=== PATIENT | female | born 1950 | race Caucasian/White ===

== ENCOUNTER 2020-05-02 15:35 | Outpatient (REF) | payer MEDICARE, OTHER, SELFPAY ==
--- NOTE | 2020-05-02 | MM_ITS ---
EXAMINATION: MM SCREENING DIGITAL BREAST TOMOSYNTHESIS, BILATERAL CLINICAL INFORMATION: Screening. Asymptomatic. The lifetime risk of breast cancer based on the Tyrer-Cuzick Model is 2%. COMPARISON: Mammography: 03/15/2019, 09/14/2017, 03/12/2017, 09/03/2016, 08/13/2016 TECHNIQUE: Digital breast tomosynthesis is performed in both the craniocaudal and mediolateral oblique views along with computer-aided detection (CAD). Synthesized 2D images are generated from the tomosynthesis. FINDINGS: There are scattered areas of fibroglandular density (ACR BI-RADS breast composition Category b). There are no significant masses, abnormal calcifications, or other abnormalities. There are chronic calcifications mid and posterior outer right breast which are stable to decreased. MM/MM tomosynthesis screening BI IMPRESSION: No significant changes from prior studies. ASSESSMENT: BI-RADS 2: Benign RECOMMENDATION: Routine annual mammography screening. This patient's information was entered into a reminder system with a target due date for their next mammogram.
== END 2020-05-02 15:36 | disposition home or self-care (01) ==
LOC: HO.MAMMO 15:35
PROVIDERS: PCP Internal Medicine; Visit Provider Internal Medicine
DX: Z12.31 Encounter for screening mammogram for malignant neoplasm of breast (principal)
CPT/HCPCS: 77063; 77067

== ENCOUNTER 2020-05-23 08:16 | Day surgery (SDC) | payer MEDICARE, OTHER, SELFPAY ==
[2020-05-16 14:41] VITALS: BMI 21.7
--- NOTE | 2020-05-22 09:06 | HO.ANESPROP2 ---
Documented by User: Cee Bonilla 05/22/20 09:06 HPI - Anesthesia Eval Consult details Narrative: 70yo F for Colonoscopy [facility] Past Medical History Medical History Basal cell carcinoma Hypertriglyceridemia IFG (impaired fasting glucose) Osteopenia Surgical History Surgical History History of right oophorectomy Hx of colonoscopy Hx of wisdom tooth extraction Social History Social History Alcohol intake: current Alcohol intake frequency: a few times a month Smoking Status: Never smoker Use of substances other than those prescribed or required for medical reasons: No Advance Directives: No Advance Directives Information Provided: No Advance Directives on File: No Meds Allergies Allergy/AdvReac Type Severity Reaction Status Date / Time Penicillins [PENICILLINS] AdvReac Mild GI UPSET Unverified 03/08/20 18:39 Home Medications Medication Instructions Recorded Confirmed Type ascorbic acid (vitamin C) [Vitamin 500 mg PO DAILY 05/16/20 05/16/20 History C] aspirin [Aspir-81] 81 mg PO 3XW 05/16/20 05/16/20 History calcium carbonate-vitamin D3 1 tab PO DAILY 05/16/20 05/16/20 History [Calcium 500 + D] multivitamin 1 tab PO DAILY 05/16/20 05/16/20 History omega 9-isz-qwz-fish oil [Fish Oil] 1 cap PO BID 05/16/20 05/16/20 History Exam Exam Date and Time: May 22, 2020 0906 Height,Weight and Vital Signs: Height 5 ft 1 in Weight 52.163 kg Assessment and Plan Assessment Anesthesia Assessment: Chart Reviewed Documented by User: Shonda Carolina 05/23/20 08:32 [facility] Past Medical History Medical History Basal cell carcinoma Hypertriglyceridemia IFG (impaired fasting glucose) Osteopenia Surgical History Surgical History History of right oophorectomy Hx of colonoscopy Hx of wisdom tooth extraction Social History Social History Alcohol intake: current Alcohol intake frequency: a few times a month Smoking Status: Never smoker Use of substances other than those prescribed or required for medical reasons: No Advance Directives: No Advance Directives Information Provided: No Advance Directives on File: No Meds Allergies Allergy/AdvReac Type Severity Reaction Status Date / Time Penicillins [PENICILLINS] AdvReac Mild GI UPSET Unverified 03/08/20 18:39 Home Medications Medication Instructions Recorded Confirmed Type ascorbic acid (vitamin C) [Vitamin 500 mg PO DAILY 05/16/20 05/16/20 History C] aspirin [Aspir-81] 81 mg PO 3XW 05/16/20 05/16/20 History calcium carbonate-vitamin D3 1 tab PO DAILY 05/16/20 05/16/20 History [Calcium 500 + D] multivitamin 1 tab PO DAILY 05/16/20 05/16/20 History omega 4-idf-dzg-fish oil [Fish Oil] 1 cap PO BID 05/16/20 05/16/20 History Exam Airway Mallampati Class: II TM Dist: >3cm Neck ROM: Full Heart: RRR Lungs: CTA BL Assessment and Plan Assessment Anesthesia Assessment: Anesthesia Plan Discussed and Chart Reviewed Final Anesthetic Review NPO: Yes ASA Class: II Final Preanesthetic Review: Meds/Allgs Chart Reviewed and Consent Obtained/Reviewed Patient Risk: Intermediate Procedure Risk: Intermediate Anesthetic Plan Anesthetic Plan: MAC: Disposition: Standard PACU
[2020-05-23 08:37] VITALS: BP 115/58; PULSE 50; RESP 16; TEMP 36.5; O2SAT 98
--- NOTE | 2020-05-23 09:17 | MHC.SHP ---
Pre-Procedural Eval Section B Chief Complaint: FHX OF COLON CANCER Relevant Family History (Specify if Yes): Yes Relevant Social History: None Present Medications: see Short Stay Collaborative assessment Medical History: Significant History (Basal cell carcinoma Hypertriglyceridemia IFG (impaired fasting glucose) Osteopenia) History of Previous Operations: Relevant previous surgery/procedure and date(s) (right oophorectomy) Allergies: Allergies Allergy/AdvReac Type Severity Reaction Status Date / Time Penicillins [PENICILLINS] AdvReac Mild GI UPSET Unverified 03/08/20 18:39 Review of Systems Sugical H&P ROS: Negative: Constitution, Cardiovascular, Respiratory, Neurological, Psychiatric, Hem-Onc, Allergic/Immunologic, Gastrointestinal, Genitourinary, Musculoskeletal, Integumentary, Endocrine and Eyes/Ears/Nose/Throat Exam Surgical H&P Exam: Normal: HEENT, Normal: Heart, Normal: Lungs, Normal: Extremities, Normal: Abdomen, Normal: Skin and Normal: Neurological Plan Diagnosis/Plan: Unchanged Patient has been examined and remains a candidate for the planned procedure
--- NOTE | 2020-05-23 09:19 | PM.OP ---
Brief Operative Note Date of Service: 05/23/20 Pre-op diagnosis: colon screen, high risk due to FH Post-op diagnosis: same Procedure: see op note Surgeon: John Tran MD Anesthesia: MAC Estimated blood loss (mL): 0 Condition: stable Disposition: PACU
--- NOTE | 2020-05-23 09:19 | W.PM.OPN ---
Operative Note Operative Note Date of Service: 05/23/20 Narrative: Operative Information Procedure Description: Colonoscopy COLONOSCOPY Instrument: Olympus variable stiffness pediatric scope 190L Colonoscopy Monitoring: Vital signs and clinical assessment, continuous EKG monitoring, Pulse oximetry, Carbon Dioxide monitoring and blood pressure monitoring were done throughout the procedure. Colon withdrawal time was 15 minutes. Procedure: The patient was placed in the left lateral decubitis position and pre-procedure medications were administered. After a digital rectal examination of the ano-rectum, the video colonoscope was inserted into the rectum and advanced through the colon to the cecum/TI. The colonoscope was slowly withdrawn in a retrograde panoramic fashion and the colon mucosa was carefully examined including a retroflexed view of the rectum. Findings and interventions are described below. Procedure Difficulty: easy Findings: Terminal Ileum-normal Cecum:normal Ascending Colon: normal Transverse Colon -normal Descending Colon:normal Sigmoid Colon: normal Rectum: Retroflexion with small internal hemorrhoids, grade I Anorectum - normal Colon preparation: [place] Bowel Preparation Scale Right colon; 3 Transverse colon: 2 Left colon; 2 (0 = Unprepared colon segment with mucosa not seen due to solid stool that cannot be cleared. 1 = Portion of mucosa of the colon segment seen, but other areas of the colon segment not well seen due to staining, residual stool and/or opaque liquid. 2 = Minor amount of residual staining, small fragments of stool and/or opaque liquid, but mucosa of colon segment seen well. 3 = Entire mucosa of colon segment seen well with no residual staining, small fragments of stool or opaque liquid) Impression and Post Procedure Diagnosis: internal hemorrhoids Plan: High fiber diet leaflet Avoid straining at stool, epsom salts and sitz bath prn, anusol supps or cream as needed Repeat Colonoscopy in 5 years due to FH or earlier if clinically indicated Above findings were reviewed with the patient and relevant handouts were provided if indicated.
[2020-05-23 10:00] VITALS: BP 100/45; PULSE 69; RESP 16; TEMP 36.7; O2SAT 99
[2020-05-23 10:15] VITALS: BP 101/66; PULSE 65; RESP 16; O2SAT 98
[2020-05-23 10:28] VITALS: BP 114/69; PULSE 59; RESP 16; O2SAT 95
== END 2020-05-23 11:00 | disposition home or self-care (01) ==
PROVIDERS: Internal Medicine Gastroenterology; PCP Internal Medicine; Visit Provider Nuclear Medicine
PROC: 0DJD8ZZ Inspection of Lower Intestinal Tract, Via Natural or Artificial Opening Endoscopic (ICD-10-PCS; CPT 45378; principal; 2020-05-23 09:20)
DX: Z12.11 Encounter for screening for malignant neoplasm of colon (principal); Z80.0 Family history of malignant neoplasm of digestive organs; K64.0 First degree hemorrhoids; E78.1 Pure hyperglyceridemia; M85.80 Other specified disorders of bone density and structure, unspecified site; R73.01 Impaired fasting glucose; Z79.82 Long term (current) use of aspirin; Z85.828 Personal history of other malignant neoplasm of skin; Z88.0 Allergy status to penicillin
CPT/HCPCS: G0105

== ENCOUNTER → 2020-06-12 13:57 | Outpatient (BNVA) | payer MEDICARE, OTHER, SELFPAY | PROVIDERS: PCP Internal Medicine; Visit Provider Nurse Practitioner | DX: Z13.89 Encounter for screening for other disorder (principal) | CPT/HCPCS: Q3014 ==

== ENCOUNTER 2020-07-20 06:58 | Outpatient (REF) | payer MEDICARE, OTHER, SELFPAY ==
[2020-07-20 11:24] LABS: Hematocrit 41.7 % (37-47); Hemoglobin 13.2 g/dl (12.0-16.0); Mean Corpuscular HGB Conc 31.7 g/dl (31.0-35.0); Mean Corpuscular Hemoglobin 28.4 pg (27.0-33.0); Mean Corpuscular Volume 89.9 fL (80-98); Mean Platelet Volume 10.3 fL (9.4-12.3); Platelet Count 254 X10*3/uL (160-400); Red Blood Count 4.64 X10*6/uL (4.20-5.50); Red Cell Distribution Width 13.2 % (11.0-16.0)
[2020-07-20 11:46] LABS: Alanine Aminotransferase 21 U/L (0-31); Albumin Level 4.5 g/dL (3.5-5.0); Alkaline Phosphatase 74 U/L (39-117); Anion Gap 12 (12-20); Aspartate Amino Transferase 25 U/L (5-31); Bilirubin Total 0.8 mg/dL (0.0-1.0); Blood Urea Nitrogen 14 mg/dL (9-16); Calcium 9.1 mg/dL (8.4-10.2); Carbon Dioxide 31 mmol/L (22-29); Chloride 103 mmol/L (96-108); Cholesterol 207 mg/dL; Estimated Glomerular Filt Rate > 60; Glucose Fasting 77 mg/dL (60-99); HDL Cholesterol 62 mg/dL; LDL Cholesterol Calculated 121 mg/dl; Potassium 4.6 mmol/L (3.3-5.1); Sodium 141 mmol/L (135-145); Total Protein 6.8 g/dL (6.5-8.0); Triglycerides 123 mg/dL
[2020-07-20 12:13] LABS: Thyroid Stimulating Hormone 4.09 uIU/mL (0.32-4.0); Vitamin D 25-OH Total 44.5 ng/mL (>30)
== END 2020-07-20 06:59 | disposition home or self-care (01) ==
LOC: HO.HMGCLDS 06:58
PROVIDERS: PCP Internal Medicine; Visit Provider Internal Medicine
DX: Z00.00 Encounter for general adult medical examination without abnormal findings (principal); M85.80 Other specified disorders of bone density and structure, unspecified site
CPT/HCPCS: 36415; 80053; 80061; 82306; 84443; 85027

== ENCOUNTER 2020-07-25 | Outpatient (REF) | payer MEDICARE, OTHER, SELFPAY ==
[2020-07-29 02:08] LABS: HPV mRNA E6/E7 Not Detected (Not Detected)
== END 2020-07-25 00:01 | disposition home or self-care (01) ==
LOC: HO.LNP
PROVIDERS: Visit Provider Internal Medicine
DX: Z12.4 Encounter for screening for malignant neoplasm of cervix (principal)
CPT/HCPCS: 87624; 88142

== ENCOUNTER 2020-08-03 07:43 | Outpatient (REF) | payer MEDICARE, OTHER, SELFPAY ==
--- NOTE | ~2020-08-03 | US_ITS ---
Diagnostic right breast ultrasound is included in a single combined report along with the diagnostic right breast digital tomosynthesis under accession number [id number].
--- NOTE | ~2020-08-03 | MM_ITS ---
EXAMINATION: MM DIAGNOSTIC DIGITAL BREAST TOMOSYNTHESIS, RIGHT US DIAGNOSTIC ULTRASOUND BREAST, RIGHT CLINICAL INFORMATION: Palpable fullness at clinical exam near right axilla. Clinical exam performed closely following COVID-19 vaccine right side. No palpable concern noted by patient at time of appointment. The lifetime risk of breast cancer based on the Tyrer-Cuzick Model is 3%. COMPARISON: Mammography: 05/02/2020, 03/15/2019, 09/14/2017, 03/12/2017 TECHNIQUE: Digital breast tomosynthesis is performed in both the craniocaudal and mediolateral oblique views along with computer-aided detection (CAD). Synthesized 2D images are generated from the tomosynthesis. Ultrasound right breast is targeted to the area of clinical concern posterior upper outer quadrant and axilla. Grayscale imaging and color Doppler are performed without and with harmonics. FINDINGS: There are scattered areas of fibroglandular density (ACR BI-RADS breast composition Category b). Parenchymal pattern is similar to prior studies. There is no developing density or interval mass or architectural abnormality. Again, there are fine calcifications mid to posterior outer breast, stable from prior diagnostic mammography 2017. There is no skin thickening or coarsening of the Velasquez's ligaments. No lymphadenopathy. Ultrasound right breast and axilla demonstrates no cystic or solid mass or architectural abnormality. Incidental benign right axillary node is demonstrated measuring 0.6 x 1.4 cm with normal erin architecture. No cortical thickening. Results are discussed with the patient at time of visit. MM/MM tomosynthesis diagnostic RT IMPRESSION: 1. No mammographic evidence of malignancy. 2. Unremarkable targeted right breast and axillary ultrasound. No lymphadenopathy. ASSESSMENT: BI-RADS 2: Benign RECOMMENDATION: 1. Patient should be managed based on the clinical impression. If clinically indicated, further evaluation may be considered with surgical consult. Decision to proceed with biopsy should be based on clinical grounds and degree of clinical concern. 2. Otherwise, routine annual screening mammography. This patient's information was entered into a reminder system with a target due date for their next mammogram.
== END 2020-08-03 07:44 | disposition home or self-care (01) ==
LOC: HO.MAMMO 07:43
PROVIDERS: Visit Provider Internal Medicine
DX: N63.11 Unspecified lump in the right breast, upper outer quadrant (principal)
CPT/HCPCS: 76642; 77061; 77065

== ENCOUNTER → 2020-09-25 15:48 | Outpatient (BNVA) | payer MEDICARE, OTHER, SELFPAY | PROVIDERS: PCP Internal Medicine; Visit Provider Surgery | DX: C43.71 Malignant melanoma of right lower limb, including hip (principal) | CPT/HCPCS: 99202 ==

== ENCOUNTER 2020-09-27 10:46 | Day surgery (SDC) | payer MEDICARE, OTHER, SELFPAY ==
--- NOTE | 2020-09-26 11:47 | HO.ANESPROP2 ---
Documented by User: Cee Irene 09/26/20 11:48 HPI - Anesthesia Eval Consult details Narrative: 70yo F for Right Wide Thigh Excision of Malignant Melanoma PMFSH Active Problems Active Problems: All Active Problems (Updated 09/25/20 @ 17:05 by Bravo Molina MD) Malignant melanoma of skin of right thigh (Acute) Breast mass (Acute) Vitamin D deficiency (Acute) Annual physical exam (Acute) Normal colonoscopy (Acute) Osteopenia (Acute) Hypothyroidism (Acute) Family history of colon cancer (Acute) Past Medical History Medical History Annual physical exam Basal cell carcinoma Breast mass Hypertriglyceridemia Hypothyroidism IFG (impaired fasting glucose) Normal colonoscopy Osteopenia Vitamin D deficiency Family History Family History Father Heart problem Dementia Ruptured appendix Mother Colon cancer Dementia Sister Ruptured appendix Aneurysm Brother Kidney stones Surgical History Surgical History History of right oophorectomy Hx of colonoscopy Hx of wisdom tooth extraction Social History Social History Alcohol intake: current Alcohol intake frequency: a few times a month Smoking Status: Never smoker Use of substances other than those prescribed or required for medical reasons: No Advance Directives: No Advance Directives Information Provided: Yes Meds Allergies Allergy/AdvReac Type Severity Reaction Status Date / Time Penicillins [PENICILLINS] AdvReac Mild GI UPSET Verified 09/27/20 11:37 Home Medications Medication Instructions Recorded Confirmed Last Taken Type ascorbic acid (vitamin C) [Vitamin 500 mg PO DAILY 05/16/20 09/25/20 Unknown History C] aspirin [Aspir-81] 81 mg PO 3XW 05/16/20 09/25/20 09/26/20 History multivitamin 1 tab PO DAILY 05/16/20 09/25/20 Unknown History omega 9-wtr-ntt-fish oil [Fish Oil] 1 cap PO BID 05/16/20 09/25/20 Unknown History flu vacc 2019-(66yr ml IM 07/25/20 09/25/20 Unknown History up)-MF59C(PF) 60 mcg(15 mcgx4)/0.5 mL IM syringe fluticasone propionate 0.05 % appl TOPICAL BID 09/25/20 09/25/20 Unknown History topical cream Exam Exam Date and Time: September 26, 2020 1147 Pertinent Lab Results Pertinent Lab Results: Laboratory Tests 07/20/20 07/20/20 07:05 07:05 WBC 5.0 Hgb 13.2 Hct 41.7 Plt Count 254 Sodium 141 Potassium 4.6 Chloride 103 Carbon Dioxide 31 H BUN 14 Creatinine 0.84 Assessment and Plan Assessment Anesthesia Assessment: Chart Reviewed Documented by User: Alcira Chandra 09/27/20 13:09 [facility] Past Medical History Medical History Annual physical exam Basal cell carcinoma Breast mass Hypertriglyceridemia Hypothyroidism IFG (impaired fasting glucose) Normal colonoscopy Osteopenia Vitamin D deficiency Family History Family History Father Heart problem Dementia Ruptured appendix Mother Colon cancer Dementia Sister Ruptured appendix Aneurysm Brother Kidney stones Surgical History Surgical History History of right oophorectomy Hx of colonoscopy Hx of wisdom tooth extraction Social History Social History Alcohol intake: current Alcohol intake frequency: a few times a month Smoking Status: Never smoker Use of substances other than those prescribed or required for medical reasons: No Advance Directives: No Advance Directives Information Provided: Yes Meds Allergies Allergy/AdvReac Type Severity Reaction Status Date / Time Penicillins [PENICILLINS] AdvReac Mild GI UPSET Verified 09/27/20 11:37 Home Medications Medication Instructions Recorded Confirmed Last Taken Type ascorbic acid (vitamin C) [Vitamin 500 mg PO DAILY 05/16/20 09/25/20 Unknown History C] aspirin [Aspir-81] 81 mg PO 3XW 05/16/20 09/25/20 09/26/20 History multivitamin 1 tab PO DAILY 05/16/20 09/25/20 Unknown History omega 3-kjj-cyr-fish oil [Fish Oil] 1 cap PO BID 05/16/20 09/25/20 Unknown History flu vacc 2020-21(66yr ml IM 07/25/20 09/25/20 Unknown History up)-MF59C(PF) 60 mcg(15 mcgx4)/0.5 mL IM syringe fluticasone propionate 0.05 % appl TOPICAL BID 09/25/20 09/25/20 Unknown History topical cream Exam Airway Mallampati Class: II TM Dist: >3cm Neck ROM: Full Assessment and Plan Assessment Anesthesia Assessment: Anesthesia Plan Discussed and Chart Reviewed Final Anesthetic Review NPO: Yes ASA Class: II Final Preanesthetic Review: No Changes in Pt Med Stat, Meds/Allgs Chart Reviewed, Consent Obtained/Reviewed and Anes Risks/Benef Reviewed Patient Risk: Low Procedure Risk: Low Assessment/Block/Sedation in SS: Assess/Block/Sedation-SS Anesthetic Plan Anesthetic Plan: MAC: Disposition: Standard PACU
[2020-09-27 11:16] VITALS: BMI 21.7
[2020-09-27 11:27] VITALS: BP 124/51; PULSE 51; RESP 16; TEMP 36.4; O2SAT 100
--- NOTE | 2020-09-27 12:55 | MHC.SHP ---
Pre-Procedural Eval Section A The patient is an INPATIENT: No Changes since office visit: Yes Patient answered all questions; No Cold of Flu in the past 2 weeks, No New Medical Problems and No Changes in Medication The History & Physical has been completed within 30 days and I have reviewed it.: Yes Section B Chief Complaint: Malignant melanoma of skin of right thigh Allergies: Allergies Allergy/AdvReac Type Severity Reaction Status Date / Time Penicillins [PENICILLINS] AdvReac Mild GI UPSET Verified 09/27/20 11:37 Plan Diagnosis/Plan: Unchanged I have reviewed the history and physical and performed a pertinent physical examination on my patient. No changes have occurred unless specified.
--- NOTE | 2020-09-27 13:58 | P.OP_ITS ---
Operative Note Operative Note Date of Service: 09/27/20 Narrative: Preoperative diagnosis: Malignant melanoma right lower thigh Postoperative diagnosis: Same Procedure: Wide excision of malignant melanoma right lower thigh Surgeon: Bravo Molina MD Nutrition Program Instructor: None Anesthesia: Mac plus local Indications for procedure: 70-year-old female presenting with a an evolving nevus of the right lower thigh recently shaved and found to be a malignant melanoma, superficial spreading type, 0.3 mm depth, level II. Patient presents today for wide excision of this lesion. She denies a previous history of malignant melanoma but has had a previous basal cell of the face. Operative findings: Lesion excised off the lower right thigh with 1 cm margins, wounds closed primarily Specimen: Malignant melanoma right thigh Estimated blood loss: 20 mL Complications: None Procedure details: Patient was brought to the OR placed in a supine position. After administering light sedation the patient's right leg was prepped with Betadine and draped in a sterile fashion. A surgical time-out was called the consent confirmed. Patient received preoperative antibiotics. Excision site is located in the distal right lateral thigh. A 1 cm margin was marked in local anesthesia infiltrated consisting of 1% lidocaine plain and 0.5% Sensorcaine plain. An elliptical incision was then created oriented longitudinally and carried down through subcutaneous tissue and up the muscle fascia. The specimen was then dissected off muscle fascia in the lesions sent to pathology for further examination. Specimen was marked with a long suture on the lateral margin short suture on the superior margin and looped suture on the medial margin. Hemostasis was assured using electrocautery. Deep subcutaneous tissue and dermis were then reapproximated using interrupted 3 0 Polysorb sutures. Skin was then closed using interrupted 3-0 nylon sutures. Wounds were then dressed using Xeroform followed by fluffed gauze, 3 in Maggie and a 4 in [place] bandage. Patient tolerated the procedure well. Sponge, instrument, needle counts reported as correct. The patient was transferred to PACU in stable condition.
[2020-09-27 14:00] VITALS: BP 108/80; PULSE 47; RESP 18; TEMP 36.3; O2SAT 100
[2020-09-27 14:15] VITALS: BP 103/62; PULSE 44; RESP 16; O2SAT 100
[2020-09-27 14:30] VITALS: BP 113/57; PULSE 43; RESP 18; O2SAT 99
[2020-09-27 14:45] VITALS: BP 140/58; PULSE 46; RESP 16; TEMP 36.5; O2SAT 100
[2020-09-27] MEDS: Acetaminophen 325 MG TABLET 650 MG PO (14:56)
== END 2020-09-27 15:15 | disposition home or self-care (01) ==
PROVIDERS: PCP Internal Medicine; Visit Provider Surgery
PROC: (CPT 11603; principal; 2020-09-27 12:40)
DX: C43.71 Malignant melanoma of right lower limb, including hip (principal); Z88.0 Allergy status to penicillin
CPT/HCPCS: 11603; 88305; J0690; J1100; J2250; J2405; J3010

== ENCOUNTER → 2020-10-05 08:43 | Outpatient (BNVA) | payer MEDICARE, OTHER, SELFPAY | PROVIDERS: PCP Internal Medicine; Visit Provider Surgery | DX: Z48.3 Aftercare following surgery for neoplasm (principal); Z85.828 Personal history of other malignant neoplasm of skin | CPT/HCPCS: 99212 ==

== ENCOUNTER → 2020-10-12 08:26 | Outpatient (BNVA) | payer MEDICARE, OTHER, SELFPAY | PROVIDERS: PCP Internal Medicine; Visit Provider Surgery | DX: Z48.3 Aftercare following surgery for neoplasm (principal); Z85.820 Personal history of malignant melanoma of skin | CPT/HCPCS: 99212 ==

== ENCOUNTER 2021-05-09 15:37 | Outpatient (REF) | payer MEDICARE, OTHER, SELFPAY ==
--- NOTE | ~2021-05-09 | MM_ITS ---
EXAMINATION: MM SCREENING DIGITAL BREAST TOMOSYNTHESIS, BILATERAL CLINICAL INFORMATION: Screening. Asymptomatic. The lifetime risk of breast cancer based on the Tyrer-Cuzick Model is 4%. COMPARISON: Mammography: 04/02/2021, 05/02/2020, 03/15/2019, 09/14/2017, 03/12/2017 TECHNIQUE: Digital breast tomosynthesis is performed in both the craniocaudal and mediolateral oblique views along with computer-aided detection (CAD). Synthesized 2D images are generated from the tomosynthesis. FINDINGS: There are scattered areas of fibroglandular density (ACR BI-RADS breast composition Category b). There are no significant masses, abnormal calcifications, or other abnormalities. There is no developing density. There are fine calcifications again seen right breast mid and posterior outer quadrant similar to prior studies. The axilla and skin contours are unremarkable. MM/MM tomosynthesis screening BI IMPRESSION: There are no significant changes from prior exams. ASSESSMENT: BI-RADS 2: Benign RECOMMENDATION: Routine annual mammography screening. This patient's information was entered into a reminder system with a target due date for their next mammogram.
== END 2021-05-09 15:38 | disposition home or self-care (01) ==
LOC: HO.MAMMO 15:37
PROVIDERS: PCP Internal Medicine; Visit Provider Internal Medicine
DX: Z12.31 Encounter for screening mammogram for malignant neoplasm of breast (principal)
CPT/HCPCS: 77063; 77067

== ENCOUNTER 2021-07-11 07:10 | Outpatient (REF) | payer MEDICARE, OTHER, SELFPAY ==
[2021-07-11 11:18] LABS: MANUAL DIFF FLAG NO
[2021-07-11 11:40] LABS: Basophils Absolute Auto 0.1 X10*3/uL (0.0-0.2); Basophils Percent Auto 1.5 % (0-2); Eosinophils Absolute Auto 0.3 X10*3/uL (0.0-0.4); Eosinophils Percent Auto 6.3 % (0-4); Hematocrit 41.7 % (37.0-47.0); Hemoglobin 13.5 g/dl (12.0-16.0); Imm Gran Abs Auto 0.01 X10*3/uL (0.00-0.03); Imm Gran Pct Auto 0.2 % (0.0-0.4); Lymphocytes Absolute Auto 1.6 X10*3/uL (1.2-4.9); Lymphocytes Percent Auto 34.6 % (20-40); Mean Corpuscular HGB Conc 32.4 g/dl (31.0-35.0); Mean Corpuscular Volume 89.5 fL (80.0-98.0); Mean Platelet Volume 10.3 fL (9.4-12.3); Monocytes Absolute Auto 0.4 X10*3/uL (0.1-1.2); Monocytes Percent Auto 8.7 % (2-11); Neutrophils Absolute Auto 2.2 x10*3/uL (2.0-8.3); Neutrophils Percent Auto 48.7 % (45-73); Platelet Count 269 X10*3/uL (160-400); Red Blood Count 4.66 X10*6/uL (4.20-5.50); Red Cell Distribution Width 13.5 % (11.0-16.0); White Blood Count 4.6 X10*3/uL (4.8-10.8)
[2021-07-11 11:54] LABS: Alanine Aminotransferase 21 U/L (0-31); Albumin Level 4.4 g/dL (3.5-5.0); Alkaline Phosphatase 68 U/L (39-117); Anion Gap 12 (12-20); Aspartate Amino Transferase 26 U/L (5-31); Bilirubin Total 0.7 mg/dL (0.0-1.0); Blood Urea Nitrogen 20 mg/dL (9-16); Calcium 10.1 mg/dL (8.4-10.2); Carbon Dioxide 31 mmol/L (22-29); Chloride 105 mmol/L (96-108); Cholesterol 213 mg/dL; Estimated Glomerular Filt Rate > 60; Glucose Fasting 85 mg/dL (60-99); HDL Cholesterol 63 mg/dL; LDL Cholesterol Calculated 130 mg/dl; Sodium 143 mmol/L (135-145); Triglycerides 104 mg/dL
[2021-07-11 12:18] LABS: Free T4 (Free Thyroxine) 0.77 ng/dL (0.71-1.85); Thyroid Stimulating Hormone 4.66 uIU/mL (0.32-4.0)
== END 2021-07-11 07:11 | disposition home or self-care (01) ==
LOC: HO.HMGCLDS 07:10
PROVIDERS: Visit Provider Internal Medicine
DX: Z00.00 Encounter for general adult medical examination without abnormal findings (principal); E03.9 Hypothyroidism, unspecified; E55.9 Vitamin D deficiency, unspecified; M85.80 Other specified disorders of bone density and structure, unspecified site
CPT/HCPCS: 36415; 80053; 80061; 82306; 84439; 84443; 85025

== ENCOUNTER 2022-05-13 09:59 | Outpatient (REF) | payer MEDICARE, OTHER, SELFPAY ==
--- NOTE | ~2022-05-13 | MM_ITS ---
EXAMINATION: MM SCREENING DIGITAL BREAST TOMOSYNTHESIS, BILATERAL CLINICAL INFORMATION: Screening. Asymptomatic. The lifetime risk of breast cancer based on the Tyrer-Cuzick Model is 3%. COMPARISON: Mammography: 05/09/2021, 08/03/2020, 05/02/2020, 03/15/2019 TECHNIQUE: Digital breast tomosynthesis is performed in both the craniocaudal and mediolateral oblique views along with computer-aided detection (CAD). Synthesized 2D images are generated from the tomosynthesis. FINDINGS: There are scattered areas of fibroglandular density (ACR BI-RADS breast composition Category b). Parenchymal pattern is similar to prior exams and there is no developing density or interval mass or architectural abnormality. There are stable chronic calcifications again seen mid and posterior outer right breast and some scattered calcifications anterior left breast. There are 2 dermal lesions overlying the upper left breast. The axilla are unremarkable. No significant changes. MM/MM tomosynthesis screening BI IMPRESSION: No mammographic evidence of malignancy. ASSESSMENT: BI-RADS 2: Benign RECOMMENDATION: Routine annual mammography screening. This patient's information was entered into a reminder system with a target due date for their next mammogram.
--- NOTE | ~2022-05-13 | MM_ITS ---
EXAMINATION: BONE DENSITOMETRY CLINICAL INDICATION: Other specified disorders of bone density and structure. COMPARISON: Previous BD dated 03/15/2019 and baseline BD dated 03/12/2017. TECHNIQUE: Using a Splother DXA System (software version: 13.1) manufactured by [employer], dual-energy x-ray absorptiometry was performed of the lumbar spine and left hip. The images are of good technical quality. Summary results are attached. FINDINGS: AP SPINE L1-L4: Current: BMD 0.870 g/cm2, Z-score -0.5, T-score -2.6, osteoporosis, 8.3% decrease from previous, 11.0% decrease from baseline (<5% change is not significant). Prior: BMD 0.949 g/cm2. Baseline: BMD 0.978 g/cm2. LEFT FEMUR, NECK: Current: BMD 0.890 g/cm2, Z-score 0.9, T-score -1.1, osteopenia. Prior: BMD 0.872 g/cm2. Baseline: BMD 0.914 g/cm2. LEFT FEMUR, TOTAL: Current: BMD 0.893 g/cm2, Z-score 0.9, T-score -0.9, normal, 0.8% decrease from previous, 4.2% decrease from baseline (<5% change is not significant). Prior: BMD 0.900 g/cm2. Baseline: BMD 0.932 g/cm2. IDENTIFIED RISK FACTORS: Early menopause, secondary osteoporosis, right oophorectomy, height loss. HISTORY OF FRACTURE: None listed. MEDICATIONS: Calcium supplements or multivitamin, vitamin D. MM/XR DEXA axial skeleton IMPRESSION: 1. DIAGNOSIS: Osteoporosis based on the lowest T-score value of -2.6 in the lumbar spine applying World Health Organization criteria. 2. 10-YEAR FRACTURE RISK PREDICTION, FRAX: According to the guidelines, FRAX calculation should only be performed on patients in the osteopenia bone density category. Therefore, FRAX was not performed on this patient. 3. Treatment Recommendations: NOF guidelines recommend consideration for treatment in postmenopausal women and men age 50 and older presenting with the following: -A hip or vertebral (clinical or morphometric) fracture. -T-score less than or equal to -2.5 at the femoral neck or spine after appropriate evaluation to exclude secondary causes. -Low bone mass at the hip or spine and a 10-year fracture probability by FRAX of greater than or equal to 3% for hip fracture or greater than or equal to 20% for major osteoporotic fracture based on the [place] adapted WHO algorithm. 4. Other Recommendations: All treatment decisions require clinical judgment and consideration of individual patient factors, including patient preferences, comorbidities, previous drug use, risk factors not captured in the FRAX model (e.g. frailty, falls, vitamin D deficiency, increased bone turnover, interval significant decline in bone density) and possible under or overestimation of fracture risk by FRAX. Additional medical evaluation for secondary cause of low bone mineral density may be appropriate. FUTURE SCAN RECOMMENDATION: People with diagnosed cases of osteoporosis or at high risk for fracture should have regular bone mineral density tests. For patients eligible for Medicare, routine testing is allowed once every 2 years. The testing frequency can be increased to one year for patients who have rapidly progressing disease, those who are receiving or discontinuing medical therapy to restore bone mass, or have additional risk factors.
== END 2022-05-13 10:00 | disposition home or self-care (01) ==
LOC: HO.MAMMO 09:59
PROVIDERS: Visit Provider Internal Medicine
DX: Z12.31 Encounter for screening mammogram for malignant neoplasm of breast (principal); Z13.820 Encounter for screening for osteoporosis; Z78.0 Asymptomatic menopausal state; M85.80 Other specified disorders of bone density and structure, unspecified site
CPT/HCPCS: 77063; 77067; 77080

== ENCOUNTER 2022-07-11 09:58 | Outpatient (REF) | payer MEDICARE, OTHER, SELFPAY ==
--- NOTE | ~2022-07-11 | XR_ITS ---
EXAMINATION: XR ABDOMEN COMPLETE CLINICAL INDICATION: Unspecified abdominal pain. COMPARISON: None TECHNIQUE: 2 views of the abdomen. FINDINGS: Lung bases are normal. Bowel gas pattern is normal. No dilated bowel loops. A somewhat ovoid 1.6 cm calcification projecting to the right of L3 and L4 presumably represents cholelithiasis. Mild levoscoliosis of the lumbar spine. XR/XR abdomen min 2V IMPRESSION: * No acute radiographic findings in the abdomen. No bowel obstruction. * Probable cholelithiasis.
[2022-07-11 11:20] LABS: Appearance Urine Clear; Color Urine Yellow; Glucose Urine UA Negative (Negative); Leukocyte Esterase Urine Small (1+) (Negative); Nitrite Urine Negative (Negative); PH 6.5 (5.0-9.0); UMIC TRIGGER UA YES; Urine Blood Negative (Negative); Urine Ketones Negative (Negative); Urine Protein Negative (Neg-Trace)
[2022-07-11 11:35] LABS: Hematocrit 39.4 % (37.0-47.0); Hemoglobin 12.7 g/dl (12.0-16.0); Mean Corpuscular HGB Conc 32.2 g/dl (31.0-35.0); Mean Corpuscular Hemoglobin 28.8 pg (27.0-33.0); Mean Corpuscular Volume 89.3 fL (80.0-98.0); Mean Platelet Volume 10.2 fL (9.4-12.3); Platelet Count 271 X10*3/uL (160-400); Red Blood Count 4.41 X10*6/uL (4.20-5.50); Red Cell Distribution Width 13.7 % (11.0-16.0); White Blood Count 7.7 X10*3/uL (4.8-10.8)
[2022-07-11 11:43] LABS: Bacteria Urine None Seen (None Seen); Hyaline Casts Urine 0-2 /LPF (0-2); RBC Urine 0-2 /HPF (0-2); Squamous Epithelial Cell Urine 0-2 /HPF (0-2); WBC Urine 0-5 /HPF (0-5)
[2022-07-11 12:13] LABS: Alanine Aminotransferase 43 U/L (0-31); Albumin Level 4.3 g/dL (3.5-5.0); Alkaline Phosphatase 85 U/L (39-117); Anion Gap 11 (12-20); Aspartate Amino Transferase 42 U/L (5-31); Bilirubin Direct 0.2 mg/dL (0.0-0.5); Bilirubin Total 0.5 mg/dL (0.0-1.0); Blood Urea Nitrogen 13 mg/dL (9-16); Calcium 9.2 mg/dL (8.4-10.2); Carbon Dioxide 29 mmol/L (22-29); Chloride 103 mmol/L (96-108); Estimated Glomerular Filt Rate > 60; Glucose Random 72 mg/dL (60-115); Potassium 4.5 mmol/L (3.3-5.1); Sodium 138 mmol/L (135-145); Total Protein 6.7 g/dL (6.5-8.0)
[2022-07-11 12:30] LABS: Erythrocyte Sedimentation Rate 18 MM/HR (0-20)
== END 2022-07-11 09:59 | disposition home or self-care (01) ==
LOC: HO.HMGCX 09:58
PROVIDERS: PCP Internal Medicine; Visit Provider Internal Medicine
DX: R10.9 Unspecified abdominal pain (principal)
CPT/HCPCS: 36415; 74019; 80048; 80076; 81001; 85027; 85652

== ENCOUNTER 2022-07-14 09:16 | Outpatient (REF) | payer MEDICARE, OTHER, SELFPAY ==
--- NOTE | ~2022-07-14 | CT_ITS ---
EXAMINATION: CT ABDOMEN AND PELVIS WITH CONTRAST CLINICAL INFORMATION: Abdominal pain COMPARISON: None TECHNIQUE: Multidetector volumetric images were obtained from the superior aspect of the liver through the pubic symphysis following administration 85 mL of Omnipaque 350 intravenous contrast. Sagittal and coronal reformatted images were obtained on the technologist's workstation. Oral contrast: No This CT examination was performed using dose optimization techniques as appropriate, variously including the following: *Automated exposure control *Adjustment of mA and/or kV according to patient size (this includes techniques or standardized protocols for targeted exams where dose is matched to indication/reason for exam; i.e. extremities or head) *Use of iterative reconstruction technique DLP: 251 mGy-cm FINDINGS: LUNG BASES: The visualized lung bases are unremarkable. LIVER, GALLBLADDER, AND BILIARY TREE: The liver is normal in size, shape, and attenuation. No focal hepatic lesion or biliary ductal dilatation is present. Small calcified stones seen in the gallbladder. No gallbladder wall thickening or distention. No biliary duct dilatation seen. PANCREAS: Unremarkable. SPLEEN: Unremarkable. ADRENAL GLANDS: Unremarkable. KIDNEYS AND URETERS: The kidneys are normal in size, shape, and attenuation. No hydronephrosis, hydroureter, or calculi seen. No perinephric stranding. BLADDER: Unremarkable. GASTROINTESTINAL TRACT: The small and large bowel are unremarkable. The appendix is unremarkable. ABDOMINAL WALL: No significant hernia is appreciated. LYMPH NODES: Normal. VASCULAR: Unremarkable. PELVIC VISCERA: Status post hysterectomy. No adnexal mass lesion seen OSSEOUS STRUCTURES: Unremarkable. CT/CT abdomen pelvis w IV con IMPRESSION: Cholelithiasis. No acute inflammatory or infectious process seen
[2022-07-14] MEDS: Barium Sulfate Oral (Mocha) 450 ML ORAL.SUSP 900 ML PO (11:40)
[2022-07-14] MEDS: iohexoL 350 MG/ML 100 ML INFUS..BTL IV (11:40)
== END 2022-07-14 09:17 | disposition home or self-care (01) ==
LOC: HO.CT 09:16
PROVIDERS: PCP Internal Medicine; Visit Provider Internal Medicine
DX: R10.9 Unspecified abdominal pain (principal)
CPT/HCPCS: 74177; Q9967

== ENCOUNTER 2022-07-25 07:17 | Outpatient (REF) | payer MEDICARE, OTHER, SELFPAY ==
[2022-07-25 11:33] LABS: Hematocrit 40.1 % (37.0-47.0); Mean Corpuscular HGB Conc 32.4 g/dl (31.0-35.0); Mean Corpuscular Volume 89.3 fL (80.0-98.0); Mean Platelet Volume 10.2 fL (9.4-12.3); Platelet Count 337 X10*3/uL (160-400); Red Blood Count 4.49 X10*6/uL (4.20-5.50); Red Cell Distribution Width 13.9 % (11.0-16.0); White Blood Count 5.2 X10*3/uL (4.8-10.8)
[2022-07-25 12:00] LABS: Alanine Aminotransferase 18 U/L (0-31); Albumin Level 4.2 g/dL (3.5-5.0); Alkaline Phosphatase 75 U/L (39-117); Anion Gap 11 (12-20); Aspartate Amino Transferase 24 U/L (5-31); Bilirubin Total 0.5 mg/dL (0.0-1.0); Blood Urea Nitrogen 23 mg/dL (9-16); Calcium 9.4 mg/dL (8.4-10.2); Carbon Dioxide 31 mmol/L (22-29); Chloride 105 mmol/L (96-108); Cholesterol 211 mg/dL; Estimated Glomerular Filt Rate > 60; Glucose Fasting 87 mg/dL (60-99); HDL Cholesterol 61 mg/dL; LDL Cholesterol Calculated 137 mg/dl; Potassium 4.3 mmol/L (3.3-5.1); Sodium 143 mmol/L (135-145); TSH reflex Free T4 3.76 uIU/mL (0.32-4.0); Total Protein 6.5 g/dL (6.5-8.0); Triglycerides 68 mg/dL; Vitamin D 25-OH Total 44.1 ng/mL (>30)
== END 2022-07-25 07:18 | disposition home or self-care (01) ==
LOC: HO.HMGCLDS 07:17
PROVIDERS: PCP Internal Medicine; Visit Provider Internal Medicine
DX: Z00.00 Encounter for general adult medical examination without abnormal findings (principal); E03.9 Hypothyroidism, unspecified; E55.9 Vitamin D deficiency, unspecified
CPT/HCPCS: 36415; 80053; 80061; 82306; 84443; 85027

== ENCOUNTER 2022-07-30 13:57 | Outpatient (REF) | payer MEDICARE, OTHER, SELFPAY ==
[2022-07-30 16:43] LABS: Appearance Urine Clear; Color Urine Yellow; Glucose Urine UA Negative (Negative); Leukocyte Esterase Urine Negative (Negative); Nitrite Urine Negative (Negative); PH 5.5 (5.0-9.0); Specific Gravity - Urine 1.025 (1.005-1.025); Urine Blood Negative (Negative); Urine Ketones Negative (Negative); Urine Protein Negative (Neg-Trace)
[2022-07-30 16:52] LABS: Bacteria Urine None Seen (None Seen); Hyaline Casts Urine 0-2 /LPF (0-2); RBC Urine 0-2 /HPF (0-2); Squamous Epithelial Cell Urine 0-2 /HPF (0-2); WBC Urine 0-5 /HPF (0-5)
[2022-07-30 16:53] LABS: Calcium Oxalate Crystals Urine Present
== END 2022-07-30 13:58 | disposition home or self-care (01) ==
LOC: HO.HMGCLDS 13:57
PROVIDERS: PCP Internal Medicine; Visit Provider Internal Medicine
DX: R30.0 Dysuria (principal)
CPT/HCPCS: 81001

== ENCOUNTER 2023-04-17 10:42 | Outpatient (AMB) | payer MEDICARE, OTHER, SELFPAY ==
--- NOTE | 2023-04-17 10:52 | A.OFFPC_ITS ---
Vital Signs 04/17/23 10:53 Height 5 ft 1 in Weight 118 lb BMI 22.3 BP 94/58 L Blood Pressure Location Lt brachial Position Sitting Pulse 59 Pulse Source Pulse Oximeter Pulse Oximetry (%) 97 Oxygen Delivery Method Room Air Intake Visit Reasons: Post COVID cough and fatigue Intake Note: Pt is here today for a follow up visit after having COVID. Allergies Penicillins [PENICILLINS] Adverse Reaction (Mild, Verified 04/17/23 10:55) GI UPSET Medication List - Last Reconciled 04/17/23 by Jia Bolden MD ascorbic acid (vitamin C) (Vitamin C) 500 mg PO DAILY aspirin 81 mg PO 3XW flu vac 2019 [id number](PF) 60 mcg (15 mcg x 4)/0.5 mL mL IM multivitamin 1 tab PO DAILY omega 5-wha-xpz-fish oil 1,200 (144-216) mg (Fish Oil) 1 cap PO BID vitamin K2 PO Tobacco use date assessed: 04/17/23 Dental Screening Dental Screen Date: 04/17/23 Did you have a dental visit in the last 12 months?: Yes Did you have a dental problem in the last 6 months where you did not have access to dental care?: No Was dental information given to patient?: Patient has dentist HPI Post COVID cough and fatigue HPI Details Patient presents complaining of persistent dry cough and fatigue for 3 weeks. He had upper respiratory infection 3 weeks ago tested positive for COVID. She took Paxlovid but reports persistent dry cough postnasal drip sinus congestion and general fatigue. She denies pleurisy fever chills or night sweats PFSH Medical History (Updated 04/17/23 @ 11:24 by Jia Bolden MD) Osteoporosis Breast mass Vitamin D deficiency Annual physical exam Normal colonoscopy Hypothyroidism IFG (impaired fasting glucose) Osteopenia Hypertriglyceridemia Basal cell carcinoma Surgical History History of right oophorectomy Hx of colonoscopy Hx of wisdom tooth extraction Family History (Updated 04/17/23 @ 10:59 by [place] David Allison) Father Heart problem Dementia Ruptured appendix Mother Colon cancer Dementia Sister Ruptured appendix Aneurysm Brother Kidney stones Social History Housing: House Alcohol intake: current Alcohol intake frequency: a few times a month Patient Tobacco Use Status: Former Tobacco user e-Cigarette/Vaping Use: Never Used Current occupational status: retired Cognitive needs: No Hearing needs: No Vision needs: Yes Questionnaire Thrive Questionnaire Date Thrive assessed: 07/30/22 AUDIT C Alcohol Use Questionnaire (AUDIT-C) 1. How often do you have a drink containing alcohol?: Monthly or less 2. How many drinks containing alcohol do you have on a typical day when you are drinking?: 1 or 2 3. How often do you have six or more drinks on one occasion?: Never Total Score: 1 MELLO-7 AMB Questionnaire MELLO-7 Date MELLO - 7 assessed: 07/30/22 Feeling nervous, anxious, or on edge: 0 = Not at all Not being able to stop or control worryin = Not at all Worrying too much about different things: 0 = Not at all Trouble relaxin = Not at all Being so restless that it is hard to sit still: 0 = Not at all Becoming easily annoyed or irritable: 0 = Not at all Feeling afraid as if something awful might happen: 0 = Not at all Total MELLO-7 score (0-4 normal; 5-9 mild; 10-14 moderate; 15-21 severe): 0 Source: Developed by Drs. Storm Tavares, Alexandria Hays, Ady Nix and colleagues, with an educational mario alberto from [employer]. Review of Systems Const All systems reviewed & are unremarkable except as noted in HPI and below Reports no additional complaints Eyes Reports no additional complaints ENT Reports no additional complaints Card Reports no additional complaints Resp Reports no additional complaints GI Reports no additional complaints Reports no additional complaints Physical exam (Primary Care) Vital Signs: Last Vital Signs Pulse 59 04/17/23 10:53 BP 94/58 L 04/17/23 10:53 Pulse Ox 97 04/17/23 10:53 Oxygen Delivery Method Room Air 04/17/23 10:53 BMI result Body Mass Index 22.3 Tobacco/Smoking Status: Tobacco use Status Tobacco use date assessed 04/17/23 04/17/23 11:01 Patient Tobacco Use Status Former Tobacco user 04/17/23 11:01 e-Cigarette/Vaping Use Never Used 04/17/23 11:01 Thrive Assessment: Date of Thrive Assessment Date Thrive assessed 07/30/22 04/17/23 11:01 Const General: no acute distress HENMT Head: Yes normal to inspection General nose exam: Abnormal mucous membranes and turbinates present erythematous and Nasal discharge present Face and sinus: Yes sinus tenderness Throat: Yes postnasal drainage Neck Neck: Yes supple Resp Effort & Inspection: normal respiratory effort Auscultation: rhonchi right upper and diminished lung sounds on the right Cardio Rhythm: regular rhythm Heart sounds: S1 normal heart sound present and S2 normal heart sound present Assessment and Plan Assessment & Plan (1) Cough: Code(s): R05.9 - Cough, unspecified Plan: For persistent cough chest x-ray will be obtained and Z-Mk is prescribed. For chronic postnasal drip using saline nasal spray followed by Flonase as needed advised Orders: Orders XR chest 1V Today R05.9 - Cough, unspecified Medications: New azithromycin start on day 2 of therapy 250 mg PO DAILY 6 days 6 tabs 0RF Coding Level of Care Code Est Pt Level 3 (67981) Diagnoses Cough R05.9
[2023-04-17 10:53] VITALS: BP 94/58; PULSE 59; O2SAT 97; BMI 22.3
== END 2023-04-17 11:30 | disposition home or self-care (01) ==
PROVIDERS: PCP Internal Medicine; Visit Provider Internal Medicine
DX: R05.9 Cough, unspecified (principal)
CPT/HCPCS: 99213

== ENCOUNTER 2023-04-17 11:26 | Outpatient (REF) | payer MEDICARE, OTHER, SELFPAY ==
--- NOTE | ~2023-04-17 | XR_ITS ---
EXAMINATION: XR CHEST CLINICAL INFORMATION: Cough COMPARISON: None available. TECHNIQUE: 2 views of the chest were obtained. FINDINGS: Mild biapical pleural thickening. No significant abnormality is noted involving the heart, lungs, mediastinum, or soft tissues. Demineralization, mild lower dorsal compression deformities and thoracolumbar scoliosis. XR/XR chest 2V IMPRESSION: No acute cardiopulmonary disease.
== END 2023-04-17 11:27 | disposition home or self-care (01) ==
LOC: HO.HMGCX 11:26
PROVIDERS: PCP Internal Medicine; Visit Provider Internal Medicine
DX: R05.9 Cough, unspecified (principal)
CPT/HCPCS: 71046

== ENCOUNTER 2023-05-01 08:31 | Outpatient (REF) | payer MEDICARE, OTHER, SELFPAY ==
--- NOTE | ~2023-05-01 | XR_ITS ---
EXAMINATION: XR SHOULDER, LEFT CLINICAL INFORMATION: Pain in unspecified shoulder COMPARISON: None available. TECHNIQUE: AP external rotation, Grashey, scapular Y, and axillary views of the left shoulder. FINDINGS: The bones and soft tissues are normal. No fracture. Glenohumeral and acromioclavicular alignment is anatomic with normal joint space. No abnormal soft tissue calcifications. XR/XR shoulder LT min 2V IMPRESSION: No bony abnormality.
== END 2023-05-01 08:32 | disposition home or self-care (01) ==
LOC: HO.HOSX 08:31
PROVIDERS: Visit Provider Physician Assistant
DX: M75.102 Unspecified rotator cuff tear or rupture of left shoulder, not specified as traumatic (principal)
CPT/HCPCS: 73030; 99202

== ENCOUNTER 2023-05-01 10:54 | Outpatient (AMB) | payer MEDICARE, OTHER, SELFPAY ==
[2023-05-01 11:14] VITALS: BMI 22.3
--- NOTE | 2023-05-01 11:14 | MHC.OFFVIS ---
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 Patient reports ongoing pain for a few months depending on how she moves it. She states her pain is more on the anterior aspect of the shoulder and down to her bicep. Pain is worse when trying to get dressed or trying to reach her back. 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 The patient reports ongoing pain for a few months and it is affected by how she moves. She claims her pain is on the anterior aspect of the left shoulder and radiates down to the bicep. She states the pain is worse when she is trying to get dressed and when she is reaching behind her back. [facility] Medical History (Updated 05/01/23 @ 12:04 by Annabel Harding) Osteoporosis Breast mass Vitamin D deficiency Annual physical exam Normal colonoscopy Hypothyroidism IFG (impaired fasting glucose) Osteopenia Hypertriglyceridemia Basal cell carcinoma Surgical History History of right oophorectomy Hx of colonoscopy Hx of wisdom tooth extraction Family History (Updated 04/17/23 @ 10:59 by MIRTA Galan) Father Heart problem Dementia Ruptured appendix Mother Colon cancer Dementia Sister Ruptured appendix Aneurysm Brother Kidney stones Social History Housing: House Alcohol intake: current Alcohol intake frequency: a few times a month Patient Tobacco Use Status: Former Tobacco user e-Cigarette/Vaping Use: Never Used Current occupational status: retired Cognitive needs: No Hearing needs: No Vision needs: Yes Review of Systems Const All systems reviewed & are unremarkable except as noted in HPI and below Physical Exam Vital Signs: BMI result Body Mass Index 22.3 Const General: cooperative and no acute distress Orientation/consciousness: patient oriented x3 Resp Effort & Inspection: normal respiratory effort and able to speak in complete sentences Cardio Peripheral pulses: Peripheral pulses 2+ throughout Skin General skin exam: no rashes or lesions noted Neuro General: patient oriented x3 Extrem Other: Left shoulder: Forward flexion and abduction lacking 20 degrees. Pain with cross-body reach. 4/5 strength with empty can. NVI. Assessment & Plan Assessment & Plan (1) Painful arc syndrome of left shoulder: Code(s): M75.102 - Unspecified rotator cuff tear or rupture of left shoulder, not specified as traumatic Plan Ms. Carr is a 73-year-old right hand dominant female who presents in the office today, as a new patient, for an evaluation of left shoulder pain. The patient reports ongoing pain for a few months and it is affected by how she moves. She claims her pain is on the anterior aspect of the left shoulder and radiates down to the bicep. She states the pain is worse when she is trying to get dressed and when she is reaching behind her back. I discussed the role of cortisone injections while in the office today. She would like to defer at this time. I have placed a referral for physical therapy. If after 6 weeks of physical therapy or if the patient should feel the need to move forward with a cortisone injection she will call the office. Follow up will be PRN, or sooner if needed. X-rays of the left shoulder which were obtained while in the office today and were reviewed by me, Lola Ghosh PA-C, revealed no acute fracture or dislocation. Orders: Orders XR shoulder LT min 2V Today M25.519 - Pain in unspecified shoulder Patient Instructions: Scribed for Lola Ghosh PA-C by Annabel Harding medical records specialist, on 05/01/2023 at 10:56 am, EST. Coding Level of Care Code New Pt Level 4 (04851) Diagnoses Painful arc syndrome of left shoulder M75.102
== END 2023-05-01 11:48 | disposition home or self-care (01) ==
PROVIDERS: PCP Internal Medicine; Visit Provider Physician Assistant
DX: M75.102 Unspecified rotator cuff tear or rupture of left shoulder, not specified as traumatic (principal)
CPT/HCPCS: 99203

== ENCOUNTER 2023-05-18 10:16 | Outpatient (REF) | payer MEDICARE, OTHER, SELFPAY ==
--- NOTE | ~2023-05-18 | MM_ITS ---
EXAMINATION: MM SCREENING DIGITAL BREAST TOMOSYNTHESIS, BILATERAL CLINICAL INFORMATION: Screening. Asymptomatic. COMPARISON: Mammography: This study is compared with prior exams dating back to 2019. TECHNIQUE: Digital breast tomosynthesis is performed in both the craniocaudal and mediolateral oblique views along with computer-aided detection (CAD). Synthesized 2D images are generated from the tomosynthesis. FINDINGS: There are scattered areas of fibroglandular density (ACR BI-RADS breast composition Category b). There are no significant masses, abnormal calcifications, or other abnormalities. There are unchanged, benign calcifications in the right breast. MM/MM tomosynthesis screening BI IMPRESSION: No mammographic evidence of malignancy. ASSESSMENT: BI-RADS BI-RADS 1 - Negative RECOMMENDATION: Routine annual mammography screening. 1 year F/U This examination should not preclude the clinical evaluation of a suspicious palpable abnormality. This patient's information was entered into a reminder system with a target due date for their next mammogram.
== END 2023-05-18 10:17 | disposition home or self-care (01) ==
LOC: HO.MAMMO 10:16
PROVIDERS: PCP Internal Medicine; Visit Provider Internal Medicine
DX: Z12.31 Encounter for screening mammogram for malignant neoplasm of breast (principal)
CPT/HCPCS: 77063; 77067

== ENCOUNTER → 2023-05-18 10:30 | Outpatient (BNV) | payer MEDICARE, OTHER, SELFPAY | PROVIDERS: PCP Internal Medicine; Visit Provider Radiology Diagnostic Radiology | DX: Z12.31 Encounter for screening mammogram for malignant neoplasm of breast (principal) | CPT/HCPCS: 77063; 77067 ==

== ENCOUNTER 2023-06-08 09:00 | Outpatient (RCR) | payer MEDICARE, OTHER, SELFPAY ==
--- NOTE | 2023-05-08 11:17 | MHC.PT.EP ---
[facility] [place] Office [place] Office [place] Office [address] [phone] F: [phone] F: [phone] F: [phone] F: [phone] Physical Therapy Plan of Care Date of Evaluation: 05/08/23 Date of Surgery: Diagnosis: Painful arc syndrome L shoulder Assessment: 73 y/o RHD female referred to PT with painful arc of L shoulder. S/s consistent with L shoulder tendinopathy (?beginning of adhesive capsulitis) resulting in pain and difficulty with donning/doffing coat/ bra, reaching overhead, kayak paddling, holding dog leash when dog pulls, weaving, and sleeping on L side secondary to decreased L shoulder AROM, decreased L shoulder strength, mild hypomobility posterior GH capsule, and pain. She is motivated and would benefit from PT 2x/week for 6 weeks to address impairments, implement HEP, and optimize functional mobility. 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 Manual therapy to restore motion and function. Therapeutic exercise to improve strength and flexibility. Neuromuscular re-education for posture and balance. Therapeutic activities to return to functional activities of daily living. Electronically signed by: Marti Maynard PT Please sign and return to therapist. Thank you for your referral.
--- NOTE | 2023-07-27 07:00 | MHC.PT.DC ---
[facility] [place] Office [place] Office [place] Office [address] Janeen Hsieh [address] [phone] F: [phone] F: [phone] F: [phone] F: [phone] Physical Therapy Discharge Report Diagnosis: Painful arc syndrome L shoulder Date of Surgery: Date of Evaluation: 05/08/23 Date of Discharge: 07/27/23 Treatments to Date: 6 Cancellations to Date: 0 No Shows to Date: 0 Discharge Status: Improved Function Independent with HEP Discharge Summary: Pt was making gradual progress with shoulder ROM, strength, and functional mobility, however pt then had a fall with onset of back pain. PT for shoulder was then held and pt initiated PT for low back instead. This shart is now closed. Electronically signed by: Marti Maynard PT Please sign and return to therapist. Thank you for your referral.
== END 2023-07-27 07:00 | disposition home or self-care (01) ==
LOC: HO.PTCHIC 09:00
PROVIDERS: PCP Internal Medicine; Visit Provider Physician Assistant
DX: M75.102 Unspecified rotator cuff tear or rupture of left shoulder, not specified as traumatic (principal)
CPT/HCPCS: 97110; 97112; 97140; 97161

== ENCOUNTER 2023-06-08 09:27 | Outpatient (AMB) | payer MEDICARE, OTHER, SELFPAY ==
[2023-06-08 10:19] VITALS: BP 130/68; PULSE 71; TEMP 36.6; O2SAT 96; BMI 22.7
--- NOTE | 2023-06-08 10:19 | MHC.OFFWIV ---
Intake Vital Signs 06/08/23 10:19 Height 5 ft 1 in Weight 54.431 kg BMI 22.7 BP 130/68 Blood Pressure Location Lt brachial Position Sitting Pulse 71 Pulse Source Pulse Oximeter Temp 97.8 F Temp Source Temporal Artery Scan Pulse Oximetry (%) 96 Oxygen Delivery Method Room Air Intake Visit Reasons: EST/ back pain (lobby) Intake Note: pt is here today for back pain started fell Thursday Patient Tobacco Use Status: Former Tobacco user Allergies Penicillins [PENICILLINS] Adverse Reaction (Mild, Verified 06/08/23 10:19) GI UPSET Do you need a note to return to daycare/school/sports/work: No HPI HPI Comments History of Present Illness Details 73-year-old female presents status post slip and fall on black ice on Thursday, patient reports she fell onto her back, her back it is step, since then has been having bilateral lower thoracic upper lumbar back pain worse with movement better at rest. Tells me she has been taking ibuprofen. She is requesting physical therapy for her back. Not reporting any urinary/bowel incontinence/retention, weakness, shortness of breath, chest pain, nausea, vomiting, abdominal pain, numbness or tingling Physical exam bilateral lower thoracic and upper lumbar paraspinous muscle spasms/tenderness on palpation, no pain to midline. Ambulating with steady gait normal coordination. No saddle paresthesias Concerns for thoracic/lumbar paraspinous muscle spasm. Unlikely fracture, dislocation. Will rule out rib fracture. Unlikely pneumothorax, flail chest, acute respiratory distress. Unlikely cauda equina, cord compression Plan at this time x-ray. Patient did not speak to PCP about physical therapy evaluation not appropriate to sent from an urgent care setting. Educated patient on diagnosis and treatment plan, answered all question, patient verbalizes understanding. At this time patient will be discharged home, advised to return with new or worsening symptoms. Educated on worrisome signs and symptoms and when to return. At this time I feel comfortable discharge home. [facility] Medical History (Updated 05/01/23 @ 12:04 by Annabel Harding) Osteoporosis Breast mass Vitamin D deficiency Annual physical exam Normal colonoscopy Hypothyroidism IFG (impaired fasting glucose) Osteopenia Hypertriglyceridemia Basal cell carcinoma Surgical History History of right oophorectomy Hx of colonoscopy Hx of wisdom tooth extraction Family History (Updated 04/17/23 @ 10:59 by [place] David Allison) Father Heart problem Dementia Ruptured appendix Mother Colon cancer Dementia Sister Ruptured appendix Aneurysm Brother Kidney stones Social History Housing: House Alcohol intake: current Alcohol intake frequency: a few times a month Patient Tobacco Use Status: Former Tobacco user e-Cigarette/Vaping Use: Never Used Current occupational status: retired Cognitive needs: No Hearing needs: No Vision needs: Yes Review of Systems Const All systems reviewed & are unremarkable except as noted in HPI and below Physical Exam Vital Signs: Last Vital Signs Temp 97.8 F 06/08/23 10:19 Pulse 71 06/08/23 10:19 BP 130/68 06/08/23 10:19 Pulse Ox 96 06/08/23 10:19 Oxygen Delivery Method Room Air 06/08/23 10:19 BMI result Body Mass Index 22.7 vss Appearance: Alert.? Oriented X3.? No acute distress.? Patient is doing back stretches when I walked into the room without difficulty. Head: Normocephalic, atraumatic, no step-offs or deformities Eyes: Pupils equal, round and reactive to light.? CVS: Normal heart rate and rhythm.? Pulses normal.? Respiratory: No respiratory distress.? Breath sounds normal.? Skin: Skin warm and dry.? Normal skin color.? Normal skin turgor.? Extremities:5/5 strength to bilateral upper and lower extremities Back: No midline tenderness, no C-spine tenderness, full range of motion, no CVA tenderness bilaterally bilateral lower thoracic and upper lumbar paraspinous muscle spasms/tenderness on palpation, no pain to midline. Ambulating with steady gait normal coordination. No saddle paresthesias Neuro: Oriented X 3.? No motor deficit.? No sensory deficit. CN 2-12 intact . No saddle paresthesias ambulating with steady gait normal coordination Assessment & Plan Assessment & Plan (1) Lumbar back pain: Code(s): M54.50 - Low back pain, unspecified (2) Rib pain: Code(s): R07.81 - Pleurodynia Plan Take your medications as prescribed. If you were prescribed antibiotics today, it is important that you take your medication to their entirety, do not skip any doses, do not finish them early. Follow-up with your primary care provider this week. Return to the emergency department with new or worsening symptoms. Such as fevers, chills, chest pain, shortness of breath, nausea, vomiting, dizziness, headache, vision changes, lethargy In case of emergency call 911 Orders: Orders XR lumbar spine 2-3V Today M54.50 - Low back pain, unspecified XR ribs RT min 3V w CXR1V Today R07.81 - Pleurodynia Medications: New lidocaine 4% (AsperFlex (lidocaine)) 1 patch topical DAILY PRN 15 ea 0RF pain Coding Level of Care Code Est Pt Level 3 (58780) Diagnoses Lumbar back pain M54.50 Rib pain R07.81
== END 2023-06-08 11:13 | disposition home or self-care (01) ==
PROVIDERS: PCP Internal Medicine; Visit Provider Physician Assistant
DX: M54.50 Low back pain, unspecified (principal); R07.81 Pleurodynia
CPT/HCPCS: 99213

== ENCOUNTER 2023-06-08 11:00 | Outpatient (REF) | payer MEDICARE, OTHER, SELFPAY ==
--- NOTE | ~2023-06-08 | XR_ITS ---
EXAMINATION: XR LUMBOSACRAL SPINE CLINICAL INFORMATION: Low back pain. COMPARISON: CT scan of the abdomen and pelvis June 2022. TECHNIQUE: 3 views of the lumbosacral spine. FINDINGS: There is a mild convex left curvature of the lumbar spine measured at 17 degrees between L1 and L4. Degenerative disc changes present at the T12-L1 and L1-2 level with disc space narrowing and endplate osteophytes. There is mild retrolisthesis of L2 on L3. Surrounding bone and soft tissues are unremarkable. XR/XR lumbar spine 2-3V IMPRESSION: 1. Mild scoliosis. 2. Spondylosis of the lumbar spine.
--- NOTE | ~2023-06-08 | XR_ITS ---
EXAMINATION: XR RIBS, RIGHT CLINICAL INFORMATION: Pleurodynia. COMPARISON: Chest radiograph dated 04/17/2023. TECHNIQUE: PA view the chest as well as 3 views of the right ribs. FINDINGS: Lungs are clear. No consolidation, pneumothorax, or pleural effusion. The cardiomediastinal silhouette and pulmonary vasculature are normal. Osseous structures are unremarkable. Ribs are intact. No fractures are identified. XR/XR ribs RT min 3V w CXR1V IMPRESSION: Unremarkable examination.
== END 2023-06-08 11:01 | disposition home or self-care (01) ==
LOC: HO.HMGCX 11:00
PROVIDERS: PCP Internal Medicine; Visit Provider Physician Assistant
DX: R07.81 Pleurodynia (principal); M54.50 Low back pain, unspecified
CPT/HCPCS: 71101; 72100

== ENCOUNTER 2023-07-16 07:21 | Outpatient (REF) | payer MEDICARE, OTHER, SELFPAY ==
[2023-07-16 11:46] LABS: MANUAL DIFF FLAG NO
[2023-07-16 12:05] LABS: Basophils Absolute Auto 0.1 X10*3/uL (0.0-0.2); Basophils Percent Auto 1.3 % (0-2); Eosinophils Absolute Auto 0.5 X10*3/uL (0.0-0.4); Eosinophils Percent Auto 9.6 % (0-4); Hematocrit 38.8 % (37.0-47.0); Hemoglobin 12.6 g/dl (12.0-16.0); Imm Gran Abs Auto 0.01 X10*3/uL (0.00-0.03); Imm Gran Pct Auto 0.2 % (0.0-0.4); Lymphocytes Absolute Auto 1.4 X10*3/uL (1.2-4.9); Lymphocytes Percent Auto 25.8 % (20-40); Mean Corpuscular HGB Conc 32.5 g/dl (31.0-35.0); Mean Corpuscular Hemoglobin 29.2 pg (27.0-33.0); Mean Corpuscular Volume 89.8 fL (80.0-98.0); Mean Platelet Volume 10.4 fL (9.4-12.3); Monocytes Absolute Auto 0.4 X10*3/uL (0.1-1.2); Monocytes Percent Auto 7.7 % (2-11); Neutrophils Percent Auto 55.4 % (45-73); Platelet Count 279 X10*3/uL (160-400); Red Blood Count 4.32 X10*6/uL (4.20-5.50); White Blood Count 5.3 X10*3/uL (4.8-10.8)
[2023-07-16 12:39] LABS: Alanine Aminotransferase 20 U/L (0-31); Albumin Level 4.2 g/dL (3.5-5.0); Alkaline Phosphatase 73 U/L (39-117); Anion Gap 11 (12-20); Aspartate Amino Transferase 25 U/L (5-31); Bilirubin Total 0.5 mg/dL (0.0-1.0); Blood Urea Nitrogen 20 mg/dL (9-16); Calcium 9.5 mg/dL (8.4-10.2); Carbon Dioxide 28 mmol/L (22-29); Chloride 106 mmol/L (96-108); Cholesterol 204 mg/dL (<200); Estimated Glomerular Filt Rate > 60; Glucose Random 78 mg/dL (60-115); HDL Cholesterol 64 mg/dL (>40); LDL Cholesterol Calculated 120 mg/dL (<100); Potassium 4.3 mmol/L (3.3-5.1); Sodium 141 mmol/L (135-145); Total Protein 6.7 g/dL (6.5-8.0); Triglycerides 103 mg/dL (<150)
[2023-07-16 12:42] LABS: TSH reflex Free T4 4.02 uIU/mL (0.32-4.0); Vitamin D 25-OH Total 48.9 ng/mL (>30)
== END 2023-07-16 07:22 | disposition home or self-care (01) ==
LOC: HO.HMGCLDS 07:21
PROVIDERS: PCP Internal Medicine; Visit Provider Internal Medicine
DX: Z00.00 Encounter for general adult medical examination without abnormal findings (principal); E03.9 Hypothyroidism, unspecified; E55.9 Vitamin D deficiency, unspecified; M81.0 Age-related osteoporosis without current pathological fracture
CPT/HCPCS: 36415; 80053; 80061; 82306; 84439; 84443; 85025

== ENCOUNTER 2023-07-22 13:27 | Outpatient (AMB) | payer MEDICARE, OTHER, SELFPAY ==
[2023-07-22 13:33] VITALS: BP 112/60; PULSE 65; TEMP 36.5; O2SAT 98; BMI 22.3
--- NOTE | 2023-07-22 13:33 | AM.OFFWIN_ITS ---
Intake Vital Signs 07/22/23 13:33 Height 5 ft 1 in Weight 118 lb BMI 22.3 BP 112/60 Blood Pressure Location Lt brachial Position Sitting Pulse 65 Pulse Source Pulse Oximeter Temp 97.7 F Temp Source Temporal Artery Scan Pulse Oximetry (%) 98 Oxygen Delivery Method Room Air Intake Visit Reasons: EP mid back lumbar pain slipped on ice may Intake Note: pt is here today for mid back lumbar pain slipped started may Patient Tobacco Use Status: Former Tobacco user Allergies Penicillins [PENICILLINS] Adverse Reaction (Mild, Verified 07/22/23 13:34) GI UPSET Do you need a note to return to daycare/school/sports/work: No HPI HPI Comments History of Present Illness Details This is a 73-year-old female with no stated past medical history presenting for evaluation of back pain. Patient states that she slipped fell on ice on June 06. Patient had imaging performed at that time which was negative for an acute fracture. Patient has been taking ibuprofen 400 mg up to 3 times a day and participating in physical therapy. Patient states that her pain was initially on her right thoracic region and has now shifted to the left. Patient states that she has difficulty when she rides her stationary bike or when she walks more than half a mile. Patient is used to walking at least two miles a day. She denies any new injury or trauma to her back or lower extremities. Patient states the pain is an aching sensation that does not radiate. [facility] Medical History Osteoporosis Breast mass Vitamin D deficiency Annual physical exam Normal colonoscopy Hypothyroidism IFG (impaired fasting glucose) Osteopenia Hypertriglyceridemia Basal cell carcinoma Surgical History History of right oophorectomy Hx of colonoscopy Hx of wisdom tooth extraction Family History Father Heart problem Dementia Ruptured appendix Mother Colon cancer Dementia Sister Ruptured appendix Aneurysm Brother Kidney stones Social History Housing: House Alcohol intake: current Alcohol intake frequency: a few times a month Patient Tobacco Use Status: Former Tobacco user e-Cigarette/Vaping Use: Never Used Current occupational status: retired Cognitive needs: No Hearing needs: No Vision needs: Yes Review of Systems Const All systems reviewed & are unremarkable except as noted in HPI and below Denies weakness Eyes Reports no additional complaints ENT Denies neck pain Resp Reports no additional complaints Musc Reports no additional complaints, Denies abnormal gait, Reports back pain, Denies myalgias, Denies neck pain, Denies numbness and Denies tingling Skin/Breast Reports system reviewed and no additional complaints, except as documented Neuro Reports no additional complaints, Denies abnormal gait, Denies focal weakness, Denies numbness, Denies radicular pain, Denies tingling and Denies weakness Physical Exam Vital Signs: Last Vital Signs Temp 97.7 F 07/22/23 13:33 Pulse 65 07/22/23 13:33 BP 112/60 07/22/23 13:33 Pulse Ox 98 07/22/23 13:33 Oxygen Delivery Method Room Air 07/22/23 13:33 BMI result Body Mass Index 22.3 Const General: cooperative, healthy appearing, comfortable, no acute distress, well developed, alert and awake Nutritional Appearance: thin Orientation/consciousness: patient oriented x3 Limitations: no limitations Back/Spine/Pelvis Cervical Spine: cervical ROM normal, No cervical muscular tenderness, No pain with cervical ROM and No cervical spasm Thoracic/Lumbar Spine: thoracic and lumbar spine normal to inspection, thoraco- lumbar ROM normal, No pain with thoraco-lumbar ROM, paraspinal muscle tenderness (left >> right), No thoracic spinal tenderness and No lumbar spinal tenderness Sacroiliac joints: on the right nontender and on the left nontender Skin General skin exam: no rashes or lesions noted Neuro General: patient oriented x3 Psych Appearance: grossly normal Mental Status: mental status grossly normal Insight: Good insight present (Psych) Judgement: Good judgement present (Psych) Assessment & Plan Assessment & Plan (1) Thoracic myofascial strain: Comment: Patient's history coupled with her examination is consistent with compensatory myofascial discomfort after weeks of physical therapy. Patient has been inconsistent with her medication regimen and will be prescribed both in anti- inflammatory and a muscle relaxant. Patient is encouraged to continue physical therapy as previously scheduled. Code(s): S29.019A - Strain of muscle and tendon of unspecified wall of thorax, initial encounter Plan: Naprosyn every 12 hours and Robaxin every 8 hours. Patient will continue with physical therapy as an outpatient. Medications: New methocarbamol 500 mg PO Q8H 20 tabs 0RF naproxen (Naprosyn) 500 mg PO BID 20 tabs 0RF Coding Level of Care Code Est Pt Level 3 (26428) Diagnoses Thoracic myofascial strain S29.019A Time Spent (min) 25
== END 2023-07-22 15:24 | disposition home or self-care (01) ==
PROVIDERS: PCP Internal Medicine; Visit Provider Physician Assistant
DX: S29.019A Strain of muscle and tendon of unspecified wall of thorax, initial encounter (principal)
CPT/HCPCS: 99213

== ENCOUNTER 2023-07-31 12:56 | Outpatient (AMB) | payer MEDICARE, OTHER, SELFPAY ==
--- NOTE | 2023-07-31 13:26 | MHC.PC.OV ---
Vital Signs 07/31/23 13:36 Height 5 ft 1 in Weight 120 lb BMI 22.7 BP 114/60 Blood Pressure Location Lt brachial Position Sitting Pulse 67 Pulse Source Pulse Oximeter Pulse Oximetry (%) 98 Oxygen Delivery Method Room Air Intake Visit Reasons: Annual PE Intake Note: Pt is here today for PE. Allergies Penicillins [PENICILLINS] Adverse Reaction (Mild, Verified 07/31/23 13:46) GI UPSET Medication List - Last Reconciled 07/31/23 by Jia Bolden MD ascorbic acid (vitamin C) (Vitamin C) 500 mg PO DAILY aspirin 81 mg PO 3XW multivitamin 1 tab PO DAILY naproxen (Naprosyn) 500 mg PO BID omega [id number]-yqc-fbu-fish oil 1,200 (144-216) mg (Fish Oil) 1 cap PO BID vitamin K2 PO Tobacco use date assessed: 07/31/23 Fall risk assessment: 1 Fall in past year Last assessed Fall Risk: 07/31/23 Dental Screening Dental Screen Date: 07/31/23 Did you have a dental visit in the last 12 months?: Yes Did you have a dental problem in the last 6 months where you did not have access to dental care?: No Was dental information given to patient?: Patient has dentist HPI Annual PE HPI Details Pt presents for PE. Pt c/o persistent L midback pain since a fall in May, positional not significantly improved since physical therapy started in May. Patient had negative lumbar spine and rib x-rays in May. Patient denies weakness or numbness in extremities. [facility] Medical History (Updated 07/31/23 @ 14:16 by Jia Bolden MD) Osteoporosis Breast mass Vitamin D deficiency Annual physical exam Normal colonoscopy Hypothyroidism IFG (impaired fasting glucose) Osteopenia Hypertriglyceridemia Basal cell carcinoma Surgical History History of right oophorectomy Hx of colonoscopy Hx of wisdom tooth extraction Family History Father Heart problem Dementia Ruptured appendix Mother Colon cancer Dementia Sister Ruptured appendix Aneurysm Brother Kidney stones Social History Housing: House Alcohol intake: current Alcohol intake frequency: a few times a month Patient Tobacco Use Status: Former Tobacco user e-Cigarette/Vaping Use: Never Used Current occupational status: retired Cognitive needs: No Hearing needs: No Vision needs: Yes Questionnaire Thrive Questionnaire Date Thrive assessed: 07/30/22 AUDIT C Alcohol Use Questionnaire (AUDIT-C) 1. How often do you have a drink containing alcohol?: Monthly or less 2. How many drinks containing alcohol do you have on a typical day when you are drinking?: 1 or 2 3. How often do you have six or more drinks on one occasion?: Never Total Score: 1 MELLO-7 AMB Questionnaire MELLO-7 Date MELLO - 7 assessed: 07/30/22 Source: Developed by Drs. Storm Tavares, Alexandria Hays, Ady Nix and colleagues, with an educational mario alberto from [employer]. Review of Systems Const All systems reviewed & are unremarkable except as noted in HPI and below Reports no additional complaints Eyes Reports no additional complaints ENT Reports no additional complaints Card Reports no additional complaints Resp Reports no additional complaints GI Reports no additional complaints Reports no additional complaints Musc Reports no additional complaints Physical exam (Primary Care) Vital Signs: Last Vital Signs Pulse 67 07/31/23 13:36 BP 114/60 07/31/23 13:36 Pulse Ox 98 07/31/23 13:36 Oxygen Delivery Method Room Air 07/31/23 13:36 BMI result Body Mass Index 22.7 Tobacco/Smoking Status: Tobacco use Status Tobacco use date assessed 07/31/23 07/31/23 13:37 Patient Tobacco Use Status Former Tobacco user 07/31/23 13:37 e-Cigarette/Vaping Use Never Used 07/31/23 13:28 Thrive Assessment: Date of Thrive Assessment Date Thrive assessed 07/30/22 07/31/23 13:28 Const General: no acute distress HENRI Ears: hearing grossly normal bilaterally General nose exam: Normal external nose present Face and sinus: Yes normal facial exam Eyes General: appearance normal, both eyes and all related structures Neck Neck: Yes no lymphadenopathy and Yes supple Chest Other: This is a point tenderness over left lower thoracic vertebra and rib attachment, no soft tissue swelling Resp Effort & Inspection: normal respiratory effort Auscultation: clear to auscultation bilaterally Cardio Rhythm: regular rhythm Heart sounds: S1 normal heart sound present and S2 normal heart sound present GI Inspection: Yes normal to inspection Palpation (GI): Soft to palpation Percussion: Yes normal to percussion Auscultation: normal bowel sounds Speculum Exam - Vagina: normal appearance of the vagina Speculum Exam - Cervix: normal appearance of the cervix Bimanual exam- vagina & uterus: normal bimanual exam Assessment and Plan Assessment & Plan (1) Thoracic spine pain: Code(s): M54.6 - Pain in thoracic spine Plan: Obtain thoracic spine x-ray to rule out compression fracture, if negative patient was advised to continue physical therapy regular stretching exercises and [id number] topical treatments (2) Osteoporosis: Comment: DEXA 05/2022 T score -2.6, patient declined taking medications Code(s): M81.0 - Age-related osteoporosis without current pathological fracture Plan: Check DEXA in April this year continue vitamin-D supplement and exercise (3) Hypothyroidism: Comment: Subclinical no medication Code(s): E03.9 - Hypothyroidism, unspecified Plan: Monitor TSH liver every 6 months and check thyroid ultrasound (4) Annual physical exam: Code(s): Z00.00 - Encounter for general adult medical examination without abnormal findings Plan: Well-balanced diet regular physical activity discussed with the patient . Pap smear was done today she is up-to-date with a mammogram and colonoscopy. Patient is planning to take part in bike tour in [place] for 190 miles this summer (5) Vitamin D deficiency: Code(s): E55.9 - Vitamin D deficiency, unspecified Plan: Continue vitamin-D supplement Orders: Orders TSH reflex Free T4 6 Months E03.9 - Hypothyroidism, unspecified MM screening mammo BI 9 Months Z12.31 - Encounter for screening mammogram for malignant neoplasm of breast Pap Smear Today Z00.00 - Encounter for general adult medical examination without abnormal findings Complete Blood Count Auto Diff 365 Days E03.9 - Hypothyroidism, unspecified, E55.9 - Vitamin D deficiency, unspecified, Z00.00 - Encounter for general adult medical examination without abnormal findings Lipid Panel 365 Days E03.9 - Hypothyroidism, unspecified, E55.9 - Vitamin D deficiency, unspecified, Z00.00 - Encounter for general adult medical examination without abnormal findings TSH reflex Free T4 365 Days E03.9 - Hypothyroidism, unspecified, E55.9 - Vitamin D deficiency, unspecified, Z00.00 - Encounter for general adult medical examination without abnormal findings XR thoracic spine 3V Today M54.6 - Pain in thoracic spine XR DEXA axial skeleton 05/16/24 M81.0 - Age-related osteoporosis without current pathological fracture US thyroid Today E03.9 - Hypothyroidism, unspecified Comprehensive [place]. Panel Fast 365 Days E03.9 - Hypothyroidism, unspecified, E55.9 - Vitamin D deficiency, unspecified, Z00.00 - Encounter for general adult medical examination without abnormal findings Vitamin D 25-OH Total 365 Days E03.9 - Hypothyroidism, unspecified, E55.9 - Vitamin D deficiency, unspecified, Z00.00 - Encounter for general adult medical examination without abnormal findings Coding Level of Care Code Est Pt Prev Care >65y(83472) Diagnoses Thoracic spine pain M54.6 Osteoporosis M81.0 Hypothyroidism E03.9 Annual physical exam Z00.00 Vitamin D deficiency E55.9
[2023-07-31 13:36] VITALS: BP 114/60; PULSE 67; O2SAT 98; BMI 22.7
== END 2023-07-31 14:33 | disposition home or self-care (01) ==
PROVIDERS: PCP Internal Medicine; Visit Provider Internal Medicine
DX: Z00.00 Encounter for general adult medical examination without abnormal findings (principal); M54.6 Pain in thoracic spine; M81.0 Age-related osteoporosis without current pathological fracture; E03.9 Hypothyroidism, unspecified; E55.9 Vitamin D deficiency, unspecified
CPT/HCPCS: 99397

== ENCOUNTER 2023-07-31 14:33 | Outpatient (REF) | payer MEDICARE, OTHER, SELFPAY ==
--- NOTE | ~2023-07-31 | XR_ITS ---
EXAMINATION: XR THORACIC SPINE CLINICAL INFORMATION: Pain in thoracic spine COMPARISON: Chest x-ray 04/17/2023 TECHNIQUE: 3 views of the thoracic spine were obtained. FINDINGS: Bones are diffusely osteopenic. There is a compression fracture of mid thoracic vertebra, likely T7, new since prior study. Paravertebral soft tissue structures and visualized lung rose are clear. XR/XR thoracic spine 3V IMPRESSION: Age-indeterminate compression fracture of the mid thoracic vertebra, likely T7. If clinically indicated, MRI of the thoracic spine may be obtained to determine acuity.
== END 2023-07-31 14:34 | disposition home or self-care (01) ==
LOC: HO.HMGCX 14:33
PROVIDERS: PCP Internal Medicine; Visit Provider Internal Medicine
DX: M54.6 Pain in thoracic spine (principal)
CPT/HCPCS: 72072; 87624; 88142

== ENCOUNTER 2023-07-31 15:52 | Outpatient (REF) | payer MEDICARE, OTHER, SELFPAY ==
[2023-08-06 02:38] LABS: HPV mRNA E6/E7 Not Detected (Not Detected)
== END 2023-07-31 15:53 | disposition home or self-care (01) ==
LOC: HO.LNP 15:52
PROVIDERS: Visit Provider Internal Medicine
DX: Z13.89 Encounter for screening for other disorder (principal)
CPT/HCPCS: 88142

== ENCOUNTER 2023-08-03 11:03 | Outpatient (AMB) | payer MEDICARE, OTHER, SELFPAY ==
--- NOTE | 2023-08-03 11:16 | AM.OFFVISNUR ---
Intake Intake Visit Reasons: Booster Allergies Penicillins [PENICILLINS] Adverse Reaction (Mild, Verified 07/31/23 13:46) GI UPSET Immunizations Boostrix Tdap 2.5 Lf unit-8 mcg-5 Lf/0.5 mL intramuscular syringe Performing Provider: Jia Bolden MD [facility] Administered by: MIRTA Galan on 08/03/23 11:16 Dose Route Admin Location Dispensed Lot Number Expiration Date NDC Cryptography Teacher 0.5 mL IM Right Deltoid 0.5 mL [id number] 10/15/25 [id number] [employer] App VIS Given Date VIS Provided VIS Publication Date 08/03/23 Single Vaccine 21 Eligibility Eligibility Date Funding Source Not [facility] Eligible 08/03/23 Private Coding Assessment & Plan Assessment & Plan Orders: Orders TDaP Immunization Today Z23 - Encounter for immunization
== END 2023-08-03 11:18 | disposition home or self-care (01) ==
LOC: HO.HMGC 11:03
PROVIDERS: PCP Internal Medicine; Visit Provider Internal Medicine
DX: Z23 Encounter for immunization (principal)
CPT/HCPCS: 90471; 90715

== ENCOUNTER 2023-08-14 10:49 | Outpatient (AMB) | payer MEDICARE, OTHER, SELFPAY ==
--- NOTE | 2023-08-14 10:51 | A.OFFVIS_ITS ---
Intake Vital Signs 08/14/23 10:56 Height 5 ft 1 in Weight 116 lb BMI 21.9 BP 150/84 H Blood Pressure Location Rt brachial Position Sitting Pulse 63 Pulse Source Pulse Oximeter Pulse Oximetry (%) 98 Oxygen Delivery Method Room Air Intake Visit Reasons: Wedge compression fx of T7-T8 vertebra-confirmed Manager Compensation Required: No Accompanied by: Self / Same As Patient Allergies Penicillins [PENICILLINS] Adverse Reaction (Mild, Verified 08/14/23 10:57) GI UPSET HPI Wedge compression fx of T7-T8 vertebra-confirmed HPI Details Patient is a pleasant 73 years old male with prior history of osteoporosis, osteopenia and recent wedge compression fracture of T7-T8 vertebra presents today for initial evaluation of persistent mid back pain. Patient reports she fell on black ice on 06/06/23 landing on her right buttock and lower back and was seen at Urgent Care on 06/08/23 at which time lumbar spine and rib xrays were completed as noted below. Patient returned to Urgent Care on 07/22/23 with no improvement with taking Ibuprofen and physical therapy. She was provided with scripts for Naproxen and methocarbamol which tried one of which once and stopped due to GI upset and no effect. Patient states she tries to avoid taking medication. Patient was then seen at her PCP office on 07/31/23 and completed thoracic spine xray which revealed compression fracture of the mid thoracic vertebra. Currently she reports pain in her lower thoracic region with slight radiation to the left as a muscle spasm and slight midline tenderness and intermittent aching in her lower back area. Denies radiation of pain to lower extremities. Pain increases with thoracolumbar extension. Denies any fever, chills, weight loss, abdominal or groin pain, weakness, foot drop, numbness, tingling, bladder or bowel dysfunction or saddle anesthesia. Patient states that she has difficulty with prolonged walking or standing or doing yoga. She used to walk at least two miles a day. Patient also rides her stationary bike Patient states the pain is an aching sensation that does not radiate. Patient continues to participate in PT and HEP which has been helpful for balance and posture awareness but not pain. She rates pain at 6/10. Location Mid thoracic and lower back Duration June 06, 2023 due to fall on black ice Characteristics of symptom or complaint Aching, heavy, sore, tiring Aggravating or associated factors Movements, laying flat on her back, prolonged sitting Relieving factors Cold, rest, tried naproxen and methocarbamol, Biofreeze Treatment PT-moderate improvement with posture and walking PFSH Medical History Osteoporosis Breast mass Vitamin D deficiency Annual physical exam Normal colonoscopy Hypothyroidism IFG (impaired fasting glucose) Osteopenia Hypertriglyceridemia Basal cell carcinoma Surgical History History of right oophorectomy Hx of colonoscopy Hx of wisdom tooth extraction Family History Father Heart problem Dementia Ruptured appendix Mother Colon cancer Dementia Sister Ruptured appendix Aneurysm Brother Kidney stones Social History Housing: House Alcohol intake: current Alcohol intake frequency: a few times a month Patient Tobacco Use Status: Former Tobacco user e-Cigarette/Vaping Use: Never Used Current occupational status: retired Cognitive needs: No Hearing needs: No Vision needs: Yes Review of Systems Const All systems reviewed & are unremarkable except as noted in HPI and below Physical Exam Vital Signs: Last Vital Signs Pulse 63 08/14/23 10:56 BP 150/84 H 08/14/23 10:56 Pulse Ox 98 08/14/23 10:56 Oxygen Delivery Method Room Air 08/14/23 10:56 BMI result Body Mass Index 21.9 General: Appears afebrile. Alert and oriented. Mood and affect appropriate. Follows and participates in conversation appropriately. Respiratory effort is unlabored. No cough. No nasal discharge. Able to transition from sit to stand unassisted. Ambulates with bilaterally normal heel strike and toe off. Chest Chest palpation & inspection: normal inspection of the chest, tenderness no rib xxx and No rash Back/Spine/Pelvis Other: Mild midline tenderness to palpation in the lower thoracic region but not lumbar region. Moderate paraspinal tenderness to palpation in the left mid thoracic region. Lumbar extension reproduced moderate pain. Cervical Spine: cervical ROM normal and No Cervical spine tenderness Thoracic/Lumbar Spine: thoracic and lumbar spine normal to inspection, No Thoracic/lumbar spine scar(s), Lasegue's sign negative, straight leg raise negative bilaterally, pain with thoraco-lumbar ROM, paraspinal muscle tenderness on the left greater than right, thoraco-lumbar ROM limited, Thoracic/lumbar scoliosis (mild), thoracic spinal tenderness at T7 and at T8 and lumbar spinal tenderness at L4 and at L5 Pelvis: no buttock tenderness Sacroiliac joints: bilaterally nontender Results Reviewed Results Reviewed: XR THORACIC SPINE 07/31/23 CLINICAL INFORMATION: Pain in thoracic spine COMPARISON: Chest x-ray 04/17/2023 FINDINGS: Bones are diffusely osteopenic. There is a compression fracture of mid thoracic vertebra, likely T7, new since prior study. Paravertebral soft tissue structures and visualized lung rose are clear. IMPRESSION: Age-indeterminate compression fracture of the mid thoracic vertebra, likely T7. If clinically indicated, MRI of the thoracic spine may be obtained to determine acuity. XR LUMBOSACRAL SPINE 06/08/23 CLINICAL INFORMATION: Low back pain. COMPARISON: CT scan of the abdomen and pelvis June 2022. FINDINGS: There is a mild convex left curvature of the lumbar spine measured at 17 degrees between L1 and L4. Degenerative disc changes present at the T12-L1 and L1-2 level with disc space narrowing and endplate osteophytes. There is mild retrolisthesis of L2 on L3. Surrounding bone and soft tissues are unremarkable. IMPRESSION: 1. Mild scoliosis. 2. Spondylosis of the lumbar spine. XR RIBS, RIGHT 06/08/23 CLINICAL INFORMATION: Pleurodynia. COMPARISON: Chest radiograph dated 04/17/2023. FINDINGS: Lungs are clear. No consolidation, pneumothorax, or pleural effusion. The cardiomediastinal silhouette and pulmonary vasculature are normal. Osseous structures are unremarkable. Ribs are intact. No fractures are identified. IMPRESSION: Unremarkable examination. Assessment & Plan Assessment & Plan (1) Thoracic spine pain: Code(s): M54.6 - Pain in thoracic spine (2) Compression fracture of T7 vertebra: Code(s): S22.060A - Wedge compression fracture of T7-T8 vertebra, initial encounter for closed fracture (3) Osteoporosis: Comment: DEXA 05/2022 T score -2.6, patient declined taking medications Code(s): M81.0 - Age-related osteoporosis without current pathological fracture (4) Lumbar spondylosis: Code(s): M47.816 - Spondylosis without myelopathy or radiculopathy, lumbar region Plan MRI of the thoracic spine to assess for neural integrity and compression and follow up on recent x ray findings. Patient has tried NSAIDs, cold therapy, topical applications, physical therapy. Discussed treatments for mid back pain including kyphoplasty. Patient is aware of window limit for this procedure as we are at 10th week s/p compression fracture r/t recent fall in May 2023. Patient is aware that most compression fractures will heal on its own in 2-3 months however in case with patient having an osteoporosis, this may take longer. She is encouraged to follow up with her PCP re: osteoporosis treatment. We also discussed diagnostic injections for potential stimulative or ablative procedures. Continue physical therapy, activity modifications, cold/heat therapy, NSAIDs, Tylenol. All questions and concerns have been answered and patient agreed with the plan. Follow up for MRI results and sooner as needed. Orders: Orders MR thoracic spine wo con 08/14/23 M54.6 - Pain in thoracic spine, M81.0 - Age- related osteoporosis without current pathological fracture, S22.060A - Wedge compression fracture of T7-T8 vertebra, initial encounter for closed fracture, Z86.59 - Personal history of other mental and behavioral disorders Coding Level of Care Code New Pt Level 4 (46023) Diagnoses Thoracic spine pain M54.6 Compression fracture of T7 vertebra S22.060A Osteoporosis M81.0 Lumbar spondylosis M47.816
[2023-08-14 10:56] VITALS: BP 150/84; PULSE 63; O2SAT 98; BMI 21.9
== END 2023-08-14 11:23 | disposition home or self-care (01) ==
PROVIDERS: PCP Internal Medicine; Referring Provider Internal Medicine; Visit Provider Nurse Practitioner Family
DX: M54.6 Pain in thoracic spine (principal); S22.060A Wedge compression fracture of T7-T8 vertebra, initial encounter for closed fracture; M81.0 Age-related osteoporosis without current pathological fracture; M47.816 Spondylosis without myelopathy or radiculopathy, lumbar region
CPT/HCPCS: 99204

== ENCOUNTER → 2023-08-14 10:49 | Outpatient (BNVA) | payer MEDICARE, OTHER, SELFPAY | PROVIDERS: PCP Internal Medicine; Referring Provider Internal Medicine; Visit Provider Nurse Practitioner Family | DX: S22.060A Wedge compression fracture of T7-T8 vertebra, initial encounter for closed fracture (principal); M54.6 Pain in thoracic spine; M81.0 Age-related osteoporosis without current pathological fracture; M47.816 Spondylosis without myelopathy or radiculopathy, lumbar region | CPT/HCPCS: 99202 ==

== ENCOUNTER 2023-08-17 09:28 | Outpatient (AMB) | payer MEDICARE, OTHER, SELFPAY ==
[2023-08-17 09:29] VITALS: BP 108/64; PULSE 72; O2SAT 100; BMI 22.1
--- NOTE | 2023-08-17 09:29 | A.OFFPC_ITS ---
Vital Signs 08/17/23 09:29 Height 5 ft 1 in Weight 117 lb BMI 22.1 BP 108/64 Blood Pressure Location Lt brachial Position Sitting Pulse 72 Pulse Source Pulse Oximeter Pulse Oximetry (%) 100 Oxygen Delivery Method Room Air Intake Visit Reasons: Follow up complex discuss results Allergies Penicillins [PENICILLINS] Adverse Reaction (Mild, Verified 08/17/23 09:31) GI UPSET Medication List - Last Reconciled 08/17/23 by Jia Bolden MD alendronate (Fosamax) 70 mg PO QWEEK ascorbic acid (vitamin C) (Vitamin C) 500 mg PO DAILY aspirin 81 mg PO 3XW multivitamin 1 tab PO DAILY naproxen (Naprosyn) 500 mg PO BID omega 4-[id number]-hgv-fish oil 1,200 (144-216) mg (Fish Oil) 1 cap PO BID vitamin K2 PO Tobacco use date assessed: 07/31/23 HPI Follow up complex discuss results HPI Details Patient presents for the follow-up of T7 compression fracture. She was evaluated by pain management and will have an MRI to evaluate for vertebroplasty. Patient has been in physical therapy and her pain has been slowly improving. [facility] Medical History (Updated 08/17/23 @ 15:37 by Jia Bolden MD) Osteoporosis Breast mass Vitamin D deficiency Annual physical exam Normal colonoscopy Hypothyroidism IFG (impaired fasting glucose) Hypertriglyceridemia Basal cell carcinoma Surgical History History of right oophorectomy Hx of colonoscopy Hx of wisdom tooth extraction Family History Father Heart problem Dementia Ruptured appendix Mother Colon cancer Dementia Sister Ruptured appendix Aneurysm Brother Kidney stones Social History Housing: House Alcohol intake: current Alcohol intake frequency: a few times a month Patient Tobacco Use Status: Former Tobacco user e-Cigarette/Vaping Use: Never Used Current occupational status: retired Cognitive needs: No Hearing needs: No Vision needs: Yes Questionnaire Thrive Questionnaire Date Thrive assessed: 07/30/22 MELLO-7 AMB Questionnaire MELLO-7 Date MELLO - 7 assessed: 07/30/22 Source: Developed by Drs. Storm Tavares, Alexandria BAdy Damon and colleagues, with an educational mario alberto from [employer]. Review of Systems Const All systems reviewed & are unremarkable except as noted in HPI and below Reports no additional complaints Eyes Reports no additional complaints ENT Reports no additional complaints Card Reports no additional complaints Resp Reports no additional complaints GI Reports no additional complaints Physical exam (Primary Care) Vital Signs: Last Vital Signs Pulse 72 08/17/23 09:29 BP 108/64 08/17/23 09:29 Pulse Ox 100 08/17/23 09:29 Oxygen Delivery Method Room Air 08/17/23 09:29 BMI result Body Mass Index 22.1 Tobacco/Smoking Status: Tobacco use Status Tobacco use date assessed 07/31/23 08/17/23 09:32 Patient Tobacco Use Status Former Tobacco user 08/17/23 09:32 e-Cigarette/Vaping Use Never Used 08/17/23 09:32 Thrive Assessment: Date of Thrive Assessment Date Thrive assessed 07/30/22 08/17/23 09:32 Const General: no acute distress Neck Neck: Yes no lymphadenopathy and Yes supple Chest Other: Reproducible tenderness over mid thoracic vertebral region Resp Effort & Inspection: normal respiratory effort Auscultation: clear to auscultation bilaterally Cardio Rhythm: regular rhythm Heart sounds: S1 normal heart sound present and S2 normal heart sound present GI Inspection: Yes normal to inspection Palpation (GI): Soft to palpation Assessment and Plan Assessment & Plan (1) Compression fracture of T7 vertebra: Code(s): S22.060A - Wedge compression fracture of T7-T8 vertebra, initial encounter for closed fracture Plan: Follow-up with pain management and continue physical therapy (2) Osteoporosis: Comment: DEXA 05/2022 T score -2.6, patient declined taking medications Code(s): M81.0 - Age-related osteoporosis without current pathological fracture Plan: For osteoporosis and vertebral fracture Fosamax will be started side effects discussed with the patient. She was advised to continue vitamin-D supplement and regular weight bearing exercises. DEXA will be rechecked in 2 yrs. Medications: New alendronate (Fosamax) 70 mg PO QWEEK 10 tabs 3RF Discontinued naproxen (Naprosyn) Discontinued Reason: Doctor's Order 500 mg PO BID 20 tabs 0RF Coding Level of Care Code Est Pt Level 4 (77043) Diagnoses Compression fracture of T7 vertebra S22.060A Osteoporosis M81.0
== END 2023-08-17 15:38 | disposition home or self-care (01) ==
PROVIDERS: PCP Internal Medicine; Visit Provider Internal Medicine
DX: S22.060A Wedge compression fracture of T7-T8 vertebra, initial encounter for closed fracture (principal); M81.0 Age-related osteoporosis without current pathological fracture
CPT/HCPCS: 99214

== ENCOUNTER 2023-08-25 12:50 | Outpatient (REF) | payer MEDICARE, OTHER, SELFPAY ==
--- NOTE | ~2023-08-25 | US_ITS ---
EXAMINATION: US THYROID CLINICAL INFORMATION: Hypothyroidism, unspecified. COMPARISON: None available. TECHNIQUE: Linear transducer grayscale and color Doppler examination with attention to the region of the thyroid. FINDINGS: SIZE: Measurements of the thyroid lobes and nodules are given in sagittal, anteroposterior and transverse dimensions respectively. Right Thyroid Lobe: 3.7 x 0.8 x 1.3 cm, volume 2.0 mL. Parenchyma: The gland echotexture is homogeneous. Thyroid vascularity is normal. Left Thyroid Lobe: 3.0 x 1.0 x 0.9 cm, volume 1.4 mL. Parenchyma: The gland echotexture is homogeneous. Thyroid vascularity is normal. Isthmus: 0.3 cm in maximum AP dimension. Estimated total number of nodules greater than or equal to 1 cm: 0. Sprayer Machine nodules are described as follows: 1. Location: Right mid. Size: 0.5 x 0.3 x 0.4 cm, volume 0.03 mL. Nodule characteristics: Composition: Solid (2). Echogenicity: Isoechoic (1). Shape: Not taller than wide (0). Margins: Ill-defined (0). Echogenic Foci: None (0). ACR TI-RADS total points: 3 ACR TI-RADS category: 3 2. Location: Left mid. Size: 0.6 x 0.4 x 0.4 cm, volume 0.03 mL. Nodule characteristics: Composition: Solid (2). Echogenicity: Isoechoic (1). Shape: Not taller than wide (0). Margins: Ill-defined (0). Echogenic Foci: None (0). ACR TI-RADS total points: 3 ACR TI-RADS category: 3 NODES: No lymphadenopathy is seen in the tissue surrounding the thyroid gland. US/US thyroid IMPRESSION: Small, nonspecific bilateral thyroid nodules are seen, as detailed. No specific imaging follow-up is recommended. ACR TI-RADS RECOMMENDATION REFERENCE: Ultrasound-guided fine-needle aspiration, followup ultrasound, no further follow up. * TR1 (0 point) and TR2 (2 points): No FNA or follow up. * TR3 (3 points): FNA if more than or equal to 2.5 cm in maximum dimension, followup ultrasound in 1, 3 and 5 years if 1.5 to 2.4 cm in maximum dimension. * TR4 (4-6 points): FNA if more than or equal to 1.5 cm in maximum dimension, followup ultrasound in 1, 2, 3 and 5 years if 1 to 1.4 cm in maximum dimension. * TR5 (more than or equal to 7 points): FNA if more than or equal to 1 cm in maximum dimension, followup ultrasound every year for 5 years if 0.5 to 0.9 cm in maximum dimension. * TR3, TR4 or TR5 nodules that are below the size threshold for followup receive no follow up.
== END 2023-08-25 12:51 | disposition home or self-care (01) ==
LOC: HO.US 12:50
PROVIDERS: PCP Internal Medicine; Visit Provider Internal Medicine
DX: E03.9 Hypothyroidism, unspecified (principal)
CPT/HCPCS: 76536

== ENCOUNTER 2023-09-04 14:00 | Outpatient (RCR) | payer MEDICARE, OTHER, SELFPAY ==
--- NOTE | 2023-06-16 09:21 | MHC.PT.EP ---
[facility] [place] Office [place] Office [place] Office [address] Janeen Hsieh [address] [phone] F: [phone] F: [phone] F: [phone] F: [phone] Physical Therapy Plan of Care Date of Evaluation: 06/16/23 Date of Surgery: Diagnosis: This is a 73 yo female presenting to skilled PT with a script for low back pain. Assessment: This is a 73 yo female presenting to skilled PT with a script for low back pain. Patient is s/p slip and fall on black ice on Wednesday 06/06. Patient reports she fell posteriorly and her back hit a step (she had the wind knocked out of her upon the incident). Since the the fall she has been having bilateral lower thoracic/upper lumbar back pain but is worse on the R side. Pain is described as achy. Since then she has been taking ibuprofen, lidocaine patch and heat for pain. Pain has been improving daily. Her pain increases with transfers in/out of the car and bed, walking with her dog and standing for long periods of time. Her pain has been complicated by being sick the past 10 days as well and coughing has been causing back pain. She is also currently attending PT for shoulder pain but we are putting this on hold until back pain resolves Assessment reveals pain that ranges from up to a 3/10 at the worst. Patient demos decreased lumbar and thoracic ROM, strength of BLE's, UE's and core/back, TTP at lower thoracic and upper lumbar muscles and impaired posture with forward head and rounded shoulders. Based on functional limitations, impaired QOL and pain tolerance patient is a good candidate for skilled PT 2x/wk for 4wks. Frequency and Duration: The patient will be seen 2x/wk for 4wks Short Term Goals: Pt will demonstrate improved postural awareness and understanding of core engagement with supine and standing tasks without cues throughout session to improve overall back safety in 2 weeks. Pt will demonstrate centralization of sx in 2 weeks. Pt will continue to reinforce precautions, sitting, standing and ADL modifications with proper body mechanics in 2 wks. Skilled Nursing Goals: Pt will demonstrate improved outcome measure by 5 points in 4 weeks for improved functional mobility. Pt will demonstrate ability to bend and lift WNL min to no pain for household tasks in 4 wks. Pt will be I in HEP and compliant in 4wks Pt will return to PT for continuation of L shoulder symptoms Treatment Plan: Modalities to reduce pain, spasms and effusion. Manual therapy to restore motion and function. Therapeutic exercise to improve strength and flexibility. Neuromuscular re-education for posture and balance. Therapeutic activities to return to functional activities of daily living. Electronically signed by: Bella Núñez PT Please sign and return to therapist. Thank you for your referral.
--- NOTE | 2023-09-08 09:42 | MHC.PT.DC ---
[facility] [place] Office [place] Office [place] Office [address] Janeen Hsieh [address] [phone] F: [phone] F: [phone] F: [phone] F: [phone] Physical Therapy Discharge Report Diagnosis: This is a 73 yo female presenting to skilled PT with a script for low back pain. Date of Surgery: Date of Evaluation: 06/16/23 Date of Discharge: 09/08/23 Treatments to Date: 14 Cancellations to Date: 0 No Shows to Date: 0 Discharge Status: Achieved Goals Improved Function Independent with HEP Discharge Summary: 09/04/23: Patient is I in HEP and ready for DC at this time. She reports no pain and has returned to regularly exercising, participating in exercise and dance classes and cycling without pain. She has met her goals and is ready for DC at this time. Electronically signed by: Bella Núñez PT Please sign and return to therapist. Thank you for your referral.
== END 2023-09-08 09:42 | disposition home or self-care (01) ==
LOC: HO.PTCHIC 14:00
PROVIDERS: PCP Internal Medicine; Visit Provider Internal Medicine
DX: M54.50 Low back pain, unspecified (principal)
CPT/HCPCS: 97110; 97112; 97140; 97162

== ENCOUNTER 2023-09-04 17:59 | Outpatient (REF) | payer MEDICARE, OTHER, SELFPAY ==
--- NOTE | ~2023-09-04 | MR_ITS ---
MR THORACIC SPINE WITHOUT CONTRAST CLINICAL INFORMATION: Compression fracture at T7-T8 COMPARISON: Thoracic spine radiographs 07/31/2023. TECHNIQUE: MRI of the thoracic spine was obtained using routine sequences without contrast. FINDINGS: There is an acute edematous biconcave compression fracture at T8 that exhibits similar 70% height loss and slight posterior retropulsion that minimally indents the ventral thecal sac at the T8 level. No additional bone marrow edema to suggest an additional acute fractures. There is a kyphosis of the lower thoracic spine. Chronic endplate Schmorl's nodes at the lower thoracic levels. The remaining vertebral body heights are maintained. Moderate thoracic spondylosis. No severe central canal stenosis and no severe foraminal stenosis within the thoracic spine. No thoracic cord compression. Conus terminates at the L1 level. No definite thoracic cord signal changes accounting for artifact. MR/MR thoracic spine wo con IMPRESSION: There is an acute edematous biconcave compression fracture at T8 that exhibits similar 70% height loss and slight posterior retropulsion that minimally indents the ventral thecal sac at the T8 level. No additional bone marrow edema to suggest an additional acute fractures. Kyphosis at T8. Moderate thoracic spondylosis. No severe central canal stenosis and no severe foraminal stenosis within the thoracic spine.
== END 2023-09-04 18:00 | disposition home or self-care (01) ==
LOC: HO.MRI 17:59
PROVIDERS: PCP Internal Medicine; Visit Provider Nurse Practitioner Family
DX: S22.060A Wedge compression fracture of T7-T8 vertebra, initial encounter for closed fracture (principal); M54.6 Pain in thoracic spine; M81.0 Age-related osteoporosis without current pathological fracture; Z86.59 Personal history of other mental and behavioral disorders
CPT/HCPCS: 72146

== ENCOUNTER 2023-09-11 09:51 | Outpatient (AMB) | payer MEDICARE, OTHER, SELFPAY ==
--- NOTE | 2023-09-11 09:55 | A.OFFVIS_ITS ---
Intake Vital Signs 09/11/23 09:57 Height 5 ft 1 in Weight 117 lb BMI 22.1 BP 122/64 Blood Pressure Location Rt brachial Position Sitting Pulse 62 Pulse Source Pulse Oximeter Pulse Oximetry (%) 98 Oxygen Delivery Method Room Air Intake Visit Reasons: MRI result Intake Note: Pain today 08/01 Drawer In Stitch Bonding Machine Required: No Accompanied by: Self / Same As Patient Allergies Penicillins [PENICILLINS] Adverse Reaction (Mild, Verified 09/11/23 09:58) GI UPSET HPI HPI Comments History of Present Illness Details Patient presents today for follow up to review recent thoracic spine MRI results. She continues to experience significant mid thoracic back pain with daily activities, worst in the evening of the day. She stays active during the day by walking her dog 1-2 ml in the morning, continue HEP after completing PT with partial improvement. Patient continues to do Jeremie chi, light dancing and stationary bike with back seat but finds by the end of the day she has to rest a lot and has been feeling depressed as this has been happening daily. Patient has been taking Tylenol for moderate pain with some benefit. She reports her sleep or resting activities are not affected by this pain. Patient started Fosamax for osteoporosis. Thoracic MRI results were discussed with patient today and are noted below. Patient denies any significant low back pain, numbness or tingling, bladder or bowel dysfunction or saddle anesthesia. PRIOR: Patient is a pleasant 73 years old male with prior history of osteoporosis, osteopenia and recent wedge compression fracture of T7-T8 vertebra presents today for initial evaluation of persistent mid back pain. Patient reports she fell on black ice on 06/06/23 landing on her right buttock and lower back and was seen at Urgent Care on 06/08/23 at which time lumbar spine and rib xrays were completed as noted below. Patient returned to Urgent Care on 07/22/23 with no improvement with taking Ibuprofen and physical therapy. She was provided with scripts for Naproxen and methocarbamol which tried one of which once and stopped due to GI upset and no effect. Patient states she tries to avoid taking medication. Patient was then seen at her PCP office on 07/31/23 and completed thoracic spine xray which revealed compression fracture of the mid thoracic vertebra. Currently she reports pain in her lower thoracic region with slight radiation to the left as a muscle spasm and slight midline tenderness and intermittent aching in her lower back area. Denies radiation of pain to lower extremities. Pain increases with thoracolumbar extension. Denies any fever, chills, weight loss, abdominal or groin pain, weakness, foot drop, numbness, tingling, bladder or bowel dysfunction or saddle anesthesia. Patient states that she has difficulty with prolonged walking or standing or doing yoga. She used to walk at least two miles a day. Patient also rides her stationary bike Patient states the pain is an aching sensation that does not radiate. Patient continues to participate in PT and HEP which has been helpful for balance and posture awareness but not pain. She rates pain at 6/10. Location Mid thoracic and lower back Duration June 06, 2023 due to fall on black ice Characteristics of symptom or complaint Aching, heavy, sore, tiring Aggravating or associated factors Movements, laying flat on her back, prolonged sitting Relieving factors Cold, rest, tried naproxen and methocarbamol, Biofreeze Treatment PT-moderate improvement with posture and walking PFSH Medical History Osteoporosis Breast mass Vitamin D deficiency Annual physical exam Normal colonoscopy Hypothyroidism IFG (impaired fasting glucose) Hypertriglyceridemia Basal cell carcinoma Surgical History History of right oophorectomy Hx of colonoscopy Hx of wisdom tooth extraction Family History Father Heart problem Dementia Ruptured appendix Mother Colon cancer Dementia Sister Ruptured appendix Aneurysm Brother Kidney stones Social History Housing: House Alcohol intake: current Alcohol intake frequency: a few times a month Patient Tobacco Use Status: Former Tobacco user e-Cigarette/Vaping Use: Never Used Current occupational status: retired Cognitive needs: No Hearing needs: No Vision needs: Yes Review of Systems Const All systems reviewed & are unremarkable except as noted in HPI and below Physical Exam Vital Signs: Last Vital Signs Pulse 62 09/11/23 09:57 BP 122/64 09/11/23 09:57 Pulse Ox 98 09/11/23 09:57 Oxygen Delivery Method Room Air 09/11/23 09:57 BMI result Body Mass Index 22.1 General: Appears afebrile. Alert and oriented. Mood and affect appropriate. Follows and participates in conversation appropriately. Respiratory effort is unlabored. No cough. No nasal discharge. Able to transition from sit to stand unassisted. Ambulates with bilaterally normal heel strike and toe off. Back/Spine/Pelvis Other: Mild midline TTP in the lower thoracic region but not lumbar region. Lumbar extension reproduces mild to moderate pain, flexion does not reproduce pain. Cervical Spine: cervical ROM normal and No Cervical spine tenderness Thoracic/Lumbar Spine: thoracic and lumbar spine normal to inspection, No Thoracic/lumbar spine scar(s), kyphosis, pain with thoraco-lumbar ROM, paraspinal muscle tenderness on the left greater than right, thoraco-lumbar ROM limited, Thoracic/lumbar scoliosis (mild), thoracic spinal tenderness at T7 and at T8 and No lumbar spinal tenderness Sacroiliac joints: bilaterally nontender Skin General skin exam: no rashes or lesions noted Results Reviewed Results Reviewed: MR THORACIC SPINE WITHOUT CONTRAST 09/04/23 CLINICAL INFORMATION: Compression fracture at T7-T8 COMPARISON: Thoracic spine radiographs 07/31/2023. FINDINGS: There is an acute edematous biconcave compression fracture at T8 that exhibits similar 70% height loss and slight posterior retropulsion that minimally indents the ventral thecal sac at the T8 level. No additional bone marrow edema to suggest an additional acute fractures. There is a kyphosis of the lower thoracic spine. Chronic endplate Schmorl's nodes at the lower thoracic levels. The remaining vertebral body heights are maintained. Moderate thoracic spondylosis. No severe central canal stenosis and no severe foraminal stenosis within the thoracic spine. No thoracic cord compression. Conus terminates at the L1 level. No definite thoracic cord signal changes accounting for artifact. IMPRESSION: There is an acute edematous biconcave compression fracture at T8 that exhibits similar 70% height loss and slight posterior retropulsion that minimally indents the ventral thecal sac at the T8 level. No additional bone marrow edema to suggest an additional acute fractures. Kyphosis at T8. Moderate thoracic spondylosis. No severe central canal stenosis and no severe foraminal stenosis within the thoracic spine. XR THORACIC SPINE 07/31/23 CLINICAL INFORMATION: Pain in thoracic spine COMPARISON: Chest x-ray 04/17/2023 FINDINGS: Bones are diffusely osteopenic. There is a compression fracture of mid thoracic vertebra, likely T7, new since prior study. Paravertebral soft tissue structures and visualized lung rose are clear. IMPRESSION: Age-indeterminate compression fracture of the mid thoracic vertebra, likely T7. If clinically indicated, MRI of the thoracic spine may be obtained to determine acuity. XR LUMBOSACRAL SPINE 06/08/23 CLINICAL INFORMATION: Low back pain. COMPARISON: CT scan of the abdomen and pelvis June 2022. FINDINGS: There is a mild convex left curvature of the lumbar spine measured at 17 degrees between L1 and L4. Degenerative disc changes present at the T12-L1 and L1-2 level with disc space narrowing and endplate osteophytes. There is mild retrolisthesis of L2 on L3. Surrounding bone and soft tissues are unremarkable. IMPRESSION: 1. Mild scoliosis. 2. Spondylosis of the lumbar spine. MM/XR DEXA axial skeleton 05/13/22 IMPRESSION: 1. DIAGNOSIS: Osteoporosis based on the lowest T-score value of -2.6 in the lumbar spine applying World Health Organization criteria. Assessment & Plan Assessment & Plan (1) Traumatic compression fracture of T8 vertebra: Code(s): S22.060A - Wedge compression fracture of T7-T8 vertebra, initial encounter for closed fracture (2) Thoracic spine pain: Code(s): M54.6 - Pain in thoracic spine (3) Osteoporosis: Comment: DEXA 05/2022 T score -2.6, patient declined taking medications Code(s): M81.0 - Age-related osteoporosis without current pathological fracture Plan Thoracic spine MRI results discussed with patient in greater detail by me and Dr. Baez. Patient has traumatic compression fractures of the T8 vertebral bodies with evidence of osteoporosis in her lumbar spine per bone scan in 2021. MRI findings significant for acute edematous biconcave compression fracture at T8 that exhibits similar 70% height loss and slight posterior retropulsion that minimally indents the ventral thecal sac at the T8 level beyond 3 months since traumatic VCF due to fall in May 2023. Mild retropulsion reviewed with patient which is not significant and patient is still a candidate for surgical intervention given continued pain and midline tenderness which affects her daily functioning and quality of life. Extensive discussion and MRI imaging review was done today. We will proceed with T8 Kyphoplasty with sedation and fluoroscopy. Expectations, risks and benefits were reviewed. Patient is aware she will be contacted to schedule this procedure. All questions were answered and the patient is in agreement of plan. Follow-up after procedure and sooner as needed. Coding Level of Care Code Est Pt Level 4 (95005) Diagnoses Traumatic compression fracture of T8 vertebra S22.060A Thoracic spine pain M54.6 Osteoporosis M81.0
[2023-09-11 09:57] VITALS: BP 122/64; PULSE 62; O2SAT 98; BMI 22.1
== END 2023-09-11 10:37 | disposition home or self-care (01) ==
PROVIDERS: PCP Internal Medicine; Visit Provider Nurse Practitioner Family
DX: S22.060A Wedge compression fracture of T7-T8 vertebra, initial encounter for closed fracture (principal); M54.6 Pain in thoracic spine; M81.0 Age-related osteoporosis without current pathological fracture
CPT/HCPCS: 99214

== ENCOUNTER → 2023-09-11 09:51 | Outpatient (BNVA) | payer MEDICARE, OTHER, SELFPAY | PROVIDERS: PCP Internal Medicine; Visit Provider Nurse Practitioner Family | DX: S22.060A Wedge compression fracture of T7-T8 vertebra, initial encounter for closed fracture (principal); M54.6 Pain in thoracic spine; M81.0 Age-related osteoporosis without current pathological fracture; X58.XXXA Exposure to other specified factors, initial encounter; Y93.9 Activity, unspecified; Y92.9 Unspecified place or not applicable; Y99.9 Unspecified external cause status | CPT/HCPCS: 99212 ==

== ENCOUNTER 2023-10-01 10:21 | Day surgery (SDC) | payer MEDICARE, OTHER, SELFPAY ==
[2023-09-28 14:07] VITALS: BMI 22.1
--- NOTE | 2023-09-29 13:48 | P.CONAN_ITS ---
Documented by User: Cee Bonilla NP 09/29/23 13:49 HPI - Anesthesia Eval Consult details Narrative: 73yo F for T7-T8 Kyphoplasty PMFSH Active Problems Active Problems: All Active Problems Traumatic compression fracture of T8 vertebra (Acute) Lumbar spondylosis (Acute) Compression fracture of T7 vertebra (Acute) Thoracic spine pain (Acute) Thoracic myofascial strain (Acute) Lower back pain (Acute) Painful arc syndrome of left shoulder (Acute) Cough (Acute) Dysuria (Acute) Abdominal pain (Acute) Malignant melanoma of skin of right thigh (Acute) Family history of colon cancer (Acute) Osteoporosis (Acute) Breast mass (Acute) Vitamin D deficiency (Acute) Annual physical exam (Acute) Normal colonoscopy (Acute) Hypothyroidism (Acute) Past Medical History Medical History Melanoma Osteoporosis Breast mass Vitamin D deficiency Annual physical exam Normal colonoscopy Hypothyroidism IFG (impaired fasting glucose) Hypertriglyceridemia Basal cell carcinoma Family History Family History Father Heart problem Dementia Ruptured appendix Mother Colon cancer Dementia Sister Ruptured appendix Aneurysm Brother Kidney stones Surgical History Surgical History Hx of excision of mass History of right oophorectomy Hx of colonoscopy Hx of wisdom tooth extraction Social History Social History Housing: House Are you a primary animal care service worker to a significant other at home: No Do you presently have visiting nurse or other home services: No Alcohol intake: current Alcohol intake frequency: a few times a month Patient Tobacco Use Status: Former Tobacco user Tobacco use type: Cigarette e-Cigarette/Vaping Use: Never Used Use of substances other than those prescribed or required for medical reasons: No Have you been hit, kicked, punched, or otherwise hurt by someone within the past year? If so, by whom?: No Advance Directives: No Advance Directives Information Provided: Yes Advance Directives on File: No Recently lost weight without trying: No Eating poorly because of decreased appetite: No Nutrition Risks: No Nutritional Risk Current occupational status: retired Cognitive needs: No Hearing needs: No Vision needs: Yes Meds Allergies Allergy/AdvReac Type Severity Reaction Status Date / Time Penicillins [PENICILLINS] AdvReac Mild GI UPSET Verified 10/01/23 10:55 Home Medications ?Medication ?Instructions ?Recorded ?Confirmed ?Last Taken ?Type ascorbic acid (vitamin C) 500 mg 500 mg PO DAILY 05/16/20 09/28/23 Unknown History tablet (Vitamin C) aspirin 81 mg tablet,delayed 81 mg PO 3XW 05/16/20 10/01/23 09/24/23 History release multivitamin 1 tab PO DAILY 05/16/20 09/28/23 Unknown History omega 0-llp-tgj-fish oil 1,200 mg 1 cap PO BID 05/16/20 10/01/23 09/24/23 History (144 mg-216 mg) capsule (Fish Oil) vitamin K2 40 mcg tablet 40 mcg PO DAILY 09/28/23 09/28/23 Unknown History Exam Height,Weight and Vital Signs: Height 5 ft 1 in Weight 53.07 kg Assessment and Plan Assessment Anesthesia Assessment: Chart Reviewed Documented by User: Ace Gutierres MD 10/01/23 11:36 HPI - Anesthesia Eval Consult details Narrative: 73yo F for T7-T8 Kyphoplasty 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 Past Medical History Medical History Melanoma Osteoporosis Breast mass Vitamin D deficiency Annual physical exam Normal colonoscopy Hypothyroidism IFG (impaired fasting glucose) Hypertriglyceridemia Basal cell carcinoma Family History Family History Father Heart problem Dementia Ruptured appendix Mother Colon cancer Dementia Sister Ruptured appendix Aneurysm Brother Kidney stones Family history of problems with anesthesia: No Surgical History Surgical History Hx of excision of mass History of right oophorectomy Hx of colonoscopy Hx of wisdom tooth extraction History of Problems with Anesthesia: No Social History Social History (Reviewed 09/11/23 @ 11:36 by LUIS FELIPE Tolbert Housing: House Are you a primary animal care service worker to a significant other at home: No Do you presently have visiting nurse or other home services: No Alcohol intake: current Alcohol intake frequency: a few times a month Patient Tobacco Use Status: Former Tobacco user Tobacco use type: Cigarette e-Cigarette/Vaping Use: Never Used Use of substances other than those prescribed or required for medical reasons: No Have you been hit, kicked, punched, or otherwise hurt by someone within the past year? If so, by whom?: No Advance Directives: No Advance Directives Information Provided: Yes Advance Directives on File: No Recently lost weight without trying: No Eating poorly because of decreased appetite: No Nutrition Risks: No Nutritional Risk Current occupational status: retired Cognitive needs: No Hearing needs: No Vision needs: Yes Meds Allergies Allergy/AdvReac Type Severity Reaction Status Date / Time Penicillins [PENICILLINS] AdvReac Mild GI UPSET Verified 10/01/23 10:55 Home Medications ?Medication ?Instructions ?Recorded ?Confirmed ?Last Taken ?Type ascorbic acid (vitamin C) 500 mg 500 mg PO DAILY 05/16/20 09/28/23 Unknown History tablet (Vitamin C) aspirin 81 mg tablet,delayed 81 mg PO 3XW 05/16/20 10/01/23 09/24/23 History release multivitamin 1 tab PO DAILY 05/16/20 09/28/23 Unknown History omega 2-ijj-qqb-fish oil 1,200 mg 1 cap PO BID 05/16/20 10/01/23 09/24/23 History (144 mg-216 mg) capsule (Fish Oil) vitamin K2 40 mcg tablet 40 mcg PO DAILY 09/28/23 09/28/23 Unknown History Exam Airway Mallampati Class: II TM Dist: >3cm Neck ROM: Full Loose/Missing/Broken Teeth: No Heart: ok Lungs: ok Assessment and Plan Assessment Anesthesia Assessment: Anesthesia Plan Discussed Final Anesthetic Review Family History of Problems with Anesthesia: No History of Problems with Anesthesia: No NPO: Yes ASA Class: II Final Preanesthetic Review: No Changes in Pt Med Stat, Meds/Allgs Chart Reviewed, Consent Obtained/Reviewed and Anes Risks/Benef Reviewed Patient Risk: Low Procedure Risk: Intermediate Anesthetic Plan Anesthetic Plan: GA and Agree w/ Assess. and Plan Disposition: Standard PACU
[2023-10-01] VITALS (10 sets, daily range): BP systolic 118–152; BP diastolic 41–74; PULSE 47–56; RESP 16; TEMP 36.2–36.4; O2SAT 95–100
--- NOTE | ~2023-10-01 | FL_ITS ---
EXAMINATION: XR FLUOROSCOPY WITH IMAGES CLINICAL INFORMATION: T8 kyphoplasty. COMPARISON: Portions of the MRI thoracic spine. 09/04/2023. TECHNIQUE: Fluoroscopy Supervised By: Dr. Shilo Baez. Fluoroscopy Time: 2 minutes and 9.5 seconds. Cumulative Dose: 11.580 mGy. Patient dose: 2.4551 Gycm2 Images: 1. FINDINGS: The submitted image shows a cannula at the T8 posterior elements, with injection of kyphoplasty cement. FL/FL guidance in OR IMPRESSION: Intraoperative fluoroscopic guidance is provided during T8 kyphoplasty. Please see the patient's Operative Report for full procedural details.
[2023-10-01] MEDS: Lactated Ringers 1,000 ML 100 ML IVCONT (11:26)
--- NOTE | 2023-10-01 12:03 | MHC.SHP ---
Pre-Procedural Eval Section A - 24 Hr Update-Section A only Date of Service: 10/01/23 The patient is an INPATIENT: No Changes since office visit: Yes Patient answered all questions The patient has been examined within 24 hours of the surgical procedure. The History & Physical has been completed within 30 days and I have reviewed it.: Yes Section B - Complete if H&P > 30 days Chief Complaint: Wedge compression fracture of T7-T8 vertebra Allergies: Allergies Allergy/AdvReac Type Severity Reaction Status Date / Time Penicillins [PENICILLINS] AdvReac Mild GI UPSET Verified 10/01/23 10:55 Review of Systems Sugical H&P ROS: Negative: Constitution, Cardiovascular and Respiratory Exam Surgical H&P Exam: Normal: HEENT, Normal: Heart and Normal: Lungs Plan Diagnosis/Plan: Unchanged I have reviewed the history and physical and performed a pertinent physical examination on my patient. No changes have occurred unless specified. Time Spent With Patient Time: Total time managing care of this patient today ____ minutes.
[2023-10-01 13:34] LABS: MRSA Nasal PCR NEGATIVE (Negative); SA Nasal PCR NEGATIVE (Negative)
--- NOTE | 2023-10-01 14:18 | P.BOP_ITS ---
Brief Operative Note Date of Service: 10/01/23 Pre-op diagnosis: Osteoporotic vertebral compression fracture Post-op diagnosis: same Procedure: Kyphon Balloon Kyphoplasty with Insertion of HV-R Bone Cement, T8 Vertebral Body Implants: None. Surgeon: Shilo Baez MD Anesthesia: MAC and local Was an Fabric Finisher used for this Procedure?: No Estimated blood loss (mL): 10 Pathology: none sent Condition: stable Disposition: PACU
--- NOTE | 2023-10-01 14:19 | W.PM.OPN ---
Operative Note Operative Note Date of Service: 10/01/23 Narrative: Kyphon Balloon Kyphoplasty with Insertion of HV-R Bone Cement, T8 Vertebral Body The patient was brought to the operating room and general anesthesia with endotracheal intubation was induced. The patient was positioned prone on the table. The back was prepped and draped. Two image intensifiers (C-arms) were brought into the AP and lateral positions and the T8 pedicles were identified and marked with a skin marker. A transpedicular approach to the vertebral body was deemed appropriate. A spinal needle was advanced along the expected course of the introducer up to the pedicle and the tract was anesthetized with 0.25% bupivacaine with epinephrine. A stab incision was made 3 cm lateral to the pedicle with a 15 blade. A 10-gauge bevel introducer was advanced through the T8 pedicle to the junction of the pedicle and vertebral body on the left side first. Positioning was confirmed on the AP and lateral plane at regular intervals to ensure bevel position within the cortical boundaries of the pedicle until the body of the vertebra was accessed. Following satisfactory placement of the osteointroducer, the bevel tip was removed, leaving the cannula in place, positioned approximately 1 cm past the posterior vertebral body wall. Through the cannula, a drill was advanced into the vertebral body under fluoroscopic guidance toward the anterior cortex to create a channel, stopping approximately 3-5 mm posterior to the anterior cortical wall in the lateral view and approaching the ipsilateral edge of the spinous process in the AP view. The anterior cortex was probed with the guide pin to ensure no perforations in the anterior cortex. After completing the entry into the vertebral body, a 15 mm inflatable bone tamp was inserted through the cannula and advanced under fluoroscopic guidance into the vertebral body near the anterior cortex. The radiopaque marker bands on the bone tamp were identified using AP and lateral images and confirmed to be within the anterior 2/3rd of the body. . The above sequence of instrument placement was then repeated on the right side. Once both bone tamps were in position, they were inflated sequentially in increments of 0.25 to 0.5 cc of contrast, with careful attention being paid to the inflation pressures and balloon position. The inflation was monitored with AP and lateral imaging. The final balloon volume was 1 cc on the left and 0.5 cc on the right side. Maximum pressure applied on either side was approximately 250-300 psi. There was no breach of the lateral wall or anterior cortex of the vertebral body. Direct reduction of the fracture was achieved and end plate movement was noted. Under fluoroscopic imaging, and the use of the bone void fillers, internal fixation was achieved through a low-pressure injection of appropriately cured KYPHON HV-R methylmethacrylate bone cement. The cavity was filled with a total volume of 1.5 cc on the left side and 2 cc on the right side. No vascular or spinal extravasation of the cement was noted. There was some tracking of the cement into the adjacent disc space, at which point further cement injection was stopped. Once the bone cement had hardened, the bevel tip was reinserted into each of the cannulas to clear it and they were were then removed. Post-procedure, the incisions were closed with 2 silk sutures. The patient was kept in the prone position for approximately 10 minutes post cement injection. She was then turned supine, extubated and brought to the PACU where she reported minimal back pain. She was able to move both her lower extremities at this time. She was subsequently discharged with postprocedure and follow-up instructions. Estimated blood loss was rougly 10 mL.
[2023-10-01] MEDS: oxyCODONE HCl Immed Release 5 MG TABLET PO (15:05)
[2023-10-01] MEDS: ondansetron HCL 4 MG/2 ML VIAL IVPUSH (15:05)
--- NOTE | 2023-10-01 15:07 | PC.NURSE ---
Pt premedicated with Zofran for nausea prophylaxis prior to admin of oxycodone.
== END 2023-10-01 17:03 | disposition home or self-care (01) ==
PROVIDERS: Registered Nurse Emergency; PCP Internal Medicine; Visit Provider Internal Medicine
PROC: (CPT 22513; principal; 2023-10-01 12:00)
DX: S22.060A Wedge compression fracture of T7-T8 vertebra, initial encounter for closed fracture (principal); M81.0 Age-related osteoporosis without current pathological fracture; M40.294 Other kyphosis, thoracic region; R26.2 Difficulty in walking, not elsewhere classified; W00.0XXA Fall on same level due to ice and snow, initial encounter; Y93.01 Activity, walking, marching and hiking; Y92.9 Unspecified place or not applicable; Y99.9 Unspecified external cause status; E55.9 Vitamin D deficiency, unspecified; E78.1 Pure hyperglyceridemia; E03.9 Hypothyroidism, unspecified; R73.01 Impaired fasting glucose; Z79.83 Long term (current) use of bisphosphonates; Z79.82 Long term (current) use of aspirin; Z79.899 Other long term (current) drug therapy; Z88.0 Allergy status to penicillin
CPT/HCPCS: 22513; 87640; 87641; C1713; J0736; J2250; J2405; J2704; J2795; J3010; Q9967

== ENCOUNTER → 2023-10-01 10:21 | Outpatient (BNV) | payer MEDICARE, OTHER, SELFPAY | PROVIDERS: PCP Internal Medicine; Visit Provider Internal Medicine | DX: M80.08XA Age-related osteoporosis with current pathological fracture, vertebra(e), initial encounter for fracture (principal); S22.060A Wedge compression fracture of T7-T8 vertebra, initial encounter for closed fracture | CPT/HCPCS: 22513 ==

== ENCOUNTER 2023-10-08 13:34 | Outpatient (AMB) | payer MEDICARE, OTHER, SELFPAY ==
--- NOTE | 2023-10-08 13:54 | MHC.OFFVIS ---
Vital Signs 10/08/23 14:11 Height 5 ft 1 in Weight 117 lb BMI 22.1 BP 128/88 Blood Pressure Location Lt brachial Position Sitting Respiration 14 Pulse 69 Pulse Source Pulse Oximeter Pulse Oximetry (%) 96 Oxygen Delivery Method Room Air Intake Visit Reasons: S/p T8 (Possible T7) Kyphoplasty Intake Note: Patient comes in for post-op appointment. Allergies Penicillins [PENICILLINS] Adverse Reaction (Mild, Verified 10/09/23 11:52) GI UPSET HPI Comments Details: Vee is a very pleasant 73 y.o. female who is in my office for the follow up after the kypholasty T8 (Dr. Baez 10/01/23). Minor improvement with her pain. Reports most of the pain in the projection of the lower thoracic and upper lumbar spine. She has no dressing in the sites of the incisions and the puncture wound sites are minimally red, no swelling. the bacitracin dressing was applied to the sites, the sutures removal is scheduled with Dr. Baez. Patient requests additional help with her pain. Nature of the procedure and limitation of the jehovah's witness of the anatomical proportions of the fractured vertebra 4 months after the original trauma were explained to the patient. The stabilization of the current deformity was explained to the patient. The patient offered MBB of the lower thoracic or upper lumbar vertebrae depending on fluoroscopy exam, she agreed to go for this procedure with Dr. Baez. Activities of daily living and mobilities limitation (no heavy lifting, no high impact exercise were explained to the patient. She is on Alendronate p.o. for osteoporosis prescribed by PCP. Warehouse Material Handler specialist in osteoporosis consult is recommended. Proper endocrinology diagnosis is emphasized in treatment of osteoporosis, newer intravenous medications briefly mentioned. PRIOR: Patient is a pleasant 73 years old male with prior history of osteoporosis, osteopenia and recent wedge compression fracture of T7-T8 vertebra presents today for initial evaluation of persistent mid back pain. Patient reports she fell on black ice on 06/06/23 landing on her right buttock and lower back and was seen at Urgent Care on 06/08/23 at which time lumbar spine and rib xrays were completed as noted below. Patient returned to Urgent Care on 07/22/23 with no improvement with taking Ibuprofen and physical therapy. She was provided with scripts for Naproxen and methocarbamol which tried one of which once and stopped due to GI upset and no effect. Patient states she tries to avoid taking medication. Patient was then seen at her PCP office on 07/31/23 and completed thoracic spine xray which revealed compression fracture of the mid thoracic vertebra. Currently she reports pain in her lower thoracic region with slight radiation to the left as a muscle spasm and slight midline tenderness and intermittent aching in her lower back area. Denies radiation of pain to lower extremities. Pain increases with thoracolumbar extension. Denies any fever, chills, weight loss, abdominal or groin pain, weakness, foot drop, numbness, tingling, bladder or bowel dysfunction or saddle anesthesia. Patient states that she has difficulty with prolonged walking or standing or doing yoga. She used to walk at least two miles a day. Patient also rides her stationary bike Patient states the pain is an aching sensation that does not radiate. Patient continues to participate in PT and HEP which has been helpful for balance and posture awareness but not pain. She rates pain at 6/10. Location Mid thoracic and lower back Duration June 06, 2023 due to fall on black ice Characteristics of symptom or complaint Aching, heavy, sore, tiring Aggravating or associated factors Movements, laying flat on her back, prolonged sitting Relieving factors Cold, rest, tried naproxen and methocarbamol, Biofreeze Treatment PT-moderate improvement with posture and walking PFSH Medical History (Updated 10/11/23 @ 10:36 by Ian Burgess MD) Melanoma Osteoporosis Breast mass Vitamin D deficiency Annual physical exam Normal colonoscopy Hypothyroidism IFG (impaired fasting glucose) Hypertriglyceridemia Basal cell carcinoma Surgical History Hx of excision of mass History of right oophorectomy Hx of colonoscopy Hx of wisdom tooth extraction Family History Father Heart problem Dementia Ruptured appendix Mother Colon cancer Dementia Sister Ruptured appendix Aneurysm Brother Kidney stones Social History Housing: House Are you a primary livestock caretaker to a significant other at home: No Do you presently have visiting nurse or other home services: No Alcohol intake: current Alcohol intake frequency: a few times a month Patient Tobacco Use Status: Former Tobacco user Tobacco use type: Cigarette e-Cigarette/Vaping Use: Never Used Current occupational status: retired Cognitive needs: No Hearing needs: No Vision needs: Yes Review of Systems Const All systems reviewed & are unremarkable except as noted in HPI and below Physical Exam Vital Signs: Last Vital Signs Pulse 69 10/08/23 14:11 Resp 14 10/08/23 14:11 BP 128/88 10/08/23 14:11 Pulse Ox 96 10/08/23 14:11 Oxygen Delivery Method Room Air 10/08/23 14:11 BMI result Body Mass Index 22.1 General: Appears afebrile. Alert and oriented. Mood and affect appropriate. Follows and participates in conversation appropriately. Respiratory effort is unlabored. No cough. No nasal discharge. Able to transition from sit to stand unassisted. Ambulates with bilaterally normal heel strike and toe off. Const General: cooperative, comfortable, no acute distress and well developed Orientation/consciousness: patient oriented x3 Neck Neck: Yes normal visual inspection and Yes full ROM Chest Chest palpation & inspection: normal inspection of the chest Resp Effort & Inspection: normal respiratory effort, able to speak in complete sentences, normal respiratory pattern, no audible wheezes and no cough Cardio Jugular venous distension: no JVD Back/Spine/Pelvis Other: Mild midline TTP in the lower thoracic region and upper lumbar region. Lumbar extension reproduces mild to moderate pain, flexion does not reproduce pain. no pain on percussion at the T8 vertebra site. suture sites minimally red, dressings applied. Cervical Spine: cervical ROM normal and No Cervical spine tenderness Thoracic/Lumbar Spine: thoracic and lumbar spine normal to inspection, kyphosis, pain with thoraco-lumbar ROM, paraspinal muscle tenderness on the left greater than right, thoraco-lumbar ROM limited, Thoracic/lumbar scoliosis (mild), thoracic spinal tenderness at T7 and at T8 and lumbar spinal tenderness (upper lumbar) at L1 Sacroiliac joints: bilaterally nontender Skin General skin exam: no rashes or lesions noted Neuro General: patient oriented x3 Results Reviewed Results Reviewed: MR THORACIC SPINE WITHOUT CONTRAST 09/04/23 CLINICAL INFORMATION: Compression fracture at T7-T8 COMPARISON: Thoracic spine radiographs 07/31/2023. FINDINGS: There is an acute edematous biconcave compression fracture at T8 that exhibits similar 70% height loss and slight posterior retropulsion that minimally indents the ventral thecal sac at the T8 level. No additional bone marrow edema to suggest an additional acute fractures. There is a kyphosis of the lower thoracic spine. Chronic endplate Schmorl's nodes at the lower thoracic levels. The remaining vertebral body heights are maintained. Moderate thoracic spondylosis. No severe central canal stenosis and no severe foraminal stenosis within the thoracic spine. No thoracic cord compression. Conus terminates at the L1 level. No definite thoracic cord signal changes accounting for artifact. IMPRESSION: There is an acute edematous biconcave compression fracture at T8 that exhibits similar 70% height loss and slight posterior retropulsion that minimally indents the ventral thecal sac at the T8 level. No additional bone marrow edema to suggest an additional acute fractures. Kyphosis at T8. Moderate thoracic spondylosis. No severe central canal stenosis and no severe foraminal stenosis within the thoracic spine. XR THORACIC SPINE 07/31/23 CLINICAL INFORMATION: Pain in thoracic spine COMPARISON: Chest x-ray 04/17/2023 FINDINGS: Bones are diffusely osteopenic. There is a compression fracture of mid thoracic vertebra, likely T7, new since prior study. Paravertebral soft tissue structures and visualized lung rose are clear. IMPRESSION: Age-indeterminate compression fracture of the mid thoracic vertebra, likely T7. If clinically indicated, MRI of the thoracic spine may be obtained to determine acuity. XR LUMBOSACRAL SPINE 06/08/23 CLINICAL INFORMATION: Low back pain. COMPARISON: CT scan of the abdomen and pelvis June 2022. FINDINGS: There is a mild convex left curvature of the lumbar spine measured at 17 degrees between L1 and L4. Degenerative disc changes present at the T12-L1 and L1-2 level with disc space narrowing and endplate osteophytes. There is mild retrolisthesis of L2 on L3. Surrounding bone and soft tissues are unremarkable. IMPRESSION: 1. Mild scoliosis. 2. Spondylosis of the lumbar spine. MM/XR DEXA axial skeleton 05/13/22 IMPRESSION: 1. DIAGNOSIS: Osteoporosis based on the lowest T-score value of -2.6 in the lumbar spine applying World Health Organization criteria. Assessment & Plan Assessment & Plan (1) Traumatic compression fracture of T8 vertebra: Comment: Status post kyphoplasty 10/01/2023 Code(s): S22.060A - Wedge compression fracture of T7-T8 vertebra, initial encounter for closed fracture Category: Medical (2) Thoracic spine pain: Code(s): M54.6 - Pain in thoracic spine Category: Medical (3) Osteoporosis: Comment: DEXA 05/2022 T score -2.6, traumatic vertebral fracture T8 , patient declined treatment initially but agreed after compression fraction to start Fosamax Code(s): M81.0 - Age-related osteoporosis without current pathological fracture Category: Medical (4) 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 Suture removal in one week with Dr. Baez. Residual pain treatment with MBB lower thoracic and upper lumbar spine was discussed. The patients agreed to proceed for the injection with Dr. Baez. mobility limitations, osteoporosis discussin as above. Patient Instructions: I hereby testify that I spent 34 minutes in conversation with the patient as well as planing her care and organizing this note.
[2023-10-08 14:11] VITALS: BP 128/88; PULSE 69; RESP 14; O2SAT 96; BMI 22.1
== END 2023-10-08 14:55 | disposition home or self-care (01) ==
PROVIDERS: PCP Internal Medicine; Visit Provider Anesthesiology
DX: S22.060A Wedge compression fracture of T7-T8 vertebra, initial encounter for closed fracture (principal); M54.6 Pain in thoracic spine; M81.0 Age-related osteoporosis without current pathological fracture; M47.815 Spondylosis without myelopathy or radiculopathy, thoracolumbar region
CPT/HCPCS: 99024

== ENCOUNTER → 2023-10-08 13:34 | Outpatient (BNVA) | payer MEDICARE, OTHER, SELFPAY | PROVIDERS: PCP Internal Medicine; Visit Provider Anesthesiology | DX: M47.815 Spondylosis without myelopathy or radiculopathy, thoracolumbar region (principal); M54.6 Pain in thoracic spine; M81.0 Age-related osteoporosis without current pathological fracture; S22.060A Wedge compression fracture of T7-T8 vertebra, initial encounter for closed fracture; X58.XXXA Exposure to other specified factors, initial encounter; Y93.9 Activity, unspecified; Y92.9 Unspecified place or not applicable; Y99.9 Unspecified external cause status | CPT/HCPCS: 99212 ==

== ENCOUNTER 2023-10-09 11:39 | Outpatient (AMB) | payer MEDICARE, OTHER, SELFPAY ==
[2023-10-09 11:49] VITALS: BP 114/60; PULSE 62; O2SAT 99; BMI 22.2
--- NOTE | 2023-10-09 11:49 | MHC.PC.OV ---
Vital Signs 10/09/23 11:49 Height 5 ft 1 in Weight 117 lb 8 oz BMI 22.2 BP 114/60 Blood Pressure Location Rt brachial Position Sitting Pulse 62 Pulse Source Pulse Oximeter Pulse Oximetry (%) 99 Oxygen Delivery Method Room Air Intake Visit Reasons: hypoplastic follow-up Intake Note: Pt is here today for her hypoplastic f/u Allergies Penicillins [PENICILLINS] Adverse Reaction (Mild, Verified 10/09/23 11:52) GI UPSET Medication List - Last Reconciled 10/09/23 by Jia Bolden MD alendronate (Fosamax) 70 mg PO QWEEK ascorbic acid (vitamin C) (Vitamin C) 500 mg PO DAILY aspirin 81 mg PO 3XW cholecalciferol (vitamin D3) 25 mcg PO DAILY multivitamin 1 tab PO DAILY omega 6-kan-tcu-fish oil 1,200 (144-216) mg (Fish Oil) 1 cap PO BID vitamin K2 40 mcg PO DAILY Tobacco use date assessed: 10/09/23 Fall risk assessment: 1 Fall in past year Last assessed Fall Risk: 10/09/23 Dental Screening Dental Screen Date: 10/09/23 Did you have a dental visit in the last 12 months?: Yes Did you have a dental problem in the last 6 months where you did not have access to dental care?: No Was dental information given to patient?: Patient has dentist HPI hypoplastic follow-up HPI Details Pt presents for f/u kyphoplasty . Pt c/o persistent lower back pain and has been taking Tylenol 1 gm tid. Pt was seen by pain management and offered injections but she declined pt is going to [place] in 2 weeks. Pt has been exercisting regularly: biking and kayaking before her fall. Pt started Fosamax with vit D for osteoporosis last month and has been tolerating well. Patient requests a referral to endocrinology [facility] Medical History (Updated 10/09/23 @ 16:07 by Jia Bolden MD) Melanoma Osteoporosis Breast mass Vitamin D deficiency Annual physical exam Normal colonoscopy Hypothyroidism IFG (impaired fasting glucose) Hypertriglyceridemia Basal cell carcinoma Surgical History Hx of excision of mass History of right oophorectomy Hx of colonoscopy Hx of wisdom tooth extraction Family History Father Heart problem Dementia Ruptured appendix Mother Colon cancer Dementia Sister Ruptured appendix Aneurysm Brother Kidney stones Social History Housing: House Are you a primary senior resident care director to a significant other at home: No Do you presently have visiting nurse or other home services: No Alcohol intake: current Alcohol intake frequency: a few times a month Patient Tobacco Use Status: Former Tobacco user Tobacco use type: Cigarette e-Cigarette/Vaping Use: Never Used Current occupational status: retired Cognitive needs: No Hearing needs: No Vision needs: Yes Questionnaire PHQ-9 Over the last 2 weeks, how often have you been bothered by any of the following problems? 1. Little interest or pleasure in doing things: not at all 2. Feeling down, depressed, or hopeless: several days 3. Trouble falling or staying asleep, or sleeping too much: several days 4. Feeling tired or having little energy: not at all 5. Poor appetite or overeating: not at all 6. Feeling bad about yourself - or that you are a failure or have let yourself or your family down: not at all 7. Trouble concentrating on things, such as reading the newspaper or watching television: not at all 8. Moving or speaking so slowly that other people could have noticed. Or the opposite - being so fidgety or restless that you have been moving around a lot more than usual: not at all 9. Thoughts that you would be better off or of hurting yourself in some way: not at all Total score: 2 Depression Screening Interpretation: Negative Depression Screening Done: Yes 90181 - PHQ-9 Billing: Yes Source: Developed by Drs. Storm Tavares, Alexandria Hays, Ady Nix and colleagues, with an educational mario alberto from [employer]. Thrive Questionnaire Date Thrive assessed: 10/09/23 I am a: Patient What is your living situation today?: I have a steady place to live Within the past 12 months, did the food you bought not last and you didn't have the money to get more?: Never true Within the past 12 months, did you worry whether your food would run out before you got money to buy more?: Never true Do you have trouble paying for medicines?: No Do you have trouble getting transportation to medical appointments?: No Do you have trouble paying your heating and electricity bill?: No Do you have trouble taking care of your child, family member or friend?: No Do you have trouble with day-to-day activities such as bathing, preparing meals, shopping, managing finances, etc.?: No Are you currently unemployed and looking for a job?: No Are you interested in more education?: No Currently or been in a relationship where the following occur: I choose not to answer this question THRIVE Score: 0 AUDIT C Alcohol Use Questionnaire (AUDIT-C) 1. How often do you have a drink containing alcohol?: Monthly or less 2. How many drinks containing alcohol do you have on a typical day when you are drinking?: 1 or 2 3. How often do you have six or more drinks on one occasion?: Never Total Score: 1 MELLO-7 AMB Questionnaire MELLO-7 Date MELLO - 7 assessed: 07/30/22 Feeling nervous, anxious, or on edge: 1 = Several days Not being able to stop or control worryin = Not at all Worrying too much about different things: 0 = Not at all Trouble relaxin = Not at all Being so restless that it is hard to sit still: 0 = Not at all Becoming easily annoyed or irritable: 1 = Several days Feeling afraid as if something awful might happen: 0 = Not at all Total MELLO-7 score (0-4 normal; 5-9 mild; 10-14 moderate; 15-21 severe): 2 Source: Developed by Drs. Storm Tavares, Alexandria Hays, Ady Nix and colleagues, with an educational mario alberto from [employer]. MELLO-7 Assessment Billing MELLO-7 Assessment Tool: MELLO-7 Assessment 74094 Review of Systems Const All systems reviewed & are unremarkable except as noted in HPI and below Eyes Reports no additional complaints ENT Reports no additional complaints Card Reports no additional complaints Resp Reports no additional complaints GI Reports no additional complaints Reports no additional complaints Physical exam (Primary Care) Vital Signs: Last Vital Signs Pulse 62 10/09/23 11:49 BP 114/60 10/09/23 11:49 Pulse Ox 99 10/09/23 11:49 Oxygen Delivery Method Room Air 10/09/23 11:49 BMI result Body Mass Index 22.2 Tobacco/Smoking Status: Tobacco use Status Tobacco use date assessed 10/09/23 10/09/23 11:56 Patient Tobacco Use Status Former Tobacco user 10/09/23 11:50 Tobacco use type Cigarette 10/09/23 11:50 e-Cigarette/Vaping Use Never Used 10/09/23 11:50 PHQ-9: PHQ-9 Score PHQ-9: Total score 2 10/09/23 12:41 Depression Screening Interpretation: Negative Thrive Assessment: Date of Thrive Assessment Date Thrive assessed 10/09/23 10/09/23 12:41 Currently or been in a relationship where the following occur: I choose not to answer this question Const General: no acute distress HENMT Face and sinus: Yes normal facial exam Eyes General: appearance normal, both eyes and all related structures Resp Effort & Inspection: normal respiratory effort Auscultation: clear to auscultation bilaterally Cardio Rhythm: regular rhythm Heart sounds: S1 normal heart sound present and S2 normal heart sound present GI Inspection: Yes normal to inspection Back/Spine/Pelvis Other: Paraspinal tenderness in mid and lower lumbar spine, straight leg rising 90 degrees bilaterally Assessment and Plan Assessment & Plan (1) Osteoporosis: Comment: DEXA 05/2022 T score -2.6, traumatic vertebral fracture T8 , patient declined treatment initially but agreed after compression fraction to start Fosamax Code(s): M81.0 - Age-related osteoporosis without current pathological fracture Plan: Continue Fosamax and vitamin-D is referred to leaf conditioner helper Dr. Ackerman (2) Traumatic compression fracture of T8 vertebra: Comment: Status post kyphoplasty 10/01/2023 Code(s): S22.060A - Wedge compression fracture of T7-T8 vertebra, initial encounter for closed fracture Plan: For persistent lower back pain gabapentin 100 mg 3 times a day will be started the dose will be titrated up depending on the response. Patient will follow-up after her trip to [place] in October Orders: Referrals Endocrinology Referral M81.0 - Age-related osteoporosis without current pathological fracture Medications: New gabapentin 100 mg PO TID 90 caps 0RF Coding Level of Care Code Est Pt Level 4 (92782) Diagnoses Osteoporosis M81.0 Traumatic compression fracture of T8 vertebra S22.060A Additional Codes MELLO-7 Assessment Billing - MELLO-7 Assessment Tool: MELLO-7 Assessment 91291 ([id number])
== END 2023-10-09 16:08 | disposition home or self-care (01) ==
PROVIDERS: PCP Internal Medicine; Visit Provider Internal Medicine
DX: M81.0 Age-related osteoporosis without current pathological fracture (principal); S22.060A Wedge compression fracture of T7-T8 vertebra, initial encounter for closed fracture
CPT/HCPCS: 99214

== ENCOUNTER 2023-10-15 09:38 | Outpatient (AMB) | payer MEDICARE, OTHER, SELFPAY ==
[2023-10-15 09:43] VITALS: BP 142/71; PULSE 60; O2SAT 98; BMI 21.9
--- NOTE | 2023-10-15 09:43 | A.OFFVIS_ITS ---
Vital Signs 10/15/23 09:43 Height 5 ft 1 in Weight 116 lb BMI 21.9 BP 142/71 H Blood Pressure Location Rt brachial Position Sitting Pulse 60 Pulse Source Pulse Oximeter Pulse Oximetry (%) 98 Oxygen Delivery Method Room Air Intake Visit Reasons: S/p T8 (Possible T7) Kyphoplasty Intake Note: Pain today 07/01 Project Specialist Required: No Accompanied by: Self / Same As Patient Allergies Penicillins [PENICILLINS] Adverse Reaction (Mild, Verified 10/15/23 09:44) GI UPSET HPI Comments Details: Patient presents today 2 weeks status post T8 kyphoplasty for suture removal. Patient reports 80-90% pain reduction in mid back is improved daily functioning and sleep. Patient continues to endorse pain localized above and below her surgical site and notes this pain increases by the end of the day after her activities. She continues to modify and limit her activities for the next 4-6 weeks to allow healing. Denies any recent cough, cold, infection, fever, any significant changes in her medical history, medications or recent ho spitalizations. Incisional sites are clean, dry, intact. No pathological discharge, redness, swelling, erythema or tenderness. Two sutures removed. Bacitracin ointment was applied to both wounds. Tegaderm and dry sterile dressing were applied. Patient tolerated suture removal well. PRIOR Dr. Burgess 10/08/23: Vee is a very pleasant 73 y.o. female who is in my office for the follow up after the kypholasty T8 (Dr. Baez 10/01/23). Minor improvement with her pain. Reports most of the pain in the projection of the lower thoracic and upper lumbar spine. She has no dressing in the sites of the incisions and the puncture wound sites are minimally red, no swelling. the bacitracin dressing was applied to the sites, the sutures removal is scheduled with Dr. Baez. Patient requests additional help with her pain. Nature of the procedure and limitation of the hoahaoism of the anatomical proportions of the fractured vertebra 4 months after the original trauma were explained to the patient. The stabilization of the current deformity was explained to the patient. The patient offered MBB of the lower thoracic or upper lumbar vertebrae depending on fluoroscopy exam, she agreed to go for this procedure with Dr. Baez. Activities of daily living and mobilities limitation (no heavy lifting, no high impact exercise were explained to the patient. She is on Alendronate p.o. for osteoporosis prescribed by PCP. Aircraft Launch And Recovery Technician specialist in osteoporosis consult is recommended. Proper endocrinology diagnosis is emphasized in treatment of osteoporosis, newer intravenous medications briefly mentioned. PRIOR: Patient is a pleasant 73 years old male with prior history of osteoporosis, osteopenia and recent wedge compression fracture of T7-T8 vertebra presents today for initial evaluation of persistent mid back pain. Patient reports she fell on black ice on 06/06/23 landing on her right buttock and lower back and was seen at Urgent Care on 06/08/23 at which time lumbar spine and rib xrays were completed as noted below. Patient returned to Urgent Care on 07/22/23 with no improvement with taking Ibuprofen and physical therapy. She was provided with scripts for Naproxen and methocarbamol which tried one of which once and stopped due to GI upset and no effect. Patient states she tries to avoid taking medication. Patient was then seen at her PCP office on 07/31/23 and completed thoracic spine xray which revealed compression fracture of the mid thoracic vertebra. Currently she reports pain in her lower thoracic region with slight radiation to the left as a muscle spasm and slight midline tenderness and intermittent aching in her lower back area. Denies radiation of pain to lower extremities. Pain increases with thoracolumbar extension. Denies any fever, chills, weight loss, abdominal or groin pain, weakness, foot drop, numbness, tingling, bladder or bowel dysfunction or saddle anesthesia. Patient states that she has difficulty with prolonged walking or standing or doing yoga. She used to walk at least two miles a day. Patient also rides her stationary bike Patient states the pain is an aching sensation that does not radiate. Patient continues to participate in PT and HEP which has been helpful for balance and posture awareness but not pain. She rates pain at 6/10. Location Mid thoracic and lower back Duration June 06, 2023 due to fall on black ice Characteristics of symptom or complaint Aching, heavy, sore, tiring Aggravating or associated factors Movements, laying flat on her back, prolonged sitting Relieving factors Cold, rest, tried naproxen and methocarbamol, Biofreeze Treatment PT-moderate improvement with posture and walking PFSH Medical History Melanoma Osteoporosis Breast mass Vitamin D deficiency Annual physical exam Normal colonoscopy Hypothyroidism IFG (impaired fasting glucose) Hypertriglyceridemia Basal cell carcinoma Surgical History Hx of excision of mass History of right oophorectomy Hx of colonoscopy Hx of wisdom tooth extraction Family History Father Heart problem Dementia Ruptured appendix Mother Colon cancer Dementia Sister Ruptured appendix Aneurysm Brother Kidney stones Social History Housing: House Are you a primary customer care manager to a significant other at home: No Do you presently have visiting nurse or other home services: No Alcohol intake: current Alcohol intake frequency: a few times a month Patient Tobacco Use Status: Former Tobacco user Tobacco use type: Cigarette e-Cigarette/Vaping Use: Never Used Current occupational status: retired Cognitive needs: No Hearing needs: No Vision needs: Yes Review of Systems Const All systems reviewed & are unremarkable except as noted in HPI and below Physical Exam Vital Signs: Last Vital Signs Pulse 60 10/15/23 09:43 BP 142/71 H 10/15/23 09:43 Pulse Ox 98 10/15/23 09:43 Oxygen Delivery Method Room Air 10/15/23 09:43 BMI result Body Mass Index 21.9 General: Appears afebrile. Alert and oriented. Mood and affect appropriate. Follows and participates in conversation appropriately. Respiratory effort is unlabored. No cough. No nasal discharge. Able to transition from sit to stand unassisted. Ambulates with bilaterally normal heel strike and toe off. Back/Spine/Pelvis Other: Lumbar extension reproduces mild to moderate pain, flexion does not reproduce pain. No tenderness in the projection of T8 vertebra. Incisional sites are clean, dry, intact. No pathological discharge, redness, swelling, erythema or tenderness. Sutures removed. Bacitracin ointment was applied to both wounds. Tegaderm and dry sterile dressing were applied. Cervical Spine: cervical ROM normal and No Cervical spine tenderness Thoracic/Lumbar Spine: thoracic and lumbar spine normal to inspection, No Thoracic/lumbar spine scar(s), kyphosis, pain with thoraco-lumbar ROM, thoraco- lumbar ROM limited, Thoracic/lumbar scoliosis (mild), No thoracic spinal tenderness and lumbar spinal tenderness at L4 and at L5 Sacroiliac joints: bilaterally nontender Skin General skin exam: no rashes or lesions noted Results Reviewed Results Reviewed: MR THORACIC SPINE WITHOUT CONTRAST 09/04/23 CLINICAL INFORMATION: Compression fracture at T7-T8 COMPARISON: Thoracic spine radiographs 07/31/2023. FINDINGS: There is an acute edematous biconcave compression fracture at T8 that exhibits similar 70% height loss and slight posterior retropulsion that minimally indents the ventral thecal sac at the T8 level. No additional bone marrow edema to suggest an additional acute fractures. There is a kyphosis of the lower thoracic spine. Chronic endplate Schmorl's nodes at the lower thoracic levels. The remaining vertebral body heights are maintained. Moderate thoracic spondylosis. No severe central canal stenosis and no severe foraminal stenosis within the thoracic spine. No thoracic cord compression. Conus terminates at the L1 level. No definite thoracic cord signal changes accounting for artifact. IMPRESSION: There is an acute edematous biconcave compression fracture at T8 that exhibits similar 70% height loss and slight posterior retropulsion that minimally indents the ventral thecal sac at the T8 level. No additional bone marrow edema to suggest an additional acute fractures. Kyphosis at T8. Moderate thoracic spondylosis. No severe central canal stenosis and no severe foraminal stenosis within the thoracic spine. XR THORACIC SPINE 07/31/23 CLINICAL INFORMATION: Pain in thoracic spine COMPARISON: Chest x-ray 04/17/2023 FINDINGS: Bones are diffusely osteopenic. There is a compression fracture of mid thoracic vertebra, likely T7, new since prior study. Paravertebral soft tissue structures and visualized lung rose are clear. IMPRESSION: Age-indeterminate compression fracture of the mid thoracic vertebra, likely T7. If clinically indicated, MRI of the thoracic spine may be obtained to determine acuity. XR LUMBOSACRAL SPINE 06/08/23 CLINICAL INFORMATION: Low back pain. COMPARISON: CT scan of the abdomen and pelvis June 2022. FINDINGS: There is a mild convex left curvature of the lumbar spine measured at 17 degrees between L1 and L4. Degenerative disc changes present at the T12-L1 and L1-2 level with disc space narrowing and endplate osteophytes. There is mild retrolisthesis of L2 on L3. Surrounding bone and soft tissues are unremarkable. IMPRESSION: 1. Mild scoliosis. 2. Spondylosis of the lumbar spine. MM/XR DEXA axial skeleton 05/13/22 IMPRESSION: 1. DIAGNOSIS: Osteoporosis based on the lowest T-score value of -2.6 in the lumbar spine applying World Health Organization criteria. 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 Sutures were removed today and patient tolerate procedure is good tolerance. Patient advised to keep dressing for 48 hours in the shower. Activity restrictions and activity modifications were discussed with patient for next 4-6 weeks to allow healing. Avoid lumbar loading, twisting and bending of the spine. Increase tolerance to walking and up to 30 min of cardiovascular exercise. Maintain good posture with sitting, standing or walking to allow for neutral spine and proper body mechanics. Continue Tylenol, gabapentin and ice/heat pack as needed for back pain. Notify our office if any increase in pain or worsening symptoms. All questions and concerns have been answered patient agreed with the plan. Follow-up as needed. 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
== END 2023-10-15 10:25 | disposition home or self-care (01) ==
PROVIDERS: PCP Internal Medicine; Visit Provider Nurse Practitioner Family
DX: M47.815 Spondylosis without myelopathy or radiculopathy, thoracolumbar region (principal); M81.0 Age-related osteoporosis without current pathological fracture; Z98.890 Other specified postprocedural states
CPT/HCPCS: 99213

== ENCOUNTER → 2023-10-15 09:38 | Outpatient (BNVA) | payer MEDICARE, OTHER, SELFPAY | PROVIDERS: PCP Internal Medicine; Visit Provider Nurse Practitioner Family | DX: Z48.89 Encounter for other specified surgical aftercare (principal); M81.0 Age-related osteoporosis without current pathological fracture; M47.815 Spondylosis without myelopathy or radiculopathy, thoracolumbar region; Z98.890 Other specified postprocedural states | CPT/HCPCS: 99212 ==

== ENCOUNTER 2023-11-12 12:36 | Outpatient (AMB) | payer MEDICARE, OTHER, SELFPAY ==
--- NOTE | 2023-11-12 12:40 | A.OFFPC_ITS ---
Vital Signs 11/12/23 12:41 Height 5 ft 1 in Weight 117 lb BMI 22.1 BP 110/66 Blood Pressure Location Lt brachial Position Sitting Pulse 64 Pulse Source Pulse Oximeter Pulse Oximetry (%) 99 Oxygen Delivery Method Room Air Intake Visit Reasons: 2 month follow up Allergies Penicillins [PENICILLINS] Adverse Reaction (Mild, Verified 11/12/23 12:44) GI UPSET Medication List - Last Reconciled 11/12/23 by Jia Bolden MD alendronate (Fosamax) 70 mg PO QWEEK ascorbic acid (vitamin C) (Vitamin C) 500 mg PO DAILY aspirin 81 mg PO 3XW cholecalciferol (vitamin D3) 25 mcg PO DAILY gabapentin 100 mg PO QID multivitamin 1 tab PO DAILY omega 2-dmz-nfy-fish oil 1,200 (144-216) mg (Fish Oil) 1 cap PO BID vitamin K2 40 mcg PO DAILY Tobacco use date assessed: 10/09/23 Dental Screening Dental Screen Date: 10/09/23 HPI 2 month follow up HPI Details Pt presents for f/u chronic LBP better on Gabapentin but pt would like to take an extra dose in the mid day. She was on a trip in [place] and felt well, hiking and swimming. Patient is going to [place] for the summer. She has an appointment with control specialist in February to discuss osteoporosis. Patient has been taking vitamin-D and Fosamax regularly since mid August and denies side effects. [facility] Medical History Melanoma Osteoporosis Breast mass Vitamin D deficiency Annual physical exam Normal colonoscopy Hypothyroidism IFG (impaired fasting glucose) Hypertriglyceridemia Basal cell carcinoma Surgical History Hx of excision of mass History of right oophorectomy Hx of colonoscopy Hx of wisdom tooth extraction Family History Father Heart problem Dementia Ruptured appendix Mother Colon cancer Dementia Sister Ruptured appendix Aneurysm Brother Kidney stones Social History Housing: House Are you a primary spiritual care coordinator to a significant other at home: No Do you presently have visiting nurse or other home services: No Alcohol intake: current Alcohol intake frequency: a few times a month Patient Tobacco Use Status: Former Tobacco user Tobacco use type: Cigarette e-Cigarette/Vaping Use: Never Used service: No Current occupational status: retired Cognitive needs: No Hearing needs: No Vision needs: Yes Questionnaire Thrive Questionnaire Date Thrive assessed: 10/09/23 MELLO-7 AMB Questionnaire MELLO-7 Date MELLO - 7 assessed: 07/30/22 Source: Developed by Drs. Storm Tavares, Alexandria Hays, Ady Nix and colleagues, with an educational mario alberto from [employer] Review of Systems Const All systems reviewed & are unremarkable except as noted in HPI and below Eyes Reports no additional complaints Card Reports no additional complaints Resp Reports no additional complaints GI Reports no additional complaints Reports no additional complaints Physical exam (Primary Care) Vital Signs: Last Vital Signs Pulse 64 11/12/23 12:41 BP 110/66 11/12/23 12:41 Pulse Ox 99 11/12/23 12:41 Oxygen Delivery Method Room Air 11/12/23 12:41 BMI result Body Mass Index 22.1 Tobacco/Smoking Status: Tobacco use Status Tobacco use date assessed 10/09/23 11/12/23 12:40 Patient Tobacco Use Status Former Tobacco user 11/12/23 12:40 Tobacco use type Cigarette 11/12/23 12:40 e-Cigarette/Vaping Use Never Used 11/12/23 12:40 Thrive Assessment: Date of Thrive Assessment Date Thrive assessed 10/09/23 11/12/23 12:40 Const General: no acute distress HENMT Throat: Yes posterior oropharynx normal Neck Neck: Yes supple Resp Effort & Inspection: normal respiratory effort Auscultation: clear to auscultation bilaterally Cardio Rhythm: regular rhythm Heart sounds: S1 normal heart sound present and S2 normal heart sound present Assessment and Plan Assessment & Plan (1) Hypothyroidism: Comment: Subclinical, monitor TSH every 6 months, no medication Code(s): E03.9 - Hypothyroidism, unspecified Plan: Check TSH 3 T4 and free T3 today (2) Osteoporosis: Comment: Takes Vitamin D3+K2, Fosamax, pending Endocrinology evaluation Code(s): M81.0 - Age-related osteoporosis without current pathological fracture Plan: Continue Fosamax and vitamin-D 3 (3) 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 patient will return for physical in July with a fasting labs before (4) Annual physical exam: Code(s): Z00.00 - Encounter for general adult medical examination without abnormal findings (5) Vitamin D deficiency: Code(s): E55.9 - Vitamin D deficiency, unspecified Orders: Orders TSH reflex Free T4 Today E03.9 - Hypothyroidism, unspecified Triiodothyronine T3 Free Today E03.9 - Hypothyroidism, unspecified Comprehensive [place]. Panel Fast 9 Months E03.9 - Hypothyroidism, unspecified, E55.9 - Vitamin D deficiency, unspecified, M81.0 - Age-related osteoporosis without current pathological fracture, Z00.00 - Encounter for general adult medical examination without abnormal findings Lipid Panel 9 Months E03.9 - Hypothyroidism, unspecified, E55.9 - Vitamin D deficiency, unspecified, M81.0 - Age-related osteoporosis without current pathological fracture, Z00.00 - Encounter for general adult medical examination without abnormal findings Complete Blood Count Auto Diff 9 Months E03.9 - Hypothyroidism, unspecified, E55.9 - Vitamin D deficiency, unspecified, M81.0 - Age-related osteoporosis without current pathological fracture, Z00.00 - Encounter for general adult medical examination without abnormal findings Vitamin D 25-OH Total 9 Months E03.9 - Hypothyroidism, unspecified, E55.9 - Vitamin D deficiency, unspecified, M81.0 - Age-related osteoporosis without current pathological fracture, Z00.00 - Encounter for general adult medical examination without abnormal findings TSH reflex Free T4 9 Months E03.9 - Hypothyroidism, unspecified, E55.9 - Vitamin D deficiency, unspecified, M81.0 - Age-related osteoporosis without current pathological fracture, Z00.00 - Encounter for general adult medical examination without abnormal findings Triiodothyronine T3 Free 9 Months E03.9 - Hypothyroidism, unspecified, E55.9 - Vitamin D deficiency, unspecified, M81.0 - Age-related osteoporosis without current pathological fracture, Z00.00 - Encounter for general adult medical examination without abnormal findings Medications: Changed From gabapentin 100 mg PO TID 90 caps 0RF To gabapentin 100 mg PO QID 360 caps 2RF Coding Level of Care Code Est Pt Level 4 (22125) Diagnoses Hypothyroidism E03.9 Osteoporosis M81.0 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
[2023-11-12 12:41] VITALS: BP 110/66; PULSE 64; O2SAT 99; BMI 22.1
== END 2023-11-12 13:41 | disposition home or self-care (01) ==
PROVIDERS: PCP Internal Medicine; Visit Provider Internal Medicine
DX: E03.9 Hypothyroidism, unspecified (principal); M81.0 Age-related osteoporosis without current pathological fracture; M47.815 Spondylosis without myelopathy or radiculopathy, thoracolumbar region; E55.9 Vitamin D deficiency, unspecified
CPT/HCPCS: 99214

== ENCOUNTER 2023-11-12 13:40 | Outpatient (REF) | payer MEDICARE, OTHER, SELFPAY ==
[2023-11-12 17:19] LABS: TSH reflex Free T4 2.45 uIU/mL (0.32-4.0)
[2023-11-13 07:34] LABS: Triiodothyronine T3 Free 2.7 pg/mL (2.3-4.2)
== END 2023-11-12 13:41 | disposition home or self-care (01) ==
LOC: HO.HMGCLDS 13:40
PROVIDERS: PCP Internal Medicine; Visit Provider Internal Medicine
DX: E03.9 Hypothyroidism, unspecified (principal)
CPT/HCPCS: 36415; 84443; 84481

== ENCOUNTER 2023-11-25 09:55 | Outpatient (RCR) | payer MEDICARE, OTHER, SELFPAY ==
--- NOTE | 2023-11-25 11:14 | MHC.PT.EP ---
[facility] [place] Office [place] Office [place] [facility] [address] Janeen Hsieh [address] [phone] F: [phone] F: [phone] F: [phone] F: [phone] Physical Therapy Plan of Care Date of Evaluation: 11/25/23 Date of Surgery: Diagnosis: This is a 73 yo female presenting to skilled PT with a script for spondylosis. Assessment: This is a 73 yo female presenting to skilled PT with a script for spondylosis. Prior eval, [place] report and history: Patient is s/p slip and fall on black ice on Wednesday 06/06. Patient reports she fell posteriorly and her back hit a step (she had the wind knocked out of her upon the incident). Since the the fall she has been having bilateral lower thoracic/upper lumbar back pain but is worse on the R side. Pain is described as achy. Since then she has been taking ibuprofen, lidocaine patch and heat for pain. Pain has been improving daily. Her pain increases with transfers in/out of the car and bed, walking with her dog and standing for long periods of time. Her pain has been complicated by being sick the past 10 days as well and coughing has been causing back pain. She is also currently attending PT for shoulder pain but we are putting this on hold until back pain resolves. 09/03: Patient is I in HEP and ready for DC at this time. She reports no pain and has returned to regularly exercising, participating in exercise and dance classes and cycling without pain. She has met her goals and is ready for DC at this time. Patient is now s/p kypholasty T8 with Dr[address] Baez 10/01/23. Her pain is now across the mid back, reports that this is pain is achy and gripping . She started gabapentin for this pain. Her pain comes and goes, pain increases when she is doing something else to distract her. Currently she is swimming every other day in the pool which is helpful and walking however she is having a hard time with biking long distances and kayaking (the motion and the transfer out of the kayak). She is here today at the eval for an HEP update as she will be away for the summer. Assessment reveals pain that ranges from up to a 2/10 at the worst. Patient demos decreased lumbar and thoracic ROM, strength of BLE's, UE's and core/back, TTP at lower thoracic and upper lumbar muscles and impaired posture with forward head and rounded shoulders. Based on functional limitations, impaired QOL and pain tolerance patient is a good candidate for skilled PT 2x/wk for 4wks. Frequency and Duration: The patient will be seen 2x/wk for 4wks Short Term Goals: Pt will demonstrate improved postural awareness and understanding of core engagement with supine and standing tasks without cues throughout session to improve overall back safety in 2 weeks. Pt will demo 1 MMT improvement in BUE Pt will continue to reinforce precautions, sitting, standing and ADL modifications with proper body mechanics in 2 wks. Mirror Painter Goals: Pt will demonstrate improved outcome measure by 5 points in 4 weeks for improved functional mobility. Pt will demonstrate ability to bend and lift WNL min to no pain for household tasks in 4 wks. Pt will be I in HEP and compliant in 4wks Pt will report 50% improvement for tolerance of hobbies and activities Treatment Plan: Modalities to reduce pain, spasms and effusion. Manual therapy to restore motion and function. Therapeutic exercise to improve strength and flexibility. Neuromuscular re-education for posture and balance. Therapeutic activities to return to functional activities of daily living. Electronically signed by: Bella Núñez PT Please sign and return to therapist. Thank you for your referral.
--- NOTE | 2023-12-23 08:57 | MHC.PT.DC ---
[facility] [place] Office [place] Office [place] Office [address] Janeen Hsieh [address] [phone] F: [phone] F: [phone] F: [phone] F: [phone] Physical Therapy Discharge Report Diagnosis: This is a 73 yo female presenting to skilled PT with a script for spondylosis. Date of Surgery: Date of Evaluation: 11/25/23 Date of Discharge: 12/23/23 Treatments to Date: 1 Cancellations to Date: 0 No Shows to Date: 0 Discharge Status: Achieved Goals Independent with HEP Patient Elected to Stop Discharge Summary: This is a 73 yo female presenting to skilled PT with a script for spondylosis. Prior eval, DC report and history: Patient is s/p slip and fall on black ice on Wednesday 06/06. Patient reports she fell posteriorly and her back hit a step (she had the wind knocked out of her upon the incident). Since the the fall she has been having bilateral lower thoracic/upper lumbar back pain but is worse on the R side. Pain is described as achy. Since then she has been taking ibuprofen, lidocaine patch and heat for pain. Pain has been improving daily. Her pain increases with transfers in/out of the car and bed, walking with her dog and standing for long periods of time. Her pain has been complicated by being sick the past 10 days as well and coughing has been causing back pain. She is also currently attending PT for shoulder pain but we are putting this on hold until back pain resolves. 09/03: Patient is I in HEP and ready for DC at this time. She reports no pain and has returned to regularly exercising, participating in exercise and dance classes and cycling without pain. She has met her goals and is ready for DC at this time. Patient is now s/p kypholasty T8 with Dr. Baez 10/01/23. Her pain is now across the mid back, reports that this is pain is achy and gripping . She started gabapentin for this pain. Her pain comes and goes, pain increases when she is doing something else to distract her. Currently she is swimming every other day in the pool which is helpful and walking however she is having a hard time with biking long distances and kayaking (the motion and the transfer out of the kayak). She is here today at the [facility] for an HEP update as she will be away for the summer. Assessment reveals pain that ranges from up to a 2/10 at the worst. Patient demos decreased lumbar and thoracic ROM, strength of BLE's, UE's and core/back, TTP at lower thoracic and upper lumbar muscles and impaired posture with forward head and rounded shoulders. Based on functional limitations, impaired QOL and pain tolerance patient is a good candidate for skilled PT 2x/wk for 4wks. Patient went away for the summer, educated her on an HEP and following up with a local PT where she is vacationing if necessary. Chart was closed after 30 days Electronically signed by: Bella Núñez, PT Please sign and return to therapist. Thank you for your referral.
== END 2023-12-23 08:58 | disposition home or self-care (01) ==
LOC: HO.PTCHIC 09:55
PROVIDERS: PCP Internal Medicine; Visit Provider Internal Medicine
DX: M47.815 Spondylosis without myelopathy or radiculopathy, thoracolumbar region (principal)
CPT/HCPCS: 97110; 97162

== ENCOUNTER 2024-03-17 12:22 | Outpatient (AMB) | payer MEDICARE, OTHER, SELFPAY ==
[2024-03-17 12:28] VITALS: BP 108/68; PULSE 69; O2SAT 98; BMI 21.9
--- NOTE | 2024-03-17 12:28 | MHC.PC.OV ---
Vital Signs 03/17/24 12:28 Height 5 ft 1 in Weight 116 lb BMI 21.9 BP 108/68 Blood Pressure Location Rt brachial Position Sitting Pulse 69 Pulse Source Pulse Oximeter Pulse Oximetry (%) 98 Oxygen Delivery Method Room Air Intake Visit Reasons: Follow up Allergies Penicillins [PENICILLINS] Adverse Reaction (Mild, Verified 03/17/24 12:38) GI UPSET Medication List - Last Reconciled 03/17/24 by Jia Bolden MD alendronate (Fosamax) 70 mg PO QWEEK ascorbic acid (vitamin C) (Vitamin C) 500 mg PO DAILY aspirin 81 mg PO 3XW cholecalciferol (vitamin D3) 25 mcg PO DAILY gabapentin 300 mg PO QID multivitamin 1 tab PO DAILY omega 4-diy-jsw-fish oil 1,200 (144-216) mg (Fish Oil) 1 cap PO BID vitamin K2 40 mcg PO DAILY Tobacco use date assessed: 03/17/24 Fall risk assessment: No Falls in past year Last assessed Fall Risk: 03/17/24 Dental Screening Dental Screen Date: 03/17/24 Did you have a dental visit in the last 12 months?: Yes Did you have a dental problem in the last 6 months where you did not have access to dental care?: No Was dental information given to patient?: Patient has dentist HPI Follow up HPI Details Pt presents for compression fracture and kyphoplasty. Pt c/o right upper extremity feeling weaker than left when exercises with stretching bands able to use 1 lb weight only instead of 2 lb weight. She reports persistent mid back discomfort worse when standing for long time, resolved after lying down. Patient denies any weakness or numbness in lower extremities. 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 [facility] Medical History Melanoma Osteoporosis Breast mass Vitamin D deficiency Annual physical exam Normal colonoscopy Hypothyroidism IFG (impaired fasting glucose) Hypertriglyceridemia Basal cell carcinoma Surgical History Hx of excision of mass History of right oophorectomy Hx of colonoscopy Hx of wisdom tooth extraction Family History Father Heart problem Dementia Ruptured appendix Mother Colon cancer Dementia Sister Ruptured appendix Aneurysm Brother Kidney stones Social History Housing: House Are you a primary long term care social worker to a significant other at home: No Do you presently have visiting nurse or other home services: No Alcohol intake: current Alcohol intake frequency: a few times a month Patient Tobacco Use Status: Former Tobacco user Tobacco use type: Cigarette e-Cigarette/Vaping Use: Never Used service: No Current occupational status: retired Cognitive needs: No Hearing needs: No Vision needs: Yes Questionnaire PHQ-9 Over the last 2 weeks, how often have you been bothered by any of the following problems? 1. Little interest or pleasure in doing things: not at all 2. Feeling down, depressed, or hopeless: several days 3. Trouble falling or staying asleep, or sleeping too much: not at all 4. Feeling tired or having little energy: not at all 5. Poor appetite or overeating: not at all 6. Feeling bad about yourself - or that you are a failure or have let yourself or your family down: not at all 7. Trouble concentrating on things, such as reading the newspaper or watching television: not at all 8. Moving or speaking so slowly that other people could have noticed. Or the opposite - being so fidgety or restless that you have been moving around a lot more than usual: not at all 9. Thoughts that you would be better off or of hurting yourself in some way: not at all Total score: 1 Depression Screening Interpretation: Negative Depression Screening Done: Yes 09622 - PHQ-9 Billing: Yes Source: Developed by Drs. Storm Tavares, Alexandria Hays, Ady Nix and colleagues, with an educational mario alberto from [employer]. Thrive Questionnaire Date Thrive assessed: 03/17/24 I am a: Patient What is your living situation today?: I have a steady place to live Within the past 12 months, did the food you bought not last and you didn't have the money to get more?: Never true Within the past 12 months, did you worry whether your food would run out before you got money to buy more?: Never true Do you have trouble paying for medicines?: No Do you have trouble getting transportation to medical appointments?: No Do you have trouble paying your heating and electricity bill?: No Do you have trouble taking care of your child, family member or friend?: No Do you have trouble with day-to-day activities such as bathing, preparing meals, shopping, managing finances, etc.?: No Are you currently unemployed and looking for a job?: No Are you interested in more education?: No Please select the resources that you would like help with: None Currently or been in a relationship where the following occur: No concerns reported THRIVE Score: 0 AUDIT C Alcohol Use Questionnaire (AUDIT-C) 1. How often do you have a drink containing alcohol?: Monthly or less 2. How many drinks containing alcohol do you have on a typical day when you are drinking?: 1 or 2 3. How often do you have six or more drinks on one occasion?: Never Total Score: 1 MELLO-7 AMB Questionnaire MELLO-7 Date MELLO - 7 assessed: 03/17/24 Source: Developed by Drs. Storm Tavares, Alexandria Hays, Ady Nix and colleagues, with an educational mario alberto from [employer]. Review of Systems Const All systems reviewed & are unremarkable except as noted in HPI and below Eyes Reports no additional complaints ENT Reports no additional complaints Card Reports no additional complaints Resp Reports no additional complaints GI Reports no additional complaints Reports no additional complaints Physical exam (Primary Care) Vital Signs: Last Vital Signs Pulse 69 03/17/24 12:28 BP 108/68 03/17/24 12:28 Pulse Ox 98 03/17/24 12:28 Oxygen Delivery Method Room Air 03/17/24 12:28 BMI result Body Mass Index 21.9 Tobacco/Smoking Status: Tobacco use Status Tobacco use date assessed 03/17/24 03/17/24 12:41 Patient Tobacco Use Status Former Tobacco user 03/17/24 12:29 Tobacco use type Cigarette 03/17/24 12:29 e-Cigarette/Vaping Use Never Used 03/17/24 12:29 PHQ-9: PHQ-9 Score PHQ-9: Total score 1 03/17/24 12:41 Depression Screening Interpretation: Negative Thrive Assessment: Date of Thrive Assessment Date Thrive assessed 03/17/24 03/17/24 12:41 Currently or been in a relationship where the following occur: No concerns reported Const General: no acute distress HENMT Head: Yes normal to inspection Neck Neck: Yes no lymphadenopathy and Yes supple Chest Chest palpation & inspection: normal inspection of the chest Resp Effort & Inspection: normal respiratory effort Auscultation: clear to auscultation bilaterally Cardio Rhythm: regular rhythm Heart sounds: S1 normal heart sound present and S2 normal heart sound present GI Inspection: Yes normal to inspection Back/Spine/Pelvis Cervical Spine: normal cervical lordosis Thoracic/Lumbar Spine: thoracic and lumbar spine normal to inspection Neuro Cranial nerves: Yes CN's II-XII intact bilaterally Gait exam (Neuro): Normal gait present Motor exam (neuro): 5/5 motor strength present throughout, Pronator motor function not present and Normal motor muscle tone present throughout Deep tendon reflexes (DTR's): Right triceps reflex intensity grade: 1+, Left triceps reflex intensity grade: 1+, Left biceps reflex intensity grade: 1+ and Right brachioradialis reflex intensity grade: 1+ Assessment and Plan Assessment & Plan (1) Osteoporosis: Comment: Takes Vitamin D3+K2, Fosamax, pending Endocrinology evaluation Code(s): M81.0 - Age-related osteoporosis without current pathological fracture Plan: Patient has been tolerating Fosamax and will have repeat DEXA in October (2) 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
== END 2024-03-17 13:45 | disposition home or self-care (01) ==
PROVIDERS: PCP Internal Medicine; Visit Provider Internal Medicine
DX: M81.0 Age-related osteoporosis without current pathological fracture (principal); M47.815 Spondylosis without myelopathy or radiculopathy, thoracolumbar region

== ENCOUNTER → 2024-03-17 12:22 | Outpatient (BNVA) | payer MEDICARE, OTHER, SELFPAY | PROVIDERS: PCP Internal Medicine; Visit Provider Internal Medicine | DX: M81.0 Age-related osteoporosis without current pathological fracture (principal); M47.815 Spondylosis without myelopathy or radiculopathy, thoracolumbar region; Z79.899 Other long term (current) drug therapy | CPT/HCPCS: 99212 ==

== ENCOUNTER 2024-04-22 11:09 | Outpatient (AMB) | payer MEDICARE, OTHER, SELFPAY ==
--- NOTE | 2024-04-22 11:11 | A.OFFVIS_ITS ---
Vital Signs 04/22/24 11:12 Height 5 ft 1 in Weight 114 lb BMI 21.5 BP 130/76 Blood Pressure Location Rt brachial Position Sitting Respiration 15 Pulse 80 Pulse Source Pulse Oximeter Pulse Oximetry (%) 98 Oxygen Delivery Method Room Air Intake Visit Reasons: Weakening of Upper Back/Right Arm After Surgery Allergies Penicillins [PENICILLINS] Adverse Reaction (Mild, Verified 05/08/24 14:49) GI UPSET Medication List - Last Reconciled 04/22/24 by Tasha Blood LPN alendronate (Fosamax) 70 mg PO QWEEK ascorbic acid (vitamin C) (Vitamin C) 500 mg PO DAILY aspirin 81 mg PO 3XW cholecalciferol (vitamin D3) 25 mcg PO DAILY gabapentin 300 mg PO QID multivitamin 1 tab PO DAILY omega 4-odn-qlh-fish oil 1,200 (144-216) mg (Fish Oil) 1 cap PO BID vitamin K2 40 mcg PO DAILY HPI HPI Weakening of Upper Back/Right Arm After Surgery: Details: 74-year-old female who presents today to the office for weakening of upper back and right arm. She is doing overall well post kyphoplasty. She started physical therapy this summer but noticed losing upper body strength. She is unable to rock picker a full cup of tea and put it into the microwave. She has been doing physical therapy, swimming, walks, and cycling. She denies any neck pain. She avoids any sudden twisting, bending, lifting heavy weights, or strenuous work. She denies any numbness, tingling, or pins and needle sensations. Her physical therapist suspects that if it might be from rotator cuff. Past procedures 10/01/23: Kyphon Balloon Kyphoplasty with Insertion of HV-R Bone Cement, T8 Vertebral Body: 80% relief. [facility] Medical History Melanoma Osteoporosis Breast mass Vitamin D deficiency Annual physical exam Normal colonoscopy Hypothyroidism IFG (impaired fasting glucose) Hypertriglyceridemia Basal cell carcinoma Surgical History Hx of excision of mass History of right oophorectomy Hx of colonoscopy Hx of wisdom tooth extraction Family History Father Heart problem Dementia Ruptured appendix Mother Colon cancer Dementia Sister Ruptured appendix Aneurysm Brother Kidney stones Social History Housing: House Are you a primary customer care team coach to a significant other at home: No Do you presently have visiting nurse or other home services: No Alcohol intake: current Alcohol intake frequency: a few times a month Patient Tobacco Use Status: Former Tobacco user Tobacco use type: Cigarette e-Cigarette/Vaping Use: Never Used Advance Directives: No Advance Directives Information Provided: No Do you have a plan to hurt others: No Plan service: No Current occupational status: retired Cognitive needs: No Hearing needs: No Vision needs: Yes Review of Systems Const All systems reviewed & are unremarkable except as noted in HPI and below Physical Exam Vital Signs: Last Vital Signs Pulse 80 04/22/24 11:12 Resp 15 04/22/24 11:12 BP 130/76 04/22/24 11:12 Pulse Ox 98 04/22/24 11:12 Oxygen Delivery Method Room Air 04/22/24 11:12 BMI result Body Mass Index 21.5 General: Appears afebrile. Alert and oriented. Mood and affect appropriate. Follows and participates in conversation appropriately. Respiratory effort is unlabored. Able to transition from sit to stand unassisted. Ambulates with bilaterally normal heel strike and toe off. Results Reviewed Results Reviewed: No imaging is available for review. Assessment & Plan Assessment & Plan (1) Weakness of both upper extremities: Code(s): R29.898 - Other symptoms and signs involving the musculoskeletal system Category: Medical Plan I ordered a nerve conduction study to assess the source of upper extremities weakness. I also placed a referral to physiatry for further investigation/consideration of differentials for upper extremity weakness that appears to be isolated with no evidence of lower extremity weakness. If the initial workup/assessment is negative, we can consider an MRI of the cervical spine for potential compressive neuropathy. Scribed for Dr. Baez by Inocencio Mitchell, medical office secretary, on 04/22/2024. I, Dr. Baez, have personally reviewed and agree with the information entered by the scribe. Orders: Orders NE electromyogram (EMG) 04/22/24 R29.898 - Other symptoms and signs involving the musculoskeletal system Referrals Physiatry Referral R29.898 - Other symptoms and signs involving the musculoskeletal system Coding Level of Care Code Est Pt Level 3 (62659) Diagnoses Weakness of both upper extremities R29.898
[2024-04-22 11:12] VITALS: BP 130/76; PULSE 80; RESP 15; O2SAT 98; BMI 21.5
== END 2024-04-22 11:30 | disposition home or self-care (01) ==
LOC: HO.PMC 11:10
PROVIDERS: PCP Internal Medicine; Visit Provider Internal Medicine
DX: R29.898 Other symptoms and signs involving the musculoskeletal system (principal)
CPT/HCPCS: 99213

== ENCOUNTER → 2024-04-22 11:09 | Outpatient (BNVA) | payer MEDICARE, OTHER, SELFPAY | PROVIDERS: PCP Internal Medicine; Visit Provider Internal Medicine | DX: R29.898 Other symptoms and signs involving the musculoskeletal system (principal) | CPT/HCPCS: 99212 ==

== ENCOUNTER 2024-05-08 14:28 | Emergency (ER) | payer MEDICARE, OTHER, SELFPAY ==
[2024-05-08 14:46] VITALS: BP 101/58; PULSE 72; RESP 19; TEMP 37; O2SAT 98; BMI 21.3
--- NOTE | 2024-05-08 14:55 | ED_ITS ---
HPI - General Adult General Chief complaint: Upper Respiratory Symptoms Stated complaint: Covid+, fever Time Seen by Provider: 05/08/24 15:41 Source: patient Mode of arrival: ambulatory Limitations: no limitations History of Present Illness ED Provider: Jason MILES narrative: Patient is a 74-year-old female presenting to the ED with complaint of fever, positive Covid test at home, requesting prescription for Lagevrio. States she took this last time she tested positive for Covid, and felt it decreased the length and severity of her symptoms. Symptoms began Thursday and have improved s marcos. States that she takes gabapentin for back pain, denies any history of renal or hepatic disease, is not anticoagulated. MD complaint: fever Onset (ago): day(s) Treatments prior to arrival: none Related Data Home Medications ?Medication ?Instructions ?Recorded ?Confirmed ascorbic acid (vitamin C) 500 mg 500 mg PO DAILY 05/16/20 04/22/24 tablet (Vitamin C) aspirin 81 mg tablet,delayed 81 mg PO 3XW 05/16/20 04/22/24 release multivitamin 1 tab PO DAILY 05/16/20 04/22/24 omega 0-cya-nsv-fish oil 1,200 mg 1 cap PO BID 05/16/20 04/22/24 (144 mg-216 mg) capsule (Fish Oil) vitamin K2 40 mcg tablet 40 mcg PO DAILY 09/28/23 04/22/24 cholecalciferol (vitamin D3) 25 25 mcg PO DAILY 10/09/23 04/22/24 mcg (1,000 unit) capsule gabapentin 100 mg capsule 300 mg PO QID 03/17/24 04/22/24 Previous Rx's ?Medication ?Instructions ?Recorded alendronate 70 mg tablet (Fosamax) 70 mg PO QWEEK #13 tabs 11/05/23 molnupiravir 200 mg capsule (EUA) 800 mg (4 x 200 mg) PO Q12H 5 days 05/08/24 #40 caps Allergies Allergy/AdvReac Type Severity Reaction Status Date / Time Penicillins [PENICILLINS] AdvReac Mild GI UPSET Verified 05/08/24 14:49 Review of Systems Review of Systems: As per HPI Yes all other systems are reviewed and are negative Constitutional: Constitutional: Reports as per HPI [facility] Past Medical History Medical History Melanoma Osteoporosis Breast mass Vitamin D deficiency Annual physical exam Normal colonoscopy Hypothyroidism IFG (impaired fasting glucose) Hypertriglyceridemia Basal cell carcinoma Surgical History Hx of excision of mass History of right oophorectomy Hx of colonoscopy Hx of wisdom tooth extraction Family History Family History Father Heart problem Dementia Ruptured appendix Mother Colon cancer Dementia Sister Ruptured appendix Aneurysm Brother Kidney stones Social History Social History Housing: House Are you a primary patient care technician to a significant other at home: No Do you presently have visiting nurse or other home services: No Alcohol intake: current Alcohol intake frequency: a few times a month Patient Tobacco Use Status: Former Tobacco user Tobacco use type: Cigarette e-Cigarette/Vaping Use: Never Used Advance Directives: No Advance Directives Information Provided: No Do you have a plan to hurt others: No Plan service: No Current occupational status: retired Cognitive needs: No Hearing needs: No Vision needs: Yes Physical Exam ED Vital Signs: Vital Signs - 24 hr 05/08/24 14:46 05/08/24 16:28 Temperature 98.6 F 98.6 F Pulse Rate 72 72 Respiratory Rate 19 19 Blood Pressure 101/58 L 101/58 L Pulse Oximetry 98 98 Oxygen Delivery Method Room Air Room Air BMI result Body Mass Index 21.3 Vital signs have been reviewed and appear to be correct. Blood pressure normal. Heart rate normal. Respiratory rate normal. Temperature normal. Oxygen saturation normal. Const General: cooperative, healthy appearing and no acute distress Orientation/consciousness: oriented to person, oriented to place, oriented to time and patient oriented x3 Limitations: no limitations HENMT Head: Yes normocephalic and Yes atraumatic Ears: external ears normal General nose exam: Normal external nose present Face and sinus: Yes face symmetric Mouth: oropharynx normal and moist mucous membranes Throat: Yes uvula midline Eyes Pupils: Equal, round and reactive pupils present Neck Neck: Yes normal visual inspection and Yes supple Resp Effort & Inspection: normal respiratory effort and able to speak in complete sentences Auscultation: clear to auscultation bilaterally Cardio Rate: regular rate Rhythm: regular rhythm Heart sounds: S1 normal heart sound present and S2 normal heart sound present GI Palpation (GI): Soft to palpation and nontender Auscultation: normoactive bowel sounds General: Yes no CVA tenderness Back/Spine/Pelvis Back: no CVA tenderness Skin General skin exam: elasticity normal and turgor normal Neuro General: oriented to person, oriented to place, oriented to time, patient oriented x3, moves all extremities, no focal motor deficits and CN's II-XI intact bilaterally Cranial nerves: Yes Equal, round and reactive pupils present Cognition (Neuro): normal cognition Extrem General: Yes full ROM, Yes no pedal edema and Yes no calf tenderness Psych Mental Status: mental status grossly normal Affect: normal affect Thought process: Normal thought process present Course Course Course Narrative: RME: 73-year-old female presents to the ED for COVID like symptoms. Since Thursday. Patient states COVID symptoms improved but she is requesting antiviral medication she received last time when she had COVID which prevents her from getting worse. Medical Decision Making Medical Decision Making MDM Narrative: Patient is a 74-year-old female presenting to the ED with complaint of fever, positive Covid test at home, requesting prescription for Lagevrio. On exam patient is awake, A+Ox3, VS WNL, afebrile, normal neurological exam without focal deficits, physical exam findings as above. Given reported symptoms and physical exam findings, initial differential includes Covid 19, other viral illness. Given that patient has tested positve and has taken Lagevrio in the past without adverse effect, will send prescription for same at this time. Advised patient to follow-up with PCP. Return precautions discussed at bedside. Patient verbalized understanding of and agreement with plan. Differential Diagnosis Differential Diagnoses: The differential diagnosis associated with the presentation includes As per MDM. External Record Review External record reviewed: Inpatient record, Office record and Outpatient record Prescription Management I considered prescription management with: Antiviral Discharge Plan Discharge Clinical Impression: COVID-19 Patient Disposition: Home, Self-Care Instructions: COVID-19 (Coronavirus Disease 2019) (ED) Additional Instructions: You are being treated for Covid 19 with molnupiravir. Take this medication as prescribed. Follow-up with your primary care provider. Return to the emergency department with new or concerning symptoms. Prescriptions: New molnupiravir 200 mg capsule 800 mg PO Q12H 5 Days Qty: 40 0RF No Action alendronate [Fosamax] 70 mg tablet 70 mg PO QWEEK Qty: 13 3RF multivitamin Tablet 1 tab PO DAILY aspirin 81 mg Tablet,Delayed Release (Dr/Ec) 81 mg PO 3XW ascorbic acid (vitamin C) [Vitamin C] 500 mg Tablet 500 mg PO DAILY omega 1-inw-fuf-fish oil [Fish Oil] 1,200 (144-216) mg Capsule 1 cap PO BID vitamin K2 40 mcg Tablet 40 mcg PO DAILY cholecalciferol (vitamin D3) 25 mcg (1,000 unit) capsule 25 mcg PO DAILY gabapentin 100 mg capsule 300 mg PO QID Interventions: ED Discharge Assessment Last Done: 05/08/24 16:28 Discharge Date/Time: 05/08/24 16:28 Print Language: Swedish
[2024-05-08 16:28] VITALS: BP 101/58; PULSE 72; RESP 19; TEMP 37; O2SAT 98
== END 2024-05-08 16:28 | disposition home or self-care (01) ==
PROVIDERS: Emergency Provider Emergency Medicine; PCP Internal Medicine
DX: U07.1 COVID-19 (principal); R50.9 Fever, unspecified; Z79.899 Other long term (current) drug therapy
CPT/HCPCS: 99282

== ENCOUNTER 2024-05-18 14:38 | Outpatient (REF) | payer MEDICARE, OTHER, SELFPAY ==
--- NOTE | ~2024-05-18 | XR_ITS ---
EXAMINATION: XR CERVICAL SPINE CLINICAL INFORMATION: M54.2 - Cervicalgia COMPARISON: None available. TECHNIQUE: 3 views of the cervical spine were obtained. FINDINGS: There are no prevertebral soft tissue or bony abnormalities demonstrated. No compression fractures or subluxations are identified. Alignment is maintained at the atlanto-axial articulation. Loss of intervertebral disc space with endplate degenerative changes at C7-T1. The prevertebral soft tissues are normal. 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 Electronically signed by: Chiqui Quinones MD 05/19/2024 07:46 AM EST
--- NOTE | 2024-05-18 14:42 | EMG_ITS ---
Chief complaint: History of osteoporosis, thoracic compression fracture after a fall, status post T7-8 kyphoplasty 10/01/2023. In December started having weakness, right worse than left, upper extremities. Denies neck pain. Denies any acute illness prior to onset of weakness. Denies any vaccination prior to onset of weakness. Denies associated pain. Denies numbness. Denies symptoms on lower extremities. Noted 4-/5 weakness on proximal right upper extremity, specifically elbow extension. Reason for referral: Evaluate for radiculopathy versus neuropathy Referred by: Dr. Baez Procedure done: Upper extremity NCS/EMG Precautions and/or limitations: None The limb temperature was monitored continuously and remained between 32-36 degrees C during the performance of the NCS. Nerve Conduction Studies Anti Sensory Summary Table ?Stim Site NR Onset (ms) Norm Onset (ms) Peak (ms) Norm Peak (ms) O-P Amp (?V) Norm O-P Amp Site1 Site2 Delta-0 (ms) Dist (cm) Odilon (m/s) Norm Odilon (m/s) Left Median Anti Sensory (2nd Digit) Wrist ? 2.4 3.2 <3.6 19.5 >10 Wrist 2nd Digit 2.4 14.0 58 Right Median Anti Sensory (2nd Digit) Wrist ? 2.1 3.1 <3.6 32.2 >10 Wrist 2nd Digit 2.1 14.0 67 Right Radial Anti Sensory (Thumb) Forearm ? 1.6 2.1 <3.1 19.9 Forearm Thumb 1.6 0.0 Left Ulnar Anti Sensory (5th Digit) Wrist ? 2.4 3.1 <3.7 17.0 >15.0 Wrist 5th Digit 2.4 14.0 58 Right Ulnar Anti Sensory (5th Digit) Wrist ? 2.2 2.9 <3.7 33.4 >15.0 Wrist 5th Digit 2.2 14.0 64 Motor Summary Table ?Stim Site NR Onset (ms) Norm Onset (ms) O-P Amp (mV) Norm O-P Amp iAmp (mV) Amp (1st) (%) Site1 Site2 Delta-0 (ms) Dist (cm) Odilon (m/s) Norm Odilon (m/s) Left Median Motor (Abd Poll Brev) Wrist ? 3.4 <3.9 4.6 >4.5 5.4 100.0 Elbow Wrist 3.8 20.5 54 >45 Elbow ? 7.2 2.9 3.6 63.0 Right Median Motor (Abd Poll Brev) Wrist ? 3.6 <3.9 6.7 >4.5 7.9 100.0 Elbow Wrist 3.7 19.5 53 >45 Elbow ? 7.3 5.2 6.1 77.6 Left Ulnar Motor (Abd Dig Minimi) Wrist ? 2.9 <3.0 6.1 >5 7.0 100.0 B Elbow Wrist 3.0 18.0 60 >45 B Elbow ? 5.9 4.8 5.7 78.7 A Elbow B Elbow 2.1 10.0 48 >45 A Elbow ? 8.0 3.8 4.6 62.3 Right Ulnar Motor (Abd Dig Minimi) Wrist ? 2.7 <3.0 7.6 >5 9.1 100.0 B Elbow Wrist 3.2 18.5 58 >45 B Elbow ? 5.9 5.8 7.1 76.3 A Elbow B Elbow 1.4 10.0 71 >45 A Elbow ? 7.3 5.7 6.9 75.0 EMG ?Side Muscle Nerve Root Ins Act Fibs Psw Amp Dur Poly Recrt Int Pat Comment Right 1stDorInt Ulnar C8-T1 Incr 1+ 1+ Nml Nml 0 Nml Complete Right FlexCarRad Median C6-7 Nml Nml Nml Nml Nml 0 Nml Complete Right Biceps Musculocut C5-6 Nml Nml Nml Nml Nml 0 Nml Complete Right Triceps Radial C6-7-8 Incr 1+ 1+ Nml Nml 0 Nml Complete Right Deltoid Axillary C5-6 Nml Nml Nml Nml Nml 0 Nml Complete FINDINGS: All motor and sensory nerves tested showed normal latencies, amplitudes and conduction velocities. Concentric needle EMG was performed in selected muscles of the right upper extremity. Study revealed signs of electric abnormalities as shown in the table above. Right triceps and FDI showed increased insertional activity, PSWs and fibrillations. However note that patient had poor tolerance of needle EMG and was not completely relaxed during the test. No myopathic looking units seen. IMPRESSION: 1. There is no electrodiagnostic evidence for median neuropathy, ulnar neuropathy or brachial plexopathy. 2. Can not completely rule out a lower cervical radiculopathy. CLINICAL COMMENT: Further evaluation/diagnostics needed. Sending patient for cervical x-rays today. She has been referred to physiatry, appointment scheduled. Thank you for your kind referral. Afsaneh Reeves MD, ENA Board Certified, [place] Board [employer] Physical [employer] and Rehabilitation (ABPMR) Board Certified, [place] Board of Electrodiagnostic Medicine (ABEM) CODIN [phone] [facility]
== END 2024-05-18 14:39 | disposition home or self-care (01) ==
LOC: HO.NEURO 14:38
PROVIDERS: PCP Internal Medicine; Visit Provider Internal Medicine
DX: R29.898 Other symptoms and signs involving the musculoskeletal system (principal); M54.2 Cervicalgia; M81.0 Age-related osteoporosis without current pathological fracture
CPT/HCPCS: 72040; 95886; 95911

== ENCOUNTER → 2024-05-18 14:42 | Outpatient (BNV) | payer MEDICARE, OTHER, SELFPAY | PROVIDERS: PCP Internal Medicine; Visit Provider Physical Medicine & Rehabilitation | DX: M54.12 Radiculopathy, cervical region (principal) | CPT/HCPCS: 95886; 95911 ==

== ENCOUNTER 2024-05-25 08:48 | Outpatient (REF) | payer MEDICARE, OTHER, SELFPAY ==
--- NOTE | ~2024-05-25 | MM_ITS ---
EXAMINATION: MM SCREENING DIGITAL BREAST TOMOSYNTHESIS, BILATERAL CLINICAL INFORMATION: Screening. Asymptomatic. COMPARISON: Mammography: Comparison is made with available priors TECHNIQUE: Digital breast mammography with tomosynthesis is performed in both the craniocaudal and mediolateral oblique views along with computer-aided detection (CAD). FINDINGS: The breasts are heterogeneously dense, which may obscure small masses (ACR BI-RADS breast composition Category c). There are no significant masses, abnormal calcifications, or other abnormalities. MM/MM tomosynthesis screening BI IMPRESSION: No mammographic evidence of malignancy. ASSESSMENT: BI-RADS BI-RADS 1 - Negative RECOMMENDATION: Routine annual mammography screening. 1 year F/U This examination should not preclude the clinical evaluation of a suspicious palpable abnormality. This patient's information was entered into a reminder system with a target due date for their next mammogram. Electronically signed by: Laxmi Motta DO 05/31/2024 11:32 AM ALETHEA
== END 2024-05-25 08:49 | disposition home or self-care (01) ==
LOC: HO.MAMMO 08:48
PROVIDERS: Visit Provider Internal Medicine
DX: Z12.31 Encounter for screening mammogram for malignant neoplasm of breast (principal)
CPT/HCPCS: 77063; 77067

== ENCOUNTER → 2024-05-25 09:00 | Outpatient (BNV) | payer MEDICARE, OTHER, SELFPAY | PROVIDERS: Visit Provider Internal Medicine | DX: Z12.31 Encounter for screening mammogram for malignant neoplasm of breast (principal) | CPT/HCPCS: 77063; 77067 ==

== ENCOUNTER 2024-06-09 10:21 | Outpatient (AMB) | payer MEDICARE, OTHER, SELFPAY ==
[2024-06-09 10:28] VITALS: BMI 21.3
--- NOTE | 2024-06-09 10:28 | MHC.OFFVIS ---
Vital Signs 06/09/24 10:28 Height 5 ft 1 in Weight 113 lb BMI 21.3 Intake Visit Reasons: [employer]- RT Upper extremity weakness Intake Note: Vee 74 yr old female who presents today for a new patient visit for upper body weakness. States she has no numbness or tingling or pain but at time she is not able to use a nail clipper due to weakness. Has difficultly grabbing item from a high shelf. Hx of a compression fx in T8, kyphoplasty [place] [address] Oden. Weakness started mid december into January. EMG done. She has tried P.T for a whole year after her back surgery, feels it has helped but has left her with weakness. Allergies Penicillins [PENICILLINS] Adverse Reaction (Mild, Verified 06/09/24 10:33) GI UPSET Medication List - Last Reconciled 06/09/24 by Afsaneh Reeves MD alendronate (Fosamax) 70 mg PO QWEEK ascorbic acid (vitamin C) (Vitamin C) 500 mg PO DAILY aspirin 81 mg PO 3XW calcium carbonate 400 mg PO DAILY cholecalciferol (vitamin D3) 25 mcg PO DAILY gabapentin 300 mg PO QID multivitamin 1 tab PO DAILY omega 6-gza-lez-fish oil 1,200 (144-216) mg (Fish Oil) 1 cap PO BID vitamin K2 40 mcg PO DAILY HPI Comments Details: I saw patient for EMG 05/18/2024. See below results. History of osteoporosis, thoracic compression fracture after a fall, status post T7-8 kyphoplasty 10/01/2023. In December started having weakness, right worse than left, upper extremities. Denies neck pain. Denies any acute illness prior to onset of weakness. Denies any vaccination prior to onset of weakness. Denies associated pain. Denies numbness. Denies symptoms on lower extremities. Noted 4-/5 weakness on proximal right upper extremity, specifically elbow extension. Cervical x-ray done. See below results. Tells me that she still feels weak on right worse than left, arm and shoulder. shrugging up to be able to use the right arm. No numbness on arms or hands. No pain at all. No weakness. No gait change. No bladder/bowel changes. [facility] Medical History Melanoma Osteoporosis Breast mass Vitamin D deficiency Annual physical exam Normal colonoscopy Hypothyroidism IFG (impaired fasting glucose) Hypertriglyceridemia Basal cell carcinoma Surgical History Hx of excision of mass History of right oophorectomy Hx of colonoscopy Hx of wisdom tooth extraction Family History Father Heart problem Dementia Ruptured appendix Mother Colon cancer Dementia Sister Ruptured appendix Aneurysm Brother Kidney stones Social History Housing: House Are you a primary healthcare representative to a significant other at home: No Do you presently have visiting nurse or other home services: No Alcohol intake: current Alcohol intake frequency: a few times a month Patient Tobacco Use Status: Former Tobacco user Tobacco use type: Cigarette e-Cigarette/Vaping Use: Never Used service: No Current occupational status: retired Cognitive needs: No Hearing needs: No Vision needs: Yes Review of Systems Const All systems reviewed & are unremarkable except as noted in HPI and below Physical Exam Vital Signs: BMI result Body Mass Index 21.3 Constitutional: Patient appears to be in no acute distress, well nourished and well developed. Patient was appropriately conversant and oriented. Good historian. MSK: Inspection reveals appropriate head and neck positioning. No pain with palpation over the neck musculature. Cervical ROM was full. Spurling's sign negative. There is no scapular winging but noted that right shoulder goes up higher than the left. No specific abnormalities or instability found on inspection and palpation of the spine and extremities. Lumbar ROM was full. Neurological: Weakness noted on at shoulder forward flexion and abduction 3-/5 because it was not full range of motion. Right elbow extension/triceps 4/5. Right elbow flexion/biceps and wrist extension 5/5. Sauceda?s negative bilaterally. Babinski was down going bilaterally. Clonus was negative. Gait is non-antalgic without loss of balance. Negative pronator drift. Results Reviewed Results Reviewed: 05/18/24 EMG: FINDINGS: All motor and sensory nerves tested showed normal latencies, amplitudes and conduction velocities. Concentric needle EMG was performed in selected muscles of the right upper extremity. Study revealed signs of electric abnormalities as shown in the table above. Right triceps and FDI showed increased insertional activity, PSWs and fibrillations. However note that patient had poor tolerance of needle EMG and was not completely relaxed during the test. No myopathic looking units seen. IMPRESSION: 1. There is no electrodiagnostic evidence for median neuropathy, ulnar neuropathy or brachial plexopathy. 2. Can not completely rule out a lower cervical radiculopathy. EXAMINATION: XR CERVICAL SPINE CLINICAL INFORMATION: M54.2 - Cervicalgia COMPARISON: None available. TECHNIQUE: 3 views of the cervical spine were obtained. FINDINGS: There are no prevertebral soft tissue or bony abnormalities demonstrated. No compression fractures or subluxations are identified. Alignment is maintained at the atlanto-axial articulation. Loss of intervertebral disc space with endplate degenerative changes at C7-T1. The prevertebral soft tissues are normal. 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 I reviewed records from the following: Pain management Assessment & Plan Assessment & Plan (1) Right arm weakness: Code(s): R29.898 - Other symptoms and signs involving the musculoskeletal system Category: Medical (2) Cervical spinal stenosis: Code(s): M48.02 - Spinal stenosis, cervical region Category: Medical (3) Cervical radiculopathy: Code(s): M54.12 - Radiculopathy, cervical region Category: Medical (4) Weakness of both upper extremities: Code(s): R29.898 - Other symptoms and signs involving the musculoskeletal system Category: Medical Plan Notably weaker on right upper extremity (shoulder and elbow extension). No pain or numbness. EMG and cervical x-rays suggestive that this is either cervical radiculopathy or stenosis C7-T1. Patient had undergone adequate conservative management including PT without improvement of condition. It would be reasonable to obtain further imaging such as MRI. An MRI would help rule out any serious condition, guide treatment and assess prognosis for recovery. Specifically ruling out spinal stenosis or nerve compression C7-T1 Lower on differential would be brachial plexitis/[place] Cast[place] syndrome because of the profound painless weakness on shoulder area. I do not think this is myositis as her symptoms are very unilateral and not affecting lower extremities. Taking gabapentin 300mg TID. I would recommend to continue for now. Continue exercises taught by PT. Assessment and plan discussed with patient, and patient was agreeable. All questions were answered thoroughly. Follow up after MRI. Afsaneh Reeves MD, ENA Board Certified, [place] Board [employer] and Rehabilitation (ABPMR) Board Certified, [place] Board [employer] Electrodiagnostic [employer] (ABEM) Orders: Orders MR cervical spine wo con Today M54.12 - Radiculopathy, cervical region Coding Level of Care Code Est Pt Level 4 (29351) Complex EM visit Add On G2211 Diagnoses Right arm weakness R29.898 Cervical spinal stenosis M48.02 Cervical radiculopathy M54.12 Weakness of both upper extremities R29.898
== END 2024-06-09 10:57 | disposition home or self-care (01) ==
PROVIDERS: PCP Internal Medicine; Visit Provider Physical Medicine & Rehabilitation
DX: M48.02 Spinal stenosis, cervical region (principal); M54.12 Radiculopathy, cervical region; R29.898 Other symptoms and signs involving the musculoskeletal system
CPT/HCPCS: 99213; G2211

== ENCOUNTER → 2024-06-09 10:21 | Outpatient (BNVA) | payer MEDICARE, OTHER, SELFPAY | PROVIDERS: PCP Internal Medicine; Visit Provider Physical Medicine & Rehabilitation | DX: R29.898 Other symptoms and signs involving the musculoskeletal system (principal); M48.02 Spinal stenosis, cervical region; M54.12 Radiculopathy, cervical region | CPT/HCPCS: 99212 ==

== ENCOUNTER 2024-06-10 09:15 | Outpatient (AMB) | payer MEDICARE, OTHER, SELFPAY ==
--- NOTE | 2024-06-10 09:37 | A.OFFVIS_ITS ---
Vital Signs 06/10/24 09:39 Height 5 ft 1 in Weight 115 lb BMI 21.7 BP 127/62 Blood Pressure Location Lt brachial Position Sitting Respiration 16 Pulse 72 Pulse Source Pulse Oximeter Pulse Oximetry (%) 96 Oxygen Delivery Method Room Air Intake Visit Reasons: FU regarding referral to physiatry Allergies Penicillins [PENICILLINS] Adverse Reaction (Mild, Verified 06/10/24 09:41) GI UPSET Medication List - Last Reconciled 06/10/24 by Tasha Blood LPN alendronate (Fosamax) 70 mg PO QWEEK ascorbic acid (vitamin C) (Vitamin C) 500 mg PO DAILY aspirin 81 mg PO 3XW calcium carbonate 400 mg PO DAILY cholecalciferol (vitamin D3) 25 mcg PO DAILY gabapentin 300 mg PO QID multivitamin 1 tab PO DAILY omega 1-aux-xot-fish oil 1,200 (144-216) mg (Fish Oil) 1 cap PO BID vitamin K2 40 mcg PO DAILY HPI HPI FU regarding referral to physiatry: Details: 74-year-old female who presents today to the office for a follow up regarding referral to physiatry. She has a history of a compression fracture in T8 and underwent kyphoplasty in 2022.?She still has weakness in her arm. She has tried P.T. for a whole year after her back surgery, feels it has helped but has left her with weakness. She is taking gabapentin 300 mg T.I.D. daily. She is scheduled for an MRI scan on [facility] at 12:45 PM. She has a scheduled appointment with Dr. Randhawa after the MRI scan. Past procedures 10/01/23: Kyphon Balloon Kyphoplasty with Insertion of HV-R Bone Cement, T8 Vertebral Body: 80% relief. [facility], [facility] Medical History Melanoma Osteoporosis Breast mass Vitamin D deficiency Annual physical exam Normal colonoscopy Hypothyroidism IFG (impaired fasting glucose) Hypertriglyceridemia Basal cell carcinoma Surgical History Hx of excision of mass History of right oophorectomy Hx of colonoscopy Hx of wisdom tooth extraction Family History Father Heart problem Dementia Ruptured appendix Mother Colon cancer Dementia Sister Ruptured appendix Aneurysm Brother Kidney stones Social History Housing: House Are you a primary ostomy care nurse to a significant other at home: No Do you presently have visiting nurse or other home services: No Alcohol intake: current Alcohol intake frequency: a few times a month Patient Tobacco Use Status: Former Tobacco user Tobacco use type: Cigarette e-Cigarette/Vaping Use: Never Used service: No Current occupational status: retired Cognitive needs: No Hearing needs: No Vision needs: Yes Review of Systems Const All systems reviewed & are unremarkable except as noted in HPI and below Physical Exam Vital Signs: Last Vital Signs Pulse 72 06/10/24 09:39 Resp 16 06/10/24 09:39 BP 127/62 06/10/24 09:39 Pulse Ox 96 06/10/24 09:39 Oxygen Delivery Method Room Air 06/10/24 09:39 BMI result Body Mass Index 21.7 General: Appears afebrile. Alert and oriented. Mood and affect appropriate. Follows and participates in conversation appropriately. Respiratory effort is unlabored. Able to transition from sit to stand unassisted. Ambulates with bilaterally normal heel strike and toe off. Results Reviewed Results Reviewed: No imaging is available for review. Assessment & Plan Assessment & Plan (1) Cervical radiculopathy: Code(s): M54.12 - Radiculopathy, cervical region Category: Medical Plan She is scheduled for an MRI scan on 06/14/2024. The patient will follow up after the completion of the MRI scan for review and further discussion of the treatment option. Scribed for Dr. Baez by Inocencio Mitchell medical record librarian, on 06/10/2024. I, Dr. Baez, have personally reviewed and agree with the information entered by the scribe. Coding Level of Care Code Est Pt Level 2 (75797) Diagnoses Cervical radiculopathy M54.12
[2024-06-10 09:39] VITALS: BP 127/62; PULSE 72; RESP 16; O2SAT 96; BMI 21.7
== END 2024-06-10 10:15 | disposition home or self-care (01) ==
PROVIDERS: PCP Internal Medicine; Visit Provider Internal Medicine
DX: M54.12 Radiculopathy, cervical region (principal)
CPT/HCPCS: 99212

== ENCOUNTER → 2024-06-10 09:15 | Outpatient (BNVA) | payer MEDICARE, OTHER, SELFPAY | PROVIDERS: PCP Internal Medicine; Visit Provider Internal Medicine | DX: M54.12 Radiculopathy, cervical region (principal) | CPT/HCPCS: 99212 ==

== ENCOUNTER 2024-06-13 10:00 | Outpatient (RCR) | payer MEDICARE, OTHER, SELFPAY ==
--- NOTE | 2024-04-13 16:10 | MHC.PT.EP ---
[facility] [place] Office [place] Office [place] Office [address] Janeen Hsieh [address] [phone] F: [phone] F: [phone] F: [phone] F: [phone] Physical Therapy Plan of Care Date of Evaluation: 04/13/24 Date of Surgery: 10/01/23 Diagnosis: This is a 74 yo female presenting to skilled PT with a script for spondylosis of thoracolumbar region. Assessment: This is a 74 yo female presenting to skilled PT with a script for spondylosis of thoracolumbar region. Prior eval, DC report and history: Patient is s/p slip and fall on black ice on Wednesday 06/06. Patient reports she fell posteriorly and her back hit a step (she had the wind knocked out of her upon the incident). Since the the fall she has been having bilateral lower thoracic/upper lumbar back pain but is worse on the R side. Pain is described as achy. Since then she has been taking ibuprofen, lidocaine patch and heat for pain. Pain has been improving daily. Her pain increases with transfers in/out of the car and bed, walking with her dog and standing for long periods of time. Her pain has been complicated by being sick the past 10 days as well and coughing has been causing back pain. She is also currently attending PT for shoulder pain but we are putting this on hold until back pain resolves. 09/03: Patient is I in HEP and ready for DC at this time. She reports no pain and has returned to regularly exercising, participating in exercise and dance classes and cycling without pain. She has met her goals and is ready for DC at this time. PT eval from 11/2023: Patient is now s/p kypholasty T8 with Dr. Baez 10/01/23. Her pain is now across the mid back, reports that this is pain is achy and gripping . She started gabapentin for this pain. Her pain comes and goes, pain increases when she is doing something else to distract her. Currently she is swimming every other day in the pool which is helpful and walking however she is having a hard time with biking long distances and kayaking (the motion and the transfer out of the kayak). She is here today at the [facility] for an HEP update as she will be away for the summer. PT [facility] today 04/13: Patient returns reporting that she started taking gabapentin due to ongoing low back pain (below the the thoracic kyphoplasty). This has helped her. She had PT all summer for her UB strength and when she came back in February she did not continue any of her HEP and reports that she is still weak. She is here reporting today that she wants to work on her UB strengthening still with PT (not thoracolumbar). Weekly, she does do assisted cycling, walking, swimming. She reports that her dominant side is weaker. She reports that she has a hard time with pinching with the R hand. lifting overhead or holding utensils for eating/drinking (reports a tremor with movement). She reports weakness in the R shoulder on down the arm. Denies tingling and numbness. As she would like to work more on her R arm vs her surgical site moving forward, I educated her on the need for a new script. Assessment reveals pain that ranges from up to a 4/10 at the worst. 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 Based on functional limitations, impaired QOL and pain tolerance patient is a good candidate for skilled PT 2x/wk for 5wks. Frequency and Duration: The patient will be seen 2x/wk for 5wks Short Term Goals: Pt will demonstrate improved postural awareness and understanding of core engagement with supine and standing tasks without cues throughout session to improve overall back safety in 2 weeks. Pt will demo 1 MMT improvement in BUE Pt will continue to reinforce precautions, sitting, standing and ADL modifications with proper body mechanics in 2 wks. Principal Gifts Officer Goals: Pt will demonstrate improved outcome measure by 5 points in 4 weeks for improved functional mobility. Pt will demonstrate ability to bend and lift WNL min to no pain for household tasks in 4 wks. Pt will report 75% improvement in confidence with household tasks. Pt will be I in HEP and compliant in 4wks Pt will report 50% improvement for tolerance of hobbies and activities Treatment Plan: Modalities to reduce pain, spasms and effusion. Manual therapy to restore motion and function. Therapeutic exercise to improve strength and flexibility. Neuromuscular re-education for posture and balance. Therapeutic activities to return to functional activities of daily living. Electronically signed by: Bella Núñez PT Please sign and return to therapist. Thank you for your referral.
--- NOTE | 2024-07-15 08:23 | MHC.PT.DC ---
[facility] [place] Office [place] [facility] [place] [facility] [address] Janeen Hsieh [address] [phone] F: [phone] F: [phone] F: [phone] F: [phone] Physical Therapy Discharge Report Diagnosis: This is a 74 yo female presenting to skilled PT with a script for spondylosis of thoracolumbar region. Date of Surgery: 10/01/23 Date of Evaluation: 04/13/24 Date of Discharge: 07/15/24 Treatments to Date: 10 Cancellations to Date: 0 No Shows to Date: 0 Discharge Status: Independent with HEP Recommend MD Follow-up Discharge Summary: Patient has come to 10 visits of PT. Her strength and ROM are grossly unchanged however patient does endorse limited HEP carryover at times. She would benefit from follow up and further testing via MD. She is however I in her HEP and was educated to continue on her own at this time. Chart will be closed after 30 days. Electronically signed by: Bella Núñez PT Please sign and return to therapist. Thank you for your referral.
== END 2024-07-15 08:24 | disposition home or self-care (01) ==
LOC: HO.PTCHIC 10:00
PROVIDERS: PCP Internal Medicine; Visit Provider Internal Medicine
DX: M47.815 Spondylosis without myelopathy or radiculopathy, thoracolumbar region (principal); R29.898 Other symptoms and signs involving the musculoskeletal system
CPT/HCPCS: 97110; 97162

== ENCOUNTER 2024-06-14 12:54 | Outpatient (REF) | payer MEDICARE, OTHER, SELFPAY ==
--- NOTE | ~2024-06-14 | MR_ITS ---
EXAMINATION: MR CERVICAL SPINE WITHOUT CONTRAST CLINICAL INFORMATION: Radiculopathy, cervical region. Evaluate spinal stenosis or nerve compression C7-T1 COMPARISON: None available. TECHNIQUE: MRI of the cervical spine was obtained using routine sequences without contrast. FINDINGS: The imaged posterior fossa is unremarkable. Partially imaged right mastoid effusion. Mild levocurvature at the cervicothoracic junction. Mild retrolisthesis at C4-5. No acute bone marrow abnormality. The vertebral body heights are preserved. Multilevel disc desiccation and disc height loss, worse and moderate to severe at C4-5, C5-6, C6-7, and C7-T1. The visualized spinal cord is normal in caliber. No abnormal cord signal. C2-3: No significant spinal canal or neural foraminal narrowing. C3-4: Right uncovertebral hypertrophy and bilateral facet arthrosis. No significant spinal canal stenosis. Mild right neural foraminal narrowing. C4-5: Disc osteophyte complex, bilateral uncovertebral hypertrophy, and bilateral facet arthrosis. No significant spinal canal or neural foraminal narrowing. C5-6: Disc osteophyte complex, bilateral uncovertebral hypertrophy, and bilateral facet arthrosis. No significant spinal canal or neural foraminal narrowing. C6-7: Disc osteophyte complex and bilateral uncovertebral hypertrophy. No significant spinal canal or neural foraminal narrowing. C7-T1: Disc osteophyte complex and bilateral facet arthrosis. No significant spinal canal stenosis. Mild right neural foraminal narrowing. The paravertebral soft tissues are unremarkable. MR/MR cervical spine wo con IMPRESSION: Multilevel cervical spondylosis without significant spinal canal stenosis or cord compression. There is mild right neural foraminal narrowing at C3-C4 and C7-T1. Electronically signed by: Jackson Saucedo MD 06/14/2024 02:[address] [facility]
== END 2024-06-14 12:55 | disposition home or self-care (01) ==
LOC: HO.MRI 12:54
PROVIDERS: PCP Internal Medicine; Visit Provider Physical Medicine & Rehabilitation
DX: M54.12 Radiculopathy, cervical region (principal)
CPT/HCPCS: 72141

== ENCOUNTER 2024-06-29 08:13 | Outpatient (REF) | payer MEDICARE, OTHER, SELFPAY ==
[2024-06-29 09:54] LABS: MANUAL DIFF FLAG NO
[2024-06-29 10:03] LABS: Basophils Absolute Auto 0.1 X10*3/uL (0.0-0.2); Basophils Percent Auto 2.2 % (0-2); Eosinophils Absolute Auto 0.3 X10*3/uL (0.0-0.4); Eosinophils Percent Auto 7.2 % (0-4); Hematocrit 37.6 % (37.0-47.0); Hemoglobin 12.4 g/dl (12.0-16.0); Imm Gran Abs Auto 0.01 X10*3/uL (0.00-0.03); Imm Gran Pct Auto 0.2 % (0.0-0.4); Lymphocytes Percent Auto 24.6 % (20-40); Mean Corpuscular Hemoglobin 28.9 pg (27.0-33.0); Mean Corpuscular Volume 87.6 fL (80.0-98.0); Mean Platelet Volume 10.2 fL (9.4-12.3); Monocytes Absolute Auto 0.3 X10*3/uL (0.1-1.2); Monocytes Percent Auto 7.2 % (2-11); Neutrophils Absolute Auto 2.4 x10*3/uL (2.0-8.3); Neutrophils Percent Auto 58.6 % (45-73); Platelet Count 275 X10*3/uL (160-400); Red Blood Count 4.29 X10*6/uL (4.20-5.50); Red Cell Distribution Width 14.6 % (11.0-16.0); White Blood Count 4.1 X10*3/uL (4.8-10.8)
[2024-06-29 10:13] LABS: Phosphorus 3.5 mg/dL (2.7-4.5)
[2024-06-29 10:36] LABS: Parathyroid Hormone Intact 45.4 pg/mL (8.7-77.1)
[2024-06-29 10:43] LABS: Albumin Level 4.3 g/dL (3.5-5.0); Alkaline Phosphatase 63 U/L (39-117); Anion Gap 12 (12-20); Aspartate Amino Transferase 48 U/L (5-31); Bilirubin Total 0.7 mg/dL (0.0-1.0); Blood Urea Nitrogen 18 mg/dL (9-16); Calcium 9.5 mg/dL (8.4-10.2); Carbon Dioxide 26 mmol/L (22-29); Chloride 109 mmol/L (96-108); Cholesterol 223 mg/dL (<200); Estimated Glomerular Filt Rate > 60; Glucose Fasting 84 mg/dL (60-99); HDL Cholesterol 70 mg/dL (>40); LDL Cholesterol Calculated 134 mg/dL (<100); Sodium 143 mmol/L (135-145); Total Protein 6.8 g/dL (6.5-8.0); Triglycerides 95 mg/dL (<150)
[2024-06-29 10:47] LABS: Alanine Aminotransferase 38 U/L (0-31)
[2024-06-29 10:49] LABS: TSH reflex Free T4 3.05 uIU/mL (0.32-4.0); Vitamin D 25-OH Total 64.1 ng/mL (>30)
[2024-07-01 04:19] LABS: Triiodothyronine T3 Free 2.8 pg/mL (2.3-4.2)
[2024-07-04 23:08] LABS: Collagen Type I C-Telopeptide 104 pg/mL (see note)
== END 2024-06-29 08:14 | disposition home or self-care (01) ==
LOC: HO.HMGCLDS 08:13
PROVIDERS: PCP Internal Medicine; Referring Provider Internal Medicine Endocrinology, Diabetes & Metabolism; Visit Provider Internal Medicine
DX: Z00.00 Encounter for general adult medical examination without abnormal findings (principal); E55.9 Vitamin D deficiency, unspecified; E03.9 Hypothyroidism, unspecified; M81.0 Age-related osteoporosis without current pathological fracture
CPT/HCPCS: 0077U; 36415; 80053; 80061; 82306; 82523; 82784; 83970; 84100; 84443; 84481; 85025

== ENCOUNTER 2024-07-04 09:34 | Outpatient (AMB) | payer MEDICARE, OTHER, SELFPAY ==
--- NOTE | 2024-07-04 09:42 | A.OFFVIS_ITS ---
Vital Signs 07/04/24 09:44 Height 5 ft 1 in Weight 113 lb BMI 21.3 BP 130/66 Blood Pressure Location Lt brachial Position Sitting Respiration 16 Pulse 73 Pulse Source Pulse Oximeter Pulse Oximetry (%) 98 Oxygen Delivery Method Room Air Intake Visit Reasons: FOLLOW UP AFTER MRI Allergies Penicillins [PENICILLINS] Adverse Reaction (Mild, Verified 07/04/24 09:45) GI UPSET Medication List - Last Reconciled 07/04/24 by Tasha Blood LPN alendronate (Fosamax) 70 mg PO QWEEK aspirin 81 mg PO 3XW calcium carbonate 400 mg PO DAILY cholecalciferol (vitamin D3) 25 mcg PO DAILY gabapentin 300 mg PO QID multivitamin 1 tab PO DAILY omega 7-prj-eda-fish oil 1,200 (144-216) mg (Fish Oil) 1 cap PO BID vitamin K2 40 mcg PO DAILY HPI HPI FOLLOW UP AFTER MRI: Details: Mariah is here for follow-up to discuss her cervical MRI results. Her cervical MRI is quite unremarkable with no significant neural foraminal or central canal stenosis that would explain her weakness. She states that her weakness has been getting worse and she is now unable to cook. On exam today: Appears afebrile. Alert and oriented. Mood and affect appropriate. Follows and participates in conversation appropriately. Respiratory effort is unlabored. Able to transition from sit to stand unassisted. Ambulates with bilaterally normal heel strike and toe off. Able to stand and walk on toes and heels. [facility] Medical History Melanoma Osteoporosis Breast mass Vitamin D deficiency Annual physical exam Normal colonoscopy Hypothyroidism IFG (impaired fasting glucose) Hypertriglyceridemia Basal cell carcinoma Surgical History Hx of excision of mass History of right oophorectomy Hx of colonoscopy Hx of wisdom tooth extraction Family History Father Heart problem Dementia Ruptured appendix Mother Colon cancer Dementia Sister Ruptured appendix Aneurysm Brother Kidney stones Social History Housing: House Are you a primary adult caregiver to a significant other at home: No Do you presently have visiting nurse or other home services: No Alcohol intake: current Alcohol intake frequency: a few times a month Patient Tobacco Use Status: Former Tobacco user Tobacco use type: Cigarette e-Cigarette/Vaping Use: Never Used service: No Current occupational status: retired Cognitive needs: No Hearing needs: No Vision needs: Yes Physical Exam Vital Signs: Last Vital Signs Pulse 73 07/04/24 09:44 Resp 16 07/04/24 09:44 BP 130/66 07/04/24 09:44 Pulse Ox 98 07/04/24 09:44 Oxygen Delivery Method Room Air 07/04/24 09:44 BMI result Body Mass Index 21.3 Assessment & Plan Assessment & Plan (1) Weakness of both upper extremities: Code(s): R29.898 - Other symptoms and signs involving the musculoskeletal system Category: Medical Plan 74-year-old female with progressively worsening upper extremity weakness, most pronounced in her right hand. We had initially thought her symptoms to be secondary to a cervical radiculopathy but this is not corroborated by her cervical MRI findings. I placed a referral for her to see Neurology for further neurologic workup. I will defer to them regarding brain imaging with respect to the need for contrast. Patient will follow-up with us as needed. Orders: Referrals Neurology Referral R29.898 - Other symptoms and signs involving the musculoskeletal system Coding Level of Care Code Est Pt Level 3 (23205) Diagnoses Weakness of both upper extremities R29.898
[2024-07-04 09:44] VITALS: BP 130/66; PULSE 73; RESP 16; O2SAT 98; BMI 21.3
== END 2024-07-04 11:03 | disposition home or self-care (01) ==
PROVIDERS: PCP Internal Medicine; Visit Provider Internal Medicine
DX: R29.898 Other symptoms and signs involving the musculoskeletal system (principal)
CPT/HCPCS: 99213

== ENCOUNTER → 2024-07-04 09:34 | Outpatient (BNVA) | payer MEDICARE, OTHER, SELFPAY | PROVIDERS: PCP Internal Medicine; Visit Provider Internal Medicine | DX: R29.898 Other symptoms and signs involving the musculoskeletal system (principal) | CPT/HCPCS: 99212 ==

== ENCOUNTER 2024-07-07 14:12 | Outpatient (REF) | payer MEDICARE, OTHER, SELFPAY ==
[2024-07-08 19:04] LABS: Lyme Abs Screen <0.90 index
== END 2024-07-07 14:13 | disposition home or self-care (01) ==
LOC: HO.HKASLDS 14:12
PROVIDERS: PCP Internal Medicine; Visit Provider Physician Assistant Medical
DX: R29.898 Other symptoms and signs involving the musculoskeletal system (principal)
CPT/HCPCS: 36415; 86617; 86618; 99202

== ENCOUNTER 2024-07-07 14:12 | Outpatient (AMB) | payer MEDICARE, OTHER, SELFPAY ==
--- NOTE | 2024-07-07 14:15 | MHC.OFFVIS ---
Vital Signs 07/07/24 14:21 Height 5 ft 1 in Weight 116 lb BMI 21.9 BP 110/60 Blood Pressure Location Lt brachial Position Sitting Pulse 55 Pulse Source Pulse Oximeter Pulse Oximetry (%) 98 Oxygen Delivery Method Room Air Intake Visit Reasons: INP-Cognitive inv musculoskeletal Intake Note: Patient presents for a new patient evaluation for upper extremities weakness. Spud Grader Required: No Accompanied by: Spouse Allergies Penicillins [PENICILLINS] Adverse Reaction (Mild, Verified 07/07/24 14:21) GI UPSET Medication List - Last Reconciled 07/07/24 by Mechelle Aleman PA-C alendronate (Fosamax) 70 mg PO QWEEK aspirin 81 mg PO 3XW calcium carbonate 400 mg PO DAILY cholecalciferol (vitamin D3) 25 mcg PO DAILY gabapentin 300 mg PO TID multivitamin 1 tab PO DAILY omega 4-msz-hgf-fish oil 1,200 (144-216) mg (Fish Oil) 1 cap PO BID vitamin K2 40 mcg PO DAILY HPI Comments Details: 74 year old female with chronic R>L Upper extremity weakness post Kyphoplasty. Chief complaint: History of osteoporosis, thoracic compression fracture after a fall, status post T7-8 kyphoplasty 10/01/2023. In December started having weakness, right worse than left, upper extremities. Denies neck pain. Denies any acute illness prior to onset of weakness. Denies any vaccination prior to onset of weakness. Denies associated pain. Denies numbness. Denies symptoms on lower extremities. Noted 4-/5 weakness on proximal right upper extremity, specifically elbow extension. 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 Leg cramping in lower extremities. L. Hip joint pain, gait instability. Lost 3-4 pound since summer. DEXA for Osteoporosis- Apr 2022 Fosamax since fall 2022. Tells me she still feels weak on right worse than left, arm and shoulder. shrugging up to be able to use the right arm. No numbness on arms or hands. No pain at all. No weakness. No gait change. No bladder/bowel changes. Weakness, no pain can write legibly. [facility] Medical History Melanoma Osteoporosis Breast mass Vitamin D deficiency Annual physical exam Normal colonoscopy Hypothyroidism IFG (impaired fasting glucose) Hypertriglyceridemia Basal cell carcinoma Surgical History Hx of excision of mass History of right oophorectomy Hx of colonoscopy Hx of wisdom tooth extraction Family History Father Heart problem Dementia Ruptured appendix Mother Colon cancer Dementia Sister Ruptured appendix Aneurysm Brother Kidney stones Social History Housing: House Are you a primary career development specialist to a significant other at home: No Do you presently have visiting nurse or other home services: No Alcohol intake: current Alcohol intake frequency: a few times a month Patient Tobacco Use Status: Former Tobacco user Tobacco use type: Cigarette e-Cigarette/Vaping Use: Never Used service: No Current occupational status: retired Cognitive needs: No Hearing needs: No Vision needs: Yes Review of Systems Const All systems reviewed & are unremarkable except as noted in HPI and below Physical Exam Vital Signs: Last Vital Signs Pulse 55 07/07/24 14:21 BP 110/60 07/07/24 14:21 Pulse Ox 98 07/07/24 14:21 Oxygen Delivery Method Room Air 07/07/24 14:21 BMI result Body Mass Index 21.9 Const General: cooperative, comfortable and no acute distress Nutritional Appearance: thin Orientation/consciousness: patient oriented x3 HEENT Head: Yes normal to inspection Face and sinus: Yes normal facial exam and Yes face symmetric Mouth: other Teeth and gingiva: other ([place] score of 3) Eyes Pupils: Equal, round and reactive pupils present Neuro General: patient oriented x3 and moves all extremities Cranial nerves: Yes CN's II-XII intact bilaterally, Yes Facial sensation intact/muscles of mastication intact, Yes Equal, round and reactive pupils present, Yes Normal accommodation reflex present, Yes Bilaterally intact EOM present, Yes Nystagmus not present, Yes Normal facial strength present, Yes Midline tongue present, Yes Symmetric palate elevation present, Yes Ability to bilaterally rotate head present and Yes Ability to bilaterally elevate shoulders present (R. shoulder is gaurded, does not elevate the R.arm ROM is limited) Cognition (Neuro): normal cognition Gait exam (Neuro): Normal gait present Motor exam (neuro): Pronator motor function not present, no tremor noted, Abnormal motor strength present (3/5 Lower extremities, LUE is stronger 4/5 ) and Abnormal muscle tone present (thin and weak) Deep tendon reflexes (DTR's): Right triceps reflex intensity grade: 3+, Left triceps reflex intensity grade: 3+, Rt Biceps (C5, C6): 3+, Left biceps reflex intensity grade: 3+, Right brachioradialis reflex intensity grade: 3+, Left brachioradialis reflex intensity grade: 3+, Right patellar reflex intensity grade: 3+ and Left patellar reflex intensity grade: 3+ Coordination: [id number] test normal, rapid alternating movements of the distal upper extremity normal and rapid alternating movements of the distal lower extremity normal Psych Appearance: grossly normal Mental Status: mental status grossly normal Speech and movement: Normal speech and movement present Affect: normal affect Attitude: cooperative Thought process: Normal thought process present Thought content: Normal thought content present Insight: Good insight present (Psych) Judgement: Good judgement present (Psych) Results Reviewed Results Reviewed: MRI 2023 EMG Apr 2024 There is no electrodiagnostic evidence for median neuropathy, ulnar neuropathy or brachial plexopathy. 2. Can not completely rule out a lower cervical radiculopathy. Labs 2023 PTH / TSH / ALT / AST MRI Cervical Spine MAY 2024 The imaged posterior fossa is unremarkable. Partially imaged right mastoid effusion. Mild levocurvature at the cervicothoracic junction. Mild retrolisthesis at C4-5. No acute bone marrow abnormality. The vertebral body heights are preserved. Multilevel disc desiccation and disc height loss, worse and moderate to severe at C4-5, C5-6, C6-7, and C7-T1. The visualized spinal cord is normal in caliber. No abnormal cord signal. C2-3: No significant spinal canal or neural foraminal narrowing. C3-4: Right uncovertebral hypertrophy and bilateral facet arthrosis. No significant spinal canal stenosis. Mild right neural foraminal narrowing. C4-5: Disc osteophyte complex, bilateral uncovertebral hypertrophy, and bilateral facet arthrosis. No significant spinal canal or neural foraminal narrowing. C5-6: Disc osteophyte complex, bilateral uncovertebral hypertrophy, and bilateral facet arthrosis. No significant spinal canal or neural foraminal narrowing. C6-7: Disc osteophyte complex and bilateral uncovertebral hypertrophy. No significant spinal canal or neural foraminal narrowing. C7-T1: Disc osteophyte complex and bilateral facet arthrosis. No significant spinal canal stenosis. Mild right neural foraminal narrowing. Assessment & Plan Assessment & Plan (1) Weakness of both upper extremities: Comment: Her strength was normal on todays exam . The xam limited due to he rmusculoskeletal issues. Her weakness is likely related to her frozen shoulder . Code(s): R29.898 - Other symptoms and signs involving the musculoskeletal system Category: Medical Plan Right Shoulder Adhesive Capsulitis: Ortho Referral and Evaluation MRI head/ Brain w/o contrast- to evaluate Lyme Titers IgG IgM - patient requested Cholesterol/ LDL is elevated PCP f/u Will consider Rheumatology refferal Follow up in 3 months post Imaging and Labs Orders: Orders MR head/brain wo con 07/11/24 R29.898 - Other symptoms and signs involving the musculoskeletal system, M48.02 - Spinal stenosis, cervical region Lyme IgG/IgM w/reflex to WB 07/07/24 R29.898 - Other symptoms and signs involving the musculoskeletal system Referrals Orthopedics Referral M75.00 - Adhesive capsulitis of unspecified shoulder, Z98.890 - Other specified postprocedural states Coding Level of Care Code New Pt Level 4 (05599) Complex EM visit Add On G2211 Diagnoses Weakness of both upper extremities R29.898
[2024-07-07 14:21] VITALS: BP 110/60; PULSE 55; O2SAT 98; BMI 21.9
== END 2024-07-07 15:40 | disposition home or self-care (01) ==
PROVIDERS: PCP Internal Medicine; Visit Provider Physician Assistant Medical
DX: R29.898 Other symptoms and signs involving the musculoskeletal system (principal)
CPT/HCPCS: 99204; G2211

== ENCOUNTER → 2024-07-11 18:41 | Outpatient (BNV) | payer MEDICARE, OTHER, SELFPAY | PROVIDERS: PCP Internal Medicine; Visit Provider Radiology Diagnostic Radiology | DX: R29.898 Other symptoms and signs involving the musculoskeletal system (principal) | CPT/HCPCS: 70551 ==

== ENCOUNTER 2024-07-11 18:43 | Outpatient (REF) | payer MEDICARE, OTHER, SELFPAY ==
--- NOTE | ~2024-07-11 | MR_ITS ---
EXAMINATION: MR BRAIN WITHOUT CONTRAST CLINICAL INFORMATION: Weakness of both arms since December 2023. No injury. COMPARISON: None available. TECHNIQUE: MRI of the brain was obtained using routine sequences without contrast. FINDINGS: There is no restricted diffusion seen to suspect acute or chronic ischemic changes. There is no magnetic susceptibility artifact to suspect acute or chronic hemorrhagic products or calcification. Scattered T2 FLAIR signal foci are seen scattered throughout the deep white matter of both cerebral hemispheres without mass effect or edema. The lateral ventricles are symmetrical in size and configuration without enlargement. Normal flow-void signal seen in major cerebral vasculature. Visualized sella and parasellar soft tissues are normal. No abnormality seen in the posterior fossa. The bone marrow signal and the scalp soft tissues are normal. There is mild mucoperiosteal thickening right mastoid sinus. Rest of paranasal sinuses and left mastoid sinus are well-aerated. MR/MR head/brain wo con IMPRESSION: No acute intracranial process seen. Chronic right mastoid sinus inflammatory changes. Electronically signed by: Jurgen Mcqueen MD 07/12/2024 07:29 AM EST
== END 2024-07-11 18:44 | disposition home or self-care (01) ==
LOC: HO.MRI 18:43
PROVIDERS: PCP Internal Medicine; Visit Provider Physician Assistant Medical
DX: R29.898 Other symptoms and signs involving the musculoskeletal system (principal); M48.02 Spinal stenosis, cervical region
CPT/HCPCS: 70551

== ENCOUNTER 2024-07-28 10:17 | Outpatient (REF) | payer MEDICARE, OTHER, SELFPAY ==
--- OUTSIDE RECORDS SUMMARY | 2024-07-29 11:14 | XMS_ITS | Clinical Summary ---
Author Organization [facility] Address [facility] [place] [address] Care Team Providers Care [employer] Name Role Phone Unknown Primary Care Provider Unavailabl e Allergies No known active allergies Medications Medication Sig Dispensed Refills Start Date End Date Status CIS Free Text Med - Calcium + D 02/20/2010 Active multivitamin (THERAGRAN) tablet 02/20/2010 Active aspirin 81 mg EC tablet Take 81 mg by mouth three times a week. Active Active Problems Problem Noted Date Diagnosed Date Seborrheic keratosis 02/10/2013 Healthcare maintenance 11/27/2011 Overview (11/27/2011): Mammogram 03/12/11 normal Dexa scan 03/07/10 T -1.8 osteopenia Pap 11/25/10 neg HPV, normal Pap Colonoscopy 11/27/09 normal due in 5 yrs Immunization History Administered Date(s) Administered ? ? H1n1 06/07/2009 ? ? 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 Name: VEE CARR Acc #: [id number] Pt. Col Date: 11/27/2009 /Sex: 1950,(59 years),Female Rec Date: 11/27/2009 LOC: [facility] MOLECULAR GENETIC STUDIES ---REPORT OF DNA ANALYSIS--- [employer] INV[employer]ER HPV ASR POSITIVE for high-risk HPV*: Osteopenia 11/27/2009 Overview (11/27/2011): Pt started Boniva at latest 2005, then switched to Alendronate in 2007. Pt never had osteoporosis, and started biphosphonate due to dx POF in 1982 , started HRT, and a family history of osteoporosis. DEXA EXAMINATION, 03/07/10: HISTORY: 59-year-old estrogen deficient white female on alendronate. Check response. COMPARISON STUDY: 2007. FINDINGS: Both lumbar spine and left hip measurements were acquired. When compared to the last exam, there is a small 3% increase in her left hip measurements. Her lumbar spine measurements are unchanged. IMPRESSION: Her lowest T-score of -1.8 is from her lumbar spine. This fulfills the WHO classification for low bone mass. Interval no significant change in both measurements indicate positive response to therapy. 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 Immunizations Name Administration Dates Next Due Influenza (Novel [id number]) Injectable 06/07/2009 Influenza Trivalent, Preservative Free 2 Influenza Vaccine, Whole 04/13/2008 Tdap (Adacel, Boostrix) 12/10/2012 Social History Tobacco Use Types Packs/Day Years Used Date Smoking Tobacco: Never Smokeless Tobacco: Never Alcohol Use Standard Drinks/Week Comments Yes 0 (1 standard drink = 0.6 oz pur e alcohol) Sex and Gender Information Value Date Recorded Sex Assigned at Not on file Gender Identity Not on file Sexual Orientation Not on file Last Filed Vital Signs Vital Sign Reading Time Taken Comments Blood Pressure 108/69 03/09/2013 8:41 AM EDT Pulse 62 03/09/2013 8:41 AM EDT Temperature 36.9 ??C (98.4 ??F) 12/10/2012 8:59 AM ED T Respiratory Rate 16 03/09/2013 8:41 AM EDT Oxygen Saturation 99% 12/10/2012 8:59 AM EDT Inhaled Oxygen Concentration - - Weight 59 kg (130 lb) 03/09/2013 8:41 AM EDT Height 154.9 cm (5' 1 ) 03/09/2013 8:41 AM EDT Body Mass Index 24.56 03/09/2013 8:41 AM EDT Plan of Treatment Health Maintenance Due Date Last Done Comments CT Colonography 1950 FIT DNA 1950 FIT 1950 Sigmoidoscopy (10 year) with FIT yearly 1950 Sigmoidoscopy 1950 Hepatitis C Screening 1969 Breast Cancer Share Decision Needed 1991 Pneumoccocal Vaccine: 50+ (1 of 1 - PCV) 2001 Zoster vaccine (1 of 2) 2001 Advance Directive 2006 PAP Smear 12/10/2013 12/10/2012, 12/2011, 11/25/2010 Breast Cancer screening 03/10/2014 03/10/2012, 03/12 Colonoscopy 02/19/2015 02/19/2010 (See prior EHR) Colorectal Cancer Screening 02/19/2015 Tetanus/Diphtheria/Pertussis Vaccines (2 - Td or Tdap) 12/10/2022 12/10/2012 Covid-19 Vaccine (1 - 2023-2 5 season) 2024 Influenza (Flu) vaccine (1 o f 1 - Influenza standard series) 02/21/2024 04/29/2012, 06/07/2009, 04/13/2008 Bone Density Scan 03/02/2027 03/02/2012 HPV test Discontinued 12/10/2012, 12/2011, 11/25/2010 Procedures Procedure Name Priority Date/Time Associated Diagnosis Comments [facility] MOLECULAR GENETICS REPORT Routine 12/10/2012 9:47 AM EDT [facility] CYTOLOGY FINAL REPORT Routine 12/10/2012 9:47 AM EDT MAMMO SCREENING CAD BILATERAL Routine 03/10/2012 1:50 PM EDT DXA CENTRAL SPINE, HIP, AND/OR WHOLE BODY (GENERIC) Routine 03/02/2012 3:23 PM EDT Disorder of bone and cartilage, unspecified from Last 3 Months or Most Recently Relevant to Health Maintenance Results * [facility] Molecular Genetics Report (12/10/2012 9:47 AM EDT) [facility] Molecular Genetics Report ? [facility] ? Provider: ?? ROSY WILEY ??Pt. Name: ?? VEE CARR ?P ? Acc #: ?[id number] ?Pt. ? Col Date: ?? 12/10/2012 ? /Sex: ?1950,(62 years),Female ? Rec Date: ?? 12/10/2012 ? LOC: ?[facility] ? MOLECULAR GENETIC STUDIES ? ---REPORT OF DNA ANALYSIS--- ? Sawyer Duke HPV test ? NEGATIVE for high-risk HPV *. ? It is recommended that patients with ASCUS cytology and a negative test for ? high-risk HPV undergo further evaluation according to current practice ? guidelines. ??* Testing negative for high risk HPV means that the specimen ? is negative for the following 14 types tested: ??types 16, 18, 31, 33, 35, ? 39, 45, 51, 52, 56, 58, 59, 66, and 68. ??The test is not intended to detect ? low risk HPV types. ? Specimen: HPV Testing - Cytology Liquid Based Prep ? Reviewed by: ??Alvin Chung ? A ?ECL Endocervical /LBP ? B ?HPVDO Do HPV Testing ? Verified date: ??12/16/12 ??[facility] ? Verified by: ?Lab Review, Molecular Genetics ? (Electronic Signature) [facility] 12/10/2012 9:47 AM EDT Rosy Wiley MD PATHOLOGY/CYTOLOG Y ORDERABLES HARJIT NARANJO * Office Machine Servicer Apprentice Cytology Final Report (12/10/2012 9:47 AM EDT) Office Machine Servicer Apprentice Cytology Final Report ? [facility] ? Provider: ?? ROSY WILEY ??Pt. Name: ?? KIET VEE Callaway ?P ? Acc #: ?[id number] ?Pt. ? Col Date: ?? 12/10/2012 ? /Sex: ?1950,(62 years),Female ? Rec Date: ?? 12/10/2012 ? LOC: ?[facility] ? CYTOPATHOLOGY: ??[facility] ? ---Adequacy--- ? Specimen submitted is satisfactory for evaluation. ??No endocervical ? component present . ? Note: ??Initial cross-sectional studies suggested that JUNO cells were more ? commonly identified when an endocervical component was present, however ? subsequent longitudinal studies fail to show that women lacking an ? endocervical component in a Pap smear are at increased risk for JUNO. ? ---Cytopathologic Diagnosis--- ? NORMAL ? Negative for Intraepithelial Lesion or Malignancy (NILM). ? 12/16/12 ?? Screened by: ??LMY ??SLA ? 12/16/12 ?? Verified by: ??LINDEN Jaramillo(ASCP), Meme Haney - ? Dam Worker ? ---Comment--- ? Endocervical component not detected in an atrophic smear pattern. ? Please also see concurrent HPV test result. ? ---Clinical Information--- ? HPV Option: ? Concurrent HPV ? Preparation: ?Liquid Based Pap ? Specimen Source: ?Endocervical/LBP ? LMP: ?n/a ? Hormones?: ?No ? Hysterectomy?: ?No ?: ?No ?: ?No ? I.U.D.?: ?No ? Pelvic Radiation: ? No ? Prior [facility] Therapy?: ? No ? Hist Abnl Pap/Biopsy?: ??No ? Hist of HPV Vaccine?: ?? No ? Hist of Smoking?: ? No ? Hist of DWAYNE exposure?: ??Yes ? Clinical Data, Significant Therapy and Clinical Impression: ? [facility] ? Provider: ?? ROSY WILEY ??Pt. Name: ?? VEE CARR ?P ? Acc #: ?[id number] ?Pt. ? Col Date: ?? 12/10/2012 ? /Sex: ?1950,(62 years),Female ? Rec Date: ?? 12/10/2012 ? LOC: ?[facility] ? This Pap Test has been evaluated with the assistance of the ThinPrep Pap ? Test Imaging System. ? CYTOPATHOLOGY: ??[facility] ? Note: ? The Pap test is a screening test for cervical cancer with an inherent ? false-negative rate dependent upon several variables. ??For further ? information please contact the [facility]. ? Reference: ??Abendroth CS. ??Pot Tender of Pap Smear Results. ??In: ? Jimy BS, Kenji HH, ed. ??The Pap Smear. ??[place]: ??Pérez, 2002: ? 71-77. KENJINER MILLENNIUM 12/10/2012 9:47 AM EDT Rosy Wiley MD PATHOLOGY/CYTOLOG Y ORDERABLES HARJIT BOLANDENNIUM * MAMMO DIGITAL BILATERAL SCREENING WITH CAD (03/10/2012 1:50 PM EDT) Anatomical Region Laterality Modality Breast Bilateral Mammography 03/10/2012 1:50 PM EDT Narrative 03/11/2012 11:23 AM EDT Reason for Exam: Screening ?? Technique: Craniocaudal (CC) and Medio-lateral Oblique (MLO) views of both breasts obtained with direct digital capture. The exam was evaluated by CAD version 8.3.17. ?? Findings: ?? This is a negative mammogram (ACR Category 1). ??There is a stable fibroglandular pattern without significant change from prior studies. There is no mammographic evidence of cancer. ??The breasts are of scattered density. ?? CONCLUSION: This is a NEGATIVE mammogram (ACR Category 1). ?? Routine screening mammography is recommended with the frequency dependent upon the patient's age and breast cancer risk factors. A letter has been sent to this patient by the breast imaging center. Procedure Note Nico Lugo MD - 03/11/2012 Reason for Exam: Screening Technique: Craniocaudal (CC) and Medio-lateral Oblique (MLO) views of both breasts obtained with direct digital capture. The exam was evaluated by CAD version 8.3.17. Findings: This is a negative mammogram (ACR Category 1). There is a stable fibroglandular pattern without significant change from prior studies. There is no mammographic evidence of cancer. The breasts are of scattered density. CONCLUSION: This is a NEGATIVE mammogram (ACR Category 1). Routine screening mammography is recommended with the frequency dependentupon the patient's age and breast cancer risk factors. A letter has been sent to this patient by the breast imaging center. oRsy Wiley MD IMG MAMMO ORDERAB LES * DEXA CENTRAL-SPINE, HIP, AND/OR WHOLE BODY (03/02/2012 3:23 PM EDT) Anatomical Region Laterality Modality C-spine, Hip N/A Radiographic Jesenia ging 03/02/2012 3:23 PM EDT Narrative 03/02/2012 4:32 PM EDT Examination DXA CENTRAL-SPINE,HIP, AND/OR WHOLE BODY Clinical History Reason for exam and clinical history: assess bone density in postmenopausal female;F/U 03/01;ESTROGEN DEFICIENT, POSTMENOPAUSAL Technique Scans were acquired at the lumbar spine, left hip,. Findings Lowest T-score at a diagnostic region of interest: T-score-2.1, ANGIE:Lumbar spine, WHO diagnosis: low bone mass or osteopenia ........Comparison......... Recent scan: 2009, Baseline scan 2007 Total Hip: Compared to the most recent scan, 3.1 % decrease. ?? Compared to the baseline scan, no significant change. ?? Total spine: Compared to the most recent scan, 3.3 % decrease. Compared to the baseline scan, 3.8 % decrease. ?? Impression The measurements satisfied the WHO classification for low bone mass or osteopenia. There is on going bone loss, at 3.3 % decrease over 2 years. The fracture risks are increase. Consider continual monitor. _ Estimating Fracture Risk: The relationship between bone mineral density (BMD) and risk of fracture is well established. As BMD decreases, risk increases. Quantifying risk is difficult and is usually limited to estimation of the relative risk - a term which may have limited value when trying to discuss an individual's risk. Estimating the absolute risk for a patient requires an understanding of the incidence rate in a given population and consideration of multiple, partially independent, risk factors in addition to BMD. The World Health Organization (WHO) has developed a fracture risk prediction tool that calculates a ten-year risk of major osteoporotic fracture based on femoral neck bone density measurements and nine clinical risk factors for individuals who have not been treated for osteoporosis. This is available through an interactive web-based interface (http://www.shef.ac.uk/FRAX/) and can be used to estimate a given patient's absolute risk of major osteoporotic fracture or hip fracture over the next 10 years. These estimates may prove useful when discussing risk with a given individual's risk might differ from the tool's estimate. The tool does note take into account the dose-response associated with most risk factors. For example, the significant increase in risk associated with multiple prior fractures compared to a single prior fracture is not taken into account. Similarly, the location of a previous fracture, the mount of glucocorticoids and number of cigarettes smoked are not considered. These limitations are discussed in a Frequently Asked Questions section of the FRAX website which you are encouraged to review. DEXA data sheets with BMD measurements and plots are available in [employer] under the imaging tab . Paper copies will be sent to providers without [employer]ier How To access. If you have received this report without the data sheet and do not have access to [employer], please contact Radiology Endodontics Dentist at [phone] Thursday thru Thursday 8am-4pm. Procedure Note Magali Blair MD - 03/03/2012 Examination DXA CENTRAL-SPINE,HIP, AND/OR WHOLE BODY Clinical History Reason for exam and clinical history: assess bone density inpostmenopausal female;F/U 9/10;ESTROGEN DEFICIENT, POSTMENOPAUSAL Technique Scans were acquired at the lumbar spine, left hip,. Findings Lowest T-score at a diagnostic region of interest: T-score-2.1, ANGIE:Lumbar spine, WHO diagnosis: low bone mass or osteopenia ........Comparison......... Recent scan: 2009, Baseline scan 2007 Total Hip: Compared to the most recent scan, 3.1 % decrease. Compared to the baseline scan, no significant change. Total spine: Compared to the most recent scan, 3.3 % decrease. Compared to the baseline scan, 3.8 % decrease. Impression The measurements satisfied the WHO classification for low bone mass or osteopenia. There is on going bone loss, at 3.3 % decrease over 2 years.The fracture risks are increase. Consider continual monitor. _ Estimating Fracture Risk: The relationship between bone mineral density (BMD) and risk of fractureis well established. As BMD decreases, risk increases. Quantifying risk is difficult and is usually limited to estimation of the relative risk - aterm which may have limited value when trying to discuss an individual's risk. Estimating the absolute risk for a patient requires an understanding ofthe incidence rate in a given population and consideration of multiple,partially independent, risk factors in addition to BMD. The World Health Organization (WHO) has developed a fracture riskprediction tool that calculates a ten-year risk of major osteoporotic fracture basedon femoral neck bone density measurements and nine clinical risk factors for individuals who have not been treated for osteoporosis. This is available through an interactive web-based interface (http://www.shef.ac.uk/FRAX/)and can be used to estimate a given patient's absolute risk of majorosteoporotic fracture or hip fracture over the next 10 years. These estimates may prove useful when discussing risk with a given individual's risk might differfrom the tool's estimate. The tool does note take into account thedose-response associated with most risk factors. For example, the significant increasein risk associated with multiple prior fractures compared to a single prior fracture is not taken into account. Similarly, the location of a previous fracture, the mount of glucocorticoids and number of cigarettes smoked arenot considered. These limitations are discussed in a Frequently AskedQuestions section of the FRAX website which you are encouraged to review. DEXA data sheets with BMD measurements and plots are available in E-[employer]under the imaging tab . Paper copies will be sent to providers without E-DHaccess. If you have received this report without the data sheet and do not haveaccess to E-, please contact Radiology Endodontics Dentist at [phone] Thursdaythru Thursday 8am-4pm. Rosy Wiley MD IMG DEXA ORDERABL ES from Last 3 Months or Most Recently Relevant to Health Maintenance Advance Directives Documents on File Type Date Recorded Patient Twister Doffer Expl anation Advance Directives and Jaspreet landers Will 07/22/2011 10:37 AM Care Teams [employer] Relationship Specialty Start Date End Date Unknown None PCP - General 08/31/14
== END 2024-07-28 10:18 | disposition home or self-care (01) ==
LOC: HO.HOSX 10:17
PROVIDERS: Visit Provider Physical Medicine & Rehabilitation
DX: Z13.89 Encounter for screening for other disorder (principal)

== ENCOUNTER 2024-08-01 09:42 | Outpatient (REF) | payer MEDICARE, OTHER, SELFPAY ==
--- OUTSIDE RECORDS SUMMARY | 2024-08-01 12:08 | XMS_ITS | Clinical Summary ---
Author Organization [facility] Address [facility] [place] [address] Care Team Providers Care Seedling Puller Name Role Phone Unknown Primary Care Provider [...] WILEY Pt. Name: VEE CARR Acc #: [id number] Pt. 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 [facility] ? Provider: ?? ROSY WILEY ??Pt. Name: ?? VEE CARR ?P ? Acc #: ?[id number] ?Pt. ? Col Date: ?? 12/10/2012 ? [...] ?Lab Review, Molecular Genetics ? (Electronic Signature) [facility] 12/10/2012 9:47 AM EDT Rosy Wiley MD PATHOLOGY/CYTOLOG Y ORDERABLES HARJIT NARANJO * Electronics Computer Mechanic Cytology Final Report (12/10/2012 9:47 AM EDT) Electronics Computer Mechanic Cytology Final Report ? [facility] ? Provider: ?? ROSY WILEY ??Pt. Name: ?? KIET VEE Callaway ?P ? Acc #: ?[id number] ?Pt. ? Col Date: ?? 12/10/2012 ? /Sex: ?1950,(62 years),Female ? Rec Date: ?? 12/10/2012 ? LOC: ?[facility] ? CYTOPATHOLOGY: ??REMOTELY PILOTED VEHICLE CONTROLLER ? ---Adequacy--- ? Specimen submitted is satisfactory [...] by: ??LINDEN Jaramillo(ASCP), Meme Haney - ? Punch Press Operator ? ---Comment--- ? Endocervical component not detected in an atrophic smear pattern. ? Please also see concurrent HPV test result. ? ---Clinical Information--- ? HPV Option: ? Concurrent HPV ? Preparation: ?Liquid Based Pap ? Specimen Source: ?Endocervical/LBP ? LMP: ?n/a ? Hormones?: ?No ? Hysterectomy?: ?No ?: ?No ?: ?No ? I.U.D.?: ?No ? Pelvic Radiation: ? No ? Prior REMOTELY PILOTED VEHICLE CONTROLLER Therapy?: ? No ? Hist Abnl Pap/Biopsy?: ??No ? Hist of HPV Vaccine?: ?? No ? Hist of Smoking?: ? No ? Hist of DWAYNE exposure?: ??Yes ? Clinical Data, Significant Therapy and Clinical Impression: ? [facility] ? Provider: ?? ROSY WILEY ??Pt. Name: ?? VEE CARR ?P ? Acc #: ?[id number] ?Pt. ? Col Date: ?? 12/10/2012 ? /Sex: ?1950,(62 years),Female ? Rec Date: ?? 12/10/2012 ? LOC: ?[facility] ? This Pap Test has been evaluated with the assistance of the ThinPrep Pap ? Test Imaging System. ? CYTOPATHOLOGY: ??REMOTELY PILOTED VEHICLE CONTROLLER ? Note: ? The Pap test is a screening test for cervical cancer with an inherent ? false-negative rate dependent upon several variables. ??For further ? information please contact the [facility]. ? Reference: ??Abendroth CS. ??Guest Advisor of Pap Smear Results. ??In: ? Jimy [...] BMD measurements and plots are available in [employer] under the imaging tab . Paper copies will be sent to providers without [employer] access. If you have received this report without the data sheet and do not have access to [employer], please contact Radiology Wood Grainer at [phone] Thursday thru Thursday 8am-4pm. Procedure Note Magali [...] not haveaccess to E-, please contact Radiology Wood Grainer at [phone] Thursdaythru Thursday 8am-4pm. Rosy Wiley MD IMG DEXA ORDERABL ES from Last 3 Months or Most Recently Relevant to Health Maintenance Advance Directives Documents on File Type Date Recorded Patient Steel Die Printer Expl anation Advance Directives and Jaspreet landers Will 07/22/2011 10:37 AM Care Teams Seedling Puller Relationship Specialty Start Date End Date Unknown None PCP - General 08/31/14
[2024-08-01 13:35] LABS: C Reactive Protein 0.14 mg/dL (< or = 0.50)
[2024-08-01 14:06] LABS: Erythrocyte Sedimentation Rate 5 MM/HR (0-20)
[2024-08-01 14:11] LABS: Folate 15.5 ng/mL (> or = 4.0); Vitamin B12 697 pg/mL (200-900)
[2024-08-05 23:38] LABS: CK-BB None Detected (None Detected); CK-MB 0 % (<5); CK-MM 92 % (95-100); Creatine Kinase Isoenzyme Itrp MACRO CK TYPE 1; Creatine Kinase,Total,Serum 453 U/L (18-225)
[2024-08-06 21:54] LABS: Acetylcholine Receptor Binding <0.30 nmol/L
== END 2024-08-01 09:43 | disposition home or self-care (01) ==
LOC: HO.HMGCLDS 09:42
PROVIDERS: PCP Internal Medicine; Visit Provider Internal Medicine
DX: M62.81 Muscle weakness (generalized) (principal); R29.898 Other symptoms and signs involving the musculoskeletal system; M81.0 Age-related osteoporosis without current pathological fracture; R79.89 Other specified abnormal findings of blood chemistry; S22.060D Wedge compression fracture of T7-T8 vertebra, subsequent encounter for fracture with routine healing; E78.5 Hyperlipidemia, unspecified; C43.71 Malignant melanoma of right lower limb, including hip
CPT/HCPCS: 36415; 82552; 82607; 82746; 85652; 86041; 86140; 86366; 96127

== ENCOUNTER 2024-08-01 09:42 | Outpatient (AMB) | payer MEDICARE, OTHER, SELFPAY ==
[2024-08-01 09:44] VITALS: BP 118/62; PULSE 65; RESP 16; TEMP 36.8; O2SAT 98; BMI 21.5
--- NOTE | 2024-08-01 09:44 | A.OFFVIS_ITS ---
Intake Vital Signs 08/01/24 09:44 Height 5 ft 1 in Weight 114 lb BMI 21.5 BP 118/62 Blood Pressure Location Lt brachial Position Sitting Respiration 16 Pulse 65 Pulse Source Pulse Oximeter Temp 98.3 F Temp Source Oral Pulse Oximetry (%) 98 Oxygen Delivery Method Room Air Intake Visit Reasons: [facility] G0439 Allergies Penicillins [PENICILLINS] Adverse Reaction (Mild, Verified 08/01/24 09:52) GI UPSET Medication List - Last Reconciled 08/01/24 by Jia Bolden MD alendronate (Fosamax) 70 mg PO QWEEK aspirin 81 mg PO 3XW calcium carbonate 400 mg PO DAILY cholecalciferol (vitamin D3) 25 mcg PO DAILY gabapentin 300 mg PO TID multivitamin 1 tab PO DAILY omega 4-qdb-tnx-fish oil 1,200 (144-216) mg (Fish Oil) 1 cap PO BID pravastatin 20 mg PO DAILY vitamin K2 40 mcg PO DAILY HPI [facility] G0439 HPI Details Initiated the conversation about Advanced Directives. Advanced Directives help? patients prepare for current and future decisions about their medical treatment? and place of care. Discussed with patient that it is a process where a patients? current condition and prognosis are reviewed, their wishes for information? regarding their illness are elicited, and likely medical dilemmas are presented? and options discussed. The form can be amended as needed, reviewed yearly and? make changes as needed IPPE/AWV ? year old presents? for her ? Annual? Wellness Visit, initial visit.? Medical / Social History Reviewed? Past Medical History ?Yes? . ? [place]? of Care / Care Team list updated ?Yes . ? Surgical/Hospitalization? History ?Yes . ? Current Medications? (including OTC and supplements) ?Yes . ? Family History ?Yes? . ? Tobacco? Control form ?Yes . ? AUDIT-C (Alcohol use) form? ?Yes . ? Illicit drug use in Social? History ?Yes . ? Current diagnosis of? depression? ?No ? Appropriate PHQ2/PHQ9? completed ?Yes . ? Data entered by ?Medical? Child Center Assistant and reviewed by provider ? Fall Risk ? Fall? History? Have you had any falls with? injury in the past year? ?No . ? Have you had two or more? falls in the past year? ?No . ? Fall Risk Assessment: ?No? falls in the past year . ? HRA filled out by? the patient, reviewed by Provider and scanned. ? IPPE/AWV ? Balance? Romberg? ?Yes . ? Tandem? walk ?Yes . ? Walk and? Turn ?Yes . ? Rise from? sit to stand ?Yes . ?Vision? Corrective? lens ?Yes ? Vision? screen ? Up-to-date, has an appointment [] for vision? screening and glaucoma screening ?Hearing? Whisper? test ?pass .? Initiated the conversation about Advanced Directives. Advanced Directives help? patients prepare for current and future decisions about their medical treatment? and place of care. Discussed with patient that it is a process where a patients? current condition and prognosis are reviewed, their wishes for information? regarding their illness are elicited, and likely medical dilemmas are presented? and options discussed. The form can be amended as needed, reviewed yearly and? make changes as needed Written? Plan?Completed. See Patient? Documents. [facility] Medical History Melanoma Osteoporosis Breast mass Vitamin D deficiency Annual physical exam Normal colonoscopy Hypothyroidism IFG (impaired fasting glucose) Hypertriglyceridemia Basal cell carcinoma Surgical History Hx of excision of mass History of right oophorectomy Hx of colonoscopy Hx of wisdom tooth extraction Family History (Reviewed 08/01/24 @ 10: by Jia Bolden MD) Father Heart problem Dementia Ruptured appendix Mother Colon cancer Dementia Sister Ruptured appendix Aneurysm Brother Kidney stones Social History Housing: House Are you a primary caregiver services home to a significant other at home: No Do you presently have visiting nurse or other home services: No Alcohol intake: current Alcohol intake frequency: a few times a month Patient Tobacco Use Status: Former Tobacco user Tobacco use type: Cigarette e-Cigarette/Vaping Use: Never Used service: No Current occupational status: retired Cognitive needs: No Hearing needs: No Vision needs: Yes Questionnaire Medicare Wellness Checkup [age] What gender do you identify with?: female During the past 4 weeks, how much have you been bothered by emotional problems such as feeling anxious, depressed, irritable, sad or downhearted, and blue?: not at all During the past 4 weeks, has your physical & emotional health limited your social activities with family, friends, neighbors, or groups?: slightly During the past 4 weeks, how much bodily pain have you generally had?: mild pain During the past 4 weeks, was someone available to help you if you needed & wanted help?: yes, as much as I wanted During the past 4 weeks, what was the hardest physical activity you could do for at least 2 minutes?: moderate Can you get to places out of walking distance without help? (For eg., can you travel alone on buses, taxis or drive your car?): Yes Can you go shopping for groceries or clothes without someone's help?: Yes Can you prepare your own meals?: Yes Can you do your housework without help?: Yes Because of any health problems, do you need the help of another person with your personal care needs such as eating, bathing, dressing or getting around the house?: No Can you handle your own money without help?: Yes During the past 4 weeks, how would you rate your health in general?: very good During the past 4 weeks how have things been going for you?: pretty well Are you having difficulties driving your car?: no Do you always fasten your seat belt when you are in a car?: yes, usually During past 4 weeks, have you been bothered by the following: never: Falling or dizzy when standing up, Sexual problems?, Trouble eating well?, Teeth or denture problems? and Problems using the telephone? and seldom: Tiredness or fatigue? Have you fallen 2 or more times in the past year?: No Are you afraid of falling?: Yes Are you a smoker?: no During the past 4 weeks, how many drinks of wine, beer, or other alcoholic beverages did you have?: 1 drink or less per week Do you exercise for about 20 minutes 3 or more times a week?: yes, most of the time Have you been given information to help with the following?: no: Hazards in your house that might hurt you? and no: Keeping track of your medications? How often do you have trouble taking medicines the way you have been told to take them?: I always take medicine as prescribed How confident are you that you can control & manage most of your health problems?: very confident What is your race?: White Mini Mental State Exam (MMSE) Orientation What is the (year) (season) (date) (day) (month)?: year, season, date, day and month Where are we (state) (county) (town or city) (hospital) (floor)?: state, county, town or city, hospital/clinic and floor Registration Name of 3 unrelated objects clearly and slowly, then ask patient to repeat all 3 of them. (1st repeat determines score. Make sure they can repeat all three): object 1, object 2 and object 3 Attention & Calculation (CHOOSE ONE) Spell WORLD backwards (DLROW): 5 letters Recall Ask patient to repeat the 3 items from question #3.: object 1, object 2 and object 3 Language Show patient a wristwatch & ask what it is. Repeat for pencil.: watch and pencil Ask the patient to repeat the phrase 'No ifs, ands, or buts' after you.: correct Ask the patient to 'take a piece of paper with their right hand' 'fold paper in half' 'place paper on floor': take paper in right hand, fold paper in half and place paper on floor Print the sentence 'CLOSE YOUR EYES' on a piece. If patient actually closes eyes then score.: followed written direction Give patient a blank piece of paper & ask to write a sentence. Score if it contains a noun & verb.: sentence contains subject and verb Score Score: 29 Activity of Daily Living Bathing - sponge bath, tub bath or shower: receives no assistance (gets in/out by self, if usual bathing means Dressing - getting clothes from closets & drawers, including inner/outer garments & fasteners.: gets clothes & gets completely dressed without help Toileting - going to the 'toilet room' for urine/bowel elimination & cleaning self/arranging clothes: goes to toilet room, cleans self, arranges clothes without help Transfer: moves in & out of bed and chair without help (may use support object) Continence: controls urination/bowel movements completely by self Feeding: feeds self without help Total Score: 0 Information obtained from: patient Using telephone: independent Traveling: independent Shopping: independent Preparing meals: independent Housework: independent Taking medicine: independent Managing money: independent PHQ-9 Over the last 2 weeks, how often have you been bothered by any of the following problems? 1. Little interest or pleasure in doing things: not at all 2. Feeling down, depressed, or hopeless: not at all 3. Trouble falling or staying asleep, or sleeping too much: not at all 4. Feeling tired or having little energy: not at all 5. Poor appetite or overeating: not at all 6. Feeling bad about yourself - or that you are a failure or have let yourself or your family down: not at all 7. Trouble concentrating on things, such as reading the newspaper or watching television: not at all 8. Moving or speaking so slowly that other people could have noticed. Or the o pposite - being so fidgety or restless that you have been moving around a lot more than usual: not at all 9. Thoughts that you would be better off or of hurting yourself in some way: not at all Total score: 0 Depression Screening Interpretation: Negative Depression Screening Done: Yes 94481 - PHQ-9 Billing: Yes Source: Developed by Drs. Storm Tavares, Alexandria Hays, Ady Nix and colleagues, with an educational mario alberto from [employer]. Review of Systems Const All systems reviewed & are unremarkable except as noted in HPI and below Eyes Reports no additional complaints ENT Reports no additional complaints Card Reports no additional complaints Resp Reports no additional complaints GI Reports no additional complaints Reports no additional complaints Physical Exam Vital Signs: Last Vital Signs Temp 98.3 F 08/01/24 09:44 Pulse 65 08/01/24 09:44 Resp 16 08/01/24 09:44 BP 118/62 08/01/24 09:44 Pulse Ox 98 08/01/24 09:44 Oxygen Delivery Method Room Air 08/01/24 09:44 BMI result Body Mass Index 21.5 Const General: no acute distress HEENT Head: Yes normal to inspection Ears: hearing grossly normal bilaterally Neck Neck: Yes no lymphadenopathy and Yes supple Resp Effort & Inspection: normal respiratory effort Auscultation: clear to auscultation bilaterally Cardio Rhythm: regular rhythm Heart sounds: S1 normal heart sound present and S2 normal heart sound present GI Inspection: Yes normal to inspection Palpation (GI): Soft to palpation Percussion: Yes normal to percussion Auscultation: normal bowel sounds Neuro Cranial nerves: Yes CN's II-XII intact bilaterally Gait exam (Neuro): Normal gait present Motor exam (neuro): 5/5 motor strength present throughout, Pronator motor function not present, no tremor noted and Motor fasciculations not present Deep tendon reflexes (DTR's): Right triceps reflex intensity grade: 0, Left triceps reflex intensity grade: 0, Left patellar reflex intensity grade: 0 and Right ankle reflex intensity grade: 0 Coordination: [id number]-[id number] test normal Romberg Test: Negative Assessment & Plan Assessment & Plan (1) Muscle weakness: Comment: generalized, [place] [facility] [place], negative MR . ? EMG Code(s): M62.81 - Muscle weakness (generalized) Plan: check CRP., acetylcholine receptor antibody, continue regular exercises and weight training (2) Osteoporosis: Comment: Takes Vitamin D3+K2, Fosamax, pending Endocrinology evaluation Code(s): M81.0 - Age-related osteoporosis without current pathological fracture Plan: cont Fosamax and vitamin-D 3, repeat DEXA (3) Normal colonoscopy: Comment: Dr. Bradley 05/2020 negative, recheck 5 yrs Fhx (colon polyps) Plan: refer to GI for a repeat colonoscopy (4) Elevated LFTs: Code(s): R79.89 - Other specified abnormal findings of blood chemistry Plan: chek , (hx of gallstones) (5) Malignant melanoma of skin of right thigh: Comment: f/u and Dr. Alfonso,s/p resection 09/2020 Code(s): C43.71 - Malignant melanoma of right lower limb, including hip Plan: F/U with Dermatology (6) Traumatic compression fracture of T8 vertebra: Comment: Status post kyphoplasty 10/01/2023 Code(s): S22.060A - Wedge compression fracture of T7-T8 vertebra, initial encounter for closed fracture Plan: Continue exercise (7) Hyperlipidemia: Comment: On low-cholesterol diet Code(s): E78.5 - Hyperlipidemia, unspecified Plan: Start pravastatin 20 mg a day check lipid profile in 3 months Orders: Orders CK, Total+Isoenzymes, Serum Today M62.81 - Muscle weakness (generalized) Acetylcholine Receptor Binding Today M62.81 - Muscle weakness (generalized) Lipid Panel 3 Months R79.89 - Other specified abnormal findings of blood chemistry US abdomen limited Today K80.20 - Calculus of gallbladder without cholecystitis without obstruction, R79.89 - Other specified abnormal findings of blood chemistry Vitamin B12 and Folate Today R29.898 - Other symptoms and signs involving the musculoskeletal system C Reactive Protein Today M62.81 - Muscle weakness (generalized) MuSK Antibody Today M62.81 - Muscle weakness (generalized) XR DEXA axial skeleton Today M81.0 - Age-related osteoporosis without current pathological fracture Comprehensive [place]. Panel Fast 3 Months R79.89 - Other specified abnormal findings of blood chemistry Erythrocyte Sedimentation Rate Today M62.81 - Muscle weakness (generalized) Referrals Gastroenterology Referral Z00.00 - Encounter for general adult medical examination without abnormal findings Medications: New pravastatin 20 mg PO DAILY 90 tabs 1RF Quality Reporting (2019) Depression/Bipolar (159/160/161/177) PHQ-9: Total score: 0 Coding Level of Care Code Medicare Subsequent (G0439) Diagnoses Muscle weakness M62.81 Osteoporosis M81.0 Normal colonoscopy Elevated LFTs R79.89 Malignant melanoma of skin of right thigh C43.71 Traumatic compression fracture of T8 vertebra S22.060A Hyperlipidemia E78.5 CPT Codes Advance Care Planning - Advance Care Planning discussion: On file, no changes ([id number]) Advance Care Planning - Time spent: 1-15 minutes, on File ([id number]) Additional Codes PHQ-9 - 94798 - PHQ-9 Billing: Yes ([id number]) Advance Care Planning Advance Care Planning discussion: On file, no changes Forms completed: Health Care Proxy Time spent: 1-15 minutes, on File Did not discuss due to Cultural/Spiritual beliefs: Yes
--- OUTSIDE RECORDS SUMMARY | 2024-08-01 10:26 | XMS_ITS | Clinical Summary ---
Author Organization [facility] Address [facility] [place] [address] Care Team Providers Care Communications Field Technician Name Role Phone Unknown Primary Care Provider [...] in utero 11/25/2010 Overview (03/21/2012): Provider: ROSY WILEY Pt. Name: VEE CARR Acc #: [id number] Pt. Col Date: 11/27/2009 /Sex: 1950,(59 years),Female [...] Name Administration Dates Next Due Influenza (Novel R2T4-02) Injectable 06/07/2009 Influenza Trivalent, Preservative Free 2 [...] Procedure Name Priority Date/Time Associated Diagnosis Comments JOCKEY'S AGENT MOLECULAR GENETICS REPORT Routine 12/10/2012 9:47 AM EDT JOCKEY'S AGENT CYTOLOGY FINAL REPORT Routine 12/10/2012 9:47 AM EDT MAMMO SCREENING CAD BILATERAL Routine 03/10/2012 1:50 PM EDT DXA CENTRAL SPINE, HIP, AND/OR WHOLE BODY (GENERIC) Routine 03/02/2012 3:23 PM EDT Disorder of bone and cartilage, unspecified from Last 3 Months or Most Recently Relevant to Health Maintenance Results * JOCKEY'S AGENT Molecular Genetics Report (12/10/2012 9:47 AM EDT) JOCKEY'S AGENT Molecular Genetics Report ? [facility] ? Provider: ?? ROSY WILEY ??Pt. Name: ?? VEE CARR ?P ? Acc #: ?[id number] ?Pt. ? Col Date: ?? 12/10/2012 ? [...] ?Lab Review, Molecular Genetics ? (Electronic Signature) [facility] 12/10/2012 9:47 AM EDT Rosy Wiley MD PATHOLOGY/CYTOLOG Y ORDERABLES HARJIT NARANJO * Concession Cashier Cytology Final Report (12/10/2012 9:47 AM EDT) Concession Cashier Cytology Final Report ? [facility] ? Provider: ?? ROSY WILEY ??Pt. Name: ?? KIET VEE Callaway ?P ? Acc #: ?[id number] ?Pt. ? Col Date: ?? 12/10/2012 ? /Sex: ?1950,(62 years),Female ? Rec Date: ?? 12/10/2012 ? LOC: ?[facility] ? CYTOPATHOLOGY: ??JOCKEY'S AGENT ? ---Adequacy--- ? Specimen submitted is satisfactory [...] by: ??LINDEN Jaramillo(ASCP), Meme Haney - ? Manager Managed Care ? ---Comment--- ? Endocervical component not detected in an atrophic smear pattern. ? Please also see concurrent HPV test result. ? ---Clinical Information--- ? HPV Option: ? Concurrent HPV ? Preparation: ?Liquid Based Pap ? Specimen Source: ?Endocervical/LBP ? LMP: ?n/a ? Hormones?: ?No ? Hysterectomy?: ?No ?: ?No ?: ?No ? I.U.D.?: ?No ? Pelvic Radiation: ? No ? Prior JOCKEY'S AGENT Therapy?: ? No ? Hist Abnl Pap/Biopsy?: ??No ? Hist of HPV Vaccine?: ?? No ? Hist of Smoking?: ? No ? Hist of DWAYNE exposure?: ??Yes ? Clinical Data, Significant Therapy and Clinical Impression: ? [facility] ? Provider: ?? ROSY WILEY ??Pt. Name: ?? VEE CARR ?P ? Acc #: ?[id number] ?Pt. ? Col Date: ?? 12/10/2012 ? /Sex: ?1950,(62 years),Female ? Rec Date: ?? 12/10/2012 ? LOC: ?[facility] ? This Pap Test has been evaluated with the assistance of the ThinPrep Pap ? Test Imaging System. ? CYTOPATHOLOGY: ??JOCKEY'S AGENT ? Note: ? The Pap test is a screening test for cervical cancer with an inherent ? false-negative rate dependent upon several variables. ??For further ? information please contact the [facility]. ? Reference: ??Abendroth CS. ??Director Of Instrumental Music of Pap Smear Results. ??In: ? Jimy [...] this patient by the breast imaging center. Rosy Wiley MD IMG MAMMO ORDERAB LES * [...] BMD measurements and plots are available in [email or web address] under the imaging tab . Paper copies will be sent to providers without [employer] access. If you have received this report without the data sheet and do not have access to [email or web address], please contact Radiology Nca Certified Concierge at [phone] Thursday thru Thursday 8am-4pm. Procedure Note Magali [...] not haveaccess to E-, please contact Radiology Nca Certified Concierge at [phone] Thursdaythru Thursday 8am-4pm. Rosy Wiley MD IMG DEXA ORDERABL ES from Last 3 Months or Most Recently Relevant to Health Maintenance Advance Directives Documents on File Type Date Recorded Patient Fry Cook Expl anation Advance Directives and Jaspreet landers Will 07/22/2011 10:37 AM Care Teams Communications Field Technician Relationship Specialty Start Date End Date Unknown None PCP - General 08/31/14
== END 2024-08-01 11:25 | disposition home or self-care (01) ==
PROVIDERS: PCP Internal Medicine; Visit Provider Internal Medicine
DX: Z00.00 Encounter for general adult medical examination without abnormal findings (principal); M62.81 Muscle weakness (generalized); C43.71 Malignant melanoma of right lower limb, including hip; S22.060A Wedge compression fracture of T7-T8 vertebra, initial encounter for closed fracture; M81.0 Age-related osteoporosis without current pathological fracture; R79.89 Other specified abnormal findings of blood chemistry; E78.5 Hyperlipidemia, unspecified

== ENCOUNTER 2024-08-12 09:33 | Outpatient (REF) | payer MEDICARE, OTHER, SELFPAY ==
--- NOTE | ~2024-08-12 | XR_ITS ---
EXAMINATION: XR SHOULDER 2 OR MORE VIEWS RIGHT HISTORY: M25.519 - Pain in unspecified shoulder COMPARISON: There are no prior studies available for comparison. FINDINGS: Three views of the right shoulder are submitted. Osseous mineralization is normal. There is no fracture or dislocation. The humeral joint is maintained. There is mild narrowing of the AC joint. There are calcified mediastinal lymph nodes. XR/XR shoulder RT min 2V IMPRESSION: Mild narrowing of the AC joint. Electronically signed by: Storm Garcia MD 08/16/2024 08:24 AM ALETHEA CRAMER
--- OUTSIDE RECORDS SUMMARY | 2024-08-16 10:43 | XMS_ITS | Clinical Summary ---
Author Organization [facility] Address [facility] [place] [address] Care Team Providers Care Oyster Worker Name Role Phone Unknown Primary Care Provider [...] WILEY Pt. Name: VEE CARR Acc #: [id number] Pt. Col Date: 11/27/2009 /Sex: 1950,(59 years),Female [...] Name Administration Dates Next Due Influenza (Novel J6O3-41) Injectable 06/07/2009 Influenza Trivalent, Preservative Free 2 [...] Procedure Name Priority Date/Time Associated Diagnosis Comments RAILROAD WHEELS AND AXLES INSPECTOR MOLECULAR GENETICS REPORT Routine 12/10/2012 9:47 AM EDT RAILROAD WHEELS AND AXLES INSPECTOR CYTOLOGY FINAL REPORT Routine 12/10/2012 9:47 AM EDT MAMMO SCREENING CAD BILATERAL Routine 03/10/2012 1:50 PM EDT DXA CENTRAL SPINE, HIP, AND/OR WHOLE BODY (GENERIC) Routine 03/02/2012 3:23 PM EDT Disorder of bone and cartilage, unspecified from Last 3 Months or Most Recently Relevant to Health Maintenance Results * RAILROAD WHEELS AND AXLES INSPECTOR Molecular Genetics Report (12/10/2012 9:47 AM EDT) RAILROAD WHEELS AND AXLES INSPECTOR Molecular Genetics Report ? [facility] ? Provider: ?? ROSY WILEY ??Pt. Name: ?? VEE CARR ?P ? Acc #: ?[id number] ?Pt. ? Col Date: ?? 12/10/2012 ? [...] ?Lab Review, Molecular Genetics ? (Electronic Signature) [facility] 12/10/2012 9:47 AM EDT Rosy Wiley MD PATHOLOGY/CYTOLOG Y ORDERABLES HARJIT NARANJO * Contract Manager Cytology Final Report (12/10/2012 9:47 AM EDT) Contract Manager Cytology Final Report ? [facility] ? Provider: ?? ROSY WILEY ??Pt. Name: ?? KIET VEE Callaway ?P ? Acc #: ?[id number] ?Pt. ? Col Date: ?? 12/10/2012 ? /Sex: ?1950,(62 years),Female ? Rec Date: ?? 12/10/2012 ? LOC: ?[facility] ? CYTOPATHOLOGY: ??RAILROAD WHEELS AND AXLES INSPECTOR ? ---Adequacy--- ? Specimen submitted is satisfactory [...] by: ??LINDEN Jaramillo(ASCP), Meme Haney - ? Hop Worker ? ---Comment--- ? Endocervical component not detected in an atrophic smear pattern. ? Please also see concurrent HPV test result. ? ---Clinical Information--- ? HPV Option: ? Concurrent HPV ? Preparation: ?Liquid Based Pap ? Specimen Source: ?Endocervical/LBP ? LMP: ?n/a ? Hormones?: ?No ? Hysterectomy?: ?No ?: ?No ?: ?No ? I.U.D.?: ?No ? Pelvic Radiation: ? No ? Prior RAILROAD WHEELS AND AXLES INSPECTOR Therapy?: ? No ? Hist Abnl Pap/Biopsy?: ??No ? Hist of HPV Vaccine?: ?? No ? Hist of Smoking?: ? No ? Hist of DWAYNE exposure?: ??Yes ? Clinical Data, Significant Therapy and Clinical Impression: ? [facility] ? Provider: ?? ROSY WILEY ??Pt. Name: ?? VEE CARR ?P ? Acc #: ?[id number] ?Pt. ? Col Date: ?? 12/10/2012 ? /Sex: ?1950,(62 years),Female ? Rec Date: ?? 12/10/2012 ? LOC: ?[facility] ? This Pap Test has been evaluated with the assistance of the ThinPrep Pap ? Test Imaging System. ? CYTOPATHOLOGY: ??RAILROAD WHEELS AND AXLES INSPECTOR ? Note: ? The Pap test is a screening test for cervical cancer with an inherent ? false-negative rate dependent upon several variables. ??For further ? information please contact the [facility] Laboratory. ? Reference: ??Abendroth CS. ??Director Cardiology of Pap Smear Results. ??In: ? Jimy [...] BMD measurements and plots are available in SendRR under the imaging tab . Paper copies will be sent to providers without Oasys Mobile access. If you have received this report without the data sheet and do not have access to SendRR, please contact Radiology Automotive Electrician at [phone] Thursday thru Thursday 8am-4pm. Procedure Note Magali [...] not haveaccess to E-, please contact Radiology Automotive Electrician at [phone] Thursdaythru Thursday 8am-4pm. Rosy Wiley MD IMG DEXA ORDERABL ES from Last 3 Months or Most Recently Relevant to Health Maintenance Advance Directives Documents on File Type Date Recorded Patient Cemetery Counselor Expl anation Advance Directives and Jaspreet landers Will 07/22/2011 10:37 AM Care Teams Oyster Worker Relationship Specialty Start Date End Date Unknown None PCP - General 08/31/14
== END 2024-08-12 09:34 | disposition home or self-care (01) ==
LOC: HO.HOSX 09:33
PROVIDERS: Visit Provider Physician Assistant
DX: M25.511 Pain in right shoulder (principal); R29.898 Other symptoms and signs involving the musculoskeletal system
CPT/HCPCS: 73030; 99212

== ENCOUNTER 2024-08-12 12:45 | Outpatient (AMB) | payer MEDICARE, OTHER, SELFPAY ==
--- NOTE | 2024-08-12 13:02 | MHC.OFFVIS ---
Vital Signs 08/12/24 13:18 Height 5 ft 1 in Weight 114 lb BMI 21.5 Handedness Right Intake Visit Reasons: New Prob - Right shoulder pain Intake Note: Vee is a 74 year old female who presents today for a evaluation of her right shoulder pain. Patient reports ongoing weakness since December of last year. She states that her ROM is limit and it is moving to her left shoulder. Hx of PT, swimming and at home exercises with no relief but she is unsure if is helping her. Patient has complaints of bilateral hand weakness as well. Allergies Penicillins [PENICILLINS] Adverse Reaction (Mild, Verified 08/12/24 13:17) GI UPSET HPI HPI New Prob - Right shoulder pain: Details: Ms. Carr is a 74-year-old right-hand dominant female who presents to the office today for bilateral upper extremity weakness. She denies any injury or trauma. Over the past several months she has noticed a gradual decrease in bilateral upper body strength beginning in December of last year. She has also noted right upper extremity muscle atrophy. She does also report muscle cramping in bilateral lower extremities. She is pending an appointment for evaluation with Dr. Randhawa. She has also had a brain MRI as well as an EMG study and multiple laboratory diagnostics performed. [facility] Medical History Melanoma Osteoporosis Breast mass Vitamin D deficiency Annual physical exam Normal colonoscopy Hypothyroidism IFG (impaired fasting glucose) Hypertriglyceridemia Basal cell carcinoma Surgical History Hx of excision of mass History of right oophorectomy Hx of colonoscopy Hx of wisdom tooth extraction Family History Father Heart problem Dementia Ruptured appendix Mother Colon cancer Dementia Sister Ruptured appendix Aneurysm Brother Kidney stones Social History (Updated 08/12/24 @ 13:18 by Judith Polo) Housing: House Are you a primary director of home care hospice to a significant other at home: No Do you presently have visiting nurse or other home services: No Alcohol intake: current Alcohol intake frequency: a few times a month Patient Tobacco Use Status: Former Tobacco user Tobacco use type: Cigarette e-Cigarette/Vaping Use: Never Used service: No Current occupational status: retired Current occupation: right hand dominant Cognitive needs: No Hearing needs: No Vision needs: Yes Review of Systems Const All systems reviewed & are unremarkable except as noted in HPI and below Physical Exam Vital Signs: BMI result Body Mass Index 21.5 Const General: cooperative, healthy appearing and no acute distress Resp Effort & Inspection: normal respiratory effort and able to speak in complete sentences Cardio Rate: regular rate Peripheral pulses: Peripheral pulses 2+ throughout Skin Lesions: no lesions Rashes: no rashes Extrem Other: Right shoulder: Normal to inspection. No ecchymosis, erythema, or edema. Lacking 45 degrees of forward flexion with active range of motion. Passively able to perform full range of motion. Negative drop arm. Decreased professor of philosophy strength on the right. Left shoulder: Normal to inspection. No ecchymosis, erythema, or edema. Full shoulder ROM in all planes. Negative drop arm. Full professor of philosophy strength. Assessment & Plan Assessment & Plan (1) Weakness of both upper extremities: Code(s): R29.898 - Other symptoms and signs involving the musculoskeletal system Category: Medical Plan Ms. Carr is a 74-year-old right-hand dominant female who presents to the office today for bilateral upper extremity weakness. She denies any injury or trauma. Over the past several months she has noticed a gradual decrease in bilateral upper body strength beginning in December of last year. She has also noted right upper extremity muscle atrophy. She does also report muscle cramping in bilateral lower extremities. She is pending an appointment for evaluation with Dr. Randhawa. She has also had a brain MRI as well as an EMG study and multiple laboratory diagnostics performed. Unfortunately there is no orthopedic intervention that is warranted at this time. I feel as though the patient should follow up with Dr. Randhawa for further evaluation and treatment. Creatinine kinase obtained on 08/01/2024 is elevated at 453 Brain MRI performed in : MR/MR head/brain wo con IMPRESSION: No acute intracranial process seen. Chronic right mastoid sinus inflammatory changes. EMG study performed on 05/18/2024: IMPRESSION: 1. There is no electrodiagnostic evidence for median neuropathy, ulnar neuropathy or brachial plexopathy. 2. Can not completely rule out a lower cervical radiculopathy. Orders: Orders XR shoulder RT min 2V 08/12/24 M25.519 - Pain in unspecified shoulder Coding Level of Care Code Est Pt Level 4 (61386) Diagnoses Weakness of both upper extremities R29.543
--- OUTSIDE RECORDS SUMMARY | 2024-08-12 13:15 | XMS_ITS | Clinical Summary ---
Author Organization [facility] Address [facility] [place] [address] Care Team Providers Care Vegetable Thinner Name Role Phone Unknown Primary Care Provider [...] WILEY Pt. Name: VEE CARR Acc #: [id number] Pt. Col Date: 11/27/2009 /Sex: 1950,(59 years),Female [...] Name Administration Dates Next Due Influenza (Novel C3R8-04) Injectable 06/07/2009 Influenza Trivalent, Preservative Free 2 [...] Procedure Name Priority Date/Time Associated Diagnosis Comments MARKETING PRODUCER MOLECULAR GENETICS REPORT Routine 12/10/2012 9:47 AM EDT MARKETING PRODUCER CYTOLOGY FINAL REPORT Routine 12/10/2012 9:47 AM EDT MAMMO SCREENING CAD BILATERAL Routine 03/10/2012 1:50 PM EDT DXA CENTRAL SPINE, HIP, AND/OR WHOLE BODY (GENERIC) Routine 03/02/2012 3:23 PM EDT Disorder of bone and cartilage, unspecified from Last 3 Months or Most Recently Relevant to Health Maintenance Results * MARKETING PRODUCER Molecular Genetics Report (12/10/2012 9:47 AM EDT) MARKETING PRODUCER Molecular Genetics Report ? [facility] ? Provider: ?? ROSY WILEY ??Pt. Name: ?? VEE CARR ?P ? Acc #: ?[id number] ?Pt. ? Col Date: ?? 12/10/2012 ? [...] ?Lab Review, Molecular Genetics ? (Electronic Signature) [facility] 12/10/2012 9:47 AM EDT Rosy Wiley MD PATHOLOGY/CYTOLOG Y ORDERABLES HARJIT NARANJO * Funnel Coater Cytology Final Report (12/10/2012 9:47 AM EDT) Funnel Coater Cytology Final Report ? [facility] ? Provider: ?? ROSY WILEY ??Pt. Name: ?? KIET VEE Callaway ?P ? Acc #: ?[id number] ?Pt. ? Col Date: ?? 12/10/2012 ? /Sex: ?1950,(62 years),Female ? Rec Date: ?? 12/10/2012 ? LOC: ?[facility] ? CYTOPATHOLOGY: ??MARKETING PRODUCER ? ---Adequacy--- ? Specimen submitted is satisfactory [...] by: ??LINDEN Jaramillo(ASCP), Meme Haney - ? Shelf Stocker ? ---Comment--- ? Endocervical component not detected in an atrophic smear pattern. ? Please also see concurrent HPV test result. ? ---Clinical Information--- ? HPV Option: ? Concurrent HPV ? Preparation: ?Liquid Based Pap ? Specimen Source: ?Endocervical/LBP ? LMP: ?n/a ? Hormones?: ?No ? Hysterectomy?: ?No ?: ?No ?: ?No ? I.U.D.?: ?No ? Pelvic Radiation: ? No ? Prior MARKETING PRODUCER Therapy?: ? No ? Hist Abnl Pap/Biopsy?: ??No ? Hist of HPV Vaccine?: ?? No ? Hist of Smoking?: ? No ? Hist of DWAYNE exposure?: ??Yes ? Clinical Data, Significant Therapy and Clinical Impression: ? [facility] ? Provider: ?? ROSY WILEY ??Pt. Name: ?? VEE CARR ?P ? Acc #: ?[id number] ?Pt. ? Col Date: ?? 12/10/2012 ? /Sex: ?1950,(62 years),Female ? Rec Date: ?? 12/10/2012 ? LOC: ?[facility] ? This Pap Test has been evaluated with the assistance of the ThinPrep Pap ? Test Imaging System. ? CYTOPATHOLOGY: ??MARKETING PRODUCER ? Note: ? The Pap test is a screening test for cervical cancer with an inherent ? false-negative rate dependent upon several variables. ??For further ? information please contact the [facility] Laboratory. ? Reference: ??Abendroth CS. ??Valet Attendant of Pap Smear Results. ??In: ? Jimy [...] BMD measurements and plots are available in Friendemic under the imaging tab . Paper copies will be sent to providers without Outbrain access. If you have received this report without the data sheet and do not have access to Friendemic, please contact Radiology Motor Setter at [phone] Thursday thru Thursday 8am-4pm. Procedure Note Magali [...] not haveaccess to E-, please contact Radiology Motor Setter at [phone] Thursdaythru Thursday 8am-4pm. Rosy Wiley MD IMG DEXA ORDERABL ES from Last 3 Months or Most Recently Relevant to Health Maintenance Advance Directives Documents on File Type Date Recorded Patient Director Corporate Communications Expl anation Advance Directives and Jaspreet landers Will 07/22/2011 10:37 AM Care Teams Vegetable Thinner Relationship Specialty Start Date End Date Unknown None PCP - General 08/31/14
[2024-08-12 13:18] VITALS: BMI 21.5
== END 2024-08-12 14:06 | disposition home or self-care (01) ==
PROVIDERS: PCP Internal Medicine; Visit Provider Physician Assistant
DX: R29.898 Other symptoms and signs involving the musculoskeletal system (principal); M25.511 Pain in right shoulder
CPT/HCPCS: 99214

== ENCOUNTER → 2024-08-12 12:50 | Outpatient (BNV) | payer MEDICARE, OTHER, SELFPAY | PROVIDERS: Visit Provider Radiology Diagnostic Radiology | DX: M25.511 Pain in right shoulder (principal) | CPT/HCPCS: 73030 ==

== ENCOUNTER 2024-08-30 08:56 | Outpatient (REF) | payer MEDICARE, OTHER, SELFPAY ==
[2024-08-30 09:20] LABS: MANUAL DIFF FLAG NO
[2024-08-30 09:45] LABS: Basophils Absolute Auto 0.1 X10*3/uL (0.0-0.2); Basophils Percent Auto 1.2 % (0-2); Eosinophils Absolute Auto 0.3 X10*3/uL (0.0-0.4); Eosinophils Percent Auto 5.8 % (0-4); Hematocrit 38.1 % (37.0-47.0); Hemoglobin 12.3 g/dl (12.0-16.0); Imm Gran Abs Auto 0.02 X10*3/uL (0.00-0.03); Imm Gran Pct Auto 0.4 % (0.0-0.4); Lymphocytes Absolute Auto 1.3 X10*3/uL (1.2-4.9); Lymphocytes Percent Auto 22.7 % (20-40); Mean Corpuscular HGB Conc 32.3 g/dl (31.0-35.0); Mean Corpuscular Hemoglobin 28.5 pg (27.0-33.0); Mean Corpuscular Volume 88.2 fL (80.0-98.0); Monocytes Absolute Auto 0.4 X10*3/uL (0.1-1.2); Monocytes Percent Auto 7.6 % (2-11); Neutrophils Absolute Auto 3.6 x10*3/uL (2.0-8.3); Neutrophils Percent Auto 62.3 % (45-73); Platelet Count 248 X10*3/uL (160-400); Red Blood Count 4.32 X10*6/uL (4.20-5.50); Red Cell Distribution Width 13.6 % (11.0-16.0); White Blood Count 5.7 X10*3/uL (4.8-10.8)
[2024-08-30 10:19] LABS: Alanine Aminotransferase 32 U/L (0-31); Albumin Level 4.1 g/dL (3.5-5.0); Alkaline Phosphatase 64 U/L (39-117); Anion Gap 8 (12-20); Aspartate Amino Transferase 41 U/L (5-31); Bilirubin Total 0.6 mg/dL (0.0-1.0); Blood Urea Nitrogen 14 mg/dL (9-16); Calcium 9.2 mg/dL (8.4-10.2); Carbon Dioxide 29 mmol/L (22-29); Chloride 107 mmol/L (96-108); Cholesterol 187 mg/dL (<200); Estimated Glomerular Filt Rate > 60; Glucose Fasting 93 mg/dL (60-99); HDL Cholesterol 62 mg/dL (>40); LDL Cholesterol Calculated 98 mg/dL (<100); Potassium 4.4 mmol/L (3.3-5.1); Sodium 140 mmol/L (135-145); Total Protein 6.8 g/dL (6.5-8.0); Triglycerides 136 mg/dL (<150)
[2024-08-30 10:39] LABS: Vitamin D 25-OH Total 49.3 ng/mL (>30)
== END 2024-08-30 08:57 | disposition home or self-care (01) ==
LOC: HO.LAB 08:56
PROVIDERS: PCP Internal Medicine; Visit Provider Internal Medicine
DX: Z00.00 Encounter for general adult medical examination without abnormal findings (principal); E03.9 Hypothyroidism, unspecified; E55.9 Vitamin D deficiency, unspecified; M81.0 Age-related osteoporosis without current pathological fracture; R74.8 Abnormal levels of other serum enzymes
CPT/HCPCS: 36415; 80053; 80061; 82306; 82550; 84443; 85025

== ENCOUNTER 2024-09-01 10:48 | Outpatient (AMB) | payer MEDICARE, OTHER, SELFPAY ==
[2024-09-01 11:04] VITALS: BMI 21.5
--- NOTE | 2024-09-01 11:04 | A.OFFVIS_ITS ---
Vital Signs 09/01/24 11:04 Height 5 ft 1 in Weight 114 lb BMI 21.5 Intake Visit Reasons: New prob-Adhesive capsulitis of RT shoulder Intake Note: Vee 74 yr old female presents today for a new problem visit for her upper body weakness, right shoulder adhesive capsulitis. States she is limited ROM and is painful mostly in the mornings. States she feels stiffness mainly in her upper extremity. She walks her dogs every morning and this helps. She had a compression fracture in her T-8 and had surgery. She has tried P.T about 1 year and will start again tomorrow. Reports she did not notice much difference with P.T. She was last seen for for neck and had an MRI done. Allergies Penicillins [PENICILLINS] Adverse Reaction (Mild, Verified 09/01/24 11:07) GI UPSET HPI Comments Details: I saw patient for EMG 05/18/2024. See below results. History of osteoporosis, thoracic compression fracture after a fall, status post T7-8 kyphoplasty 10/01/2023. In December 2023 started having weakness, right worse than left, upper extremities. Denies neck pain. Denies any acute illness prior to onset of weakness. Denies any vaccination prior to onset of weakness. Denies associated pain. Denies numbness. Denies symptoms on lower extremities. Noted 4-/5 weakness on proximal right upper extremity, specifically elbow extension. Cervical x-ray done. See below results. EMG did not show entrapment or focal neuropathy but showed suggestion of cervical radiculopathy (positive PSWs on FDI and triceps). Since the last time I saw her, she had MRI cspine, which did not show nerve or cord compression to explain her symptoms. She had seen Dr. Baez again, also didn't think MRI showed any findings to explain her symptoms. She saw the Neurology Dr. Alanis - thought it was adhesive capsulitis. Has a follow up coming up. Saw jerilyn FOX (Lola discussed her visit/thoughts with me). Symptoms/exam did not seem to be just a shoulder issue. MRI brain did not show ischemia or bleed. Did show scattered T2 findings, non specific. CK have been elevated 453 08/01 and 522 08/30 - followed by PCP. More blood tests done, but largely normal. Lyme was negative. She has been on pravastatin chronically. That was discontinued now by PCP. She is to see Dr. Kemp [facility]. Lost few pounds, 4 lbs. but clothes fit the same. No tremors. No fasciculations. Right arm feels thinner. Right arm is the weakest. Started to feel left arm weakness. 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 Starting both thighs/legs feel weaker or off balance. She fell once this winter. She can do stationary bike 20-30 minutes without getting too exhausted. Can do ebike outside for 20 minutes, felt good. W alking long distance is still the challenged, more due to balance. She was able to go to [place] for 2 weeks, cobblestones were hard, walked slowly. Swims occasionally in warm pool, breaststroke. Right arm/shoulder weakness but no pain. No numbness. No fasciculations. 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 [facility] Medical History Melanoma Osteoporosis Breast mass Vitamin D deficiency Annual physical exam Normal colonoscopy Hypothyroidism IFG (impaired fasting glucose) Hypertriglyceridemia Basal cell carcinoma Surgical History Hx of excision of mass History of right oophorectomy Hx of colonoscopy Hx of wisdom tooth extraction Family History Father Heart problem Dementia Ruptured appendix Mother Colon cancer Dementia Sister Ruptured appendix Aneurysm Brother Kidney stones Social History Housing: House Are you a primary personal care assistant to a significant other at home: No Do you presently have visiting nurse or other home services: No Alcohol intake: current Alcohol intake frequency: a few times a month Patient Tobacco Use Status: Former Tobacco user Tobacco use type: Cigarette e-Cigarette/Vaping Use: Never Used service: No Current occupational status: retired Current occupation: right hand dominant Cognitive needs: No Hearing needs: No Vision needs: Yes Physical Exam Vital Signs: BMI result Body Mass Index 21.5 Constitutional: Patient appears to be in no acute distress, well nourished and well developed. Patient was appropriately conversant and oriented. Good historian. MSK: Inspection reveals appropriate head and neck positioning. No pain with palpation over the neck musculature. Cervical ROM was full. Spurling's sign negative. Bilateral shoulder, elbow and wrist ROM WNL. No ligamentous laxity or cre pitance. No increased effusion. No specific abnormalities or instability found on inspection and palpation of the spine and extremities. No atrophy seen. No fasciculations. No increased tone noted. Neurological: Mood appears normal, good affect, and appropriate for the circumstances. Right shoulder flexion and abduction 3-/5, without pain. Bilateral triceps 4/5. Rest of MMT 5/5. Sauceda?s negative bilaterally. Babinski was down going bilaterally. Clonus was negative. Gait is non-antalgic without loss of balance. Results Reviewed Results Reviewed: Ordering Physician: Mechelle Aleman PA-C Date of Service: 07/11/24 Procedure(s): MR head/brain wo con Accession Number(s): [id number] cc: Mechelle Aleman PA-C; Jia Bolden MD~ EXAMINATION: MR BRAIN WITHOUT CONTRAST CLINICAL INFORMATION: Weakness of both arms since December 2023. No injury. COMPARISON: None available. TECHNIQUE: MRI of the brain was obtained using routine sequences without contrast. FINDINGS: There is no restricted diffusion seen to suspect acute or chronic ischemic changes. There is no magnetic susceptibility artifact to suspect acute or chronic hemorrhagic products or calcification. Scattered T2 FLAIR signal foci are seen scattered throughout the deep white matter of both cerebral hemispheres without mass effect or edema. The lateral ventricles are symmetrical in size and configuration without enlargement. Normal flow-void signal seen in major cerebral vasculature. Visualized sella and parasellar soft tissues are normal. No abnormality seen in the posterior fossa. The bone marrow signal and the scalp soft tissues are normal. There is mild mucoperiosteal thickening right mastoid sinus. Rest of paranasal sinuses and left mastoid sinus are well-aerated. MR/MR head/brain wo con IMPRESSION: No acute intracranial process seen. Chronic right mastoid sinus inflammatory changes. Electronically signed by: Jurgen Mcqueen MD 07/12/2024 07:29 AM [facility] Ordering Physician: Afsaneh Randhawa Date of Service: 06/14/24 Procedure(s): MR cervical spine wo con Accession Number(s): [id number] cc: Jia Bolden MD; Afsaneh Randhawa~ EXAMINATION: MR CERVICAL SPINE WITHOUT CONTRAST CLINICAL INFORMATION: Radiculopathy, cervical region. Evaluate spinal stenosis or nerve compression C7-T1 COMPARISON: None available. TECHNIQUE: MRI of the cervical spine was obtained using routine sequences without contrast. FINDINGS: The imaged posterior fossa is unremarkable. Partially imaged right mastoid effusion. Mild levocurvature at the cervicothoracic junction. Mild retrolisthesis at C4-5. No acute bone marrow abnormality. The vertebral body heights are preserved. Multilevel disc desiccation and disc height loss, worse and moderate to severe at C4-5, C5-6, C6-7, and C7-T1. The visualized spinal cord is normal in caliber. No abnormal cord signal. C2-3: No significant spinal canal or neural foraminal narrowing. C3-4: Right uncovertebral hypertrophy and bilateral facet arthrosis. No significant spinal canal stenosis. Mild right neural foraminal narrowing. C4-5: Disc osteophyte complex, bilateral uncovertebral hypertrophy, and bilateral facet arthrosis. No significant spinal canal or neural foraminal narrowing. C5-6: Disc osteophyte complex, bilateral uncovertebral hypertrophy, and bilateral facet arthrosis. No significant spinal canal or neural foraminal narrowing. C6-7: Disc osteophyte complex and bilateral uncovertebral hypertrophy. No significant spinal canal or neural foraminal narrowing. C7-T1: Disc osteophyte complex and bilateral facet arthrosis. No significant spinal canal stenosis. Mild right neural foraminal narrowing. The paravertebral soft tissues are unremarkable. MR/MR cervical spine wo con IMPRESSION: Multilevel cervical spondylosis without significant spinal canal stenosis or cord compression. There is mild right neural foraminal narrowing at C3-C4 and C7-T1. Electronically signed by: Jackson Saucedo MD 06/14/2024 02:09 PM [facility] Ordering Physician: Afsaneh Randhawa Date of Service: 06/14/24 Procedure(s): MR cervical spine wo con Accession Number(s): [id number] cc: Jia Bolden MD; Afsaneh Randhawa~ EXAMINATION: MR CERVICAL SPINE WITHOUT CONTRAST CLINICAL INFORMATION: Radiculopathy, cervical region. Evaluate spinal stenosis or nerve compression C7-T1 COMPARISON: None available. TECHNIQUE: MRI of the cervical spine was obtained using routine sequences without contrast. FINDINGS: The imaged posterior fossa is unremarkable. Partially imaged right mastoid effusion. Mild levocurvature at the cervicothoracic junction. Mild retrolisthesis at C4-5. No acute bone marrow abnormality. The vertebral body heights are preserved. Multilevel disc desiccation and disc height loss, worse and moderate to severe at C4-5, C5-6, C6-7, and C7-T1. The visualized spinal cord is normal in caliber. No abnormal cord signal. C2-3: No significant spinal canal or neural foraminal narrowing. C3-4: Right uncovertebral hypertrophy and bilateral facet arthrosis. No significant spinal canal stenosis. Mild right neural foraminal narrowing. C4-5: Disc osteophyte complex, bilateral uncovertebral hypertrophy, and bilateral facet arthrosis. No significant spinal canal or neural foraminal narrowing. C5-6: Disc osteophyte complex, bilateral uncovertebral hypertrophy, and bilateral facet arthrosis. No significant spinal canal or neural foraminal narrowing. C6-7: Disc osteophyte complex and bilateral uncovertebral hypertrophy. No significant spinal canal or neural foraminal narrowing. C7-T1: Disc osteophyte complex and bilateral facet arthrosis. No significant spinal canal stenosis. Mild right neural foraminal narrowing. The paravertebral soft tissues are unremarkable. MR/MR cervical spine wo con IMPRESSION: Multilevel cervical spondylosis without significant spinal canal stenosis or cord compression. There is mild right neural foraminal narrowing at C3-C4 and C7-T1. Electronically signed by: Jackson Saucedo MD 06/14/2024 02:09 PM [facility] Assessment & Plan Assessment & Plan (1) Muscle weakness: Code(s): M62.81 - Muscle weakness (generalized) Category: Medical (2) Elevated CPK: Code(s): R74.8 - Abnormal levels of other serum enzymes Category: Medical (3) Muscle weakness: Code(s): M62.81 - Muscle weakness (generalized) Category: Medical Plan Right worse than left upper extremity weakness, without pain. No obvious atrophy although the patient thinks her right arm has thinned out. No fasciculations seen by myself or patient. EMG showed some signs of denervation on select muscles, unfortunately patient unable to tolerate further EMG testing. CK elevated. MRI cervical spine does not show cord compression. MRI brain results nonspecific T2 signal change, without signs of infarction or bleed. Can not rule out myopathic disorder or autoimmune disorder. We will send patient for more blood work including AUDREY, RF, ESR, CRP and uric acid. We will try to get patient in to see rheumatology BART. Wonder if muscle biopsy can be useful for diagnosis. Patient will think about repeat EMG but gets very anxious about it. I do not completely rule out a right shoulder joint/RTC issue. Only because the weakness is not generalized, for example patient is able to bike and has no obvious weakness on lower extremities. However patient denies any shoulder pain. I would consider doing a shoulder injection just to rule out, if it helps then it gives us the diagnosis. Lastly, advised for her to keep following with Dr. Annabelle jaramillo. Assessment and plan discussed with patient, and patient was agreeable. All questions were answered thoroughly. Follow up 2 months or after workup ordered. Afsaneh Reeves MD, ENA Board Certified, [place] Board of Physical Medicine and Rehabilitation (ABPMR) Board Certified, [place] Board of Electrodiagnostic Medicine (ABEM) Orders: Orders Rheumatoid Factor Today M62.81 - Muscle weakness (generalized), R74.8 - Abnormal levels of other serum enzymes AUDREY Reflex Titer and Pattern Today M62.81 - Muscle weakness (generalized), R74.8 - Abnormal levels of other serum enzymes Uric Acid Today M62.81 - Muscle weakness (generalized), R74.8 - Abnormal levels of other serum enzymes Erythrocyte Sedimentation Rate Today M62.81 - Muscle weakness (generalized), R74.8 - Abnormal levels of other serum enzymes CRP High Sensitivity Today M62.81 - Muscle weakness (generalized), R74.8 - Abnormal levels of other serum enzymes Referrals Rheumatology Referral M62.81 - Muscle weakness (generalized), R74.8 - Abnormal levels of other serum enzymes Coding Level of Care Code Est Pt Level 4 (52467) Complex EM visit Add On G2211 Diagnoses Muscle weakness M62.81 Elevated CPK R74.8
--- OUTSIDE RECORDS SUMMARY | 2024-09-01 13:48 | XMS_ITS | Clinical Summary ---
Author Organization [facility] Address [facility] [place] [address] Care Team Providers Care Security Checker Name Role Phone Unknown Primary Care Provider [...] WILEY Pt. Name: VEE CARR Acc #: [id number] Pt. Col Date: 11/27/2009 /Sex: 1950,(59 years),Female [...] Name Administration Dates Next Due Influenza (Novel W8S5-60) Injectable 06/07/2009 Influenza Trivalent, Preservative Free 2 [...] Procedure Name Priority Date/Time Associated Diagnosis Comments BAND BOOKER MOLECULAR GENETICS REPORT Routine 12/10/2012 9:47 AM EDT BAND BOOKER CYTOLOGY FINAL REPORT Routine 12/10/2012 9:47 AM EDT MAMMO SCREENING CAD BILATERAL Routine 03/10/2012 1:50 PM EDT DXA CENTRAL SPINE, HIP, AND/OR WHOLE BODY (GENERIC) Routine 03/02/2012 3:23 PM EDT Disorder of bone and cartilage, unspecified from Last 3 Months or Most Recently Relevant to Health Maintenance Results * BAND BOOKER Molecular Genetics Report (12/10/2012 9:47 AM EDT) BAND BOOKER Molecular Genetics Report ? [facility] ? Provider: ?? ROSY WILEY ??Pt. Name: ?? VEE CARR ?P ? Acc #: ?[id number] ?Pt. ? Col Date: ?? 12/10/2012 ? [...] ?Lab Review, Molecular Genetics ? (Electronic Signature) [facility] 12/10/2012 9:47 AM EDT Rosy Wiley MD PATHOLOGY/CYTOLOG Y ORDERABLES HARJIT NARANJO * Training Designer Cytology Final Report (12/10/2012 9:47 AM EDT) Training Designer Cytology Final Report ? [facility] ? Provider: ?? ROSY WILEY ??Pt. Name: ?? KIET VEE Callaway ?P ? Acc #: ?[id number] ?Pt. ? Col Date: ?? 12/10/2012 ? /Sex: ?1950,(62 years),Female ? Rec Date: ?? 12/10/2012 ? LOC: ?[facility] ? CYTOPATHOLOGY: ??BAND BOOKER ? ---Adequacy--- ? Specimen submitted is satisfactory [...] by: ??LINDEN Jaramillo(ASCP), Meme Haney - ? Rn Admissions ? ---Comment--- ? Endocervical component not detected in an atrophic smear pattern. ? Please also see concurrent HPV test result. ? ---Clinical Information--- ? HPV Option: ? Concurrent HPV ? Preparation: ?Liquid Based Pap ? Specimen Source: ?Endocervical/LBP ? LMP: ?n/a ? Hormones?: ?No ? Hysterectomy?: ?No ?: ?No ?: ?No ? I.U.D.?: ?No ? Pelvic Radiation: ? No ? Prior BAND BOOKER Therapy?: ? No ? Hist Abnl Pap/Biopsy?: ??No ? Hist of HPV Vaccine?: ?? No ? Hist of Smoking?: ? No ? Hist of DWAYNE exposure?: ??Yes ? Clinical Data, Significant Therapy and Clinical Impression: ? [facility] ? Provider: ?? ROSY WILEY ??Pt. Name: ?? VEE CARR ?P ? Acc #: ?[id number] ?Pt. ? Col Date: ?? 12/10/2012 ? /Sex: ?1950,(62 years),Female ? Rec Date: ?? 12/10/2012 ? LOC: ?[facility] ? This Pap Test has been evaluated with the assistance of the ThinPrep Pap ? Test Imaging System. ? CYTOPATHOLOGY: ??BAND BOOKER ? Note: ? The Pap test is a screening test for cervical cancer with an inherent ? false-negative rate dependent upon several variables. ??For further ? information please contact the [facility]. ? Reference: ??[employer]end[employer] CS. ??Sericulturist of Pap Smear Results. ??In: ? Jimy [...] BMD measurements and plots are available in Eons under the imaging tab . Paper copies will be sent to providers without Znapshop access. If you have received this report without the data sheet and do not have access to Eons, please contact [facility] at [phone] Thursday thru Thursday 8am-4pm. Procedure Note Magali [...] not haveaccess to E-, please contact [facility] at [phone] Thursdaythru Thursday 8am-4pm. Rosy Wiley MD IMG DEXA ORDERABL ES from Last 3 Months or Most Recently Relevant to Health Maintenance Advance Directives Documents on File Type Date Recorded Patient Display Screen Fabricator Expl anation Advance Directives and Jaspreet landers Will 07/22/2011 10:37 AM Care Teams Security Checker Relationship Specialty Start Date End Date Unknown None PCP - General 08/31/14
== END 2024-09-01 11:46 | disposition home or self-care (01) ==
LOC: HO.HOS 10:49
PROVIDERS: PCP Internal Medicine; Visit Provider Physical Medicine & Rehabilitation
DX: M62.81 Muscle weakness (generalized) (principal); R74.8 Abnormal levels of other serum enzymes
CPT/HCPCS: 99214; G2211

== ENCOUNTER 2024-09-01 11:46 | Outpatient (REF) | payer MEDICARE, OTHER, SELFPAY ==
[2024-09-01 14:05] LABS: Rheumatoid Factor < 13.0 IU/mL (<15.0); Uric Acid 4.9 mg/dL (2.4-5.7)
[2024-09-01 14:39] LABS: Erythrocyte Sedimentation Rate 6 MM/HR (0-20)
--- OUTSIDE RECORDS SUMMARY | 2024-09-01 15:13 | XMS_ITS | Clinical Summary ---
Author Organization [facility] Address [facility] [place] [address] Care Team Providers Care Coat Checker Name Role Phone Unknown Primary Care [...] WILEY Pt. Name: VEE CARR Acc #: [id number] Pt. Col Date: 11/27/2009 /Sex: 1950,(59 years),Female [...] Name Administration Dates Next Due Influenza (Novel R6M4-45) Injectable 06/07/2009 Influenza Trivalent, Preservative Free 2 [...] Procedure Name Priority Date/Time Associated Diagnosis Comments FINANCIAL ANALYST INTERN MOLECULAR GENETICS REPORT Routine 12/10/2012 9:47 AM EDT FINANCIAL ANALYST INTERN CYTOLOGY FINAL REPORT Routine 12/10/2012 9:47 AM EDT MAMMO SCREENING CAD BILATERAL Routine 03/10/2012 1:50 PM EDT DXA CENTRAL SPINE, HIP, AND/OR WHOLE BODY (GENERIC) Routine 03/02/2012 3:23 PM EDT Disorder of bone and cartilage, unspecified from Last 3 Months or Most Recently Relevant to Health Maintenance Results * FINANCIAL ANALYST INTERN Molecular Genetics Report (12/10/2012 9:47 AM EDT) FINANCIAL ANALYST INTERN Molecular Genetics Report ? [facility] ? Provider: ?? ROSY WILEY ??Pt. Name: ?? VEE CARR ?P ? Acc #: ?[id number] ?Pt. ? Col Date: ?? 12/10/2012 ? [...] Genetics ? (Electronic Signature) [facility] 12/10/2012 9:47 AM EDT Rosy Wiley MD PATHOLOGY/CYTOLOG Y ORDERABLES HARJIT NARANJO * Gage Designer Cytology Final Report (12/10/2012 9:47 AM EDT) Gage Designer Cytology Final Report ? [facility] ? Provider: ?? ROSY WILEY ??Pt. Name: ?? KIET VEE Callaway ?P ? Acc #: ?[id number] ?Pt. ? Col Date: ?? 12/10/2012 ? /Sex: ?1950,(62 years),Female ? Rec Date: ?? 12/10/2012 ? LOC: ?[facility] ? CYTOPATHOLOGY: ??FINANCIAL ANALYST INTERN ? ---Adequacy--- ? Specimen submitted is satisfactory [...] by: ??LINDEN Jaramillo(ASCP), Meme Haney - ? Ordering Box Operator ? ---Comment--- ? Endocervical component not detected in an atrophic smear pattern. ? Please also see concurrent HPV test result. ? ---Clinical Information--- ? HPV Option: ? Concurrent HPV ? Preparation: ?Liquid Based Pap ? Specimen Source: ?Endocervical/LBP ? LMP: ?n/a ? Hormones?: ?No ? Hysterectomy?: ?No ?: ?No ?: ?No ? I.U.D.?: ?No ? Pelvic Radiation: ? No ? Prior FINANCIAL ANALYST INTERN Therapy?: ? No ? Hist Abnl Pap/Biopsy?: ??No ? Hist of HPV Vaccine?: ?? No ? Hist of Smoking?: ? No ? Hist of DWAYNE exposure?: ??Yes ? Clinical Data, Significant Therapy and Clinical Impression: ? [facility] ? Provider: ?? ROSY WILEY ??Pt. Name: ?? VEE CARR ?P ? Acc #: ?[id number] ?Pt. ? Col Date: ?? 12/10/2012 ? /Sex: ?1950,(62 years),Female ? Rec Date: ?? 12/10/2012 ? LOC: ?[facility] ? This Pap Test has been evaluated with the assistance of the ThinPrep Pap ? Test Imaging System. ? CYTOPATHOLOGY: ??FINANCIAL ANALYST INTERN ? Note: ? The Pap test is a screening test for cervical cancer with an inherent ? false-negative rate dependent upon several variables. ??For further ? information please contact the [facility]. ? Reference: ??[employer] CS. ??It Quality Analyst of Pap Smear Results. ??In: ? Jimy [...] BMD measurements and plots are available in ShareThe under the imaging tab . Paper copies will be sent to providers without [employer] access. If you have received this report without the data sheet and do not have access to ShareThe, please contact [facility] at [phone] Thursday thru Thursday 8am-4pm. Procedure Note Magali [...] not haveaccess to E-, please contact [facility] at [phone] Thursdaythru Thursday 8am-4pm. Rosy Wiley MD IMG DEXA ORDERABL ES from Last 3 Months or Most Recently Relevant to Health Maintenance Advance Directives Documents on File Type Date Recorded Patient Attorney At Law Expl anation Advance Directives and Jaspreet landers Will 07/22/2011 10:37 AM Care Teams Coat Checker Relationship Specialty Start Date End Date Unknown None PCP - General 08/31/14
[2024-09-02 08:09] LABS: CRP High Sensitivity 2.3 mg/L
[2024-09-08 15:32] LABS: ANA Titer 2 1:40 titer; Anti Nuclear Antibody Screen POSITIVE (NEGATIVE); Anti Nuclear Antibody Titer 1:40 titer
== END 2024-09-01 11:47 | disposition home or self-care (01) ==
LOC: HO.10HDL 11:46
PROVIDERS: Visit Provider Physical Medicine & Rehabilitation
DX: M62.81 Muscle weakness (generalized) (principal); R74.8 Abnormal levels of other serum enzymes
CPT/HCPCS: 36415; 84550; 85652; 86038; 86039; 86141; 86431; 99212

== ENCOUNTER 2024-09-13 12:18 | Outpatient (REF) | payer MEDICARE, OTHER, SELFPAY ==
[2024-09-13 16:58] LABS: Gamma Glutamyl Transpeptidase 19 U/L (7-33)
[2024-09-13 17:13] LABS: TSH reflex Free T4 2.05 uIU/mL (0.32-4.0)
[2024-09-17 00:59] LABS: Acetylcholine Receptor Binding <0.30 nmol/L
[2024-09-17 01:48] LABS: Acetylcholine Recept. Blocking <15 (<15)
[2024-09-17 18:13] LABS: Acetylcholine Recep Modulating 2
[2024-09-18 21:29] LABS: CK-BB 0 % (None Detected); CK-MB 4 % (<5); CK-MM 90 % (95-100); Creatine Kinase Isoenzyme Itrp MACRO CK TYPE 1; Creatine Kinase,Total,Serum 510 U/L (18-225)
[2024-09-20 00:17] LABS: Aldolase 9.4 U/L (<=8.1)
[2024-09-21 21:53] LABS: Cytosolic 5'nuc 1A Ab IgG <5 Units; Ej Ab <11 SI (<11); HMGCR Ab IgG <2 CU (<20); Jo-1 Ab <11 SI (<11); MDA5 Ab <11 SI (<11); Mi-2 alpha Ab <11 SI (<11); Mi-2 beta Ab <11 SI (<11); NXP-2 (MJ) Ab <11 SI (<11); Oj Ab <11 SI (<11); Pl-12 Ab <11 SI (<11); Pl-7 Ab <11 SI (<11); SRP Ab <11 SI (<11); TIF1 gamma Ab <11 SI (<11)
[2024-10-08 13:44] LABS: Voltage-Gated Ca Chan Ab TypeN <54 pmol/L (<54)
[2024-10-12 21:13] LABS: Voltage-Gated Ca Ab Type P/Q <30 pmol/L (<30)
== END 2024-09-13 12:19 | disposition home or self-care (01) ==
LOC: HO.LAB 12:18
PROVIDERS: PCP Internal Medicine; Visit Provider Student in an Organized Health Care Education/Training Program
DX: R74.8 Abnormal levels of other serum enzymes (principal); R76.8 Other specified abnormal immunological findings in serum; Z00.00 Encounter for general adult medical examination without abnormal findings; E55.9 Vitamin D deficiency, unspecified; E03.9 Hypothyroidism, unspecified
CPT/HCPCS: 36415; 82085; 82552; 82977; 83516; 83520; 84182; 84443; 86041; 86042; 86043; 86235; 86366; 86596; 99202

== ENCOUNTER 2024-09-13 12:18 | Outpatient (AMB) | payer MEDICARE, OTHER, SELFPAY ==
[2024-09-13 12:29] VITALS: BP 118/64; PULSE 65; O2SAT 98; BMI 21.8
--- NOTE | 2024-09-13 12:29 | A.OFFVIS_ITS ---
Vital Signs 09/13/24 12:29 Height 5 ft 1 in Weight 115 lb 8.356 oz BMI 21.8 BP 118/64 Blood Pressure Location Lt brachial Pulse 65 Pulse Source Pulse Oximeter Pulse Oximetry (%) 98 Oxygen Delivery Method Room Air Intake Visit Reasons: autoimmune or myopathy/ booked MD approval Intake Note: Patient has weakness in her upper body, not sure what is going on. She was referred by Dr. Patel for possible myopathy or autoimmune disease. She states it's been last summer, did some physical therapy without improvement. She is taking Gabapentin 300 mg for Back nerve pain. Accompanied by: Spouse Allergies Penicillins [PENICILLINS] Adverse Reaction (Mild, Verified 09/13/24 12:37) GI UPSET Medication List - Last Reconciled 09/13/24 by Salima Roberts MD alendronate (Fosamax) 70 mg PO QWEEK ascorbic acid (vitamin C) mg PO aspirin 81 mg PO 3XW bisacodyl (Dulcolax (bisacodyl)) 20 mg (4 x 5 mg) PO ONCE 1 day calcium carbonate 400 mg PO DAILY cholecalciferol (vitamin D3) 25 mcg PO DAILY gabapentin 300 mg PO TID melatonin mg PO BEDTIME multivitamin 1 tab PO DAILY omega 0-thg-xem-fish oil 1,200 (144-216) mg (Fish Oil) 1 cap PO BID peg 3350-electrolytes 236-22.74-6.74 -5.86 gram 240 mL PO Q10M vitamin K2 40 mcg PO DAILY HPI Comments Details: Patient is a 74-year-old female with hyperlipidemia, osteoporosis complicated by compression fracture of T8 and T7 status post kyphoplasty, history of malignant melanoma of the skin of the right thigh, hypothyroidism who presents for evaluation of elevated CPK Summer 2023 notes that she has been noting weakness of her upper extremity. Not just the proximal muscles: combing her hair and putting in earrings is difficult, also notes difficulty holding onto objects and throwing the apparatus on her loom. Also notes that she has lower body weakness. States it feels different than the upper body with feelings of weakness and needing stronger thigh muscles. Started pravastain Jun 2024. Then stopped about 3 weeks later after noting CPK elevation The weakness is in the absence of pain and mainly associated with the right upper limb but patient states she feels like it is moving to the left upper limb Denies RP, SOB/Trouble breathing, rashes, numbnes, tingling, tremors, twitching, muscle pain PFSH Medical History Melanoma Osteoporosis Breast mass Vitamin D deficiency Annual physical exam Normal colonoscopy Hypothyroidism IFG (impaired fasting glucose) Hypertriglyceridemia Basal cell carcinoma Surgical History Hx of excision of mass History of right oophorectomy Hx of colonoscopy Hx of wisdom tooth extraction Family History Father Heart problem Dementia Ruptured appendix Mother Colon cancer Dementia Sister Ruptured appendix Aneurysm Brother Kidney stones Social History Housing: House Are you a primary care mgr to a significant other at home: No Do you presently have visiting nurse or other home services: No Alcohol intake: current Alcohol intake frequency: a few times a month Patient Tobacco Use Status: Former Tobacco user Tobacco use type: Cigarette e-Cigarette/Vaping Use: Never Used service: No Current occupational status: retired Current occupation: right hand dominant Cognitive needs: No Hearing needs: No Vision needs: Yes Review of Systems Const Details: Review of Systems Constitutional: Denies fever, chills, weight loss ENT: Denies vision changes, eye pain or eye redness, dental caries, dry mouth GI: Denies nausea, vomiting, diarrhea, abdominal pain, change in BM Pulm: Denies SOB, ROA, hemoptysis, wheezing Cards: Denies chest pain, palpitations Skin: Denies Raynaud's, rash, nail changes, photosensitivity, TOOTH CUTTER: Denies headaches, weakness, paresthesias, recurrent falls MSK: as per HPI All other systems reviewed and are unremarkable except noted above Physical Exam Vital Signs: Last Vital Signs Pulse 65 09/13/24 12:29 BP 118/64 09/13/24 12:29 Pulse Ox 98 09/13/24 12:29 Oxygen Delivery Method Room Air 09/13/24 12:29 BMI result Body Mass Index 21.8 Vital signs reviewed Physical Examination CONSTITUITIONAL Patient alert and cooperative. Well appearing and in no apparent painful distress HEENT Conjunctiva and sclera clear. ?Pupils equal round and reactive to light. ?No lymphadenopathy. ? CHEST/RESPIRATORY SYSTEM Normal respiratory effort and able to speak in complete sentences. ?Clear to auscultation bilaterally. ?No crackles, rales, rhonchi, wheezes heard. CARDIAC SYSTEM Regular rate and rhythm. ?S1 and S2 heard no murmurs. ?Radial pulses intact bila terally MSK Hands: ?Good polisher eyeglass frames strength bilaterally. No deformities noted. ?No synovitis noted to the MCPs, PIPs or DIPs. ?No tenderness to palpation of these joints. Prominent herbeden's nodes Wrists: ?Full range of motion at the wrists without pain. ?No tenderness to palpation or synovitis noted to the wrists. Elbows: Full range of motion without pain. No tenderness, weakness, swelling, increased warmth or erythema. Shoulders: Full range of motion without pain. No tenderness, weakness, swelling, increased warmth or erythema. Hips: Full range of motion without pain. Hip bursa: No tenderness to palpation Knees: ?Full range of motion. ?No tenderness, swelling, increased warmth or erythema.?No effusion or crepitations Ankles: Full range of motion. ?No tenderness, swelling, increased warmth or erythema.? Feet: ?Negative squeeze test. ?No tenderness to palpation or swelling of the MTPs. Tender points:?No tenderness to palpation of the bilateral trapezius, supraspinatus, greater trochanters, anterior costochondral junctions, bilateral gluteal areas, bilateral suboccipital muscle insertions Right Left Neck flexion 3-4 Pathologist Assistant strength 5 5 Wrist flexion 4- 5 Wrist extension 5 5 Elbow flexion 5 5 Elbow extension 5 5 Shoulder abducction 3+ 5 Shoulder adduction 3+ 5 Hip flexion 5 5 Knee extension 5 5 Knee flexion 5 5 Ankle dorsiflexion 5 5 Ankle plantarflexion 5 5 SKIN Skin intact without rashes. Results Reviewed Results Reviewed: Laboratory Tests 08/01/24 08/30/24 09/01/24 11:08 09:19 11:54 WBC 5.7 RBC 4.32 Hgb 12.3 Hct 38.1 Plt Count 248 ESR 6 Sodium 140 Potassium 4.4 Chloride 107 Carbon Dioxide 29 BUN 14 Creatinine 0.84 Uric Acid 4.9 Calcium 9.2 Total Bilirubin 0.6 AST 41 H ALT 32 H Alkaline Phosphatase 64 Total Creatine Kinase 522 H C-Reactive Protein 0.14 25-OH Vitamin D Total 49.3 08/30/24 09:19 TSH 2.60 Laboratory Tests 09/01/24 11:54 Rheumatoid Factor < 13.0 AUDREY Screen POSITIVE A AUDREY Titer 1:40 H XR Right Shoulder 07/2024 FINDINGS: Three views of the right shoulder are submitted. Osseous mineralization is normal. There is no fracture or dislocation. The humeral joint is maintained. There is mild narrowing of the AC joint. There are calcified mediastinal lymph nodes. IMPRESSION: Mild narrowing of the AC joint. EMG 04/2024 FINDINGS: All motor and sensory nerves tested showed normal latencies, amplitudes and conduction velocities. Concentric needle EMG was performed in selected muscles of the right upper extremity. Study revealed signs of electric abnormalities as shown in the table above. Right triceps and FDI showed increased insertional activity, PSWs and fibrillations. However note that patient had poor tolerance of needle EMG and was not completely relaxed during the test. No myopathic looking units seen. IMPRESSION: 1. There is no electrodiagnostic evidence for median neuropathy, ulnar neuropathy or brachial plexopathy. 2. Can not completely rule out a lower cervical radiculopathy. Brain MRI 06/2024 FINDINGS: There is no restricted diffusion seen to suspect acute or chronic ischemic changes. There is no magnetic susceptibility artifact to suspect acute or chronic hemorrhagic products or calcification. Scattered T2 FLAIR signal foci are seen scattered throughout the deep white matter of both cerebral hemispheres without mass effect or edema. The lateral ventricles are symmetrical in size and configuration without enlargement. Normal flow-void signal seen in major cerebral vasculature. Visualized sella and parasellar soft tissues are normal. No abnormality seen in the posterior fossa. The bone marrow signal and the scalp soft tissues are normal. There is mild mucoperiosteal thickening right mastoid sinus. Rest of paranasal sinuses and left mastoid sinus are well-aerated. IMPRESSION: No acute intracranial process seen. Chronic right mastoid sinus inflammatory changes. MRI C-spine 05/2024 FINDINGS: The imaged posterior fossa is unremarkable. Partially imaged right mastoid effusion. Mild levocurvature at the cervicothoracic junction. Mild retrolisthesis at C4-5. No acute bone marrow abnormality. The vertebral body heights are preserved. Multilevel disc desiccation and disc height loss, worse and moderate to severe at C4-5, C5-6, C6-7, and C7-T1. The visualized spinal cord is normal in caliber. No abnormal cord signal. C2-3: No significant spinal canal or neural foraminal narrowing. C3-4: Right uncovertebral hypertrophy and bilateral facet arthrosis. No significant spinal canal stenosis. Mild right neural foraminal narrowing. C4-5: Disc osteophyte complex, bilateral uncovertebral hypertrophy, and bilateral facet arthrosis. No significant spinal canal or neural foraminal narrowing. C5-6: Disc osteophyte complex, bilateral uncovertebral hypertrophy, and bilateral facet arthrosis. No significant spinal canal or neural foraminal narrowing. C6-7: Disc osteophyte complex and bilateral uncovertebral hypertrophy. No significant spinal canal or neural foraminal narrowing. C7-T1: Disc osteophyte complex and bilateral facet arthrosis. No significant spinal canal stenosis. Mild right neural foraminal narrowing. The paravertebral soft tissues are unremarkable. IMPRESSION: Multilevel cervical spondylosis without significant spinal canal stenosis or cord compression. There is mild right neural foraminal narrowing at C3-C4 and C7-T1. Assessment & Plan Assessment & Plan (1) Elevated CPK: Code(s): R74.8 - Abnormal levels of other serum enzymes Category: Medical Plan: #Elevated CPK Patient is a 74-year-old female who presents for evaluation of elevated CPK. Differentials for elevated CPK include primary muscle pathology, primary nerve pathology, endocrine dysfunction, neuromuscular blockade such as myasthenia or eaton lambert Her examination shows mainly right upper extremity weakness, which is unusual for a primary muscle pathology such as autoimmune myopathies. Primary autoimmune myopathies have symmetrical proximal muscle weakness. There are exceptions to this rules such as inclusion body myositis but her muscle enzymes are not significantly elevated like I would expect to see an autoimmune myopathies. The EMG also did not show any myopathic looking units. She also does not have any extra muscular manifestations of the skin or lungs. We will check MSA extended panel, repeat CK and aldolase, and GGT. With respect to endocrine dysfunction her TSH is normal and so is her vitamin-D. Neuromuscular blockade such as mass in your Eaton-Lambert is also unlikely especially because she does not report any worsening of symptoms as the day progresses. All the evidence at this time suggest that this may be a primary nerve condition but we still need to rule out muscle causes. If the antibodies come back n egative we may need to pursue an MRI of the right upper extremity to evaluate for muscle edema +/- muscle biopsy Plan - MSA Extended panel, GGT, CK, Aldolase - Check acetylcholine receptor antibodies, muscle specific kinase antibodies, voltage gated calcium antibodies - Patient has follow up with Dr. Ramesh Easton of [facility] in September we will send notes to him - RTC 2 weeks - Consider MRI of right upper limb if Abs negative (2) Positive AUDREY (antinuclear antibody): Code(s): R76.8 - Other specified abnormal immunological findings in serum Plan: #Positive AUDREY The presence of antinuclear antibodies (AUDREY) is mainly associated with connective tissue diseases (CTD). ?However, their presence is found in healthy people especially in women and patients >65. ?In healthy individuals, the frequency of AUDREY has been shown to be 31.7% of individuals at 1:40 serum dilution, 13.3% at 1:80, 5.0% at 1:160, and 3.3% at 1:320 (2). Some drugs and xenobiotics are also important for the development of AUDREY (hydralazine, hydrochlorothiazide, minocycline, terbinafine, ciprofloxacin, furosemide, omeprazole). Moreover, the deficiency of vitamin D in the body of patients correlates with occurrence of these antibodies (1). At this time there is low suspicion for a connective tissue disease. ? 1. Raffaele?rd Her, Irma Mercer, Tracey Lynn. Antinuclear antibodies in healthy people and non-rheumatic diseases - diagnostic and clinical implications. Reumatologia. 2018;56(4):243-248. doi: 10.5114/reum.2018.65279. Epub 2017Feb 19. PMID: 45983476; PMCID: [id number]. 2. Mauricio EM, Suzie TE, Jairon JS, Beka B, Shalonda R, Preeti MJ, David T, Nahomi JA, Victoria JR, Brisa RG, Royce RN, Aye GUERRA, Fawn NF, Enzo RJ, Mari Y, Darcie A, Louis MR, Judith BUSCH. Range of antinuclear antibodies in healthy individuals. Arthritis Rheum. 1996;40(9):1601-11. doi: 10.1002/art.7296744342. PMID: 2877251. Plan I spent 62 minutes reviewing the record and labs, taking a history, examining the patient, discussing the treatment plan, ordering diagnostic work up and documenting in the medical record Orders: Orders MSA Panel Extended Today R74.8 - Abnormal levels of other serum enzymes CK, Total+Isoenzymes, Serum Today R74.8 - Abnormal levels of other serum enzyme s Acetylcholine Client Support Consultant Modulating Today R74.8 - Abnormal levels of other serum enzymes Acetylcholine Recept. Blocking Today R74.8 - Abnormal levels of other serum enzymes Acetylcholine Receptor Binding Today R74.8 - Abnormal levels of other serum enzymes MuSK Antibody Today R74.8 - Abnormal levels of other serum enzymes Aldolase Today R74.8 - Abnormal levels of other serum enzymes Gamma Glutamyl Transpeptidase Today R74.8 - Abnormal levels of other serum enzymes Voltage-Gated Ca Ab Type P/Q Today R74.8 - Abnormal levels of other serum enzymes Voltage-Gated Ca Doherty Ab TypeN Today R74.8 - Abnormal levels of other serum enzymes Coding Level of Care Code New Pt Level 5 (04405) Complex EM visit Add On G2251 Diagnoses Elevated CPK R74.8 Positive AUDREY (antinuclear antibody) R76.8
== END 2024-09-13 13:35 | disposition home or self-care (01) ==
LOC: HO.RHE 12:18
PROVIDERS: PCP Internal Medicine; Visit Provider Student in an Organized Health Care Education/Training Program
DX: R74.8 Abnormal levels of other serum enzymes (principal); R76.8 Other specified abnormal immunological findings in serum
CPT/HCPCS: 99205; G2211

== ENCOUNTER 2024-09-19 08:29 | Outpatient (REF) | payer MEDICARE, OTHER, SELFPAY ==
--- NOTE | ~2024-09-19 | US_ITS ---
CLINICAL HISTORY: R79.89 - elevated lfts gallstones US abdomen limited Comparison: CT/SR - CT ABDOMEN PELVIS W IV CON - 07/14/22 11:22 EST Findings: The visualized pancreas is normal. The aorta and inferior vena cava are normal caliber. No focal liver lesion. Increased liver echogenicity. There is no intrahepatic bile duct dilatation. The common duct is 6 mm in diameter. There is a gallstone within the gallbladder. The main portal vein is antegrade. The right kidney is 8.9 cm in length. No ascites. IMPRESSION: 1. Cholelithiasis. 2. Fatty infiltration of the liver. This document has been electronically signed by: Alina Clements MD on 09/19/2024 14:23:44
== END 2024-09-19 08:30 | disposition home or self-care (01) ==
LOC: HO.HMGCX 08:29
PROVIDERS: PCP Internal Medicine; Visit Provider Internal Medicine
DX: R79.89 Other specified abnormal findings of blood chemistry (principal); K80.20 Calculus of gallbladder without cholecystitis without obstruction
CPT/HCPCS: 76705

== ENCOUNTER → 2024-09-19 08:35 | Outpatient (BNV) | payer MEDICARE, OTHER, SELFPAY | PROVIDERS: PCP Internal Medicine; Visit Provider Radiology Diagnostic Radiology | DX: R79.89 Other specified abnormal findings of blood chemistry (principal) | CPT/HCPCS: 76705 ==

== ENCOUNTER 2024-09-22 09:18 | Day surgery (SDC) | payer MEDICARE, OTHER, SELFPAY ==
--- OUTSIDE RECORDS SUMMARY | 2024-08-17 07:54 | XMS_ITS | Clinical Summary ---
Author Organization [facility] Address [facility] [place] [address] Care Team Providers Care Filling Station Attendant Name Role Phone Unknown Primary Care Provider [...] WILEY Pt. Name: VEE CARR Acc #: [id number] Pt. Col Date: 11/27/2009 /Sex: 1950,(59 years),Female [...] Name Administration Dates Next Due Influenza (Novel X9E9-08) Injectable 06/07/2009 Influenza Trivalent, Preservative Free 2 [...] Procedure Name Priority Date/Time Associated Diagnosis Comments MACHINE GUNNER MOLECULAR GENETICS REPORT Routine 12/10/2012 9:47 AM EDT MACHINE GUNNER CYTOLOGY FINAL REPORT Routine 12/10/2012 9:47 AM EDT MAMMO SCREENING CAD BILATERAL Routine 03/10/2012 1:50 PM EDT DXA CENTRAL SPINE, HIP, AND/OR WHOLE BODY (GENERIC) Routine 03/02/2012 3:23 PM EDT Disorder of bone and cartilage, unspecified from Last 3 Months or Most Recently Relevant to Health Maintenance Results * MACHINE GUNNER Molecular Genetics Report (12/10/2012 9:47 AM EDT) MACHINE GUNNER Molecular Genetics Report ? [facility] ? Provider: ?? ROSY WILEY ??Pt. Name: ?? VEE CARR ?P ? Acc #: ?[id number] ?Pt. ? Col Date: ?? 12/10/2012 ? [...] ?Lab Review, Molecular Genetics ? (Electronic Signature) [facility] 12/10/2012 9:47 AM EDT Rosy Wiley MD PATHOLOGY/CYTOLOG Y ORDERABLES HARJIT NARANJO * Promotional Marketing Analyst Cytology Final Report (12/10/2012 9:47 AM EDT) Promotional Marketing Analyst Cytology Final Report ? [facility] ? Provider: ?? ROSY WILEY ??Pt. Name: ?? KIET VEE Callaway ?P ? Acc #: ?[id number] ?Pt. ? Col Date: ?? 12/10/2012 ? /Sex: ?1950,(62 years),Female ? Rec Date: ?? 12/10/2012 ? LOC: ?[facility] ? CYTOPATHOLOGY: ??MACHINE GUNNER ? ---Adequacy--- ? Specimen submitted is satisfactory [...] by: ??LINDEN Jaramillo(ASCP), Meme Haney - ? Transition Program Manager ? ---Comment--- ? Endocervical component not detected in an atrophic smear pattern. ? Please also see concurrent HPV test result. ? ---Clinical Information--- ? HPV Option: ? Concurrent HPV ? Preparation: ?Liquid Based Pap ? Specimen Source: ?Endocervical/LBP ? LMP: ?n/a ? Hormones?: ?No ? Hysterectomy?: ?No ?: ?No ?: ?No ? I.U.D.?: ?No ? Pelvic Radiation: ? No ? Prior MACHINE GUNNER Therapy?: ? No ? Hist Abnl Pap/Biopsy?: ??No ? Hist of HPV Vaccine?: ?? No ? Hist of Smoking?: ? No ? Hist of DWAYNE exposure?: ??Yes ? Clinical Data, Significant Therapy and Clinical Impression: ? [facility] ? Provider: ?? ROSY WILEY ??Pt. Name: ?? VEE CARR ?P ? Acc #: ?[id number] ?Pt. ? Col Date: ?? 12/10/2012 ? /Sex: ?1950,(62 years),Female ? Rec Date: ?? 12/10/2012 ? LOC: ?[facility] ? This Pap Test has been evaluated with the assistance of the ThinPrep Pap ? Test Imaging System. ? CYTOPATHOLOGY: ??MACHINE GUNNER ? Note: ? The Pap test is a screening test for cervical cancer with an inherent ? false-negative rate dependent upon several variables. ??For further ? information please contact the [facility] Laboratory. ? Reference: ??Abendroth CS. ??Geologist Petroleum of Pap Smear Results. ??In: ? Jimy [...] BMD measurements and plots are available in LegalZoom under the imaging tab . Paper copies will be sent to providers without Advanced Image Enhancement access. If you have received this report without the data sheet and do not have access to LegalZoom, please contact Radiology Information Services Assistant at [phone] Thursday thru Thursday 8am-4pm. Procedure Note Magali [...] not haveaccess to E-, please contact Radiology Information Services Assistant at [phone] Thursdaythru Thursday 8am-4pm. Rosy Wiley MD IMG DEXA ORDERABL ES from Last 3 Months or Most Recently Relevant to Health Maintenance Advance Directives Documents on File Type Date Recorded Patient Foundry Finisher Expl anation Advance Directives and Jaspreet landers Will 07/22/2011 10:37 AM Care Teams Filling Station Attendant Relationship Specialty Start Date End Date Unknown None PCP - General 08/31/14
[2024-09-20 15:14] VITALS: BMI 21.9
--- NOTE | 2024-09-21 09:28 | HO.ANESPROP2 ---
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 (Acute) Traumatic compression fracture of T8 vertebra (Acute) Lumbar spondylosis (Acute) Compression fracture of T7 vertebra (Acute) Thoracic spine pain (Acute) Thoracic myofascial strain (Acute) Lower back pain (Acute) Painful arc syndrome of left shoulder (Acute) Cough (Acute) Dysuria (Acute) Abdominal pain (Acute) Malignant melanoma of skin of right thigh (Acute) Annual physical exam (Acute) Family history of colon cancer (Acute) Osteoporosis (Acute) Breast mass (Acute) Vitamin D deficiency (Acute) Normal colonoscopy (Acute) Hypothyroidism (Acute) Past Medical History Medical History Melanoma Osteoporosis Breast mass Vitamin D deficiency Normal colonoscopy Hypothyroidism IFG (impaired fasting glucose) Hypertriglyceridemia Basal cell carcinoma Family History Family History Father Heart problem Dementia Ruptured appendix Mother Colon cancer Dementia Sister Ruptured appendix Aneurysm Brother Kidney stones Family history of problems with anesthesia: No Surgical History Surgical History Hx of kyphoplasty Hx of excision of mass History of right oophorectomy Hx of colonoscopy Hx of wisdom tooth extraction History of Problems with Anesthesia: No Social History Social History Housing: House Are you a primary residential child care counselor to a significant other at home: No Do you presently have visiting nurse or other home services: No Alcohol intake: current Alcohol intake frequency: a few times a month Patient Tobacco Use Status: Former Tobacco user Tobacco use type: Cigarette e-Cigarette/Vaping Use: Never Used Have you been hit, kicked, punched, or otherwise hurt by someone within the past year? If so, by whom?: No Are you DNR?: No Advance Directives: No Advance Directives Information Provided: Yes Poor oral hygiene: No service: No Current occupational status: retired Current occupation: right hand dominant Cognitive needs: No Hearing needs: No Vision needs: Yes Meds Allergies Allergy/AdvReac Type Severity Reaction Status Date / Time Penicillins [PENICILLINS] AdvReac Mild GI UPSET Verified 09/22/24 09:54 Home Medications ?Medication ?Instructions ?Recorded ?Confirmed ?Last Taken ?Type aspirin 81 mg tablet,delayed 81 mg PO 3XW 05/16/20 09/22/24 09/24/23 History release multivitamin 1 tab PO DAILY 05/16/20 09/22/24 Unknown History omega 2-mvr-uud-fish oil 1,200 mg 1 cap PO BID 05/16/20 09/22/24 09/24/23 History (144 mg-216 mg) capsule (Fish Oil) vitamin K2 40 mcg tablet 40 mcg PO DAILY 09/28/23 09/22/24 Unknown History cholecalciferol (vitamin D3) 25 25 mcg PO DAILY 10/09/23 09/22/24 Unknown History mcg (1,000 unit) capsule calcium carbonate 400 mg PO DAILY 06/09/24 09/22/24 Unknown History gabapentin 100 mg capsule 300 mg PO TID 07/07/24 09/22/24 Unknown History melatonin 5 mg capsule mg PO BEDTIME 08/12/24 09/13/24 Unknown History ascorbic acid (vitamin C) 500 mg mg PO 09/13/24 09/13/24 Unknown History capsule Exam Height,Weight and Vital Signs: Height 5 ft 1 in Weight 52.617 kg Pertinent Lab Results Pertinent Lab Results: Laboratory Tests 08/30/24 09:19 WBC 5.7 Hgb 12.3 Hct 38.1 Plt Count 248 Sodium 140 Potassium 4.4 Chloride 107 Carbon Dioxide 29 BUN 14 Creatinine 0.84 Assessment and Plan Assessment Anesthesia Assessment: Chart Reviewed Final Anesthetic Review Family History of Problems with Anesthesia: No History of Problems with Anesthesia: No Documented by User: Meme Linder MD 09/22/24 11:23 [facility] Past Medical History Medical History Melanoma Osteoporosis Breast mass Vitamin D deficiency Normal colonoscopy Hypothyroidism IFG (impaired fasting glucose) Hypertriglyceridemia Basal cell carcinoma Family History Family History Father Heart problem Dementia Ruptured appendix Mother Colon cancer Dementia Sister Ruptured appendix Aneurysm Brother Kidney stones Surgical History Surgical History Hx of kyphoplasty Hx of excision of mass History of right oophorectomy Hx of colonoscopy Hx of wisdom tooth extraction Social History Social History Housing: House Are you a primary residential child care counselor to a significant other at home: No Do you presently have visiting nurse or other home services: No Alcohol intake: current Alcohol intake frequency: a few times a month Patient Tobacco Use Status: Former Tobacco user Tobacco use type: Cigarette e-Cigarette/Vaping Use: Never Used Have you been hit, kicked, punched, or otherwise hurt by someone within the past year? If so, by whom?: No Are you DNR?: No Advance Directives: No Advance Directives Information Provided: Yes Poor oral hygiene: No service: No Current occupational status: retired Current occupation: right hand dominant Cognitive needs: No Hearing needs: No Vision needs: Yes Meds Allergies Allergy/AdvReac Type Severity Reaction Status Date / Time Penicillins [PENICILLINS] AdvReac Mild GI UPSET Verified 09/22/24 09:54 Home Medications ?Medication ?Instructions ?Recorded ?Confirmed ?Last Taken ?Type aspirin 81 mg tablet,delayed 81 mg PO 3XW 05/16/20 09/22/24 09/24/23 History release multivitamin 1 tab PO DAILY 05/16/20 09/22/24 Unknown History omega 8-svl-bcx-fish oil 1,200 mg 1 cap PO BID 05/16/20 09/22/24 09/24/23 History (144 mg-216 mg) capsule (Fish Oil) vitamin K2 40 mcg tablet 40 mcg PO DAILY 09/28/23 09/22/24 Unknown History cholecalciferol (vitamin D3) 25 25 mcg PO DAILY 10/09/23 09/22/24 Unknown History mcg (1,000 unit) capsule calcium carbonate 400 mg PO DAILY 06/09/24 09/22/24 Unknown History gabapentin 100 mg capsule 300 mg PO TID 07/07/24 09/22/24 Unknown History melatonin 5 mg capsule mg PO BEDTIME 08/12/24 09/13/24 Unknown History ascorbic acid (vitamin C) 500 mg mg PO 09/13/24 09/13/24 Unknown History capsule Exam Airway Mallampati Class: II TM Dist: >3cm Neck ROM: Full Loose/Missing/Broken Teeth: No Heart: RRR Lungs: CTA Assessment and Plan Assessment Anesthesia Assessment: Anesthesia Plan Discussed Final Anesthetic Review NPO: Yes ASA Class: II Final Preanesthetic Review: Meds/Allgs Chart Reviewed, Consent Obtained/Reviewed and Anes Risks/Benef Reviewed Patient Risk: Low Procedure Risk: Low Anesthetic Plan Anesthetic Plan: MAC: Disposition: Standard PACU
[2024-09-22 09:51] VITALS: BMI 21.2
[2024-09-22] MEDS: Lactated Ringers 1,000 ML 100 ML IVCONT (09:59)
[2024-09-22 10:13] VITALS: BP 129/61; PULSE 61; RESP 18; TEMP 36.7; O2SAT 100
--- NOTE | 2024-09-22 10:29 | P.HPSUR_ITS ---
Pre-Procedural Eval Section A - 24 Hr Update-Section A only Date of Service: 09/22/24 Section B - Complete if H&P > 30 days Chief Complaint: Encounter for screening for malignant neoplasm of Relevant Family History (Specify if Yes): Yes Relevant Social History: None Present Medications: see Short Stay Collaborative assessment Medical History: Significant History (Melanoma Osteoporosis Breast mass Vitamin D deficiency Normal colonoscopy Hypothyroidism IFG (impaired fasting glucose) Hypertriglyceridemia Basal cell carcinoma) History of Previous Operations: Relevant previous surgery/procedure and date(s) (Hx of kyphoplasty Hx of excision of mass History of right oophorectomy Hx of colonoscopy Hx of wisdom tooth extraction) Allergies: Allergies Allergy/AdvReac Type Severity Reaction Status Date / Time Penicillins [PENICILLINS] AdvReac Mild GI UPSET Verified 09/22/24 09:54 Review of Systems Sugical H&P ROS: Negative: Constitution, Cardiovascular, Respiratory, Neurological, Psychiatric, Hem-Onc, Allergic/Immunologic, Gastrointestinal, Genitourinary, Musculoskeletal, Integumentary, Endocrine and Eyes/Ears/Nose/Throat Exam Surgical H&P Exam: Normal: HEENT, Normal: Heart, Normal: Lungs, Normal: Ex tremities, Normal: Abdomen, Normal: Skin and Normal: Neurological Plan Diagnosis/Plan: Unchanged I have reviewed the history and physical and performed a pertinent physical examination on my patient. No changes have occurred unless specified. Time Spent With Patient Time: Total time managing care of this patient today ____ minutes.
--- NOTE | 2024-09-22 11:51 | P.OPN-COLO_ITS ---
Colonoscopy Operative Note Operative Note Date of Service: 09/22/24 Narrative: Operative Information Procedure Description: Colonoscopy Indication: screening, FH CRC Anesthesia: MAC COLONOSCOPY Instrument: Olympus variable stiffness pediatric scope 190L Colonoscopy Monitoring: Vital signs and clinical assessment, continuous EKG monitoring, Pulse oximetry, Carbon Dioxide monitoring and blood pressure monitoring were done throughout the procedure. Colon withdrawal time was 9 minutes. Procedure: The patient was placed in the left lateral decubitis position and pre-procedure medications were administered. After a digital rectal examination of the ano-rectum, the video colonoscope was inserted into the rectum and advanced through the colon to the cecum/TI. The colonoscope was slowly withdrawn in a retrograde panoramic fashion and the colon mucosa was carefully examined including a retroflexed view of the rectum. Findings and interventions are described below. Procedure Difficulty: moderate, tortuous colon Findings: Terminal Ileum-normal Cecum:normal Ascending Colon: normal Transverse Colon -normal Descending Colon:normal Sigmoid Colon: moderate diverticulosis Rectum: Retroflexion with small internal hemorrhoids seen, grade I Anorectum - normal Intervention: none Colon preparation: [place] Bowel Preparation Scale Right colon; 2 Transverse colon: 3 Left colon; 3 (0 = Unprepared colon segment with mucosa not seen due to solid stool that delia ot be cleared. 1 = Portion of mucosa of the colon segment seen, but other areas of the colon segment not well seen due to staining, residual stool and/or opaque liquid. 2 = Minor amount of residual staining, small fragments of stool and/or opaque liquid, but mucosa of colon segment seen well. 3 = Entire mucosa of colon segment seen well with no residual staining, small fragments of stool or opaque liquid) Impression and Post Procedure Diagnosis: diverticulosis tortuous colon internal hemorrhoids Plan: High fiber diet leaflet Avoid straining at stool, epsom salts and sitz bath, anusol supps or cream Repeat Colonoscopy in 5 years due to FH and if health allows or earlier if clinically indicated Above findings were reviewed with the patient and relevant handouts were provided if indicated.
[2024-09-22 11:55] VITALS: BP 105/54; PULSE 48; RESP 18; TEMP 36.2; O2SAT 100
[2024-09-22 12:36] VITALS: BP 114/60; PULSE 51; RESP 17; TEMP 36.2; O2SAT 100
== END 2024-09-22 13:15 | disposition home or self-care (01) ==
PROVIDERS: PCP Internal Medicine; Visit Provider Internal Medicine Gastroenterology
PROC: 0DJD8ZZ Inspection of Lower Intestinal Tract, Via Natural or Artificial Opening Endoscopic (ICD-10-PCS; CPT 45378; principal; 2024-09-22 12:00)
DX: Z12.11 Encounter for screening for malignant neoplasm of colon (principal); K56.2 Volvulus; K57.30 Diverticulosis of large intestine without perforation or abscess without bleeding; K64.0 First degree hemorrhoids; Z80.0 Family history of malignant neoplasm of digestive organs; E78.5 Hyperlipidemia, unspecified; E03.9 Hypothyroidism, unspecified; E55.9 Vitamin D deficiency, unspecified; C44.310 Basal cell carcinoma of skin of unspecified parts of face
CPT/HCPCS: G0105; J2003; J2704

== ENCOUNTER → 2024-09-22 09:18 | Outpatient (BNV) | payer MEDICARE, OTHER, SELFPAY | PROVIDERS: PCP Internal Medicine; Visit Provider Internal Medicine Gastroenterology | DX: Z12.11 Encounter for screening for malignant neoplasm of colon (principal); Z80.0 Family history of malignant neoplasm of digestive organs; K57.30 Diverticulosis of large intestine without perforation or abscess without bleeding; K64.0 First degree hemorrhoids | CPT/HCPCS: G0105 ==

== ENCOUNTER 2024-09-26 09:31 | Outpatient (AMB) | payer MEDICARE, OTHER, SELFPAY ==
--- NOTE | 2024-09-26 09:42 | A.OFFVIS_ITS ---
Vital Signs 09/26/24 09:48 Height 5 ft 1 in Weight 116 lb 13.52 oz BMI 22.1 BP 115/72 Blood Pressure Location Rt brachial Position Sitting Pulse 6 L Pulse Source Pulse Oximeter Pulse Oximetry (%) 98 Oxygen Delivery Method Room Air Intake Visit Reasons: discuss labs/ booked per MD req Intake Note: Patient presents today to discuss labs. Allergies Penicillins [PENICILLINS] Adverse Reaction (Mild, Verified 09/26/24 09:47) GI UPSET Medication List - Last Reconciled 09/26/24 by Salima Roberts MD alendronate (Fosamax) 70 mg PO QWEEK ascorbic acid (vitamin C) mg PO aspirin 81 mg PO 3XW calcium carbonate 400 mg PO DAILY cholecalciferol (vitamin D3) 25 mcg PO DAILY gabapentin 300 mg PO TID melatonin mg PO BEDTIME multivitamin 1 tab PO DAILY omega 9-lue-dre-fish oil 1,200 (144-216) mg (Fish Oil) 1 cap PO BID vitamin K2 40 mcg PO DAILY HPI Comments Details: Patient is a 74-year-old female with hyperlipidemia, osteoporosis complicated by compression fracture of T8 and T7 status post kyphoplasty, history of malignant melanoma of the skin of the right thigh, hypothyroidism here today for follow up of muscle weakness and elevated CK Interval History: Patient last seen 09/13/2024 with me. At that time she was establishing care for the evaluation of muscle weakness in the setting of elevated CK. Evaluation at that time revealing of a specific etiology and she was sent for further investigations. Here today for follow up Reports that she feels worsening of her muscle weakness and also feels that her lower extremity proximal muscles are starting to be involved Still denies Raynaud's and rashes Rheumatologic History: Initial History: Patient is a 74-year-old female with hyperlipidemia, osteoporosis complicated by compression fracture of T8 and T7 status post kyphoplasty, history of malignant melanoma of the skin of the right thigh, hypothyroidism who presents for evaluation of elevated CPK Summer 2023 notes that she has been noting weakness of her upper extremity. Not just the proximal muscles: combing her hair and putting in earrings is difficult, also notes difficulty holding onto objects and throwing the apparatus on her loom. Also notes that she has lower body weakness. States it feels different than the upper body with feelings of weakness and needing stronger thigh muscles. Started pravastain Jun 2024. Then stopped about 3 weeks later after noting CPK elevation The weakness is in the absence of pain and mainly associated with the right upper limb but patient states she feels like it is moving to the left upper limb Denies RP, SOB/Trouble breathing, rashes, numbnes, tingling, tremors, twitching, muscle pain Current Rheumatology Medication(s): [facility] Medical History Melanoma Osteoporosis Breast mass Vitamin D deficiency Normal colonoscopy Hypothyroidism IFG (impaired fasting glucose) Hypertriglyceridemia Basal cell carcinoma Surgical History Hx of kyphoplasty Hx of excision of mass History of right oophorectomy Hx of colonoscopy Hx of wisdom tooth extraction Family History Father Heart problem Dementia Ruptured appendix Mother Colon cancer Dementia Sister Ruptured appendix Aneurysm Brother Kidney stones Social History Housing: House Are you a primary family day care provider to a significant other at home: No Do you presently have visiting nurse or other home services: No Alcohol intake: current Alcohol intake frequency: a few times a month Patient Tobacco Use Status: Former Tobacco user Tobacco use type: Cigarette e-Cigarette/Vaping Use: Never Used service: No Current occupational status: retired Current occupation: right hand dominant Cognitive needs: No Hearing needs: No Vision needs: Yes Review of Systems Const Details: Review of Systems Constitutional: Denies fever, chills, weight loss ENT: Denies vision changes, eye pain or eye redness, dental caries, dry mouth GI: Denies nausea, vomiting, diarrhea, abdominal pain, change in BM Pulm: Denies SOB, ROA, hemoptysis, wheezing Cards: Denies chest pain, palpitations Skin: Denies Raynaud's, rash, nail changes, photosensitivity, 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 Well appearing and in no apparent painful distress HEENT Conjunctiva and sclera clear. ?Pupils equal round and reactive to light. ?No lymphadenopathy. ? CHEST/RESPIRATORY SYSTEM Normal respiratory effort and able to speak in complete sentences. ?Clear to auscultation bilaterally. ?No crackles, rales, rhonchi, wheezes heard. CARDIAC SYSTEM Regular rate and rhythm. ?S1 and S2 heard no murmurs. 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 No deformities noted. ?No synovitis noted to the MCPs, PIPs or DIPs. ?No tenderness to palpation of these joints. Prominent herbeden's nodes Wrists: ?Full range of motion at the wrists without pain. ?No tenderness to palpation or synovitis noted to the wrists. Elbows: Full range of motion without pain. No tenderness, weakness, swelling, increased warmth or erythema. Shoulders: Full range of motion without pain. No tenderness, weakness, swelling, increased warmth or erythema. Hips: Full range of motion without pain. Hip bursa: No tenderness to palpation Knees: ?Full range of motion. ?No tenderness, swelling, increased warmth or erythema.?No effusion or crepitations Ankles: Full range of motion. ?No tenderness, swelling, increased warmth or erythema.? Feet: ?Negative squeeze test. ?No tenderness to palpation or swelling of the MTPs. 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 Results Reviewed Results Reviewed: Laboratory Tests 08/01/24 08/30/24 09/01/24 09/13/24 11:08 09:19 11:54 14:37 WBC 5.7 RBC 4.32 Hgb 12.3 Hct 38.1 Plt Count 248 ESR 6 Sodium 140 Potassium 4.4 Chloride 107 Carbon Dioxide 29 BUN 14 Creatinine 0.84 AST 41 H ALT 32 H GGT 19 Alkaline Phosphatase 64 Total Creatine Kinase 522 H 510H C-Reactive Protein 0.14 Aldolase 9.4H Immunology labs 09/01/24 09/13/24 11:54 14:37 Rheumatoid Factor < 13.0 AUDREY Screen POSITIVE A AUDREY Titer 1:40 H PRIETO-1 Antibody <11 EJ Antibody <11 OJ Antibody <11 Mi-2-Alpha Ab <11 Mi-2-Beta Ab <11 NXP-2 Ab <11 PL-7 Antibody <11 PL-12 Antibody <11 SRP Ab <11 MDA5 Ab <11 Myos P155/140 TIF1-g Ab <11 VGCC Ab Pending HMGCR IgG Antibody <2 NT5C1A IgG Antibody <5 Anti-MuSK Ab Method Pending Anti-MuSK Tech Res Pending Anti-MuSK Ab Interp Pending Anti-MuSK Ab Comment Pending Anti-MuSK References Pending Acetylchol Rcpt Block Ab <15 Acetylchol Rcpt Bind Ab <0.30 Acetylchol Rcpt Modu Ab 2 MRI C Spine 05/2024 FINDINGS: The imaged posterior fossa is unremarkable. Partially imaged right mastoid effusion. Mild levocurvature at the cervicothoracic junction. Mild retrolisthesis at C4-5. No acute bone marrow abnormality. The vertebral body heights are preserved. Multilevel disc desiccation and disc height loss, worse and moderate to severe at C4-5, C5-6, C6-7, and C7-T1. The visualized spinal cord is normal in caliber. No abnormal cord signal. C2-3: No significant spinal canal or neural foraminal narrowing. C3-4: Right uncovertebral hypertrophy and bilateral facet arthrosis. No significant spinal canal stenosis. Mild right neural foraminal narrowing. C4-5: Disc osteophyte complex, bilateral uncovertebral hypertrophy, and bilateral facet arthrosis. No significant spinal canal or neural foraminal narrowing. C5-6: Disc osteophyte complex, bilateral uncovertebral hypertrophy, and bilateral facet arthrosis. No significant spinal canal or neural foraminal narrowing. C6-7: Disc osteophyte complex and bilateral uncovertebral hypertrophy. No significant spinal canal or neural foraminal narrowing. C7-T1: Disc osteophyte complex and bilateral facet arthrosis. No significant spinal canal stenosis. Mild right neural foraminal narrowing. The paravertebral soft tissues are unremarkable. IMPRESSION: Multilevel cervical spondylosis without significant spinal canal stenosis or cord compression. There is mild right neural foraminal narrowing at C3-C4 and C7-T1. MRI Brain 09/26/24 FINDINGS: There is no restricted diffusion seen to suspect acute or chronic ischemic changes. There is no magnetic susceptibility artifact to suspect acute or chronic hemorrhagic products or calcification. Scattered T2 FLAIR signal foci are seen scattered throughout the deep white matter of both cerebral hemispheres without mass effect or edema. The lateral ventricles are symmetrical in size and configuration without enlargement. Normal flow-void signal seen in major cerebral vasculature. Visualized sella and parasellar soft tissues are normal. No abnormality seen in the posterior fossa. The bone marrow signal and the scalp soft tissues are normal. There is mild mucoperiosteal thickening right mastoid sinus. Rest of paranasal sinuses and left mastoid sinus are well-aerated. IMPRESSION: No acute intracranial process seen. Assessment & Plan Assessment & Plan (1) Elevated CPK: Code(s): R74.8 - Abnormal levels of other serum enzymes Category: Medical Plan: #Elevated CPK Patient is a 74-year-old female who presents for follow up evaluation of muscle weakness in the setting of elevated CPK Differentials for elevated CPK include primary muscle pathology, primary nerve pathology, endocrine dysfunction, neuromuscular blockade such as myasthenia or eaton lambert. Today her exam is progressing to involve both upper extremities and lower extremities. Specifically the proximal muscles which is consistent with autoimmune myopathies. Her MRI of the C-spine did not have any evidence of stenosis or cord compression, her TSH/vitamin-D/PTH are normal and there are no other systemic symptoms that would lead me to be concerned for a primary endocrine pathology such as Ifeanyi's or [place]'s. Neuromuscular blockade could still be a considered, awaiting antibodies. 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 Her CK and aldolase are elevated with elevated AST/ALT in the setting of a normal GGT. I think the next evaluation for her is to do an MRI of her right upper extremity as well as getting up biopsy of her right deltoid which is the weakest muscle. Plan - Follow up MuSK antibodies - MRI right humerus - General surgery referral for muscle biopsy of the right deltoid - Patient has follow up with Dr. Ramesh Easton of [facility] in September we will fax notes to him - RTC 1 month (2) Positive AUDREY (antinuclear antibody): Code(s): R76.8 - Other specified abnormal immunological findings in serum Plan: #Positive AUDREY The presence of antinuclear antibodies (AUDREY) is mainly associated with connective tissue diseases (CTD). ?However, their presence is found in healthy people especially in women and patients >65. ?In healthy individuals, the frequency of AUDREY has been shown to be 31.7% of individuals at 1:40 serum dilution, 13.3% at 1:80, 5.0% at 1:160, and 3.3% at 1:320 (2). Some drugs and xenobiotics are also important for the development of AUDREY (hydralazine, hydrochlorothiazide, minocycline, terbinafine, ciprofloxacin, furosemide, omeprazole). Moreover, the deficiency of vitamin D in the body of patients correlates with occurrence of these antibodies (1). At this time there is low suspicion for a connective tissue disease. ? 1. Karthikeyan-Tacos?rd Her, Irma Mercer, Tracey Lynn. Antinuclear antibodies in healthy people and non-rheumatic diseases - diagnostic and clinical implications. Reumatologia. 2018;56(4):243-248. doi: 10.5114/reum.2018.18027. Epub 2017Feb 19. PMID: 96473170; PMCID: [id number]. 2. Mauricio EM, Suzie TE, Jairon JS, Beka B, Shalonda R, Preeti MJ, David T, Nahomi JA, Victoria JR, Brisa RG, Royce RN, Aye JS, Fawn NF, Enzo RJ, Mari Y, Darcie A, Louis TRAN, Judith BUSCH. Range of antinuclear antibodies in healthy individuals. Arthritis Rheum. 1996;40(9):1601-11. doi: 10.1002/art.3801220781. PMID: 0607123. 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
[2024-09-26 09:48] VITALS: BP 115/72; PULSE 6; O2SAT 98; BMI 22.1
--- OUTSIDE RECORDS SUMMARY | 2024-09-26 10:45 | XMS_ITS | Encounter Summary ---
[place] [address] Care Team Providers Care Lead Architect Name Role Phone None Primary Care Provider Unavailabl e Encounter Details Date Type Department Care Team (Latest Contact Info) Description 09/21/2024 Travel Social History Tobacco Use Types Packs/Day Years Used Date Smoking Tobacco: Never Smokeless Tobacco: Never Alcohol Use Standard Drinks/Week Comments Yes 0 (1 standard drink = 0.6 oz pur e alcohol) Sex and Gender Information Value Date Recorded Sex Assigned at Not on file Gender Identity Not on file Sexual Orientation Not on file documented as of this encounter Plan of Treatment Upcoming Encounters Date Type Department Care Team (Late st Contact Info) Description 09/28/2024 9:00 AM EDT [place] [address] Ramesh Keller MD [facility] [address] NEUROLOGY [place] [address] documented as of this encounter Visit Diagnoses Not on filedocumented in this encounter Care Teams Lead Architect Relationship Specialty Start Date End Date None None PCP - General 09/09/24 documented as of this encounter
--- OUTSIDE RECORDS SUMMARY | 2024-09-26 10:45 | XMS_ITS | Clinical Summary ---
[facility] [place] [address] Care Team Providers Care Plane Runner Name Role Phone None Primary Care Provider Unavailabl e Allergies No [...] Overview (03/21/2012): Provider: ROSY WILEY Pt. Name: CARR MARGAUXZEUS Sarkar Acc #: [id number] Pt. Col Date: 11/27/2009 /Sex: 1950,(59 years),Female Rec Date: 11/27/2009 LOC: [facility] MOLECULAR GENETIC STUDIES ---REPORT OF DNA ANALYSIS--- THIRD WAVE [email or web address] INVADER HPV ASR POSITIVE for high-risk HPV*: [...] Overview (11/27/2011): Placed on HRT in 1982. Encounters Date Type Department Care Team Description 09/21/2024 Travel 09/09/2024 Transcribe Orders [facility] Incoming Referrals [phone] Afsaneh Harry MD Muscle weakness (generalized); Other symptoms and signs involving the musculoskeletal system; Abnormal levels of other serum enzymes 09/09/2024 Transcribe Orders [facility] Incoming Referrals [phone] Kyle Rogers MD from Last 3 Months Immunizations Name Administration Dates Next Due Influenza (Novel [id number]) Injectable 06/07/2009 Influenza Trivalent, Preservative Free 2 [...] 03/09/2013 8:41 AM EDT Plan of Treatment Upcoming Encounters Date Type Department Care Team (Late st Contact Info) Description 09/28/2024 9:00 AM EDT Office [place] [id number] Ramesh Keller MD [facility] [place] [address] Health Maintenance Due Date Last Done Comments CT Colonography 1950 FIT DNA 1950 FIT 1950 Sigmoidoscopy (10 year) with FIT yearly 1950 Sigmoidoscopy 1950 Hepatitis C Screening 1969 Breast Cancer Share Decision Needed 1991 Pneumoccocal Vaccine: 50+ (1 of 1 - PCV) 2001 Zoster vaccine (1 of 2) 2001 PAP Smear 12/10/2013 12/10/2012, 12/2011, 11/25/2010 Breast Cancer screening 03/10/2014 03/10/2012, 03/12 Colonoscopy 02/19/2015 02/19/2010 (See prior EHR) Colorectal Cancer Screening 02/19/2015 Tetanus/Diphtheria/Pertussis Vaccines (2 - Td or Tdap) 12/10/2022 12/10/2012 Covid-19 Vaccine ( - 2023-2 5 season) 2024 Influenza (Flu) vaccine (1 o f 1 - Influenza standard series) 02/21/2024 04/29/2012, 06/07/2009, 04/13/2008 Bone Density Scan 03/02/2027 03/02/2012 HPV test Discontinued 12/10/2012, 12/2011, 11/25/2010 Procedures Procedure Name Priority Date/Time Associated Diagnosis Comments MANAGER SKILLED MOLECULAR GENETICS REPORT Routine 12/10/2012 9:47 AM EDT MANAGER SKILLED CYTOLOGY FINAL REPORT Routine 12/10/2012 9:47 AM EDT MAMMO SCREENING CAD BILATERAL Routine 03/10/2012 1:50 PM EDT DXA CENTRAL SPINE, HIP, AND/OR WHOLE BODY (GENERIC) Routine 03/02/2012 3:23 PM EDT Disorder of bone and cartilage, unspecified from Last 3 Months or Most Recently Relevant to Health Maintenance Results * MANAGER SKILLED Molecular Genetics Report (12/10/2012 9:47 AM EDT) MANAGER SKILLED Molecular Genetics Report ? [facility] ? Provider: ?? ROSY WILEY ??Pt. Name: ?? VEE CARR ?P ? Acc #: ?[id number] ?Pt. ? Col Date: ?? 12/10/2012 ? [...] Cytology Liquid Based Prep ? Reviewed by: ??Pérez Hein, [facility] ? A ?ECL Endocervical /LBP ? B ?HPVDO Do HPV Testing ? Verified date: ??12/16/12 ??ABH ? Verified by: ?Lab Review, Molecular Genetics ? (Electronic Signature) HARJIT NARANJO 12/10/2012 9:47 AM EDT Rosy Wiley MD PATHOLOGY/CYTOLOG Y ORDERABLES [facility] * [facility] Final Report (12/10/2012 9:47 AM EDT) [facility] Final Report ? [facility] ? Provider: ?? ROSY WILEY ??Pt. Name: ?? VEE CARR ?P ? Acc #: ?[id number] ?Pt. ? Col Date: ?? 12/10/2012 ? /Sex: ?1950,(62 years),Female ? Rec Date: ?? 12/10/2012 ? LOC: ?[facility] ? CYTOPATHOLOGY: ??MANAGER SKILLED ? ---Adequacy--- ? Specimen submitted is satisfactory [...] ??LMY ??SLA ? 12/16/12 ?? Verified by: ??Ella CT(ASCP), Meme Haney - ? Recruit Instructor ? ---Comment--- ? Endocervical component not detected in an atrophic smear pattern. ? Please also see concurrent HPV test result. ? ---Clinical Information--- ? HPV Option: ? Concurrent HPV ? Preparation: ?Liquid Based Pap ? Specimen Source: ?Endocervical/LBP ? LMP: ?n/a ? Hormones?: ?No ? Hysterectomy?: ?No ?: ?No ?: ?No ? I.U.D.?: ?No ? Pelvic Radiation: ? No ? Prior MANAGER SKILLED Therapy?: ? No ? Hist Abnl Pap/Biopsy?: ??No ? Hist of HPV Vaccine?: ?? No ? Hist of Smoking?: ? No ? Hist of DWAYNE exposure?: ??Yes ? Clinical Data, Significant Therapy and Clinical Impression: ? [facility] ? Provider: ?? ROSY WILEY ??Pt. Name: ?? VEE CARR ?P ? Acc #: ?[id number] ?Pt. ? Col Date: ?? 12/10/2012 ? /Sex: ?1950,(62 years),Female ? Rec Date: ?? 12/10/2012 ? LOC: ?[facility] ? This Pap Test has been evaluated with the assistance of the ThinPrep Pap ? Test Imaging System. ? CYTOPATHOLOGY: ??MANAGER SKILLED ? Note: ? The Pap test is a screening test for cervical cancer with an inherent ? false-negative rate dependent upon several variables. ??For further ? information please contact the [facility] Laboratory. ? Reference: ??Darius CS. ??Assistant Child Care Teacher of Pap Smear Results. ??In: ? Jimy BS, Kenji HH, ed. ??The Pap Smear. ??[place]: ??Pérez, 2002: ? 71-77. HARJIT NARANJO 12/10/2012 9:47 AM EDT Rosy Wiley MD PATHOLOGY/CYTOLOG Y ORDERABLES HARJIT NARANJO * MAMMO DIGITAL BILATERAL SCREENING WITH CAD [...] history: assess bone density in postmenopausal female;F/U 9/10;ESTROGEN DEFICIENT, POSTMENOPAUSAL Technique Scans were [...] BMD measurements and plots are available in [employer] under the imaging tab . Paper copies will be sent to providers without [employer] access. If you have received this report without the data sheet and do not have access to [employer], please contact Radiology Mortar Worker at [phone] Thursday thru Thursday 8am-4pm. Procedure Note Magali Blair MD - 03/03/2012 Examination DXA CENTRAL-SPINE,HIP, AND/OR WHOLE BODY Clinical History Reason for exam and clinical history: assess bone density inpostmenopausal female;F/U 03/01;ESTROGEN DEFICIENT, POSTMENOPAUSAL Technique Scans were [...] data sheet and do not haveaccess to E-DH, please contact Radiology Mortar Worker at [phone] Thursdaythru Thursday 8am-4pm. Rosy Wiley MD [employer] DEXA ORDERABL ES from Last 3 Months or Most Recently Relevant to Health Maintenance Advance Directives Documents on File Type Date Recorded Patient Animal Caretaker Supervisor Expl anation Advance Directives and Jaspreet landers Will 07/22/2011 10:37 AM Care Teams Plane Runner Relationship Specialty Start Date End Date None None PCP - General 09/09/24
== END 2024-09-26 10:46 | disposition home or self-care (01) ==
LOC: HO.RHE 09:31
PROVIDERS: PCP Internal Medicine; Visit Provider Student in an Organized Health Care Education/Training Program
DX: R74.8 Abnormal levels of other serum enzymes (principal); R76.8 Other specified abnormal immunological findings in serum
CPT/HCPCS: 99214; G2211

== ENCOUNTER → 2024-09-26 09:31 | Outpatient (BNVA) | payer MEDICARE, OTHER, SELFPAY | PROVIDERS: PCP Internal Medicine; Visit Provider Student in an Organized Health Care Education/Training Program | DX: Z13.89 Encounter for screening for other disorder (principal) | CPT/HCPCS: 99212 ==

== ENCOUNTER 2024-09-26 19:18 | Outpatient (REF) | payer MEDICARE, OTHER, SELFPAY ==
--- NOTE | ~2024-09-26 | MR_ITS ---
EXAMINATION: MR HUMERUS WITHOUT IV CONTRAST RIGHT HISTORY: R74.8 - Abnormal levels of other serum enzymes. TECHNIQUE: Coronal T1 and STIR, axial T1 and STIR, and sagittal STIR images of the right humerus were obtained. COMPARISON: There are no prior studies for comparison. FINDINGS: Bone marrow signal intensity is normal. The visualized muscles demonstrate normal signal intensity. There is no abnormal fluid collection. MR/MR humerus RT wo con IMPRESSION: Unremarkable MRI of the right humerus. Electronically signed by: Storm Garcia MD 09/27/2024 08:38 AM EDT
--- OUTSIDE RECORDS SUMMARY | 2024-09-26 19:21 | XMS_ITS | Clinical Summary ---
[facility] [place] [address] Care Team Providers Care Director Of User Experience Name Role Phone None Primary Care Provider [...] Pt. Name: CARR MARGAUXZEUS Sarkar Acc #: [id number] Pt. Col Date: 11/27/2009 /Sex: 1950,(59 years),Female Rec Date: 11/27/2009 LOC: [facility] MOLECULAR GENETIC STUDIES ---REPORT OF DNA ANALYSIS--- THIRD WAVE [employer] INVADER HPV ASR POSITIVE for high-risk HPV*: [...] Team Description 09/21/2024 Travel 09/09/2024 Transcribe Orders [facility] Incoming Referrals [phone] Afsaneh Harry MD Muscle weakness (generalized); Other symptoms and signs involving the musculoskeletal system; Abnormal levels of other serum enzymes 09/09/2024 Transcribe Orders [facility] Incoming Referrals [phone] Kyle Rogers MD from Last 3 Months Immunizations Name Administration Dates Next Due Influenza (Novel [id number]) Injectable 06/07/2009 Influenza Trivalent, Preservative Free 2 [...] 9:00 AM EDT [place] [id number] Ramesh Keller MD [facility] [place] [address] Health Maintenance Due Date Last Done Comments [...] Procedure Name Priority Date/Time Associated Diagnosis Comments [employer] MOLECULAR GENETICS REPORT Routine 12/10/2012 9:47 AM EDT [employer] CYTOLOGY FINAL REPORT Routine 12/10/2012 9:47 AM EDT MAMMO SCREENING CAD BILATERAL Routine 03/10/2012 1:50 PM EDT DXA CENTRAL SPINE, HIP, AND/OR WHOLE BODY (GENERIC) Routine 03/02/2012 3:23 PM EDT Disorder of bone and cartilage, unspecified from Last 3 Months or Most Recently Relevant to Health Maintenance Results * KIL[employer] CLE[employer]ER Molecular Genetics Report (12/10/2012 9:47 AM EDT) K[employer] Molecular Genetics Report ? [facility] ? Provider: ?? ROSY WILEY ??Pt. Name: ?? VEE CARR ?P ? Acc #: ?[id number] ?Pt. ? Col Date: ?? 12/10/2012 ? [...] Based Prep ? Reviewed by: ??Pérez Hein, [facility] ? A ?ECL Endocervical /LBP ? B ?HPVDO Do HPV Testing ? Verified date: ??12/16/12 ??ABH ? Verified by: ?Lab Review, Molecular Genetics ? (Electronic Signature) HARJIT NARANJO 12/10/2012 9:47 AM EDT Rosy Wiley MD PATHOLOGY/CYTOLOG Y ORDERABLES [facility] * Wildlife Ecology Professor Cytology Final Report (12/10/2012 9:47 AM EDT) Wildlife Ecology Professor Cytology Final Report ? [facility] ? Provider: ?? ROSY WILEY ??Pt. Name: ?? VEE CARR ?P ? Acc #: ?[id number] ?Pt. ? Col Date: ?? 12/10/2012 ? /Sex: ?1950,(62 years),Female ? Rec Date: ?? 12/10/2012 ? LOC: ?[facility] ? CYTOPATHOLOGY: ??KIL[employer] CLEANER ? ---Adequacy--- ? Specimen submitted is satisfactory [...] by: ??Ella CT(ASCP), Meme Haney - ? Concrete Form Setter And Finisher ? ---Comment--- ? Endocervical component not detected in an atrophic smear pattern. ? Please also see concurrent HPV test result. ? ---Clinical Information--- ? HPV Option: ? Concurrent HPV ? Preparation: ?Liquid Based Pap ? Specimen Source: ?Endocervical/LBP ? LMP: ?n/a ? Hormones?: ?No ? Hysterectomy?: ?No ?: ?No ?: ?No ? I.U.D.?: ?No ? Pelvic Radiation: ? No ? Prior KILN CLEANER Therapy?: ? No ? Hist Abnl Pap/Biopsy?: ??No ? Hist of HPV Vaccine?: ?? No ? Hist of Smoking?: ? No ? Hist of DWAYNE exposure?: ??Yes ? Clinical Data, Significant Therapy and Clinical Impression: ? [facility] ? Provider: ?? ROSY WILEY ??Pt. Name: ?? VEE CARR ?P ? Acc #: ?[id number] ?Pt. ? Col Date: ?? 12/10/2012 ? /Sex: ?1950,(62 years),Female ? Rec Date: ?? 12/10/2012 ? LOC: ?[facility] ? This Pap Test has been evaluated with the assistance of the ThinPrep Pap ? Test Imaging System. ? CYTOPATHOLOGY: ??KILN CLEANER ? Note: ? The Pap test is a screening test for cervical cancer with an inherent ? false-negative rate dependent upon several variables. ??For further ? information please contact the [facility]. ? Reference: ??Darius CS. ??Lithographic Printing Machinist of Pap Smear Results. ??In: ? Jimy [...] BMD measurements and plots are available in Matchbox under the imaging tab . Paper copies will be sent to providers without Matchbox access. If you have received this report without the data sheet and do not have access to Matchbox, please contact Radiology Reporting Consultant at [phone] Thursday thru Thursday 8am-4pm. Procedure Note Magali [...] not haveaccess to E-DH, please contact Radiology Reporting Consultant at [phone] Thursdaythru Thursday 8am-4pm. Rosy Wiley MD [employer] DEXA ORDERABL ES from Last 3 Months or Most Recently Relevant to Health Maintenance Advance Directives Documents on File Type Date Recorded Patient Polygraph Examiner Expl anation Advance Directives and Jaspreet landers Will 07/22/2011 10:37 AM Care Teams Director Of User Experience Relationship Specialty Start Date End Date None None PCP - General 09/09/24
--- OUTSIDE RECORDS SUMMARY | 2024-09-26 19:21 | XMS_ITS | Encounter Summary ---
[place] [address] Care Team Providers Care Housing Relocation Name Role Phone None Primary Care Provider [...] 9:00 AM EDT [place] [address] Ramesh Keller MD [facility] [place] [address] documented as of this encounter Visit Diagnoses Not on filedocumented in this encounter Care Teams Housing Relocation Relationship Specialty Start Date End Date None None PCP - General 09/09/24 documented as of this encounter
== END 2024-09-26 19:19 | disposition home or self-care (01) ==
LOC: HO.MRI 19:18
PROVIDERS: PCP Internal Medicine; Visit Provider Student in an Organized Health Care Education/Training Program
DX: R74.8 Abnormal levels of other serum enzymes (principal); M33.20 Polymyositis, organ involvement unspecified
CPT/HCPCS: 73218; 99212

== ENCOUNTER → 2024-09-26 19:28 | Outpatient (BNV) | payer MEDICARE, OTHER, SELFPAY | PROVIDERS: PCP Internal Medicine; Visit Provider Radiology Diagnostic Radiology | DX: M67.811 Other specified disorders of synovium, right shoulder (principal) | CPT/HCPCS: 73218 ==

== ENCOUNTER 2024-09-27 11:26 | Outpatient (AMB) | payer MEDICARE, OTHER, SELFPAY ==
--- NOTE | 2024-09-27 11:30 | A.OFFVIS_ITS ---
Vital Signs 09/27/24 11:31 Height 5 ft 1 in Weight 116 lb BMI 21.9 Intake Visit Reasons: req muscle biopsy Intake Note: Patient referred by Dr. Salima Roberts for Rt deltoid muscle bx. Hx of elevated CPK. Refer to lab report dated 09-13-2024. Allergies Penicillins [PENICILLINS] Adverse Reaction (Mild, Verified 09/27/24 11:31) GI UPSET HPI Comments Details: Patient was a very pleasant 74-year-old female who presents here for right deltoid muscle biopsy. Patient was a plethora of issues and complaints and is currently being followed by Rheumatology because of right upper extremity weakness. She has had extensive workup for this and per rheumatology request, deltoid muscle in the right side muscle biopsy with special studies stains is requested. Chart was reviewed and patient evaluated. 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 [facility] Medical History Melanoma Osteoporosis Breast mass Vitamin D deficiency Normal colonoscopy Hypothyroidism IFG (impaired fasting glucose) Hypertriglyceridemia Basal cell carcinoma Surgical History Hx of kyphoplasty Hx of excision of mass History of right oophorectomy Hx of colonoscopy Hx of wisdom tooth extraction Family History Father Heart problem Dementia Ruptured appendix Mother Colon cancer Dementia Sister Ruptured appendix Aneurysm Brother Kidney stones Social History Housing: House Are you a primary college and career counselor to a significant other at home: No Do you presently have visiting nurse or other home services: No Alcohol intake: current Alcohol intake frequency: a few times a month Patient Tobacco Use Status: Former Tobacco user Tobacco use type: Cigarette e-Cigarette/Vaping Use: Never Used service: No Current occupational status: retired Current occupation: right hand dominant Cognitive needs: No Hearing needs: No Vision needs: Yes Physical Exam Vital Signs: BMI result Body Mass Index 21.9 Const Other: Thin female in no acute distress Chest Other: Chest breath sounds bilaterally, HS 1 in 2 Extrem Other: Strenuous all 4 grossly neurovascularly intact. Patient has by her account significant right deltoid muscle weakness/wasting. 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 All questions answered. Arrangements were made for this on a day which is convenient for her. Coding Level of Care Code New Pt Level 5 (63394) Diagnoses Polymyositis M33.20
[2024-09-27 11:31] VITALS: BMI 21.9
== END 2024-09-27 12:17 | disposition home or self-care (01) ==
PROVIDERS: PCP Internal Medicine; Visit Provider Surgery
DX: M60.811 Other myositis, right shoulder (principal)
CPT/HCPCS: 99204

== ENCOUNTER → 2024-09-27 11:26 | Outpatient (BNVA) | payer MEDICARE, OTHER, SELFPAY | PROVIDERS: PCP Internal Medicine; Visit Provider Surgery | DX: M33.20 Polymyositis, organ involvement unspecified (principal) | CPT/HCPCS: 99202 ==

== ENCOUNTER 2024-09-30 14:00 | Outpatient (RCR) | payer MEDICARE, OTHER, SELFPAY ==
--- NOTE | 2024-09-02 14:51 | MHC.PT.EP ---
[facility] [place] [facility] [place] [facility] [place] [facility] [address] Janeen Hsieh [address] [phone] F: [phone] F: [phone] F: [phone] F: [phone] Physical Therapy Plan of Care Date of Evaluation: 09/02/24 Date of Surgery: Diagnosis: This is a 74 yo female presenting to skilled PT with a script for weakness in B UE's. Assessment: This is a 74 yo female presenting to skilled PT with a script for weakness in B UE's. This patient was just DC'd from therapy for this same thing about 2 months ago. PT eval from 04/13: Patient returns reporting that she started taking gabapentin due to ongoing low back pain (below the the thoracic kyphoplasty). This has helped her. She had PT all summer for her UB strength and when she came back in February she did not continue any of her HEP and reports that she is still weak. She is here reporting today that she wants to work on her UB strengthening still with PT (not thoracolumbar). Weekly, she does do assisted cycling, walking, swimming. She reports that her dominant side is weaker. She reports that she has a hard time with pinching with the R hand. lifting overhead or holding utensils for eating/drinking (reports a tremor with movement). She reports weakness in the R shoulder on down the arm. Denies tingling and numbness. As she would like to work more on her R arm vs her surgical site moving forward, I educated her on the need for a new script. After this eval we did switch to her arms and worked on her extremity weakness for 10 visits. DC note from 07/15/24 notes: 10 visits of PT. Her strength and ROM are grossly unchanged however patient does endorse limited HEP carryover at times. She would benefit from follow up and further testing via MD. She is however I in her HEP and was educated to continue on her own at this time. Chart will be closed after 30 days. Since I saw her last the patient has had a cervical MRI, Brain MRI and shoulder x-ray all which were grossly normal. She has also seen physiatry, ortho, pain management and neurology. Ortho sent her to PT once again because the patient reports she requested it due to her lack of compliance on her own with HEP. Dr. Randhawa's last note states: EMG showed some signs of denervation on select muscles, unfortunately patient unable to tolerate further EMG testing. CK elevated. MRI cervical spine does not show cord compression. MRI brain results nonspecific T2 signal change, without signs of infarction or bleed. Can not rule out myopathic disorder or autoimmune disorder. We will send patient for more blood work including AUDREY, RF, ESR, CRP and uric acid. We will try to get patient in to see rheumatology BART. Wonder if muscle biopsy can be useful for diagnosis. Patient will think about repeat EMG but gets very anxious about it. I do not completely rule out a right shoulder joint/RTC issue. I would consider doing a shoulder injection just to rule out, if it helps then it gives us the diagnosis. Patient is here today reporting ongoing UB weakness that is getting worse. She reports physiatry will be her MD moving forward (follows up in October). She reports having no pain but does report weakness with lifting her arms. Reports only occasionally doing her HEP from 2 months ago, limited carryover still. Assessment reveals pain that ranges from up to a 0/10 at the worst. Patient demos decreased shoulder ROM, strength of B shoulders R more than L, UE's and core/back, decreased association executive strength B and impaired posture with forward head and rounded shoulders well as increased thoracic kyphosis. Based on functional limitations, impaired QOL and pain tolerance patient is only a fair candidate for skilled PT 2x/wk for 5wks as she has already come for this specific diagnosis multiple times in the past year without improvements. Frequency and Duration: The patient will be seen 2x/wk for 5 wks Short Term Goals: Pt will demonstrate improved postural awareness and understanding of core engagement with supine and standing tasks without cues throughout session to improve overall back safety in 2 weeks. Pt will demo 1 MMT improvement in BUE Pt will continue to reinforce precautions, sitting, standing and ADL modifications with proper body mechanics in 2 wks. Seat Maker Goals: Pt will demonstrate improved outcome measure by 5 points in 4 weeks for improved functional mobility. Pt will demonstrate ability to bend and lift WNL min to no pain for household tasks in 4 wks. Pt will report 75% improvement in confidence with household tasks. Pt will be I in HEP and compliant in 4wks Pt will report 50% improvement for tolerance of hobbies and activities Treatment Plan: Modalities to reduce pain, spasms and effusion. Manual therapy to restore motion and function. Therapeutic exercise to improve strength and flexibility. Neuromuscular re-education for posture and balance. Therapeutic activities to return to functional activities of daily living. Electronically signed by: Bella Núñez, PT Please sign and return to therapist. Thank you for your referral.
--- NOTE | 2024-10-31 12:54 | MHC.PT.DC ---
[facility] [place] Office [place] Office [place] Office [address] Janeen Hsieh [address] [phone] F: [phone] F: [phone] F: [phone] F: [phone] Physical Therapy Discharge Report Diagnosis: This is a 74 yo female presenting to skilled PT with a script for weakness in B UE's. Date of Surgery: Date of Evaluation: 09/02/24 Date of Discharge: 10/31/24 Treatments to Date: 5 Cancellations to Date: 0 No Shows to Date: 0 Discharge Status: Recommend MD Follow-up Discharge Summary: 09/30: Patient has come for 5 sessions of PT and was newly diagnosed with ALS. At this time I educated her of this PT's capabilities and limitations. I highly recommended she follow MD POC and in terms of PT seek someone specialized in nuero. At this time I encouraged her to ask the specialist about exercises and to hold on our current HEP. Encouraged patient to call me with and questions or concerns I can answer. DC to POC. Electronically signed by: Bella Núñez, PT Please sign and return to therapist. Thank you for your referral.
== END 2024-10-31 12:54 | disposition home or self-care (01) ==
LOC: HO.PTCHIC 14:00
PROVIDERS: PCP Internal Medicine; Visit Provider Physician Assistant
DX: M62.81 Muscle weakness (generalized) (principal); R29.898 Other symptoms and signs involving the musculoskeletal system
CPT/HCPCS: 97110; 97162

== ENCOUNTER 2024-10-03 12:20 | Outpatient (AMB) | payer MEDICARE, OTHER, SELFPAY ==
[2024-10-03 12:45] VITALS: BP 120/70; PULSE 69; RESP 17; TEMP 36.6; O2SAT 98; BMI 21.5
--- NOTE | 2024-10-03 12:45 | MHC.PC.OV ---
Vital Signs 10/03/24 12:45 Height 5 ft 1 in Weight 114 lb BMI 21.5 BP 120/70 Blood Pressure Location Lt brachial Position Sitting Respiration 17 Pulse 69 Pulse Source Pulse Oximeter Temp 98 F Temp Source Oral Pulse Oximetry (%) 98 Oxygen Delivery Method Room Air Intake Visit Reasons: Follow up Intake Note: Pt is here today for a follow up visit. Allergies Penicillins [PENICILLINS] Adverse Reaction (Mild, Verified 10/03/24 12:54) GI UPSET Medication List - Last Reconciled 10/03/24 by Jia Bolden MD alendronate (Fosamax) 70 mg PO QWEEK ascorbic acid (vitamin C) mg PO aspirin 81 mg PO 3XW calcium carbonate 400 mg PO DAILY cholecalciferol (vitamin D3) 25 mcg PO DAILY gabapentin 300 mg PO TID melatonin mg PO BEDTIME multivitamin 1 tab PO DAILY omega 7-xoq-evw-fish oil 1,200 (144-216) mg (Fish Oil) 1 cap PO BID vitamin K2 40 mcg PO DAILY Tobacco use date assessed: 10/03/24 Fall risk assessment: 2 + Falls in past year Last assessed Fall Risk: 10/03/24 Dental Screening Dental Screen Date: 10/03/24 Did you have a dental visit in the last 12 months?: Yes Did you have a dental problem in the last 6 months where you did not have access to dental care?: No Was dental information given to patient?: Patient has dentist HPI Follow up HPI Details Pt presents for f/u. She was evaluated by neurology at [facility] and diagnosed with ALS. She reports feeling weak when walking up and down the stairs but otherwise has not noticed any worsening of her treadmill more fatigue. Patient denies any difficulty swallowing or speaking [facility] Medical History Melanoma Osteoporosis Breast mass Vitamin D deficiency Normal colonoscopy Hypothyroidism IFG (impaired fasting glucose) Hypertriglyceridemia Basal cell carcinoma Surgical History Hx of kyphoplasty Hx of excision of mass History of right oophorectomy Hx of colonoscopy Hx of wisdom tooth extraction Family History Father Heart problem Dementia Ruptured appendix Mother Colon cancer Dementia Sister Ruptured appendix Aneurysm Brother Kidney stones Social History Housing: House Are you a primary healthcare management consultant to a significant other at home: No Do you presently have visiting nurse or other home services: No Alcohol intake: current Alcohol intake frequency: a few times a month Patient Tobacco Use Status: Former Tobacco user Tobacco use type: Cigarette e-Cigarette/Vaping Use: Never Used service: No Current occupational status: retired Current occupation: right hand dominant Cognitive needs: No Hearing needs: No Vision needs: Yes Questionnaire PHQ-9 Over the last 2 weeks, how often have you been bothered by any of the following problems? 84390 - PHQ-9 Billing: Patient declined-do not bill Source: Developed by Drs. Storm Tavares, Alexandria Hays, Ady Nix and colleagues, with an educational mario alberto from [employer]. Thrive Questionnaire Date Thrive assessed: 10/03/24 I am a: Patient What is your living situation today?: I have a steady place to live Within the past 12 months, did the food you bought not last and you didn't have the money to get more?: Never true Within the past 12 months, did you worry whether your food would run out before you got money to buy more?: Never true Do you have trouble paying for medicines?: No Do you have trouble getting transportation to medical appointments?: No Do you have trouble paying your heating and electricity bill?: No Do you have trouble with day-to-day activities such as bathing, preparing meals, shopping, managing finances, etc.?: No Are you currently unemployed and looking for a job?: No Are you interested in more education?: No Please select the resources that you would like help with: None Currently or been in a relationship where the following occur: No concerns reported THRIVE Score: 0 AUDIT C Alcohol Use Questionnaire (AUDIT-C) 1. How often do you have a drink containing alcohol?: Monthly or less 2. How many drinks containing alcohol do you have on a typical day when you are drinking?: 1 or 2 3. How often do you have six or more drinks on one occasion?: Never Total Score: 1 Score Reviewed/Action Taken: Yes MELLO-7 AMB Questionnaire MELLO-7 Date MELLO - 7 assessed: 10/03/24 Feeling nervous, anxious, or on edge: 1 = Several days Not being able to stop or control worryin = Several days Worrying too much about different things: 1 = Several days Trouble relaxin = Several days Being so restless that it is hard to sit still: 0 = Not at all Becoming easily annoyed or irritable: 0 = Not at all Feeling afraid as if something awful might happen: 1 = Several days Total MELLO-7 score (0-4 normal; 5-9 mild; 10-14 moderate; 15-21 severe): 5 Source: Developed by Drs. Storm Tavares, Alexandria Hays, Ady Nix and colleagues, with an educational mario alberto from [employer]. MELLO-7 Assessment Billing MELLO-7 Assessment Tool: MELLO-7 Assessment 68741 Review of Systems Const All systems reviewed & are unremarkable except as noted in HPI and below Eyes Reports no additional complaints ENT Reports no additional complaints Card Reports no additional complaints Resp Reports no additional complaints GI Reports no additional complaints Reports no additional complaints Musc Reports no additional complaints Physical exam (Primary Care) Vital Signs: Last Vital Signs Temp 98 F 10/03/24 12:45 Pulse 69 10/03/24 12:45 Resp 17 10/03/24 12:45 BP 120/70 10/03/24 12:45 Pulse Ox 98 10/03/24 12:45 Oxygen Delivery Method Room Air 10/03/24 12:45 BMI result Body Mass Index 21.5 Tobacco/Smoking Status: Tobacco use Status Tobacco use date assessed 10/03/24 10/03/24 12:48 Patient Tobacco Use Status Former Tobacco user 10/03/24 12:48 Tobacco use type Cigarette 10/03/24 12:48 e-Cigarette/Vaping Use Never Used 10/03/24 12:48 Thrive Assessment: Date of Thrive Assessment Date Thrive assessed 10/03/24 10/03/24 12:48 Currently or been in a relationship where the following occur: No concerns reported Const General: no acute distress HENMT Head: Yes normal to inspection Face and sinus: Yes normal facial exam Eyes General: appearance normal, both eyes and all related structures Neck Neck: Yes supple Resp Effort & Inspection: normal respiratory effort Auscultation: clear to auscultation bilaterally Cardio Rhythm: regular rhythm Heart sounds: S1 normal heart sound present and S2 normal heart sound present Coding Level of Care Code Est Pt Level 3 (54725) Diagnoses Hyperlipidemia E78.5 ALS (amyotrophic lateral sclerosis) G12.21 Additional Codes MELLO-7 Assessment Billing - MELLO-7 Assessment Tool: MELLO-7 Assessment 34949 ([id number]) Assessment & Plan Assessment & Plan (1) Hyperlipidemia: Comment: On low-cholesterol diet Code(s): E78.5 - Hyperlipidemia, unspecified Category: Medical Plan: Continue low-cholesterol diet off statin (2) ALS (amyotrophic lateral sclerosis): Comment: Established with Neurology at [facility] Code(s): G12.21 - Amyotrophic lateral sclerosis Category: Medical Plan: established with ALS neurology at [facility], patient is going to [place] for the summer and will follow-up in the fall
--- OUTSIDE RECORDS SUMMARY | 2024-10-03 14:15 | XMS_ITS | Continuity of Care Document ---
Author Organization [facility] Address [address] [place], [place] [address]alexandria alvarado, [address] [place] [address]- Care Team Providers Care Sas Programmer Remote Name Role Phone Jia Bolden MD Primary Care Physician Encounter [facility] Date(s): 08/30/24 - 09/29/24 [facility] [address] [place] [address] Drive [address] [place] [address]- Encounter Type: Triage Allergies, Adverse Reactions, Alerts Substance Criticality Severity Reaction Reaction Severity Status penicillins Active Medications alendronate 70 mg oral tablet 0 Refills, Maintenance, 09/05/24 1:20:00 PM EDT, Partial fill upon patient request if the prescription is for a schedule II opioid drug. Start Date: 09/05/24 Status: Ordered Repeat number: 1 aspirin 81 mg oral capsule 1 capsule = 81 mg, By Mouth, Every 24 hours, 0 Refills, Maintenance, 09/05/24 1:30:00 PM EDT, Partial fill upon patient request if the prescription is for a schedule II opioid drug. Start Date: 09/05/24 Status: Ordered Repeat number: 1 calcium (as carbonate) 500 mg oral tablet, chewable 1 tablet = 500 mg, Daily, 0 Refills, Maintenance, 09/05/24 1:30:00 PM EDT, Partial fill upon patientrequest if the prescription is for a schedule II opioid drug. Start Date: 09/05/24 Status: Ordered Repeat number: 1 Fish Oil By Mouth, 0 Refills, Maintenance, 09/05/24 1:31:00 PM EDT, Partial fill upon patient request if the prescription is for a schedule II opioid drug. Start Date: 09/05/24 Status: Ordered Repeat number: 1 gabapentin 100 mg oral capsule Refills 0, Maintenance, 09/05/24 1:20:00 PM EDT, Partial fill upon patient request if the prescription is for a schedule II opioid drug. Start Date: 09/05/24 Status: Ordered Repeat number: 1 GaviLyte-G With Lemon Flavor Pack oral powder for reconstitution 0 Refills, Maintenance, 09/05/24 1:20:00 PM EDT, Partial fill upon patient request if the prescription is for a schedule II opioid drug. Start Date: 09/05/24 Status: Ordered Repeat number: 1 Multivitamin 0 Refills, Maintenance, 09/05/24 1:32:00 PM EDT, Partial fill upon patient request if the prescription is for a schedule II opioid drug. Start Date: 09/05/24 Status: Ordered Repeat number: 1 pravastatin 20 mg oral tablet Refills 0, Maintenance, 09/05/24 1:20:00 PM EDT, Partial fill upon patient request if the prescription is for a schedule II opioid drug. Start Date: 09/05/24 Status: Ordered Repeat number: 1 Vitamin C By Mouth, Daily, 0 Refills, Maintenance, 09/05/24 1:31:00 PM EDT, Partial fill upon patient request if the prescription is for a schedule II opioid drug. Start Date: 09/05/24 Status: Ordered Repeat number: 1 Vitamin D3 1000 intl units oral tablet 1 tablet = 25 mcg, By Mouth, Daily, 0 Refills, Maintenance, 09/05/24 1:31:00 PM EDT, Partial fill upon patient request if the prescription is for a schedule II opioid drug. Start Date: 09/05/24 Status: Ordered Repeat number: 1 Vitamin K2 = 100 mcg, By Mouth, Daily, 0 Refills, Maintenance, 09/05/24 1:31:00 PM EDT, Partial fill upon patient request if the prescription is for a schedule II opioid drug. Start Date: 09/05/24 Status: Ordered Repeat number: 1 Social History Social History Type Response Smoking Status Never (less than 100 in lifetime) entered on: 09/05/24 Sex Sex Representation Female (finding) Patient Care team information Care Team Personnel Name: Jia Bolden MD Position: [facility] Physician - Primary Care Member Role: PCP Address: [address] [place] [address] Telecom: Care Team Related Persons Name: ANNA SANTA Insurance Providers Guarantor name: NA Health Plan Information #: 1 Payer: MEDICARE PART B OUTPT Member Number: MITCHEL Policy Number: MITCHEL Group Number: [id number] Health Plan Information #: 2 Payer: [facility] Member Number: MITCHEL Policy Number: MITCHEL Group Number: [id number]
--- OUTSIDE RECORDS SUMMARY | 2024-10-03 14:16 | XMS_ITS | Clinical Summary ---
Author Organization [facility] [place] [address] Care Team Providers Care Garnett Mechanic Name Role Phone None Primary Care Provider Unavailabl e Allergies Active Allergy Reactions Criticality Noted Date Comments Penicillins Other (See Comments) 05/16/2024 GI Upset Medications Medication Sig Dispensed Refills Start Date End Date Status CIS Free Text Med - Calcium + D 02/20/2010 Active multivitamin (THERAGRAN) tablet 02/20/2010 Active aspirin 81 mg EC tablet Take 81 mg by mouth three times a week. Active vitamin K2 40 mcg Tablet Take 100 mcg by mouth daily. 09/05/2024 Active melatonin 5 mg tablet Take 1 tablet by mouth nightly. Active gabapentin (Neurontin) 100 mg capsule Take 100 mg by mouth 3 times daily. 03/07/2024 Active alendronate (Fosamax) 70 mg tablet Take 70 mg by mouth. Active omega-3 acid ethyl esters (Lovaza) 1 gram capsule Take 2 g by mouth 2 times daily. Active Active Problems Problem Noted Date Diagnosed Date ALS (amyotrophic lateral sclerosis) 09/28/2024 Seborrheic keratosis 02/10/2013 Healthcare maintenance 11/27/2011 Overview (11/27/2011): Mammogram 03/12/11 normal Dexa scan 03/07/10 T -1.8 osteopenia Pap 11/25/10 neg HPV, normal Pap Colonoscopy 11/27/09 normal due in 5 yrs Immunization History Administered Date(s) Administered ? ? H1n1 06/07/2009 ? ? 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 Name: VEE SANTA Acc #: [id number] Pt. Col Date: 11/27/2009 /Sex: 1950,(59 years),Female Rec Date: 11/27/2009 LOC: [facility] MOLECULAR GENETIC STUDIES ---REPORT OF DNA ANALYSIS--- [employer] HPV ASR POSITIVE for high-risk HPV*: [...] Encounters Date Type Department Care Team Description 09/30/2024 External [place] [address] Ramesh Keller MD 09/28/2024 2:25 PM EDT Laboratory Appointment Lab [address] [place] [phone] Motor neuron disease; ALS (amyotrophic lateral sclerosis) 09/28/2024 10:30 AM EDT Procedure [place] [phone] Ramesh Keller MD ALS (amyotrophic lateral sclerosis) (Primary Dx) 09/28/2024 9:00 AM EDT [facility] [place] [phone] Ramesh Keller MD ALS (amyotrophic lateral sclerosis) (Primary Dx); 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 External Results Neurology at [facility] [place] [phone] Ramesh Keller MD 09/28/2024 Travel 09/26/2024 Ancillary Procedure Radiology Library [place] [facility] [place] [address] Sondra Ackerman MD 09/21/2024 Travel 09/19/2024 Ancillary Procedure Radiology Library [place] [facility] [place] [address] Sondra Ackerman MD 09/09/2024 Transcribe Orders eDH Incoming Referrals [phone] Afsaneh Revees MD Muscle weakness (generalized); Other symptoms and signs involving the musculoskeletal system; Abnormal levels of other serum enzymes 09/09/2024 Transcribe Orders eDH Incoming Referrals [phone] Kyle Rogers MD 08/12/2024 Ancillary Procedure Radiology Library [place] [facility] [place] [phone] Sondra Ackerman MD 07/11/2024 Ancillary Procedure Radiology Library [place] [facility] [place] [address] Ramesh Keller MD from Last 3 Months Immunizations Name Administration Dates Next Due Influenza (Novel H2B1-55) Injectable 06/07/2009 Influenza Trivalent, Preservative Free 2 [...] Sign Reading Time Taken Comments Blood Pressure 117/71 09/28/2024 9:00 AM EDT Pulse 58 09/28/2024 9:00 AM EDT Temperature 36.9 ??C (98.4 ??F) 12/10/2012 8:59 AM ED T Respiratory Rate 16 09/28/2024 9:00 AM EDT Oxygen Saturation 99% 09/28/2024 9:00 AM EDT Inhaled Oxygen Concentration - - Weight 50.8 kg (112 lb) 09/28/2024 9:00 AM EDT Height 154.9 cm (5' 1 ) 03/09/2013 8:41 AM EDT Body Mass Index - - Plan of Treatment Upcoming Encounters Date Type Department Care Team (Late st Contact Info) Description 10/05/2024 9:00 AM EDT TH Visit (TeleHealth) [place] [address] Ramesh Keller MD [facility] [place] [address] 10/12/2024 11:30 AM EDT TH Visit (TeleHealth) [place] [address] Ramesh Keller MD [facility] [place] [address] Health Maintenance Due Date Last Done Comments CT Colonography 1950 FIT DNA 1950 FIT 1950 Sigmoidoscopy (10 year) with FIT yearly 1950 Sigmoidoscopy 1950 Hepatitis C Screening 1969 Breast Cancer Share Decision Needed 1991 Pneumoccocal Vaccine: 50+ (1 of 1 - PCV) 2001 Zoster vaccine (1 of 2) 2001 PAP Smear 12/10/2013 12/10/2012, 06/12/2011, 11/25/2010 Breast Cancer screening 03/10/2014 03/10/2012, 03/12 [...] Procedure Name Priority Date/Time Associated Diagnosis Comments IMMUNOGLOBULINS, QUANTITATIVE Routine 09/28/2024 2:00 PM EDT Motor neuron disease PROTEIN, TOTAL ELECTROPHORESIS (PERFROMABLE) Routine 09/28/2024 2:00 PM EDT Motor neuron disease PEP, SERUM (PERFORMABLE) Routine 09/28/2024 2:00 PM EDT Motor neuron disease PROTEIN ELECTROPHORESIS, SERUM Routine 09/28/2024 2:00 PM EDT Motor neuron disease IMMUNOFIXATION ELECTROPHORESIS, SERUM Routine 09/28/2024 2:00 PM EDT Motor neuron disease CBC (WITH DIFF) Routine 09/28/2024 2:00 PM EDT Motor neuron disease COMPREHENSIVE METABOLIC PANEL Routine 09/28/2024 2:00 PM EDT Motor neuron disease CERULOPLASMIN Routine 09/28/2024 2:00 PM EDT Motor neuron disease GANGLIOSIDE ANTIBODIES Routine 2:00 PM EDT Motor neuron disease EMG SCAN Routine 09/28/2024 1:31 PM EDT FILM LIBRARY STORAGE ONLY MR UPPER EXTREMITY Routine 09/26/2024 12:00 AM EDT FILM LIBRARY STORAGE ONLY ULTRASOUND STUDY Routine 09/19/2024 12:00 AM EDT FILM LIBRARY STORAGE ONLY DX SHOULDER Routine 08/12/2024 12:00 AM EST FILM LIBRARY STORAGE ONLY MR HEAD Routine 07/11/2024 12:00 AM EST PACKAGE REINSPECTOR MOLECULAR GENETICS REPORT Routine 12/10/2012 9:47 AM EDT PACKAGE REINSPECTOR CYTOLOGY FINAL REPORT Routine 12/10/2012 9:47 AM EDT MAMMO SCREENING CAD BILATERAL Routine 03/10/2012 1:50 PM EDT DXA CENTRAL SPINE, HIP, AND/OR WHOLE BODY (GENERIC) Routine 03/02/2012 3:23 PM EDT Disorder of bone and cartilage, unspecified from Last 3 Months or Most Recently Relevant to Health Maintenance Results * Protein, Serum Electrophoresis (09/28/2024 2:00 PM EDT) Blood VENOUS BLOOD SPECIMEN / Unknown Venipuncture / Unknown 09/28/2024 2:00 PM EDT 09/28/2024 2:34 PM EDT Ramesh Keller MD URINE ORDERABLES [facility] [place] [address] * PEP, Serum (09/28/2024 2:00 PM EDT) Protein, Total 7.0 6.1 - 8.0 g/dL 09/29/2024 2:44 PM EDT [facility] Albumin Electrophoresis 4.92 3.20 - 5.20 g/dL 09/29/2024 2:44 PM EDT [facility] Alpha 1 Globulin 0.15 0.10 - 0.30 g/dL 09/29/2024 2:44 PM EDT [facility] Alpha 2 Globulin 0.69 0.40 - 0.90 g/dL 09/29/2024 2:44 PM EDT [facility] Beta Globulin 0.62 0.50 - 1.00 g/dL 09/29/2024 2:44 PM EDT [facility] Gamma Globulin 0.62 0.50 - 1.30 g/dL 09/29/2024 2:44 PM EDT [facility] M1 Band 09/29/2024 2:44 PM EDT [facility] Comment:Immunofixation and q uantitative immunoglobulin testing will be performed on this sample per provider request. Blood VENOUS BLOOD SPECIMEN / Unknown Venipuncture / Unknown 09/28/2024 2:00 PM EDT 09/28/2024 2:34 PM EDT Ramesh Keller MD URINE ORDERABLES Performing Organization Address [facility] Co de Phone Number [facility] [place] [address] * (ABNORMAL) Immunoglobulins, Quantitative (09/28/2024 2:00 PM EDT) [facility] IgG 946 700 - 1,600 mg/dL 09/28/2024 3:30 PM EDT [facility] IgA 121 70 - 400 mg/dL 09/28/2024 3:30 PM EDT [facility] IgM 24(L) 40 - 230 mg/dL 09/28/2024 3:30 PM EDT [facility] Blood VENOUS BLOOD SPECIMEN / Unknown Venipuncture / Unknown 09/28/2024 2:00 PM EDT 09/28/2024 2:34 PM EDT Ramesh Keller MD CHEMISTRY ORDERABLES Performing Organization Address [facility]/ZIP Co de Phone Number [facility] [place] [address] * Immunofixation Electrophoresis, Serum (09/28/2024 2:00 PM EDT) [facility] Immunofixation Interpretation, Serum No specific abnormality observed. 10/01/2024 9:33 AM EDT [facility] Signing Pathologist Tarik Hermosillo, 10/01/2024 9:33 AM EDT [facility] Blood VENOUS BLOOD SPECIMEN / Unknown Venipuncture / Unknown 09/28/2024 2:00 PM EDT 09/28/2024 2:34 PM EDT Ramesh Keller MD CHEMISTRY ORDERABLES [facility] [place] [address] * Ganglioside Antibodies (09/28/2024 2:00 PM EDT) Asialo-GM1 Antibodies IgG/IgM (ARU) 9 0 - 50 IV 09/30/2024 1:34 AM EDT REF [facility] GD1A Antibodies IgG/IgM (ARU) 8 0 - 50 IV 09/30/2024 1:34 AM EDT RE[facility] GD1B Antibodies IgG/IgM (ARU) 30 0 - 50 IV 09/30/2024 1:34 AM EDT RE[facility] GM1 Antibodies IgG/IgM (ARU) 11 0 - 50 IV 09/30/2024 1:34 AM EDT REF [facility] GM2 Antibodies IgG/IgM (ARU) 8 0 - 50 IV 09/30/2024 1:34 AM EDT REF [facility] GQ1B Antibodies IgG/IgM (ARU) 27 0 - 50 IV 09/30/2024 1:34 AM EDT REF [facility] Comment: INTERPRETIVE INFORMATION: Ganglioside (Asialo-GM1, GM1, GM2, GD1a, GD1b, and GQ1b) Antibodies, IgG/IgM 29 IV or less: Negative 30-50 IV: Equivocal 51-100 IV: Positive 101 IV or greater: Strong Positive Ganglioside antibodies are associated with diverse peripheral neuropathies. ??Elevated antibody levels to ganglioside-monosialic acid (GM1), and the neutral glycolipid, asialo GM1 are associated with motor or sensorimotor neuropathies, particularly multifocal motor neuropathy. ??Anti-GM1 may occur as IgM (polyclonal or monoclonal) or IgG antibodies. ??These antibodies may also be found in patients with diverse connective tissue diseases as well as normal individuals. ??GD1a antibodies are associated with different variants of Guillain-Toledo syndrome (GBS) particularly acute motor axonal neuropathy while GD1b antibodies are predominantly found in sensory ataxic neuropathy syndrome. ??Anti-GQ1b antibodies are seen in more than 80 percent of patients with Clark-Perez syndrome and may be elevated in GBS patients with ophthalmoplegia. ??The role of isolated anti-GM2 antibodies is unknown. ??These tests by themselves are not diagnostic and should be used in conjunction with other clinical parameters to confirm disease. This test was developed and its performance characteristics determined by [facility]. It has not been cleared or approved by the US Food and Drug Administration. This test was performed in a CLIA certified laboratory and is intended for clinical purposes. Performed By: [facility] [address] [place] [address] Senior Asset Manager: Jerman Soliz MD, PhD CLIA Number: [id number] Blood VENOUS BLOOD SPECIMEN / Unknown Venipuncture / Unknown 09/28/2024 2:00 PM EDT 09/28/2024 2:34 PM EDT Ramesh Keller MD LAB SEND OUT ORDERAB LES Performing Organization Address City/[facility]/ZIP Co de Phone Number REF LAB [address] * Ceruloplasmin (09/28/2024 2:00 PM EDT) Ceruloplasmin 27.1 16.0 - 45.0 mg/dL 09/28/2024 3:10 PM EDT [facility] Blood VENOUS BLOOD SPECIMEN / Unknown Venipuncture / Unknown 09/28/2024 2:00 PM EDT 09/28/2024 2:34 PM EDT Ramesh Keller MD CHEMISTRY ORDERABLES Performing Organization Address City/[facility]/ZIP Co de Phone Number [facility] [place] [address] * (ABNORMAL) CBC (with Diff) (09/28/2024 2:00 PM EDT) [facility] White Blood Cell 8.18 4.00 - 9.50 x10(3)/mc L 09/28/2024 2:50 PM [facility] Red Blood Cell 4.62 4.00 - 5.21 x10(6)/mc L 09/28/2024 2:50 PM [facility] Hemoglobin 13.3 11.7 - 15.5 g/dL 09/28/2024 2:50 PM [facility] Hematocrit 40.6 35.7 - 45.8 % 09/28/2024 2:50 PM [facility] Mean Cell Volume 87.9 82.6 - 94.4 fL 09/28/2024 2:50 PM [facility] Mean Cell Hemoglobin 28.8 27.1 - 32.0 pg 09/28/2024 2:50 PM [facility] Mean Cell Hemoglobin Concentration 32.8 31.7 - 35.0 g/dL 09/28/2024 2:50 PM [facility] Platelet 290 145 - 357 x10(3)/mc L 09/28/2024 2:50 PM [facility] Mean Platelet Volume 10.3 7.6 - 12.9 fL 09/28/2024 2:50 PM [facility] RDW Standard Deviation 45.4 37.0 - 46.0 fL 09/28/2024 2:50 PM [facility] RDW coefficient of variation 14.1 11.5 - 14.1 % 09/28/2024 2:50 PM [facility] NRBC% auto 0.0 % 09/28/2024 2:50 PM [facility] NRBC Absolute <0.01 <0.01 x10(3)/mc L 09/28/2024 2:50 PM [facility] Neutrophil % 81.3 % 09/28/2024 2:50 PM [facility] Neutrophil Absolute (ANC) - Automated 6.66(H) 1.70 - 6.10 x10(3)/mc L 09/28/2024 2:50 PM EDT [facility] Lymph % 12.0 % 09/28/2024 2:50 PM EDT [facility] Lymph Absolute 0.98 0.90 - 3.20 x10(3)/mc L 09/28/2024 2:50 PM EDT [facility] Monocyte % 4.4 % 09/28/2024 2:50 PM EDT [facility] Monocyte Absolute 0.36 0.30 - 0.90 x10(3)/mc L 09/28/2024 2:50 PM EDT [facility] Eos % 0.9 % 09/28/2024 2:50 PM EDT [facility] Eos Absolute 0.07 0.00 - 0.40 x10(3)/mc L 09/28/2024 2:50 PM EDT [facility] Basophil % 0.9 % 09/28/2024 2:50 PM EDT [facility] Baso Absolute 0.07 0.00 - 0.10 x10(3)/mc L 09/28/2024 2:50 PM EDT [facility] Immature Gran % 0.5 % 2:50 PM EDT [facility] Immature Gran Absolute 0.04 0.00 - 0.04 x10(3)/mc L 09/28/2024 2:50 PM EDT [facility] Blood VENOUS BLOOD SPECIMEN / Unknown Venipuncture / Unknown 09/28/2024 2:00 PM EDT 09/28/2024 2:34 PM EDT Ramesh Keller MD HEMATOLOGY ORDERABLE S [facility] [place] [address] * (ABNORMAL) Comprehensive metabolic panel Non-fasting (09/28/2024 2:00 PM EDT) Glucose 218(H) 65 - 199 mg/dL 09/28/2024 3:08 PM [facility] Comment:Glucose Concentratio n >=200 mg/dL plus symptoms is consistent with Diabetes Mellitus. Blood Urea Nitrogen 18 8 - 18 mg/dL 09/28/2024 3:08 PM [facility] Creatinine 0.68(L) 0.70 - 1.20 mg/dL 09/28/2024 3:08 PM [facility] Sodium 142 135 - 145 mMol/L 09/28/2024 3:08 PM [facility] Potassium 4.7 3.5 - 5.0 mMol/L 09/28/2024 3:08 PM [facility] Chloride 102 98 - 107 mMol/L 09/28/2024 3:08 PM [facility] Carbon Dioxide 27 22 - 31 mMol/L 09/28/2024 3:08 PM [facility] Anion Gap 13 5 - 15 mMol/L 09/28/2024 3:08 PM [facility] Calcium 10.4 8.5 - 10.5 mg/dL 09/28/2024 3:08 PM [facility] Protein, Total 7.1 6.1 - 8.0 g/dL 09/28/2024 3:08 PM [facility] Albumin 4.6 3.2 - 5.2 g/dL 09/28/2024 3:08 PM [facility] Aspartate Aminotransferase 38(H) <=30 unit/L 09/28/2024 3:08 PM [facility] Alanine Aminotransferase 33(H) 0 - 30 unit/L 09/28/2024 3:08 PM [facility] Alkaline Phosphatase 75 35 - 105 unit/L 09/28/2024 3:08 PM [facility] Bilirubin, Total 0.4 <=1.3 mg/dL 09/28/2024 3:08 PM [facility] Est Glomerular Filtration Rate - Female 92 mL/min/1. 73 m?? 09/28/2024 3:08 PM EDT [facility] Comment: This patient's estimated GFR was calculated using the 2020 CKD-EPI equation. The estimated GFR can vary from the measured GFR by up to 30% in the absence of rapidly changing kidney function. Assessment of the estimated GFR is not appropriate when creatinine concentrations are rapidly changing. For clinical situations in which a more precise estimate of GFR is necessary, consider alternative methods of GFR estimation such as a 24-hour urine creatinine clearance. Assignment of CKD stage 1 - 5 for patients with an eGFR near the transition point between stages may be based on clinical assessment of muscle mass and symptoms in addition to eGFR. Link: eGFR Calculator [employer] Fasting Status No 09/28/2024 3:08 PM EDT [facility] Blood VENOUS BLOOD SPECIMEN / Unknown Venipuncture / Unknown 09/28/2024 2:00 PM EDT 09/28/2024 2:34 PM EDT Ramesh Keller MD CHEMISTRY ORDERABLES Performing Organization Address City/[facility] Co de Phone Number [facility] [place] [address] * Scan Doc: EMG (09/28/2024 1:31 PM EDT) Ramesh Keller MD MEDIA MGR SCAN EXT O RDR/RSLT * Film Library- Storage Only MR Upper Extremity (09/26/2024 12:00 AM EDT) Narrative [facility] - 09/28/2024 11:09 AM EDT This exam is auto-finalizing. It's purpose is for storage only. Sondra Ackerman MD IMG FILM LIBRARY ORDERABLES Performing Organization Address City/[facility]/ZIP Co de Phone Number [place], [place] * Film Library- Storage Only Ultrasound Study (09/19/2024 12:00 AM EDT) Narrative [facility] - 09/28/2024 11:09 AM EDT This exam is auto-finalizing. It's purpose is for storage only. Sondra Ackerman MD IMG FILM LIBRARY ORDERABLES Performing Organization Address [facility] de Phone Number [place], [place] * Film Library- Storage Only DX Shoulder (08/12/2024 12:00 AM EST) Narrative [facility] - 09/28/2024 11:09 AM EDT This exam is auto-finalizing. It's purpose is for storage only. Sondra Ackerman MD IM FILM LIBRARY ORDERABLES Performing Organization Address [facility] de Phone Number [place], [place] * Film Library- Storage Only MR Head (07/11/2024 12:00 AM EST) Narrative [facility] - 09/28/2024 11:10 AM EDT This exam is auto-finalizing. It's purpose is for storage only. Ramesh Keller MD IMG FILM LIBRARY ORD ERABLES Performing Organization Address [facility] de Phone Number [place], [place] * PACKAGE REINSPECTOR Molecular Genetics Report (12/10/2012 9:47 AM EDT) [facility] PACKAGE REINSPECTOR Molecular Genetics Report ? [facility] ? Provider: ?? ROSY WILEY ??Pt. Name: ?? VEE SANTA ?P ? Acc #: ?[id number] ?Pt. ? Col Date: ?? 12/10/2012 ? [...] Based Prep ? Reviewed by: ??Pérez Hein, [facility] ? A ?ECL Endocervical /LBP ? B ?HPVDO Do HPV Testing ? Verified date: ??12/16/12 ??ABH ? Verified by: ?Lab Review, Molecular Genetics ? (Electronic Signature) HARJIT NARANJO 12/10/2012 9:47 AM EDT Rosy Wiley MD PATHOLOGY/CYTOLOG Y ORDERABLES Performing Organization Address City/State/[facility] Co de Phone Number HARJIT NARANJO * Desktop Specialist Cytology Final Report (12/10/2012 9:47 AM EDT) Desktop Specialist Cytology Final Report ? [facility] ? Provider: ?? ROSY WILEY ??Pt. Name: ?? VEE SANTA ?P ? Acc #: ?[id number] ?Pt. ? Col Date: ?? 12/10/2012 ? /Sex: ?1950,(62 years),Female ? Rec Date: ?? 12/10/2012 ? LOC: ?[facility] ? CYTOPATHOLOGY: ??PACKAGE REINSPECTOR ? ---Adequacy--- ? Specimen submitted is satisfactory [...] by: ??Ella CT(ASCP), Meme Haney - ? Help Desk Associate ? ---Comment--- ? Endocervical component not detected in an atrophic smear pattern. ? Please also see concurrent HPV test result. ? ---Clinical Information--- ? HPV Option: ? Concurrent HPV ? Preparation: ?Liquid Based Pap ? Specimen Source: ?Endocervical/LBP ? LMP: ?n/a ? Hormones?: ?No ? Hysterectomy?: ?No ?: ?No ?: ?No ? I.U.D.?: ?No ? Pelvic Radiation: ? No ? Prior PACKAGE REINSPECTOR Therapy?: ? No ? Hist Abnl Pap/Biopsy?: ??No ? Hist of HPV Vaccine?: ?? No ? Hist of Smoking?: ? No ? Hist of DWAYNE exposure?: ??Yes ? Clinical Data, Significant Therapy and Clinical Impression: ? [facility] ? Provider: ?? ROSY WILEY ??Pt. Name: ?? VEE SANTA ?P ? Acc #: ?[id number] ?Pt. ? Col Date: ?? 12/10/2012 ? /Sex: ?1950,(62 years),Female ? Rec Date: ?? 12/10/2012 ? LOC: ?[facility] ? This Pap Test has been evaluated with the assistance of the ThinPrep Pap ? Test Imaging System. ? CYTOPATHOLOGY: ??PACKAGE REINSPECTOR ? Note: ? The Pap test is a screening test for cervical cancer with an inherent ? false-negative rate dependent upon several variables. ??For further ? information please contact the [facility]. ? Reference: ??Darius FREDERICK. ??Demi Chef of Pap Smear Results. ??In: ? Jimy BS, Kenji HH, ed. ??The Pap Smear. ??[place]: ??Pérez, 2002: ? 71-77. [facility] 12/10/2012 9:47 AM EDT Rosy Wiley [...] BMD measurements and plots are available in EBus[employer] under the imaging tab . Paper copies will be sent to providers without [employer] VR access. If you have received this report without the data sheet and do not have access to [employer], please contact Radiology Product Marketing Intern at [phone] Thursday thru Thursday 8am-4pm. Procedure Note Magali [...] data sheet and do not haveaccess to [employer], please contact Radiology Product Marketing Intern at [phone] Thursdaythru Thursday 8am-4pm. Rosy Wiley MD [employer] DEXA ORDERABL ES from Last 3 Months or Most Recently Relevant to Health Maintenance Advance Directives Documents on File Type Date Recorded Patient Architectural Technician Expl anation Personal Architectural Technician 10/03/2024 8:55 AM Saari Santa (DIL) Personal Architectural Technician 10/03/2024 8:53 AM Mikel Miller (Brother in law) Personal Architectural Technician 10/03/2024 8:53 AM Mariaa Bruno (granddaughter) Personal Architectural Technician 10/03/2024 8:53 AM Ron Ibanez (Son-in-Law) Personal Architectural Technician 10/03/2024 8:52 AM Kamryn Bruno (JUNO) Personal Architectural Technician 10/03/2024 8:52 AM Nevin Paul (sister) Personal Architectural Technician 10/03/2024 8:52 AM Rakel Ibanez (daughter) Personal Architectural Technician 10/03/2024 8:52 AM Jahaira Britt (JUNO) Personal Architectural Technician 10/03/2024 8:52 AM Alexandria Funeschristiano (sister) Personal Architectural Technician 10/03/2024 8:51 AM Eric aDvisel (son) Personal Architectural Technician 09/30/2024 12:08 PM Milagros Ibanez, granddaughter Personal Architectural Technician 09/30/2024 11:58 AM Sy Santa, spouse Advance Directives and Living Will 07/22/2011 10:37 AM Care Teams Garnett Mechanic Relationship Specialty Start Date End Date None None PCP - General 09/09/24
--- OUTSIDE RECORDS SUMMARY | 2024-10-03 14:17 | XMS_ITS | Encounter Summary ---
Author [place] [address] Care Team Providers Care Janitorial Services Supervisor Name Role Phone None Primary Care Provider Unavailabl e Encounter Details Date Type Department Care Team (Late st Contact Info) Description 09/30/2024 External Results [place] [address] Ramesh Keller MD [facility] [place] [address] Social History Tobacco Use Types Packs/Day Years [...] AM EDT TH Visit (TeleHealth) [place] [address] Ramesh Keller MD [facility] [place] [address] 10/12/2024 11:30 AM EDT TH Visit (TeleHealth) [place] [address] Ramesh Keller MD [facility] [place] [address] documented as of this encounter Procedures Procedure Name Priority Date/Time Associated Diagnosis Comments EMG SCAN Routine 09/28/2024 1:31 PM EDT documented in this encounter Results * Scan Doc: EMG (09/28/2024 1:31 PM EDT) Ramesh Keller MD MEDIA MGR SCAN EXT O RDR/RSLT documented in this encounter Visit Diagnoses Not on filedocumented in this encounter Care Teams Janitorial Services Supervisor Relationship Specialty Start Date End Date None None PCP - General 09/09/24 documented as of this encounter
--- OUTSIDE RECORDS SUMMARY | 2024-10-03 14:17 | XMS_ITS | Encounter Summary ---
[place] [address] Care Team Providers Care Podiatric Assistant Name Role Phone None Primary Care Provider Unavailabl e Encounter Details Date Type Department Care Team (Latest Contact Info) Description 09/28/2024 Travel Social History Tobacco Use Types Packs/Day [...] AM EDT TH Visit (TeleHealth) [place] [phone] Ramesh Keller MD [facility] [place] [address] 10/12/2024 11:30 AM EDT TH Visit (TeleHealth) [place] [phone] Ramesh Keller MD [facility] [place] [address] documented as of this encounter Visit Diagnoses Not on filedocumented in this encounter Care Teams Podiatric Assistant Relationship Specialty Start Date End Date None None PCP - General 09/09/24 documented as of this encounter
--- OUTSIDE RECORDS SUMMARY | 2024-10-03 14:17 | XMS_ITS | Encounter Summary ---
Author Organization [facility] [place] [address] Care Team Providers Care Treatment Counselor Name Role Phone None Primary Care Provider Unavailabl e Reason for Visit * Consultation (Urgent) - Closed Specialty Diagnoses / Procedures Referred By Contac t Referred To Contact Neurology Diagnoses Muscle weakness (generalized) Other symptoms and signs involving the musculoskeletal system Abnormal levels of other serum enzymes Afsaneh Reeves MD [address] [place] [address] DR ROSE [address] [place] [id number] [facility] [address] [place] [phone] Referral ID Status Reason Start Date Expiration Date V isits Requested Visits Authorized [id number] Closed Consult, Test & Treat PCP Updated and/or Approved 09/09/2024 09/09/2025 6 6 Encounter Details Date Type Department Care Team (Late st Contact Info) Description 09/28/2024 9:00 AM EDT Office [place] [address] Ramesh Keller MD [facility] [place] [address] ALS (amyotrophic lateral sclerosis) (Primary Dx); Motor neuron disease Social History Tobacco Use Types Packs/Day Years Used Date Smoking Tobacco: Never Smokeless Tobacco: Never Alcohol Use Standard Drinks/Week Comments Yes 0 (1 standard drink = 0.6 oz pur e alcohol) Sex and Gender Information Value Date Recorded Sex Assigned at Not on file Gender Identity Not on file Sexual Orientation Not on file documented as of this encounter Last Filed Vital Signs Vital Sign Reading Time Taken Comments Blood Pressure 117/71 09/28/2024 9:00 AM EDT Pulse 58 09/28/2024 9:00 AM EDT Temperature - - Respiratory Rate 16 09/28/2024 9:00 AM EDT Oxygen Saturation 99% 09/28/2024 9:00 AM EDT Inhaled Oxygen Concentration - - Weight 50.8 kg (112 lb) 09/28/2024 9:00 AM EDT Height - - Body Mass Index - - documented in this encounter Progress Notes * Ramesh Keller MD - 09/28/2024 9:00 AM EDT Images from the original note were not included. [facility] MEHRAN Luis. [id number] Neuromuscular Clinic Visit Note Patient Name: Vee Carr Date of : 1950 Primary Care Provider: Afsaneh Reeves MD [address] [place] [address] [place] [address] HISTORY OF THE PRESENT ILLNESS: I am pleased to welcome Vee Carr to the [facility] in new evaluation for progressive right arm weakness. She is accompanied by her , Jay. Vee Carr is a 74 y.o. female with a history of hypothyroidism. She first noticed symptoms of proximal right arm weakness starting around December 2023 when she noticed difficulty paddling her kayak. Over time, she has noticed that her right hand started to become weaker. Over the winter of , she noticed that her left hand and arm was developing weakness as well. She has developed loss ofmuscle bulk in R>L arm. Overall, weakness has been slowly progressive. Over the last few months, she has now noticed new weakness/gait difficulty. Her describes that the has a hitch in her walking. She has difficulty mounting a bicycle and she has had to increase the level of pedal assist when biking. She denies any changes in speech or swallowing, no changes in bowel/bladder, no dyspnea or orthopnea. No diplopia or ptosis. No muscle twictching. She has muscle cramping in her feet/toes which is new. She has lost 4 lbs last summer. She has undergone diagnostic workup summarized below which has been unrevealing. She is currently schedule for a muscle biopsy in the coming week due to elevated CK muscle enzymes. PAST MEDICAL HISTORY: Melanoma Basal cell skin cancer Hypothyoidism Hyperlipidemia Vit D Deficiency Osteoporosis Premature ovarian failure PAST SURGICAL HISTORY: Mohs surgery Thoracic Kyphoplasty due to compression fracture at T8, 09/2023. Right salpingooopherectomy due to dermoid Excision of melanoma MEDICATIONS: Current Outpatient Medications on File Prior to Visit Medication Sig Dispense Refill vitamin K2 40 mcg Tablet Take 100 mcg by mouth daily. melatonin 5 mg tablet Take 1 tablet by mouth nightly. gabapentin (Neurontin) 100 mg capsule Take 100 mg by mouth 3 times daily. alendronate (Fosamax) 70 mg tablet Take 70 mg by mouth. omega-3 acid ethyl esters (Lovaza) 1 gram capsule Take 2 g by mouth 2 times daily. aspirin 81 mg EC tablet Take 81 mg by mouth three times a week. CIS Free Text Med - Calcium + D multivitamin (THERAGRAN) tablet [DISCONTINUED] DOCOSAHEXAENOIC ACID ORAL Take 1 capsule by mouth Twice daily. No current facility-administered medications on file prior to visit. ALLERGIES: Allergies Allergen Reactions Penicillins Other (See Comments) GI Upset FAMILY HISTORY: She denies any family history of ALS or FTD. Her father reportedly had Lewy Body dementia/parkinsonism, onset in mid 70s, at 84. Mother had reported vascular dementia and maternal grandfather had unspecified dementia. Her sister follows with Dr. Martinez Cooney for peripheral neuropathy. 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 She is and lives at home with her in [facility]. Never smoker, rare social EtOH (1 glass per month), no illicits REVIEW OF SYSTEMS 14 point review of systems was completed. Pertinent positives include those mentioned in the HxPI. All other systems reviewed were negative. PHYSICAL EXAM: BP 117/71 (BP Location (NBP): Right arm, Patient Position: Sitting, BP Cuff Sizes: Adult (25-34 cm)) Pulse 58 Resp 16 Wt 50.8 kg (112 lb) SpO2 99% GENERAL PHYSICAL EXAM: GEN: Well-appearing female who appears of stated age. No acute distress HEENT: oral mucosa moist, sclera anicteric Cardiac: Extremities warm and well perfused Lungs: Breathing comfortably on RA Abdomen: soft, nontender, non-distended Extremities: no edema NEUROLOGIC EXAMINATION: Mental status: Awake, alert. Speech is fluent to conversation. Follows all commands. Able to provide a full and detailed history Cranial nerves: Pupils were equal, round and reactive to light bilaterally. Extraocular movements are intact. There is no ptosis. Facial sensation was intact to light touch in V1-3 distributions bilaterally. Facial movements are normal with full strength on eyelid closure and cheek puff bilaterally. Hearing was intact in conversation. Palate elevates symmetrically bilaterally. Tongue bulk was normal, no fasciculations. Lateral tongue movements are normal and tongue protrusion is strong. Speech is normal with no dysarthria Motor: Muscle Bulk: There is atrophy in bilateral arms both proximal and distal most notable in R>L intrinsic hand muscles. She has fasciculations in bilateral deltoids and biceps, no truncal or lower extremity fasciculations noted. Muscle Tone: Mild spasticity in left arm and right leg. Finger taps are slightly slowed in the right hand, otherwise finger/toe taps are normal Muscle strength by MRC scale is as follows (out of 5) : Right Left Deltoid 2 4 Biceps 4- 4 Triceps 4- 4 Wrist Extension 4 5 First Dorsal Interosseus 4 4 Abductor Policis Brevis 4 4 Adductor Digit Minimi 4 4 Iliopsoas 4+ 5 Quadriceps 4+ 5 Hamstrings 4+ 5 Tibialis anterior 4+ 4+ Gastrocnemius 5 5 Sensory: Intact to pinprick, temperature, and proprioception in the upper and lower extremities. Romberg sign was absent. Semi-quantitative vibratory sensation as measured by the black scale of the Reidel-Seifer Tuning fork was as follows: Right Left Hallux 8/8 8/8 Digit 2, DIP 8/8 8/8 Reflexes: Right Left Biceps 0 0 Triceps 1 2 Patella 2 2 Achilles 2 2 Jaw Jerk negative Palmomental negative negative Sauceda's negative negative Plantar response withdrawal downgoing Coordination: Uusgwn-gq-ulaf test normal bilaterally Gait and station: Slightly slow, cautious gait. She is able to tip toewalk, unable to heel walk. Able to stand on tip toes on right foot but not the left PRIOR DIAGNOSTIC EVALUATION: Laboratory Data: - CK 453 (08/01/24) > 522 (08/30/24) > 510 (09/13/24) - Lyme Ab reportedly negative, ESR 6, CRP 0.14, aldolase 0.14, RF <10, AUDREY+1:40, NT5c1A Ab negative, HMGCR Ab negative, ACHR Ab negative, MuSK Ab negative, Myositis panel negative, VGCC Ab pending, B12 697, Folate normal, Lyme Ab negative, PTH normal (45.4), TSH/Free T3 normal EMG/NCS: - 09/28/24 EMG[place]NCS [place] Ramesh Keller, [facility] Abnormal study. There is electrophysiologic evidence ofa generalized disorder of motor neurons or their axons affecting 3 body segments. In the context ofthe clinical history and examination, these findings are most consistent with a diagnosis of amyotrophic lateral sclerosis (ALS). - 05/18/24 EMG/NCS ([facility]): There is no electrodiagnostic evidence for median neuropathy, ulnar neuropathy, or brachial plexopathy. Can not completely rule out a lower cervicalradiculopathy. Notably, the study reportedly showed fibs/PSWs in right triceps and FDI Imaging: - 09/26/24 MRI Brain: No acute intracranial process seen. - 09/26/24 MRI Humerus w/wo contrast: Unremarkable MRI of the the right humerus...The visualized muscles demonstrate normal signal intensity - 07/11/24 MRI Brain wo Contrast: No acute intracranial process seen. Chronic right mastoid sinus inflammatory changes - 06/14/24 MRI Cervical Spine wo Contrast: Multilevel cervical spondylosis without without significant spinal canal stenosis or cord compression. There is mild right neural foraminal narrowing at C3-4 and C7-T1 Impression: Vee Carr is a pleasant 74 year old woman who has developed progressive weakness beginning in her right arm over the last 9 months. Her examination is notable for asymmetric weakness with mixed upper and lower motor neuron features in cervical and lumbosacral segments with preserved sensory examination. Based on her examination and history, EMG/NCS was performed immediately following today's clinical appointment and was consistent with diffuse motor neuron disease. Overall, her clinical history/examination and electrodiagnostic studies are consistent with a diagnosis of amyotrophic lateral sclerosis (ALS). She meets revised [place] Criteria for clinically probable ALS. I discussed my clinical impression that her symptoms are related to ALS in detail with Vee and her . I recommended additional lab evaluation for ALS disease mimics but this is very unlikely to result in an alternative diagnosis. We discussed that ALS is a progressive and fataldisease that does not have a cure although there are several medications that slow ALS progression. Diagnostics: Ordered EMG which I performed today, see separate procedure report. I recommended additional labs including CBC, CMP, SPEP and IFX, anti- ganglioside Ab, Ceruloplasmin, plasma NfL. Elevated CK is a frequent finding in ALS and EMG is clearly indicative of a motor neuron disorder rather than a myopathy/myositis - as a result, I recommend cancelling her planned muscle biopsy. I also recommended genetic testing for inherited forms of ALS. I explained the available genetic testing options and addressed any questions or concerns. We also discussed the benefits, risks, costs and limitations of the genetic testing. We also reviewed the possible outcomes of testing including positive results, negative results and variants of uncertain significance. We discussed the risks ofgenetic testing including risks of genetic discrimination and the federal protections under the Genetic Information Non-Discrimination Act. We reviewed the option of the sponsored testing program. I explained that by agreeing to the sponsored program they are allowing the laboratory to perform internal research activities as well as sharing de-identified data and samples with third parties for research or commercial activities. Third parties may include academic researchers, commercial entities, and other genetic testing laboratories. Recipients of the de-identified data and samples are prohibited from attempting to reidentify the patient. Recipients may link de-identified data from the laboratory with other data sources to create a combined data set as long as the data remains de-identified. The laboratory will NOT share any identifiable data or sample without my additional, explicit consent. If they choose to participate in a sponsored testing program or other data sharing program offered to help individuals access genetic testing, they are consenting to de-identified data sharingthrough the program. After discussion, patient elected to proceed with sponsored genetic testing using [facility] Medications: Briefly discussed the 2 therapies which are FDA approved for all forms of ALS - Riluzole and Radicava. We discussed that these medications have a modest effect in slowing disease progression and/or extending survival. I will schedule telemedicine visit next week to discuss in more detail Pulmonary: No current respiratory symptoms. Order PFTs as baseline Plan: Labs: CBC, CMP, SPEP and IFX, antiganglioside Ab, Ceruloplasmin, plasma NfL. Genetics: [facility] ALS Panel - sent today PFTs - will arrange locally at [facility] Discuss Riluzole, edaravone next week Stop gabapentin Follow up: Telemedicine in 1 week, will arrange [facility] [place] follow up in 2-3 months Ramesh Keller MD [facility] [employer], Department of Neurology Neuromuscular Medicine [facility] This separate visit was above and beyond the procedure performed and is exclusive of the time spentperforming the procedure(s). I spent a total of 105 minutes on this encounter on the date of service. This included: [x] Review of laboratory or other test results [] Independently interpreting results with a brief impression (eg, MRI, CT Scan) [] Obtaining and/or reviewing separately obtained history (eg, historian, outside records) [x] Counseling and educating the patient/family/caregiver [x] Ordering medications, tests, or procedures [x] Referring and communicating with other health home care nurse [x] Documenting clinical information in the electronic health record [x] Care coordination documented in this encounter Plan of Treatment Upcoming Encounters Date Type Department Care Team (Late st Contact Info) Description 10/05/2024 9:00 AM EDT TH Visit (TeleHealth) [place] [phone] Ramesh Keller MD [facility] [place] [address] 10/12/2024 11:30 AM EDT TH Visit (TeleHealth) [place] [address] Ramesh Keller MD [facility] [place] [address] Scheduled Orders Name Type Priority Associated Diagnoses Orde r Schedule EMG WITH F-WAVE Neurology Routine Motor neuron disease Expected: 09/28/2024, Expires: 03/30/2025 Common Pulmonary Function Test PFT Routine Motor neuron disease ALS (amyotrophic lateral sclerosis) Every 3 months for 7 Occurrences starting 09/28/2024 until 09/28/2025 documented as of this encounter Results * Ganglioside Antibodies (09/28/2024 2:00 PM EDT) [...] antibodies are associated with different variants of Guillain-Chula syndrome (GBS) particularly acute motor axonal neuropathy [...] developed and its performance characteristics determined by [facility]. It has not been cleared or approved by the US Food and Drug Administration. This test was performed in a CLIA certified laboratory and is intended for clinical purposes. Performed By: [facility] [employer] [address] [place] [address] Automatic Corn Grinder Operator: Jerman Soliz MD, PhD CLIA Number: [id number] Blood VENOUS BLOOD SPECIMEN / Unknown Venipuncture / Unknown 09/28/2024 2:00 PM EDT 09/28/2024 2:34 PM EDT Ramesh Keller MD LAB SEND OUT ORDERAB LES Performing Organization Address City/[facility]/ZIP Co de Phone Number REF LAB [facility] [address] [place] [address], [facility] * Ceruloplasmin (09/28/2024 2:00 PM EDT) Pathologist [facility] Ceruloplasmin 27.1 16.0 - 45.0 mg/dL 09/28/2024 3:10 PM EDT [facility] Blood VENOUS BLOOD SPECIMEN / Unknown Venipuncture / Unknown 09/28/2024 2:00 PM EDT 09/28/2024 2:34 PM EDT Ramesh Keller MD CHEMISTRY ORDERABLES Performing Organization Address City/[facility]/ZIP Co de Phone Number [facility] [place] [address] * (ABNORMAL) Comprehensive metabolic panel Non-fasting (09/28/2024 2:00 PM EDT) Glucose 218(H) 65 - 199 mg/dL 09/28/2024 3:[facility] Comment:Glucose Concentratio n >=200 mg/dL plus symptoms is consistent with Diabetes Mellitus. Blood Urea Nitrogen 18 8 - 18 mg/dL 09/28/2024 3:08 PM [facility] Creatinine 0.68(L) 0.70 - 1.20 mg/dL 09/28/2024 3:08 PM [facility] Sodium 142 135 - 145 mMol/L 09/28/2024 3:08 PM [facility] Potassium 4.7 3.5 - 5.0 mMol/L 09/28/2024 3:08 PM [facility] Chloride 102 98 - 107 mMol/L 09/28/2024 3:08 PM [facility] Carbon Dioxide 27 22 - 31 mMol/L 09/28/2024 3:08 PM [facility] Anion Gap 13 5 - 15 mMol/L 09/28/2024 3:08 PM [facility] Calcium 10.4 8.5 - 10.5 mg/dL 09/28/2024 3:08 PM [facility] Protein, Total 7.1 6.1 - 8.0 g/dL 09/28/2024 3:08 PM [facility] Albumin 4.6 3.2 - 5.2 g/dL 09/28/2024 3:08 PM [facility] Aspartate Aminotransferase 38(H) <=30 unit/L 09/28/2024 3:08 PM [facility] Alanine Aminotransferase 33(H) 0 - 30 unit/L 09/28/2024 3:08 PM [facility] Alkaline Phosphatase 75 35 - 105 unit/L 09/28/2024 3:08 PM [facility] Bilirubin, Total 0.4 <=1.3 mg/dL 09/28/2024 3:08 PM [facility] Est Glomerular Filtration Rate - Female 92 mL/min/1. 73 m?? 09/28/2024 3:08 PM EDT [facility] Comment: This patient's estimated GFR was [...] Fasting Status No 09/28/2024 3:08 PM EDT [facility] Blood VENOUS BLOOD SPECIMEN / Unknown Venipuncture / Unknown 09/28/2024 2:00 PM EDT 09/28/2024 2:34 PM EDT Ramesh Keller MD CHEMISTRY ORDERABLES Performing Organization Address City/State/[facility] Co de Phone Number [facility] [place] [address] * (ABNORMAL) CBC (with Diff) (09/28/2024 2:00 PM EDT) White Blood Cell 8.18 4.00 - 9.50 x10(3)/mc L 09/28/2024 2:50 PM EDT [facility] Red Blood Cell 4.62 4.00 - 5.21 x10(6)/mc L 09/28/2024 2:50 PM EDT [facility] Hemoglobin 13.3 11.7 - 15.5 g/dL 09/28/2024 2:50 PM EDT [facility] Hematocrit 40.6 35.7 - 45.8 % 09/28/2024 2:50 PM EDT [facility] Mean Cell Volume 87.9 82.6 - 94.4 fL 09/28/2024 2:50 PM EDT [facility] Mean Cell Hemoglobin 28.8 27.1 - 32.0 pg 09/28/2024 2:50 PM [facility] Mean Cell Hemoglobin Concentration 32.8 31.7 - 35.0 g/dL 09/28/2024 2:50 PM [facility] Platelet 290 145 - 357 x10(3)/mc L 09/28/2024 2:50 PM [facility] Mean Platelet Volume 10.3 7.6 - 12.9 fL 09/28/2024 2:50 PM [facility] RDW Standard Deviation 45.4 37.0 - 46.0 fL 09/28/2024 2:50 PM [facility] RDW coefficient of variation 14.1 11.5 - 14.1 % 09/28/2024 2:50 PM [facility] NRBC% auto 0.0 % 09/28/2024 2:50 PM [facility] NRBC Absolute <0.01 <0.01 x10(3)/mc L 09/28/2024 2:50 PM [facility] Neutrophil % 81.3 % 09/28/2024 2:50 PM [facility] Neutrophil Absolute (ANC) - Automated 6.66(H) 1.70 - 6.10 x10(3)/mc L 09/28/2024 2:50 PM [facility] Lymph % 12.0 % 09/28/2024 2:50 PM [facility] Lymph Absolute 0.98 0.90 - 3.20 x10(3)/mc L 09/28/2024 2:50 PM [facility] Monocyte % 4.4 % 09/28/2024 2:50 PM [facility] Monocyte Absolute 0.36 0.30 - 0.90 x10(3)/mc L 09/28/2024 2:50 PM [facility] Eos % 0.9 % 09/28/2024 2:50 PM [facility] Eos Absolute 0.07 0.00 - 0.40 x10(3)/mc L 09/28/2024 2:50 PM EDT [facility] Basophil % 0.9 % 09/28/2024 2:50 PM EDT [facility] Baso Absolute 0.07 0.00 - 0.10 x10(3)/mc L 09/28/2024 2:50 PM EDT [facility] Immature Gran % 0.5 % 2:50 PM EDT [facility] Immature Gran Absolute 0.04 0.00 - 0.04 x10(3)/mc L 09/28/2024 2:50 PM EDT [facility] Blood VENOUS BLOOD SPECIMEN / Unknown Venipuncture / Unknown 09/28/2024 2:00 PM EDT 09/28/2024 2:34 PM EDT Ramesh Keller MD HEMATOLOGY ORDERABLE S Performing Organization Address City/[facility]/ZIP Co de Phone Number [facility] [place] [address] * Immunofixation Electrophoresis, Serum (09/28/2024 2:00 PM EDT) Immunofixation Interpretation, Serum No specific abnormality observed. 10/01/2024 9:33 AM EDT [facility] Signing Pathologist Tarik Hermosillo DO 10/01/2024 9:33 AM EDT [facility] Blood VENOUS BLOOD SPECIMEN / Unknown Venipuncture / Unknown 09/28/2024 2:00 PM EDT 09/28/2024 2:34 PM EDT Ramesh Keller MD CHEMISTRY ORDERABLES Performing Organization Address City/[facility]/ZIP Co de Phone Number [facility] [address] documented in this encounter Visit Diagnoses Diagnosis ALS (amyotrophic lateral sclerosis)- Primary Amyotrophic lateral sclerosis Motor neuron disease Amyotrophic lateral sclerosis documented in this encounter Care Teams Treatment Counselor Relationship Specialty Start Date End Date None None PCP - General 09/09/24 documented as of this encounter
--- OUTSIDE RECORDS SUMMARY | 2024-10-03 14:17 | XMS_ITS | Encounter Summary ---
[place] [address] Care Team Providers Care Pattern Storage Clerk Name Role Phone None Primary Care Provider Unavailabl e Encounter Details Date Type Department Care Team (Latest Contact Info) Description 09/28/2024 2:25 PM EDT Laboratory Appointment Lab [address] [place] [address] Motor neuron disease; ALS (amyotrophic lateral sclerosis) Social History Tobacco Use Types Packs/Day Years [...] AM EDT TH Visit (TeleHealth) [place] [address] Ramesh Keller MD [facility] [place] [address] 10/12/2024 11:30 AM EDT TH Visit (TeleHealth) [place] [address] Ramesh Keller MD [facility] [place] [address] Pending Results Name Type Priority Associated Diagnoses Date /Time Misc Sendout Lab Routine Motor neuron disease ALS (amyotrophic lateral sclerosis) 09/28/2024 2:00 PM EDT Misc Sendout Lab Routine Motor neuron disease ALS (amyotrophic lateral sclerosis) 09/28/2024 2:00 PM EDT Scheduled Orders Name Type Priority Associated Diagnoses Orde r Schedule Misc Sendout Lab Routine Motor neuron disease ALS (amyotrophic lateral sclerosis) Expected: 09/29/2024, Expires: 03/31/2025 Mis Sendout Lab Routine Motor neuron disease ALS (amyotrophic lateral sclerosis) Expected: 09/29/2024, Expires: 03/31/2025 documented as of this encounter Procedures Procedure Name Priority Date/Time Associated Diagnosis Comments PROTEIN, TOTAL ELECTROPHORESIS (PERFROMABLE) Routine 09/28/2024 2:00 PM EDT Motor neuron disease PEP, SERUM (PERFORMABLE) Routine 09/28/2024 2:00 PM EDT Motor neuron disease IMMUNOGLOBULINS, QUANTITATIVE Routine 09/28/2024 2:00 PM EDT Motor neuron disease IMMUNOFIXATION ELECTROPHORESIS, SERUM Routine 09/28/2024 2:00 PM EDT Motor neuron disease GANGLIOSIDE ANTIBODIES Routine 2:00 PM EDT Motor neuron disease CERULOPLASMIN Routine 09/28/2024 2:00 PM EDT Motor neuron disease CBC (WITH DIFF) Routine 09/28/2024 2:00 PM EDT Motor neuron disease PROTEIN ELECTROPHORESIS, SERUM Routine 09/28/2024 2:00 PM EDT Motor neuron disease COMPREHENSIVE METABOLIC PANEL Routine 09/28/2024 2:00 PM EDT Motor neuron disease documented in this encounter Results * (ABNORMAL) Immunoglobulins, Quantitative (09/28/2024 2:00 PM EDT) IgG 946 700 - 1,600 mg/dL 09/28/2024 3:30 PM EDT [facility] IgA 121 70 - 400 mg/dL 09/28/2024 3:30 PM EDT [facility] IgM 24(L) 40 - 230 mg/dL 09/28/2024 3:30 PM EDT [facility] Blood VENOUS BLOOD SPECIMEN / Unknown Venipuncture / Unknown 09/28/2024 2:00 PM EDT 09/28/2024 2:34 PM EDT Ramesh Keller MD CHEMISTRY ORDERABLES Performing Organization Address [facility] Number [facility] [place] [address] * Protein, Serum Electrophoresis (09/28/2024 2:00 PM EDT) Blood VENOUS BLOOD SPECIMEN / Unknown Venipuncture / Unknown 09/28/2024 2:00 PM EDT 09/28/2024 2:34 PM EDT Ramesh Keller MD URINE ORDERABLES Performing Organization Address [facility] Phone Number [facility] [place] [address] * PEP, Serum (09/28/2024 2:00 PM EDT) Protein, Total 7.0 6.1 - 8.0 g/dL 09/29/2024 2:44 PM EDT [facility] Albumin Electrophoresis 4.92 3.20 - 5.20 g/dL 09/29/2024 2:44 PM EDT [facility] Alpha 1 Globulin 0.15 0.10 - 0.30 g/dL 09/29/2024 2:44 PM EDT [facility] Alpha 2 Globulin 0.69 0.40 - 0.90 g/dL 09/29/2024 2:44 PM EDT [facility] Beta Globulin 0.62 0.50 - 1.00 g/dL 09/29/2024 2:44 PM EDT [facility] Gamma Globulin 0.62 0.50 - 1.30 g/dL 09/29/2024 2:44 PM EDT [facility] M1 Band 09/29/2024 2:44 PM EDT [facility] Comment:Immunofixation and q uantitative immunoglobulin testing will be performed on this sample per provider request. Blood VENOUS BLOOD SPECIMEN / Unknown Venipuncture / Unknown 09/28/2024 2:00 PM EDT 09/28/2024 2:34 PM EDT Ramesh Keller MD URINE ORDERABLES Performing Organization Address [facility] Co de Phone Number [facility] [place] [address] * Immunofixation Electrophoresis, Serum (09/28/2024 2:00 PM EDT) Pathologist [facility] [place] Immunofixation Interpretation, Serum No specific abnormality observed. 10/01/2024 9:33 AM EDT [facility] Signing Pathologist Tarik Hermosillo DO 10/01/2024 9:33 AM EDT [facility] Blood VENOUS BLOOD SPECIMEN / Unknown Venipuncture / Unknown 09/28/2024 2:00 PM EDT 09/28/2024 2:34 PM EDT Ramesh Keller MD CHEMISTRY ORDERABLES Performing Organization Address [facility] Co de Phone Number [facility] [place] [address] * (ABNORMAL) CBC (with Diff) (09/28/2024 2:00 PM EDT) Pathologist [facility] [place] White Blood Cell 8.18 4.00 - 9.50 x10(3)/mc L 09/28/2024 2:50 PM EDT [facility] Red Blood Cell 4.62 4.00 - 5.21 x10(6)/mc L 09/28/2024 2:50 PM [facility] Hemoglobin 13.3 11.7 - 15.5 g/dL 09/28/2024 2:50 PM [facility] Hematocrit 40.6 35.7 - 45.8 % 09/28/2024 2:50 PM [facility] Mean Cell Volume 87.9 82.6 - 94.4 fL 09/28/2024 2:50 PM [facility] Mean Cell Hemoglobin 28.8 27.1 - 32.0 pg 09/28/2024 2:50 PM [facility] Mean Cell Hemoglobin Concentration 32.8 31.7 - 35.0 g/dL 09/28/2024 2:50 PM [facility] Platelet 290 145 - 357 x10(3)/mc L 09/28/2024 2:50 PM [facility] Mean Platelet Volume 10.3 7.6 - 12.9 fL 09/28/2024 2:50 PM [facility] RDW Standard Deviation 45.4 37.0 - 46.0 fL 09/28/2024 2:50 PM [facility] RDW coefficient of variation 14.1 11.5 - 14.1 % 09/28/2024 2:50 PM [facility] NRBC% auto 0.0 % 09/28/2024 2:50 PM [facility] NRBC Absolute <0.01 <0.01 x10(3)/mc L 09/28/2024 2:50 PM [facility] Neutrophil % 81.3 % 09/28/2024 2:50 PM [facility] Neutrophil Absolute (ANC) - Automated 6.66(H) 1.70 - 6.10 x10(3)/mc L 09/28/2024 2:50 PM [facility] Lymph % 12.0 % 09/28/2024 2:50 PM [facility] Lymph Absolute 0.98 0.90 - 3.20 x10(3)/mc L 09/28/2024 2:50 PM EDT [facility] Monocyte % 4.4 % 09/28/2024 2:50 PM EDT [facility] Monocyte Absolute 0.36 0.30 - 0.90 x10(3)/mc L 09/28/2024 2:50 PM EDT [facility] Eos % 0.9 % 09/28/2024 2:50 PM EDT [facility] Eos Absolute 0.07 0.00 - 0.40 x10(3)/mc L 09/28/2024 2:50 PM EDT [facility] Basophil % 0.9 % 09/28/2024 2:50 PM EDT [facility] Baso Absolute 0.07 0.00 - 0.10 x10(3)/mc L 09/28/2024 2:50 PM EDT [facility] Immature Gran % 0.5 % 2:50 PM EDT [facility] Immature Gran Absolute 0.04 0.00 - 0.04 x10(3)/mc L 09/28/2024 2:50 PM EDT [facility] Blood VENOUS BLOOD SPECIMEN / Unknown Venipuncture / Unknown 09/28/2024 2:00 PM EDT 09/28/2024 2:34 PM EDT Ramesh Keller MD HEMATOLOGY ORDERABLE S [facility] [place] [address] * (ABNORMAL) Comprehensive metabolic panel Non-fasting (09/28/2024 2:00 PM EDT) Glucose 218(H) 65 - 199 mg/dL 09/28/2024 3:08 PM EDT [facility] Comment:Glucose Concentratio n >=200 mg/dL plus symptoms is consistent with Diabetes Mellitus. Blood Urea Nitrogen 18 8 - 18 mg/dL 09/28/2024 3:08 PM [facility] Creatinine 0.68(L) 0.70 - 1.20 mg/dL 09/28/2024 3:08 PM [facility] Sodium 142 135 - 145 mMol/L 09/28/2024 3:08 PM [facility] Potassium 4.7 3.5 - 5.0 mMol/L 09/28/2024 3:08 PM [facility] Chloride 102 98 - 107 mMol/L 09/28/2024 3:08 PM [facility] Carbon Dioxide 27 22 - 31 mMol/L 09/28/2024 3:08 PM [facility] Anion Gap 13 5 - 15 mMol/L 09/28/2024 3:08 PM [facility] Calcium 10.4 8.5 - 10.5 mg/dL 09/28/2024 3:08 PM [facility] Protein, Total 7.1 6.1 - 8.0 g/dL 09/28/2024 3:08 PM [facility] Albumin 4.6 3.2 - 5.2 g/dL 09/28/2024 3:08 PM [facility] Aspartate Aminotransferase 38(H) <=30 unit/L 09/28/2024 3:08 PM [facility] Alanine Aminotransferase 33(H) 0 - 30 unit/L 09/28/2024 3:08 PM [facility] Alkaline Phosphatase 75 35 - 105 unit/L 09/28/2024 3:08 PM [facility] Bilirubin, Total 0.4 <=1.3 mg/dL 09/28/2024 3:08 PM [facility] Est Glomerular Filtration Rate - Female 92 mL/min/1. 73 m?? 09/28/2024 3:08 PM [facility] Comment: This patient's estimated [...] Fasting Status No 09/28/2024 3:08 PM EDT [facility] Blood VENOUS BLOOD SPECIMEN / Unknown Venipuncture / Unknown 09/28/2024 2:00 PM EDT 09/28/2024 2:34 PM EDT Ramesh Keller MD CHEMISTRY ORDERABLES Performing Organization Address [facility]/ZIP Co de Phone Number [facility] [place] [address] * Ceruloplasmin (09/28/2024 2:00 PM EDT) Ceruloplasmin 27.1 16.0 - 45.0 mg/dL 09/28/2024 3:10 PM EDT [facility] Blood VENOUS BLOOD SPECIMEN / Unknown Venipuncture / Unknown 09/28/2024 2:00 PM EDT 09/28/2024 2:34 PM EDT Ramesh Keller MD CHEMISTRY ORDERABLES Performing Organization Address City/[facility]/ZIP Co de Phone Number [facility] [place] [address] * Ganglioside Antibodies (09/28/2024 2:00 PM EDT) [...] antibodies are associated with different variants of Guillain-Lyburn syndrome (GBS) particularly acute motor axonal neuropathy [...] developed and its performance characteristics determined by [facility]. It has not been cleared or approved by the [place] Food and Drug Administration. This test was performed in a CLIA certified laboratory and is intended for clinical purposes. Performed By: [facility] [address] [place] [id number] Mission Coordinator: Jerman Soliz MD, PhD CLIA Number: [id number] Blood VENOUS BLOOD SPECIMEN / Unknown Venipuncture / Unknown 09/28/2024 2:00 PM EDT 09/28/2024 2:34 PM EDT Ramesh Keller MD LAB SEND OUT ORDERAB LES REF LAB [place] [address] documented in this encounter Visit Diagnoses Diagnosis Motor neuron disease Amyotrophic lateral sclerosis ALS (amyotrophic lateral sclerosis) Amyotrophic lateral sclerosis documented in this encounter Care Teams Pattern Storage Clerk Relationship Specialty Start Date End Date None None PCP - General 09/09/24 documented as of this encounter
--- OUTSIDE RECORDS SUMMARY | 2024-10-03 14:17 | XMS_ITS | Encounter Summary ---
Author Organization [facility]ly [facility] [address] [place] [address] Care Team Providers Care Silver Steward Name Role Phone None Primary Care Provider Unavailabl e Encounter Details Date Type Department Care Team (Latest Contact Info) Description 09/28/2024 10:30 AM EDT Procedure visit [place] [address] Ramesh Keller MD [facility] [place] [address] ALS (amyotrophic lateral sclerosis) (Primary Dx) Social History Tobacco Use Types Packs/Day Years Used Date Smoking Tobacco: Never Smokeless Tobacco: Never Alcohol Use Standard Drinks/Week Comments Yes 0 (1 standard drink = 0.6 oz pur e alcohol) Sex and Gender Information Value Date Recorded Sex Assigned at Not on file Gender Identity Not on file Sexual Orientation Not on file documented as of this encounter Progress Notes * Ramesh Keller MD - 09/28/2024 10:30 AM EDT Images from the original note were not included. [facility] [place]. [id number] EMG/Nerve Conduction Study Report Patient Name: Vee Carr Visit Date: 09/28/24 Age: 74 y.o. Referring Provider: Ramesh Keller MD Performing Physician: Ramesh Keller MD Technologist: Kimberlee Moulton Encounter Type: Test + Consult Blood Thinners: No Implanted Electronic Devices: No Reason for Study: 74 y.o. female presenting for evaluation of progressive weakness beginning in right arm 12/2023. This study is requested to evaluate for motor neuron disease Examination: Focused neurologic examination notable for asymmetric weakness and atrophy of bilateral arms and right leg with preserved sensation. See separate clinic note from 09/28/24 for detailed exam Nerve Conduction Studies: Right median and tibial motor NCS were normal Right median and sural antidromic sensory NCS were normal Please see scanned data table for full nerve conduction studies Needle Electromyography: Concentric needle EMG of the select muscles in the right arm, right leg, and thoracic paraspinal were performed: EMG of the right deltoid, right triceps, right FDI,right tibialis anterior, right medial gastrocnemius all demonstrated fibrillations/PSWs with reduced motor unit recruitment and evidence of chronic re-innervation. Fasciculation potentials were noted in the deltoid, FDI, and tibialis anterior EMG of the right vastus medialis had rare fasciculation potentials without fibrillations/PSWs. Motor unit recruitment was moderately reduced and there was evidence of chronic re-innervation EMG of the right T4 paraspinal muscle demonstrated 2+ fibs/PSWs. Please see scanned data table for full Needle EMG information Interpretation: Abnormal study. There is electrophysiologic evidence of a generalized disorder of motor neurons or their axons affecting 3 body segments. In the context of the clinical history and examination, thesefindings are most consistent with a diagnosis of amyotrophic lateral sclerosis (ALS). All data has been reviewed by me and I agree with the impression above. I certify that I was present for the villegas portion of the needle EMG procedure. Dr. Ramesh Keller MD Clerk Rating, Neurology Neuromuscular Medicine [facility] documented in this encounter Plan of Treatment Upcoming Encounters Date Type Department Care Team (Late st Contact Info) Description 10/05/2024 9:00 AM EDT TH Visit (TeleHealth) [place] [address] Ramesh Keller MD [facility] [place] [address] 10/12/2024 11:30 AM EDT TH Visit (TeleHealth) [place] [address] Ramesh Keller MD [facility] [place] [address] documented as of this encounter Visit Diagnoses Diagnosis ALS (amyotrophic lateral sclerosis)- Primary Amyotrophic lateral sclerosis documented in this encounter Care Teams Silver Steward Relationship Specialty Start Date End Date None None PCP - General 09/09/24 documented as of this encounter
--- OUTSIDE RECORDS SUMMARY | 2024-10-03 14:17 | XMS_ITS | Encounter Summary ---
[place] [address] Care Team Providers Care Clam Shucking Machine Tender Name Role Phone None Primary Care Provider Unavailabl e Encounter Details Date Type Department Care Team (Late st Contact Info) Description 09/28/2024 External [place] [address] Ramesh Keller MD [facility] [place] [address] Social History Tobacco Use Types Packs/Day Years [...] AM EDT TH Visit (TeleHealth) [place] [address] Ramesh Keller MD [facility] [place] [address] 10/12/2024 11:30 AM EDT TH Visit (TeleHealth) [place] [address] Ramesh Keller MD [facility] [place] [place] [address] documented as of this encounter Procedures Procedure Name Priority Date/Time Associated Diagnosis Comments EMG SCAN Routine 05/18/2024 10:35 AM EST documented in this encounter Results * Scan Doc: EMG (05/18/2024 10:35 AM EST) Ramesh Keller MD MEDIA MGR SCAN EXT O RDR/RSLT documented in this encounter Visit Diagnoses Not on filedocumented in this encounter Care Teams Clam Shucking Machine Tender Relationship Specialty Start Date End Date None None PCP - General 09/09/24 documented as of this encounter
== END 2024-10-03 13:23 | disposition home or self-care (01) ==
LOC: HO.HMCC 12:20
PROVIDERS: PCP Internal Medicine; Visit Provider Internal Medicine
DX: E78.5 Hyperlipidemia, unspecified (principal); G12.21 Amyotrophic lateral sclerosis

== ENCOUNTER → 2024-10-03 12:20 | Outpatient (BNVA) | payer MEDICARE, OTHER, SELFPAY | PROVIDERS: PCP Internal Medicine; Visit Provider Internal Medicine | DX: G12.21 Amyotrophic lateral sclerosis (principal); E78.5 Hyperlipidemia, unspecified | CPT/HCPCS: 96127; 99212 ==

== ENCOUNTER 2024-11-11 13:46 | Outpatient (REF) | payer MEDICARE, OTHER, SELFPAY ==
--- NOTE | 2024-11-11 13:52 | PFT_ITS ---
Flows: FEV1: 108 % of predicted at 2.05 L FVC: 107 % of predicted at 2.62 L FEV1/FVC: 78 % Bronchodilator response: Bronchodilator testing not performed Volumes: Total lung capacity: 91 % of predicted at 4.04 L Residual volume: 70 % of predicted at 1.28 L Slow vital capacity: 107 % of predicted at 2.76 L Expiratory reserve volume: 135 % of predicted at 0.81 L Diffusion capacity: Mildly decreased, corrects to normal after adjustment for alveolar ventilation. Maximum inspiratory pressure 64% of predicted at 70 cm of water. Maximum expiratory pressure 49% of predicted at 30 cm of water Impression: No obstructive or restrictive ventilatory defect. Bronchodilator testing was not performed. Decreased maximum inspiratory and expiratory pressure suggest underlying respiratory muscle weakness consistent with stated diagnosis of ALS. MTDD
== END 2024-11-11 13:47 | disposition home or self-care (01) ==
LOC: HO.RESP 13:46
PROVIDERS: PCP Internal Medicine; Visit Provider Psychiatry & Neurology Neuromuscular Medicine
DX: G12.20 Motor neuron disease, unspecified (principal); G12.21 Amyotrophic lateral sclerosis
CPT/HCPCS: 94010; 94727; 94729

== ENCOUNTER → 2024-11-11 13:52 | Outpatient (BNV) | payer MEDICARE, OTHER, SELFPAY | PROVIDERS: PCP Internal Medicine; Visit Provider Internal Medicine Pulmonary Disease | DX: G12.21 Amyotrophic lateral sclerosis (principal) | CPT/HCPCS: 94060; 94727; 94729 ==

== ENCOUNTER 2025-03-13 11:46 | Outpatient (AMB) | payer MEDICARE, OTHER, SELFPAY ==
[2025-03-13 11:51] VITALS: BP 126/74; PULSE 69; RESP 18; TEMP 36.2; O2SAT 97; BMI 22.7
--- NOTE | 2025-03-13 11:51 | MHC.PC.OV ---
Vital Signs 03/13/25 11:51 Height 5 ft 1 in Weight 120 lb BMI 22.7 BP 126/74 Blood Pressure Location Lt brachial Position Sitting Respiration 18 Pulse 69 Pulse Source Pulse Oximeter Temp 97.2 F Temp Source Oral Pulse Oximetry (%) 97 Oxygen Delivery Method Room Air Intake Visit Reasons: 6 months f/up Intake Note: Pt is here today for 6 months follow up visit. Allergies Penicillins (PENICILLINS) Adverse Reaction (Mild, Verified 03/13/25 11:51) GI UPSET Medication List - Last Reconciled 03/13/25 by Jia Bolden MD alendronate (Fosamax) 70 mg PO QWEEK ascorbic acid (vitamin C) mg PO cholecalciferol (vitamin D3) 25 mcg PO DAILY ciprofloxacin HCl 0.3% 1-2 drops 4 times/day x5days ophthalmic (eye) magnesium 133 mg PO DAILY melatonin mg PO BEDTIME multivitamin 1 tab PO DAILY omega 5-lqx-gpi-fish oil 1,200 (144-216) mg (Fish Oil) 1 cap PO BID vitamin K2 40 mcg PO DAILY Tobacco use date assessed: 03/13/25 Fall risk assessment: 1 Fall in past year Last assessed Fall Risk: 03/13/25 Dental Screening Dental Screen Date: 10/03/24 HPI 6 months f/up HPI Details Pt presents for the follow-up of ALS. She is established with [facility] and has a multidisciplinary appointments every 3 months. She reports feeling generalized muscle weakness, but has been able to walk and right her tricycle daily. She has been wearing L ankle brace for L ankle weakness. Patient continues to take Fosamax for osteoporosis and has an appointment with physical therapy manager in 2 months. [facility] Medical History (Updated 03/13/25 @ 20:27 by Jia Bolden MD) ALS (amyotrophic lateral sclerosis) Melanoma Osteoporosis Breast mass Vitamin D deficiency Normal colonoscopy Hypothyroidism IFG (impaired fasting glucose) Hypertriglyceridemia Basal cell carcinoma Surgical History Hx of kyphoplasty Hx of excision of mass History of right oophorectomy Hx of colonoscopy Hx of wisdom tooth extraction Family History Father Heart problem Dementia Ruptured appendix Mother Colon cancer Dementia Sister Ruptured appendix Aneurysm Brother Kidney stones Social History Housing: House Are you a primary career and technology education teacher to a significant other at home: No Do you presently have visiting nurse or other home services: No Alcohol intake: current Alcohol intake frequency: a few times a month Patient Tobacco Use Status: Former Tobacco user Tobacco use type: Cigarette e-Cigarette/Vaping Use: Never Used service: No Current occupational status: retired Current occupation: right hand dominant Cognitive needs: No Hearing needs: No Vision needs: Yes Questionnaire PHQ-9 Over the last 2 weeks, how often have you been bothered by any of the following problems? [id number] - PHQ-9 Billing: Patient declined-do not bill Source: Developed by Drs. Storm Tavares, Alexandria Hays, Ady Nix and colleagues, with an educational mario alberto from [employer]. Thrive Questionnaire Date Thrive assessed: 09/30/24 I am a: Patient What is your living situation today?: I have a steady place to live Within the past 12 months, did the food you bought not last and you didn't have the money to get more?: Never true Within the past 12 months, did you worry whether your food would run out before you got money to buy more?: Never true Do you have trouble paying for medicines?: No Do you have trouble getting transportation to medical appointments?: No Do you have trouble paying your heating and electricity bill?: No Do you have trouble taking care of your child, family member or friend?: No Do you have trouble with day-to-day activities such as bathing, preparing meals, shopping, managing finances, etc.?: No Are you currently unemployed and looking for a job?: No Are you interested in more education?: No Please select the resources that you would like help with: None Currently or been in a relationship where the following occur: No concerns reported THRIVE Score: 0 MELLO-7 AMB Questionnaire MELLO-7 Date MELLO - 7 assessed: 10/03/24 Feeling nervous, anxious, or on edge: 1 = Several days Not being able to stop or control worryin = Several days Worrying too much about different things: 1 = Several days Trouble relaxin = Several days Being so restless that it is hard to sit still: 0 = Not at all Becoming easily annoyed or irritable: 0 = Not at all Feeling afraid as if something awful might happen: 1 = Several days Total MELLO-7 score (0-4 normal; 5-9 mild; 10-14 moderate; 15-21 severe): 5 Source: Developed by Drs. Storm Tavares, Alexandria Hays, Ady Nix and colleagues, with an educational mario alberto from [employer]. Review of Systems Const All systems reviewed & are unremarkable except as noted in HPI and below ENT Reports no additional complaints Card Reports no additional complaints Resp Reports no additional complaints GI Reports no additional complaints Reports no additional complaints Physical exam (Primary Care) Vital Signs: Last Vital Signs Temp 97.2 F 03/13/25 11:51 Pulse 69 03/13/25 11:51 Resp 18 03/13/25 11:51 BP 126/74 03/13/25 11:51 Pulse Ox 97 03/13/25 11:51 Oxygen Delivery Method Room Air 03/13/25 11:51 BMI result Body Mass Index 22.7 Tobacco/Smoking Status: Tobacco use Status Tobacco use date assessed 03/13/25 03/13/25 11:52 Patient Tobacco Use Status Former Tobacco user 03/13/25 11:52 Tobacco use type Cigarette 03/13/25 11:52 e-Cigarette/Vaping Use Never Used 03/13/25 11:52 Thrive Assessment: Date of Thrive Assessment Date Thrive assessed 09/30/24 03/13/25 11:52 Currently or been in a relationship where the following occur: No concerns reported Const General: no acute distress HENMT Head: Yes normal to inspection Face and sinus: Yes normal facial exam Throat: Yes posterior oropharynx normal Eyes General: appearance normal, both eyes and all related structures Neck Neck: Yes supple Resp Effort & Inspection: normal respiratory effort Auscultation: clear to auscultation bilaterally Cardio Rhythm: regular rhythm Heart sounds: S1 normal heart sound present and S2 normal heart sound present GI Inspection: Yes normal to inspection Palpation (GI): Soft to palpation Percussion: Yes normal to percussion Auscultation: normal bowel sounds Coding Level of Care Code Est Pt Level 4 (72441) Diagnoses Osteoporosis M81.0 ALS (amyotrophic lateral sclerosis) G12.21 Assessment & Plan Assessment & Plan (1) Osteoporosis: Comment: DEXA 05/2022 T score -2.6, traumatic vertebral fracture T8 , treatment initially but agreed after compression fracture, started Fosamax 05/2024 Code(s): M81.0 - Age-related osteoporosis without current pathological fracture Category: Medical Plan: CONTINUE FOSAMAX AND VITAMIN-D FOLLOW-UP WITH ENDOCRINOLOGY (2) ALS (amyotrophic lateral sclerosis): Comment: Established with Neurology at [facility] Code(s): G12.21 - Amyotrophic lateral sclerosis Category: Medical Plan: Follow-up with ALS clinic and Neurology Medications: New ciprofloxacin HCl 0.3% 1-2 drops 4 times/day x5days ophthalmic (eye) 2.5 mL 0RF ciprofloxacin HCl 0.3% 1-2 drops 4 times/day x5days ophthalmic (eye) 2.5 mL 0RF
--- OUTSIDE RECORDS SUMMARY | 2025-03-13 14:30 | XMS_ITS | Clinical Summary ---
Author Organization [facility] Address [address] [address] Phone Care Team Providers Care Reporting Specialist Name Role Phone Sarah Frazier MD Unavailable Andreina Singh MD Unavailable [phone] Jia Bolden MD Primary Care Provider [phone] Allergies Active Allergy Reactions Criticality Noted Date Comments Penicillins GI Upset 05/16/2024 Medications gabapentin (NEURONTIN) 100 MG capsule Take 100 mg by mouth 3 (three) times a day. 4 Active alendronate (FOSAMAX) 70 MG tablet Take 70 mg by mouth every 7 days. 4 Active therapeutic multivitamin tablet Take 1 tablet by mouth daily. Active cholecalciferol (VITAMIN D3) 25 MCG (1,000 unit) tablet Take 1,000 Units by mouth daily. Active omega 4-psz-zbw-fish oil 1,000 (120-180) mg Cap Take 1 capsule by mouth 2 (two) times a day. Active vitamin K2 100 mcg capsule Take 100 mcg by mouth daily with breakfast. Take with a meal. Active ascorbic acid, vitamin C, (VITAMIN C) 500 mg Chew Take 500 mg by mouth daily. Active melatonin 5 mg Tab Take by mouth nightly at bedtime. Active aspirin 81 mg chewable tablet Take 81 mg by mouth 3 (three) times a week. Active Active Problems Problem Noted Date Diagnosed Date Basal cell carcinoma 05/16/2024 Hypertriglyceridemia 05/16/2024 Premature menopause 05/16/2024 Age-related osteoporosis wit hout current pathological fracture 05/16/2024 Assessment & Plan (05/16/2024 5:14 PM EST): 74 y.o. woman with osteoporosis of spine on bone density in 2021. She had a traumatic vertebral compression fracture earlier this year & underwent subsequent kyphoplasty. She keeps active & is getting calcium & D in via diet/supplement, although probably not getting 1200 mg total of calcium in daily. She has no significant reflux & is seeing a dentist regularly. Reviewed normal bone physiology across the lifespan. Reviewed role of adequate calcium & vitamin D, weight-bearing exercise, avoiding falls and pharmacologic rx with risks/benefits, including risk of ONJ or AFF. Discussed concept of/rationale for a drug holiday. Advised her to refer to UpToDate patient information @ calcium & vitamin D & prevention and treatment of osteoporosis, beyond the basics for additional information. Would do some additional testing to evaluate for secondary causes, to include with labs for PCP early next year & call me when labs are done so we can track down. Would tentatively plan on a 5 yr course w/ subsequent drug holiday. 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 To have repeated w/ upcoming labs for PCP. Reviewed dx & rx options. If similar reasonable to continue to monitor vs trial of LT4 to get into mid-normal range, although most individuals will not feel better w/ rx with similar #s. Certainly if TSH > 10, then would advise rx. Family History Medical History Relation Comments Cancer Mother Thyroid disease Mother Relation Status Comments Mother Alive Social History Tobacco Use Types Packs/Day Years Used Date Smoking Tobacco: Never Assessed Education Answer Date Recorded Are you interested in more education? Not on socorro e 11/04/2023 Are you concerned about learning? Not on file 11/04/2023 No 11/04/2023 No 11/04/2023 Digital Access Answer Date Recorded No 11/04/2023 No 11/04/2023 Reliable internet access at home? Not on file 11/04/2023 Device with a working camera? Not on file Comments Unknown Sex and Gender Information Value Date Recorded Sex Assigned at Not on file Legal Sex Female 10:01 PM EDT Gender Identity Not on file Sexual Orientation Not on file Last Filed Vital Signs Vital Sign Reading Time Taken Comments Blood Pressure 110/72 05/16/2024 9:38 AM EST Pulse 65 05/16/2024 9:38 AM EST Temperature - - Respiratory Rate - - Oxygen Saturation 98% 05/16/2024 9:38 AM EST Inhaled Oxygen Concentration - - Weight 52.6 kg (116 lb) 05/16/2024 9:38 AM EST Height 153 cm (5' 0.25 ) 05/16/2024 9:38 AM EST Body Mass Index 22.47 05/16/2024 9:38 AM EST Plan of Treatment Upcoming Encounters Date Type Department Care Team (Late st Contact Info) Description 05/15/2025 10:00 AM EST Office Visit [facility] Endocrinology [address] [phone] Sondra Ackerman MD [address] [place] [id number] [email or web address] Health Maintenance Due Date Last Done Comments LIPID PANEL 1951 DEPRESSION SCREENING 1963 SMOKING Hx and SMOKELESS TOBACCO SCREENING 1964 HEPATITIS C SCREENING 1969 PNEUMOCOCCAL VACCINES (50+ years) (1 of 2 - PCV) 1970 ZOSTER VACCINES (1 of 2) 1970 MAMMOGRAM 1991 COLOGUARD 1996 COLONOSCOPY 1996 COLORECTAL CANCER SCREENING 1996 FIT TEST 1996 FOBT 1996 SIGMOIDOSCOPY 1996 VIRTUAL COLONOSCOPY 1996 OSTEOPOROSIS SCREENING INITIAL (ONE-TIME) 2016 Adult Td,Tdap Booster 12/10/2022 12/10/2012 , 08/01/2003, 02/16/1995 INFLUENZA VACCINE (#1) 2025 4, 05/10/2013, 04/29/2012, Additional history exists COVID-19 VACCINE (2023-25 season) 2025 RSV VACCINE (1 - 1-dose 75+ series) 2026 MENINGOCOCCAL VACCINES (ACWY) Aged Out 09/17/2004 No longer eligible based on patient's age to complete this topic HEPATITIS A VACCINES Aged Out No long er eligible based on patient's age to complete this topic HIB VACCINES Aged Out No longer eligi ble based on patient's age to complete this topic MENINGOCOCCAL VACCINES (B) Aged Out N o longer eligible based on patient's age to complete this topic Medical Devices Not on file Insurance [place] & [place] [id number] [facility] MEDICARE SUPPLEMENT MEDICARE PART A & B [employer] MEDICARE SUPPLEMENT MEDICARE PART A & B [employer] MEDICARE SUPPLEMENT MEDICARE PART A & B [facility] MEDICARE SUPPLEMENT MEDICARE PART A & B [facility] EXTENSION MEDICARE SUPPLEMENT MEDICARE PART A & B [facility] EXTENSION MEDICARE SUPPLEMENT Care Teams Reporting Specialist Relationship Specialty Start Date End Date Jia Bolden MD [address] [place] [address] PCP - General Internal Medicine 10/09/23 Sarah Frazier MD [address] [place] [address] [address] [place] [address] [email or web address] Historical LMR Provider 04/08/17 Andreina Singh MD [address] [place] [address] [address] [place] [address] [email or web address] Historical LMR Provider 04/08/17 Additional Source Comments The information contained in this document represents components of the legal health record. It is not the complete legal health record.[facility]
--- OUTSIDE RECORDS SUMMARY | 2025-03-13 14:30 | XMS_ITS | Encounter Summary ---
Author Organization [facility] Address [facility] [address] [place] [address] Care Team Providers Care Dexigraph Operator Name Role Phone None Primary Care Provider Unavailabl e Reason for Visit * Reason Onset Date Comments Triage 02/28/2025 Encounter Details Date Type Department Care Team (Late st Contact Info) Description 02/28/2025 Telephone Sleep Center at [address] [phone] Bravo Villa III, MD [facility] [address] [facility] [address] Triage Social History Tobacco Use Types Packs/Day Years Used Date Smoking Tobacco: Never Smokeless Tobacco: Never Alcohol Use Standard Drinks/Week Comments Yes 0 (1 standard drink = 0.6 oz pur e alcohol) Comments Unknown Sex and Gender Information Value Date Recorded Sex Assigned at Not on file Legal Sex Female 7:13 AM EST Gender Identity Not on file Sexual Orientation Not on file documented as of this encounter Miscellaneous Notes * Telephone Encounter - Juan Manuel Sawant - 02/28/2025 9:17 AM EDT Message: Vee Carr, patient, stated she has been having trouble with her CPAP for about 2 months. Vee stated she has a full face mask which she loves, she knows she is not sleeping with her mouth open yet she is burping all night and upon waking is passing gas all morning. Vee stated shehas tried multiple things and nothing has worked. Vee stated the [employer] company has done everything they can within prescription limits. Vee stated she can be reached at [phone] to discuss. Ask caller their first and last name and relationship to the patient: Vee Carr, patient Best time to call back: any Ok to leave a message: yes Ok to send my- message: n/a Offered Appointment: n/a MA/Nurse/[facility] contacted via: Message: y Call: n Pager: n documented in this encounter Plan of Treatment Upcoming Encounters Date Type Department Care Team (Late st Contact Info) Description 2025 8:30 AM EDT Office Visit ALS Center at [address] [phone] Morteza Winchester MD [facility] [place] [address] 2025 8:30 AM EDT Notes Only ALS Center at [address] [phone] Myla Golden MSW documented as of this encounter Visit Diagnoses Not on filedocumented in this encounter Care Teams Dexigraph Operator Relationship Specialty Start Date End Date None None PCP - General 09/09/24 documented as of this encounter
--- OUTSIDE RECORDS SUMMARY | 2025-03-13 14:30 | XMS_ITS | Clinical Summary ---
Author Organization [facility] [address] Care Team Providers Care Telepathist Name Role Phone None Primary Care Provider Unavailabl e Allergies Active Allergy Reactions Criticality Noted Date Comments Penicillins Other (See Comments) 05/16/2024 GI Upset Medications multivitamin (THERAGRAN) tablet 02/20/2010 Active melatonin 5 mg tablet Take 1 tablet by mouth nightly. Active alendronate (Fosamax) 70 mg tablet Take 70 mg by mouth. Active omega-3 acid ethyl esters (Lovaza) 1 gram capsule Take 2 g by mouth 2 times daily. Active ascorbic acid, vitamin C, (Vitamin C) 500 mg chewable tablet Take 500 mg by mouth Daily @ 0600. Active cholecalciferoL (Vitamin D3) 1,000 unit tablet Take 1,000 Units by mouth Daily @ 0600. Active multivitamin (THERAGRAN) Tablet Take 1 tablet by mouth Daily @ 0600. Active vitamin K2 100 mcg capsule Take 100 mcg by mouth. Active UNABLE TO FIND Med Name cbd gkummies 25 mg Active Active Problems Patient Care Coordination No te Formatting of this note migh t be different from the original. Neurology triage to [facility] Neurology General Nurse to reach ALS RN Problem Noted Date Diagnosed Date ALS (amyotrophic lateral sclerosis) 09/28/2024 Seborrheic keratosis 02/10/2013 Healthcare maintenance 11/27/2011 Overview (11/27/2011): Mammogram 03/12/11 normal Dexa scan 03/07/10 T -1.8 osteopenia Pap 11/25/10 neg HPV, normal Pap Colonoscopy 11/27/09 normal due in 5 yrs Immunization History Administered Date(s) Administered H1n1 06/07/2009 Influenza Whole 04/13/2008 DWAYNE exposure in utero 11/25/2010 Overview (03/21/2012): Provider: ROSY WILEY Pt. Name: VEE SANTA Nilton Sarkar Acc #: [id number] Pt. Col Date: 11/27/2009 /Sex: 1950,(59 years),Female Rec Date: 11/27/2009 LOC: [facility] MOLECULAR GENETIC STUDIES ---REPORT OF DNA ANALYSIS--- SocialVolt INVADER HPV ASR POSITIVE for high-risk HPV*: [...] Encounters Date Type Department Care Team Description 03/02/2025 Orders Only Sleep Center at [facility] [address] [place] [address] Lynnette Russell MD VÍCTOR (obstructive sleep apnea) (Primary Dx) 02/28/2025 Telephone [facility] [address] [place] [address] Bravo Villa III, MD Triage 02/21/2025 Telephone Neurology at [place] [phone] Ramesh Keller MD Other 02/08/2025 Telephone [facility] [address] [place] [phone] Eve Mcnulty RN 02/06/2025 Notes [place] [address] Ita Blanco 02/06/2025 [place] [phone] Ramesh Keller MD 01/10/2025 Notes [place] [address] Ita Blanco 12/22/2024 9:00 AM EDT TH Visit (TeleHealth) Sleep Center at [place] [address] [place] [address] Bravo Villa III, MD VÍCTOR (obstructive sleep apnea); ALS (amyotrophic lateral sclerosis) 12/22/2024 Telephone Sleep Center at [address] [address] Bravo Villa III, MD Appointment 12/20/2024 Telephone Sleep Center at [address] [phone] Genesis Ferrell from Last 3 Months Immunizations Immunization Administration Dates Next Due Influenza (Novel [id number]) Injectable 06/07/2009 Influenza Trivalent, Preservative Free 2 [...] Sign Reading Time Taken Comments Blood Pressure 132/52 11/30/2024 12:34 PM EDT Pulse 72 11/30/2024 12:34 PM EDT Temperature 36.9 C (98.4 F) 12/10/2012 8:59 AM EDT Respiratory Rate 16 09/28/2024 9:00 AM EDT Oxygen Saturation 100% 11/30/2024 12:34 PM EDT Inhaled Oxygen Concentration - - Weight 52.2 kg (115 lb) 12/21/2024 6:18 PM EDT Height 152.4 cm (5') 12/21/2024 6:18 PM EDT Body Mass Index 22.46 12/21/2024 6:18 PM EDT Plan of Treatment Upcoming Encounters Date Type Department Care Team (Late st Contact Info) Description 2025 8:30 AM EDT Office Visit ALS Center at [address] [phone] Morteza Winchester MD [facility] [place] [address] 2025 8:30 AM EDT Notes Only ALS Center at [address] [phone] Myla Golden, FOREST BOTANY INSTRUCTOR Health Maintenance Due Date Last Done Comments [...] Covid-19 Vaccine (1 - 2023-2 5 season) 2025 Influenza (Flu) vaccine (1 o f 1 - Influenza standard series) 02/20/2025 04/29/2012, 06/07/2009, 04/13/2008 Bone Density Scan 03/02/2027 03/02/2012 HPV test Discontinued 12/10/2012, 12/2011, 11/25/2010 Procedures Procedure Name Priority Date/Time Associated Diagnosis Comments MEAT PULLER MOLECULAR GENETICS REPORT Routine 12/10/2012 9:47 AM EDT MEAT PULLER CYTOLOGY FINAL REPORT Routine 12/10/2012 9:47 AM EDT MAMMO SCREENING CAD BILATERAL Routine 03/10/2012 1:50 PM EDT DXA CENTRAL SPINE, HIP, AND/OR WHOLE BODY (GENERIC) Routine 03/02/2012 3:23 PM EDT Disorder of bone and cartilage, unspecified from Last 3 Months or Most Recently Relevant to Health Maintenance Results * MEAT PULLER Molecular Genetics Report (12/10/2012 9:47 AM EDT) MEAT PULLER Molecular Genetics Report [facility] Provider: ROSY WILEY Pt. Name: VEE SANTA Acc #: [id number] Pt. Col Date: 12/10/2012 /Sex: 1950,(62 years),Female Rec Date: 12/10/2012 LOC: [facility] MOLECULAR GENETIC STUDIES ---REPORT OF DNA ANALYSIS--- Sawyer Duke HPV test NEGATIVE for high-risk HPV *. It is recommended that patients with ASCUS cytology and a negative test for high-risk HPV undergo further evaluation according to current practice guidelines. * Testing negative for high risk HPV means that the specimen is negative for the following 14 types tested: types 16, 18, 31, 33, 35, 39, 45, 51, 52, 56, 58, 59, 66, and 68. The test is not intended to detect low risk HPV types. Specimen: HPV Testing - Cytology Liquid Based Prep Reviewed by: Alvin Chung Endocervical /LBP B HPVDO Do HPV Testing Verified date: 12/16/12 [facility] Verified by: Lab Review, Molecular Genetics (Electronic Signature) HARJIT NARANJO 12/10/2012 9:47 AM EDT Rosy Wiley MD PATHOLOGY/CYTOLOGY ORDERA BLES Final Result [facility] * Senior Education Specialist Cytology Final Report (12/10/2012 9:47 AM EDT) Senior Education Specialist Cytology Final Report [facility] Provider: ROSY WILEY Pt. Name: KIET MARGAUXZEUS Sarkar Acc #: [id number] Pt. Col Date: 12/10/2012 /Sex: 1950,(62 years),Female Rec Date: 12/10/2012 LOC: [facility] CYTOPATHOLOGY: MEAT PULLER ---Adequacy--- Specimen submitted is satisfactory for evaluation. No endocervical component present . Note: Initial cross-sectional studies suggested that JUNO cells were more commonly identified when an endocervical component was present, however subsequent longitudinal studies fail to show that women lacking an endocervical component in a Pap smear are at increased risk for JUNO. ---Cytopathologic Diagnosis--- NORMAL Negative for Intraepithelial Lesion or Malignancy (NILM). 12/16/12 Screened by: HANNAH SPRINGER 12/16/12 Verified by: LINDEN Jaramillo(ASCP), Meme Saavedra Car Checker ---Comment--- Endocervical component not detected in an atrophic smear pattern. Please also see concurrent HPV test result. ---Clinical Information--- HPV Option: Concurrent HPV Preparation: Liquid Based Pap Specimen Source: Endocervical/LBP LMP: n/a Hormones?: No Hysterectomy?: No ?: No ?: No I.U.D.?: No Pelvic Radiation: No Prior MEAT PULLER Therapy?: No Hist Abnl Pap/Biopsy?: No Hist of HPV Vaccine?: No Hist of Smoking?: No Hist of DWAYNE exposure?: Yes Clinical Data, Significant Therapy and Clinical Impression: [facility] Provider: ROSY WILEY Pt. Name: VEE SANTA Acc #: [id number] Pt. Col Date: 12/10/2012 /Sex: 1950,(62 years),Female Rec Date: 12/10/2012 LOC: [facility] This Pap Test has been evaluated with the assistance of the Long Tail Pap Test Imaging System. CYTOPATHOLOGY: MEAT PULLER Note: The Pap test is a screening test for cervical cancer with an inherent false-negative rate dependent upon several variables. For further information please contact the [facility]. Reference: Darius FREDERICK. Laminating Machine Operator Helper of Pap Smear Results. In: Jimy BS, Kenji HH, ed. The Pap Smear. [facility] [place]: Pérez, 2002: 71-77. HARJIT NARANJO 12/10/2012 9:47 AM EDT Rosy Wiley MD PATHOLOGY/CYTOLOGY ORDERA BLES Final Result HARJIT NARANJO * MAMMO DIGITAL BILATERAL SCREENING WITH CAD (03/10/2012 1:50 PM EDT) Anatomical Region Laterality Modality Breast Bilateral Mammography 03/10/2012 1:50 PM EDT Narrative 03/11/2012 11:23 AM EDT Reason for Exam: Screening Technique: Craniocaudal (CC) [...] imaging center. Rosy Wiley MD IMG MAMMO ORDERABLES Edit ed Result - Final * DEXA CENTRAL-SPINE, HIP, AND/OR WHOLE BODY (03/02/2012 3:23 PM EDT) Anatomical Region Laterality Modality C-spine, Hip N/A Radiographic Jesenia ging 03/02/2012 3:23 PM EDT Narrative 03/02/2012 4:32 PM EDT Examination DXA CENTRAL-SPINE,HIP, AND/OR WHOLE BODY Clinical History Reason for exam and clinical history: assess bone density in postmenopausal female;F/U 10;ESTROGEN DEFICIENT, POSTMENOPAUSAL Technique Scans were acquired at [...] BMD measurements and plots are available in ECliqset under the imaging tab . Paper copies will be sent to providers without E- access. If you have received this report without the data sheet and do not have access to E-Taskmit, please contact Radiology Tax Map Technician at [phone] Thursday thru Thursday 8am-4pm. Procedure Note Magali [...] data sheet and do not haveaccess to E-Taskmit, please contact Radiology Tax Map Technician at [phone] Thursdaythru Thursday 8am-4pm. Rosy Wiley MD IMTacos DEXA ORDERABLES Final Result from Last 3 Months or Most Recently Relevant to Health Maintenance Insurance MEDICARE [facility] Advance Directives Documents on File Type Date Recorded Patient Licensed [employer] Real Estate Appraiser Expl anation Personal Licensed [place] Real Estate Appraiser 10/05/2024 12:38 PM Bubba Sloanmarleninathaniel (friend) Advance Directives and Living Will 10/04/2024 8:19 AM Personal Licensed [employer] Real Estate Appraiser 10/03/2024 4:15 PM Ramesh Santa (son) Personal Licensed [employer] Real Estate Appraiser 10/03/2024 4:14 PM Estefania Shamar (granddaughter) Personal Licensed [employer] Real Estate Appraiser 10/03/2024 3:46 PM Lin Kiet ([id number]) Personal Licensed [employer] Real Estate Appraiser 10/03/2024 3:46 PM Storm Wilsones (brother-in Law) Personal Licensed [employer] Real Estate Appraiser 10/03/2024 8:55 AM Sarai Santa (Daughter in law) Personal Licensed [employer] Real Estate Appraiser 10/03/2024 8:53 AM Mikel Miller (Brother in law) Personal Licensed [employer] Real Estate Appraiser 10/03/2024 8:53 AM Mariaa Kiet (granddaughter) Personal Licensed [employer] Real Estate Appraiser 10/03/2024 8:53 AM Ron Ibanez (Son-in-Law) Personal Licensed [employer] Real Estate Appraiser 10/03/2024 8:52 AM Kamryn Santa (Sister In Law) Personal Licensed [employer] Real Estate Appraiser 10/03/2024 8:52 AM Nevin Paul (sister) Personal Licensed [employer] Real Estate Appraiser 10/03/2024 8:52 AM Rakel Ibanez (daughter) Personal Licensed [employer] Real Estate Appraiser 10/03/2024 8:52 AM Jahaira Britt (Sister In Law) Personal Licensed [employer] Real Estate Appraiser 10/03/2024 8:52 AM Alexandria Funes (sister) Personal Licensed [employer] Real Estate Appraiser 10/03/2024 8:51 AM Eric Funes (brother) Personal Licensed [employer] Real Estate Appraiser 09/30/2024 12:08 PM Milagros Ibanez, granddaughter Personal Licensed [employer] Real Estate Appraiser 09/30/2024 11:58 AM Jay Santa, spouse Advance Directives and Living Will 07/22/2011 10:37 AM Care Teams Telepathist Relationship Specialty Start Date End Date None None PCP - General 09/09/24
--- OUTSIDE RECORDS SUMMARY | 2025-03-13 14:30 | XMS_ITS | Encounter Summary ---
[place] [address] Care Team Providers Care Interventional Nurse Name Role Phone None Primary Care Provider Unavailabl e Reason for Visit * Reason Onset Date Comments Other 02/21/2025 Encounter Details Date Type Department Care Team (Late st Contact Info) Description 02/21/2025 [place] [address] Ramesh Keller MD [facility] [place] [address] Other Social History Tobacco Use Types Packs/Day Years [...] encounter Miscellaneous Notes * Telephone Encounter - Nafisa Ziegler RN - 02/22/2025 8:55 AM EDT Spoke with Jeronimonicolle, let her know that Dr. Keller's feedback was to notify pcp, as these symptoms were not typical of ALS. Antonio did express upset at this, as she feels strongly symptoms are nerve related and new since ALS diagnosis, and that her presentation thus far has been overall atypical. She does have an upcoming appointment with PCP and will discuss, she would like to address further at [facility] if symptoms are persisting. * Telephone Encounter - Saniya Tiwari RN - 02/21/2025 2:16 PM EDT Copied from [facility] #[id number]. Topic: Specialty Dept CRMs - Triage >> Feb 21, 2025 8:35 AM Amina Hugh wrote: Triage Message Specialist: Ramesh Keller MD Relationship (if other than patient-full name): patient Symptom: vaginal itching Has patient experienced symptom before No If patient has experienced symptom before, when was the last time this occurred N/A Is patient currently having symptom Yes When did symptom begin Patient said hard to know exactly. Additional Comments: Patient said she was dx with ALS on 09/[address] Keller and her went over her meds on 09/28 and at this time she was on a low dose of Gabapentin for nerve pain in back and and subsequent Kyphoplasty, but was advised to stop taking this. Since stopping patient has not had any back pain. She then started Riluzole and then stopped this mid october because of the horrible GI side effects, with anal itching then early November the upper part of her pubic fold started really itching and so she used some anti itch cream and seemed to help until it didn't . Patient said she knows it is not a yeast infection because the itchiness is up higher. Patient said she was doing a lot of reading and said that sometimes itching occurs because somehow the neurons freda hyper sensitive. Patient iswondering if she should go back on the gabapentin. Patient said the itch is constant if she can't keep her mind busy enough, and said ALS is not the background of her entire life, and sometimes she can shut off the itching when sleeping but sometimes the itch will wake her, or if watching a good movie. Per permanent message in chart will also route to that pool. Please call to assist. Thanks! documented in this encounter Plan of Treatment Upcoming Encounters Date Type Department Care Team (Late Contact Info) Description 2025 8:30 AM EDT Office Visit ALS Center at [address] [phone] Morteza Winchester MD [facility] [place] [address] 2025 8:30 AM EDT Notes Only ALS Center at [address] [phone] Myla Golden, LABEL TACKER documented as of this encounter Visit Diagnoses Not on filedocumented in this encounter Care Teams Interventional Nurse Relationship Specialty Start Date End Date None None PCP - General 09/09/24 documented as of this encounter
== END 2025-03-13 13:27 | disposition home or self-care (01) ==
LOC: HO.HMCC 11:47
PROVIDERS: PCP Internal Medicine; Visit Provider Internal Medicine
DX: M81.0 Age-related osteoporosis without current pathological fracture (principal); G12.21 Amyotrophic lateral sclerosis

== ENCOUNTER → 2025-03-13 11:46 | Outpatient (BNVA) | payer MEDICARE, OTHER, SELFPAY | PROVIDERS: PCP Internal Medicine; Visit Provider Internal Medicine | DX: M81.0 Age-related osteoporosis without current pathological fracture (principal); G12.21 Amyotrophic lateral sclerosis | CPT/HCPCS: 99212 ==

== ENCOUNTER 2025-03-16 09:38 | Outpatient (REF) | payer MEDICARE, OTHER, SELFPAY ==
--- NOTE | 2025-03-16 | PFT_ITS ---
Flows: FEV1: 98 % of predicted at 1.86 L FVC: 105 % of predicted at 2.56 L FEV1/FVC: 73 % Bronchodilator response: Patient declined bronchodilator testing Volumes: Total lung capacity: 90 % of predicted at 4.00 L Residual volume: 78 % of predicted at 1.42 L Slow vital capacity: 100 % of predicted at 2.57 L Expiratory reserve volume: 149 % of predicted at 0.89 L Diffusion capacity: Mildly decreased, corrects to normal after adjustment for alveolar ventilation. Maximum inspiratory pressure 45 cm of water at 41% of predicted. Impression: No obstructive or restrictive ventilatory defect. Patient declined bronchodilator testing. Isolated defect in diffusion capacity suggests pulmonary edema. Decreased maximum inspiratory pressure suggests respiratory muscle weakness. Clinical correlation is advised. MTDD
--- OUTSIDE RECORDS SUMMARY | 2025-03-16 11:17 | XMS_ITS | Encounter Summary ---
[place] [address] Care Team Providers Care Glass Grinder Name Role Phone None Primary Care Provider Unavailabl e Reason for Referral * Occupational Therapy (Routine) - Authorized Specialty Diagnoses / Procedures Referred By Raven euceda Referred To Contact Occupational Therapy Diagnoses ALS (amyotrophic lateral sclerosis) Ramesh Keller MD [facility] [place] [address] Phone: tel: fax: Referral ID Status Reason Start Date Expiration Date Visits Requested Visits Authorized [id number] Authorized Evaluate and Treat 03/15/2025 09/11/2025 12 12 Reason for Visit * Reason Onset Date Comments Referral 03/14/2025 Encounter Details Date Type Department Care Team (Late st Contact Info) Description 03/14/2025 Telephone [place] [address] Ramesh Keller MD [facility] [place] [address] Referral Social History Tobacco Use Types Packs/Day Years [...] encounter Miscellaneous Notes * Telephone Encounter - Toya Singer RN - 03/15/2025 12:51 PM EDT Referral faxed to requested location. * Telephone Encounter - Kelli Oh RN - 03/14/2025 3:50 PM EDT Copied from CRM #[id number]. Topic: Specialty Dept CRMs - Orders >> Mar 14, 2025 3:34 PM Barbara Her wrote: Orders Request Specialist: Ramesh Keller MD Relationship (if other than patient-full name): Priscilla- OT- [facility] Type of Request: [x] Send orders Type/Name of Order: Therapy- Updated Occupational Therapy referral dated for today 03/14/25 Patient Requesting to Have Orders Sent to Facility Outside of [facility]: Yes If Yes, Name of Facility: [facility] Address: [address] [place] [address] #, [place] [address] Phone #: [phone] Fax #: [phone] documented in this encounter Plan of Treatment Upcoming Encounters Date Type Department Care Team ([facility] st Contact Info) Description 2025 8:30 AM EDT Office Visit ALS Center at [address] [phone] Morteza Winchester MD [facility] [place] [address] 2025 8:30 AM EDT Notes Only ALS Center at [address] [phone] Myla Golden, HAND SURGEON Scheduled Referrals Name Type Priority Associated Diagnoses Order Schedule Referral to Occupational Therapy Outpatient Referral Routine ALS (amyotrophic lateral sclerosis) Ordered: 03/15/2025 documented as of this encounter Visit Diagnoses Diagnosis ALS (amyotrophic lateral sclerosis) Amyotrophic lateral sclerosis documented in this encounter Care Teams Glass Grinder Relationship Specialty Start Date End Date None None PCP - General 09/09/24 documented as of this encounter
--- OUTSIDE RECORDS SUMMARY | 2025-03-16 11:17 | XMS_ITS | Clinical Summary ---
Author Organization Formerly [facility] [place] [address] Care Team Providers Care Bologna Lacer Name Role Phone None Primary Care Provider [...] different from the original. Neurology triage to [facility] Neurology General Nurse to reach ALS RN [...] Provider: ROSY WILEY Pt. Name: VEE SANTA Antonina Acc #: [id number] Pt. Col Date: 11/27/2009 /Sex: 1950,(59 years),Female Rec Date: 11/27/2009 LOC: [place] MOLECULAR GENETIC STUDIES ---REPORT OF DNA ANALYSIS--- THIRD Kasenna INVADER HPV ASR POSITIVE for high-risk HPV*: [...] Encounters Date Type Department Care Team Description 03/14/2025 [place] [address] Ramesh Keller MD Referral 03/02/2025 Orders Only [facility] at [address] [place] [address] Lynnette Russell MD VÍCTOR (obstructive sleep apnea) (Primary Dx) 02/28/2025 Telephone Sleep Center at [address] [phone] Bravo Villa III, MD Triage 02/21/2025 Telephone Neurology at [place] [phone] Ramesh Keller MD Other 02/08/2025 Telephone Sleep Center at [place] [address] [place] [address] Eve Mcnulty RN 02/06/2025 Notes Only Neurology at [place] [phone] Ita Blanco E 02/06/2025 Notes Only Neurology at [place] [phone] Ramesh Keller MD 01/10/2025 [place] [phone] Ita Blanco E 12/22/2024 9:00 AM EDT TH Visit (TeleHealth) Sleep Center at [place] [phone] Bravo Villa III, MD VÍCTOR (obstructive sleep apnea); ALS (amyotrophic lateral sclerosis) 12/22/2024 Telephone Sleep Center at [address] [phone] Bravo Villa III, MD Appointment 12/20/2024 Telephone Sleep Center at [address] [phone] Genesis Ferrell from Last 3 Months Immunizations Immunization Administration Dates Next Due Influenza (Novel O9F0-77) Injectable 06/07/2009 Influenza Trivalent, Preservative Free 2 [...] AM EDT Office Visit ALS Center at [address] [phone] Morteza Winchester MD [facility] [place] [address] 2025 8:30 AM EDT Notes Only ALS Center at [address] [phone] Myla Golden, STROBOSCOPE OPERATOR Health Maintenance Due Date Last Done Comments [...] Procedure Name Priority Date/Time Associated Diagnosis Comments CONTRACT DESIGNER MOLECULAR GENETICS REPORT Routine 12/10/2012 9:47 AM EDT CONTRACT DESIGNER CYTOLOGY FINAL REPORT Routine 12/10/2012 9:47 AM EDT MAMMO SCREENING CAD BILATERAL Routine 03/10/2012 1:50 PM EDT DXA CENTRAL SPINE, HIP, AND/OR WHOLE BODY (GENERIC) Routine 03/02/2012 3:23 PM EDT Disorder of bone and cartilage, unspecified from Last 3 Months or Most Recently Relevant to Health Maintenance Results * CONTRACT DESIGNER Molecular Genetics Report (12/10/2012 9:47 AM EDT) CONTRACT DESIGNER Molecular Genetics Report [facility] Provider: ROSY WILEY Pt. Name: VEE SANTA Acc #: [id number] Pt. Col Date: 12/10/2012 /Sex: 1950,(62 years),Female [...] - Cytology Liquid Based Prep Reviewed by: lAvin Chung ECL Endocervical /LBP B HPVDO Do HPV Testing Verified date: 12/16/12 AB Verified by: Lab Review, Molecular Genetics (Electronic Signature) [facility] 12/10/2012 9:47 AM EDT Rosy Wiley MD PATHOLOGY/CYTOLOGY ORDERA BLES Final Result [facility] * Corporate Analyst Cytology Final Report (12/10/2012 9:47 AM EDT) Corporate Analyst Cytology Final Report [facility] Provider: ROSY WILEY Pt. Name: VEE SANTA Acc #: [id number] Pt. Col Date: 12/10/2012 /Sex: 1950,(62 years),Female Rec Date: 12/10/2012 LOC: [facility] CYTOPATHOLOGY: CONTRACT DESIGNER ---Adequacy--- Specimen submitted is satisfactory for evaluation. [...] 12/16/12 Verified by: LINDEN Jaramillo(ASCP), Meme Saavedra Radio Despatcher ---Comment--- Endocervical component not detected in an atrophic smear pattern. Please also see concurrent HPV test result. ---Clinical Information--- HPV Option: Concurrent HPV Preparation: Liquid Based Pap Specimen Source: Endocervical/LBP LMP: n/a Hormones?: No Hysterectomy?: No ?: No ?: No I.U.D.?: No Pelvic Radiation: No Prior CONTRACT DESIGNER Therapy?: No Hist Abnl Pap/Biopsy?: No Hist of HPV Vaccine?: No Hist of Smoking?: No Hist of DWAYNE exposure?: Yes Clinical Data, Significant Therapy and Clinical Impression: [facility] Provider: ROSY WILEY Pt. Name: VEE SANTA Acc #: [id number] Pt. Col Date: 12/10/2012 /Sex: 1950,(62 years),Female Rec Date: 12/10/2012 LOC: [facility] This Pap Test has been evaluated with the assistance of the EyeTechCarePrep Pap Test Imaging System. CYTOPATHOLOGY: CONTRACT DESIGNER Note: The Pap test is a screening test for cervical cancer with an inherent false-negative rate dependent upon several variables. For further information please contact the [facility]. Reference: Darius FREDERICK. Wireless Store Manager of Pap Smear Results. In: Jimy BS, Kenji HH, ed. The Pap Smear. [place]: Pérez, 2002: 71-77. HARJIT NARANJO 12/10/2012 [...] BMD measurements and plots are available in ECertus under the imaging tab . Paper copies will be sent to providers without E-Pearlfection access. If you have received this report without the data sheet and do not have access to ECertus, please contact Radiology Sales Operations Coordinator at [phone] Thursday thru Thursday 8am-4pm. Procedure Note Magali [...] not haveaccess to E-DH, please contact Radiology Sales Operations Coordinator at [phone] Thursdaythru Thursday 8am-4pm. Rosy Wiley MD IMG DEXA ORDERABLES Final Result from Last 3 Months or Most Recently Relevant to Health Maintenance Insurance MEDICARE [facility] Advance Directives Documents on File Type Date Recorded Patient Cable Cutter And Swager Riley anation Personal Cable Cutter And Swager 10/05/2024 12:38 PM Bubba Horan (friend) Advance Directives and Living Will 10/04/2024 8:19 AM Personal Cable Cutter And Swager 10/03/2024 4:15 PM Ramesh Santa (son) Personal Cable Cutter And Swager 10/03/2024 4:14 PM Mac Shamar (granddaughter) Personal Cable Cutter And Swager 10/03/2024 3:46 PM Lin Bruno ([email or web address]) Personal Cable Cutter And Swager 10/03/2024 3:46 PM Storm Bruno (brother-in Law) Personal Cable Cutter And Swager 10/03/2024 8:55 AM Sarai Wilsones (Daughter in law) Personal Cable Cutter And Swager 10/03/2024 8:53 AM Mikel Miller (Brother in law) Personal Cable Cutter And Swager 10/03/2024 8:53 AM Mariaa Bruno (granddaughter) Personal Cable Cutter And Swager 10/03/2024 8:53 AM Ron Ibanez (Son-in-Law) Personal Cable Cutter And Swager 10/03/2024 8:52 AM Kamryn Santa (Sister In Law) Personal Cable Cutter And Swager 10/03/2024 8:52 AM Nevin Paul (sister) Personal Cable Cutter And Swager 10/03/2024 8:52 AM Rakel Ibanez (daughter) Personal Cable Cutter And Swager 10/03/2024 8:52 AM Jahairamorena Britt (Sister In Law) Personal Cable Cutter And Swager 10/03/2024 8:52 AM Alexandria Funes (sister) Personal Cable Cutter And Swager 10/03/2024 8:51 AM rEic Funes (brother) Personal Cable Cutter And Swager 09/30/2024 12:08 PM Milagros Ibanez, granddaughter Personal Cable Cutter And Swager 09/30/2024 11:58 AM Jay Santa, spouse Advance Directives and Living Will 07/22/2011 10:37 AM Care Teams Bologna Lacer Relationship Specialty Start Date End Date None None PCP - General 09/09/24
--- OUTSIDE RECORDS SUMMARY | 2025-03-16 11:17 | XMS_ITS | Clinical Summary ---
Author Organization [facility] Address [address] [address] Phone Care Team Providers Care Public Transit Bus Driver Name Role Phone Sarah Frazier MD Unavailable [phone] Andreina Singh MD Unavailable [phone] Jia Bolden MD Primary Care Provider [phone] Allergies Active Allergy Reactions Criticality Noted Date [...] 1,000 Units by mouth daily. Active omega 0-adm-jbi-fish oil 1,000 (120-180) mg Cap Take 1 [...] Description 05/15/2025 10:00 AM EST Office Visit [facility] Endocrinology [address] [phone] Sondra Ackerman MD [address] [place] [address] [email or web address] Health Maintenance Due Date Last Done Comments [...] Insurance [place] PART [place] [id number] [facility] MEDICARE SUPPLEMENT MEDICARE PART A & B [employer] MEDICARE SUPPLEMENT MEDICARE PART A & B [employer] MEDICARE SUPPLEMENT MEDICARE PART A & B [facility] MEDICARE SUPPLEMENT MEDICARE PART A & B [facility] EXTENSION MEDICARE SUPPLEMENT MEDICARE PART A & B [facility] EXTENSION MEDICARE SUPPLEMENT Care Teams Public Transit Bus Driver Relationship Specialty Start Date End Date Jia Bolden MD 1960 [facility] [place] [address] PCP - General Internal Medicine 10/09/23 Sarah Frazier MD [address] [place] [address] [address] [place] [address] [email or web address] Historical LMR Provider 04/08/17 Andreina Singh MD [address] [place] [address] 7 [place] [address] [email or web address] Historical LMR Provider 04/08/17 Additional Source Comments The information contained in this document represents components of the legal health record. It is not the complete legal health record.[facility]
--- OUTSIDE RECORDS SUMMARY | 2025-03-16 11:17 | XMS_ITS | Encounter Summary ---
Author Organization [facility] Address [facility] [place] [address] Care Team Providers Care Golf Course Keeper Name Role Phone None Primary Care Provider Unavailabl e Reason for Visit * Reason Onset Date Comments Triage 02/28/2025 Encounter Details Date Type Department Care Team (Late st Contact Info) Description 02/28/2025 Telephone Sleep Center at [address] [address] Bravo Villa III, MD [facility] DR JAGJIT [place] [address] Triage Social History Tobacco Use Types Packs/Day [...] and nothing has worked. Vee stated the [employer] company has done everything they can within prescription limits. Vee stated she can be reached at [phone] to discuss. Ask caller their first and last name and relationship to the patient: Vee Carr, patient Best time to call back: any Ok to leave a message: yes Ok to send my- message: n/a Offered Appointment: n/a MA/Nurse/[place] contacted via: Message: y Call: n Pager: n documented in this encounter Plan of Treatment Upcoming Encounters Date Type Department Care Team (Late st Contact Info) Description 2025 8:30 AM EDT Office Visit ALS Center at [address] [phone] Morteza Winchester MD [facility] [place] [place] [address] 2025 8:30 AM EDT Notes Only ALS Center at [address] [phone] Myla Golden MSW documented as of this encounter Visit Diagnoses Not on filedocumented in this encounter Care Teams Golf Course Keeper Relationship Specialty Start Date End Date None None PCP - General 09/09/24 documented as of this encounter
--- OUTSIDE RECORDS SUMMARY | 2025-03-16 11:17 | XMS_ITS | Encounter Summary ---
[place] [address] Care Team Providers Care Sap Gatherer Name Role Phone None Primary Care Provider Unavailabl e Reason for Visit * Reason Onset Date Comments Other 02/21/2025 Encounter Details Date Type Department Care Team (Late st Contact Info) Description 02/21/2025 [place] [address] Ramesh Keller MD [facility] [place] [address] Other Social History Tobacco Use Types Packs/Day [...] - 02/21/2025 2:16 PM EDT Copied from [facility] #[id number]. Topic: Specialty Dept CRMs - Triage >> [...] AM EDT Office Visit ALS Center at [address] [phone] Morteza Winchester MD [facility] [place] [address] 2025 8:30 AM EDT Notes Only ALS Center at [address] [phone] Myla Golden, LACE MENDER documented as of this encounter Visit Diagnoses Not on filedocumented in this encounter Care Teams Sap Gatherer Relationship Specialty Start Date End Date None None PCP - General 09/09/24 documented as of this encounter
== END 2025-03-16 09:39 | disposition home or self-care (01) ==
LOC: HO.RESP 09:38
PROVIDERS: PCP Internal Medicine; Visit Provider Nurse Practitioner
DX: G12.21 Amyotrophic lateral sclerosis (principal)
CPT/HCPCS: 94010; 94727; 94729

== ENCOUNTER → 2025-03-16 09:43 | Outpatient (BNV) | payer MEDICARE, OTHER, SELFPAY | PROVIDERS: PCP Internal Medicine; Visit Provider Internal Medicine Pulmonary Disease | DX: G12.21 Amyotrophic lateral sclerosis (principal) | CPT/HCPCS: 94060; 94727; 94729 ==

== ENCOUNTER 2025-05-25 08:10 | Outpatient (AMB) | payer MEDICARE, OTHER, SELFPAY ==
--- OUTSIDE RECORDS SUMMARY | 2025-05-25 08:20 | XMS_ITS | Encounter Summary ---
Author Organization [facility] Address [facility] [place] [address] Care Team Providers Care Nurse Manager Name Role Phone None Primary Care Provider Unavailabl e Reason for Visit * Reason Onset Date Comments Foot Problem 05/17/2025 Encounter Details Date Type Department Care Team (Late st Contact Info) Description 05/17/2025 Nurse Triage ALS Center at [address] [phone] Ramesh Keller MD [facility] [place] [place] [address] Foot Problem Social History Tobacco Use Types Packs/Day Years [...] Care Team (Late st Contact Info) Description 08/02/2025 8:30 AM EST Office Visit ALS Center at [address] [phone] Ramesh Keller MD [facility] [place] [address] 08/02/2025 9:00 AM EST Notes Only ALS Center at [address] [address] Myla Golden, AIRLINE OPERATIONS AGENT 08/02/2025 7:30 PM EST Procedure visit Sleep Center at [address] [address] documented as of this encounter Visit Diagnoses Diagnosis ALS (amyotrophic lateral sclerosis) Amyotrophic lateral sclerosis documented in this encounter Care Teams Nurse Manager Relationship Specialty Start Date End Date None None PCP - General 09/09/24 documented as of this encounter
--- OUTSIDE RECORDS SUMMARY | 2025-05-25 08:20 | XMS_ITS | Clinical Summary ---
Author Organization [facility] [place] [address] Care Team Providers Care Circular Clerk Name Role Phone None Primary Care [...] Units by mouth Daily @ 0600. Active vitamin K2 100 mcg capsule Take 100 mcg by mouth. Active UNABLE TO FIND Med Name cbd gkummies 25 mg Active Active Problems Patient Care Coordination No te Formatting of this note migh t be different from the original. Neurology triage to [facility] Neurology General Nurse to reach ALS RN Problem Noted Date Diagnosed Date ALS (amyotrophic lateral sclerosis) 09/28/2024 Hypertriglyceridemia 05/16/2024 Seborrheic keratosis 02/10/2013 Healthcare maintenance 11/27/2011 Overview (11/27/2011): Mammogram 03/12/11 normal Dexa scan 03/07/10 T -1.8 osteopenia Pap 11/25/10 neg HPV, normal Pap Colonoscopy 11/27/09 normal due in 5 yrs Immunization History Administered Date(s) Administered H1n1 06/07/2009 Influenza Whole 04/13/2008 DWAYNE exposure in utero 11/25/2010 Overview (03/21/2012): Provider: ROSY WILEY Pt. Name: VEE SANTA Acc #: [id number] Pt. Col Date: 11/27/2009 /Sex: 1950,(59 years),Female Rec Date: 11/27/2009 LOC: [place] MOLECULAR GENETIC STUDIES ---REPORT OF DNA ANALYSIS--- THIRD [employer] INVADER HPV ASR POSITIVE for high-risk [...] Encounters Date Type Department Care Team Description 05/17/2025 Nurse Triage ALS Center at [address] [phone] Ramesh Keller MD Foot Problem 05/12/2025 [place] [address] Ramesh Keller MD Amyotrophic Lateral Sclerosis 05/08/2025 Notes [place] [address] Ita Blanco 04/27/2025 2:00 PM EST Notes Only Neurology at [address] [address] Myla Golden, CONTACT ACID PLANT OPERATOR HELPER 2025 9:00 AM EDT Office Visit Sleep Center at [address] [address] Bravo Villa III, MD Neuromuscular respiratory weakness (Primary Dx); ALS (amyotrophic lateral sclerosis); VÍCTOR (obstructive sleep apnea) 2025 9:00 AM EDT Office Visit ALS Center at [address] [phone] Chelsea Galaviz, OT ALS (amyotrophic lateral sclerosis); Spasticity; Motor neuron disease; Amyotrophic lateral sclerosis (ALS) 2025 9:00 AM EDT Office Visit ALS Center at [address] [address] Jillian Hodge, PT ALS (amyotrophic lateral sclerosis); Motor neuron disease; Amyotrophic lateral sclerosis (ALS) 2025 9:00 AM EDT Office Visit ALS Center at [address] [address] Bella Astorga, FIRE ENGINE OPERATOR Amyotrophic lateral sclerosis 2025 8:30 AM EDT Notes Only ALS Center at [address] [address] Myla Golden, CONTACT ACID PLANT OPERATOR HELPER 2025 8:30 AM EDT Office Visit ALS Center at [address] [address] Morteza Winchester MD Amyotrophic lateral sclerosis (ALS) 2025 Notes Only ALS Center at [address] [address] Myla Golden, CONTACT ACID PLANT OPERATOR HELPER 2025 Plan of Care Documentation ALS Center at [address] [address] 2025 Plan of Care Documentation ALS Center at [address] [address] 03/28/2025 Orders [place] [address] Toya Singer, RN 03/28/2025 [place] [address] Cee Miguel 03/28/2025 Travel 03/23/2025 [place] [address] Myla Golden, CONTACT ACID PLANT OPERATOR HELPER 03/22/2025 Travel 03/14/2025 [place] [address] Ramesh Keller MD Referral 03/02/2025 Orders Only Sleep Center at [address] [phone] Lynnette Russell MD VÍCTOR (obstructive sleep apnea) (Primary Dx) 02/28/2025 Telephone Sleep Center at [address] [address] Bravo Villa III, MD Triage 11/30/2024 Plan of Care Documentation ALS Center at [address] [address] from Last 3 Months Immunizations Immunization Administration Dates Next Due Influenza (Novel [id number]) Injectable 06/07/2009 Influenza Trivalent, Preservative Free 2 [...] AM EST Office Visit ALS Center at [address] [phone] Ramesh Keller MD [facility] [place] [address] 08/02/2025 9:00 AM EST Notes Only ALS Center at [address] [phone] Myla Golden, CONTACT ACID PLANT OPERATOR HELPER 08/02/2025 7:30 PM EST Procedure visit Sleep Center at [address] [phone] Health Maintenance Due Date Last Done Comments CT Colonography 1950 FIT DNA 1950 FIT 1950 Sigmoidoscopy (10 year) with FIT yearly 1950 Sigmoidoscopy 1950 Hepatitis C Screening 1969 Breast Cancer Share Decision Needed 1991 Pneumoccocal Vaccine: 50+ (1 of 1 - PCV) 2001 Zoster vaccine (1 of 2) 2001 PAP Smear 12/10/2013 12/10/2012, 0612/2011, 11/25/2010 Breast Cancer screening 03/10/2014 03/10/2012, 03/12 Colonoscopy 02/19/2015 02/19/2010 (See prior EHR) Colorectal Cancer Screening 02/19/2015 Tetanus/Diphtheria/Pertussis Vaccines (2 - Td or Tdap) 12/10/2022 12/10/2012 Covid-19 Vaccine (2 - 2024-2 6 season) 2025 03/18/2021 Influenza (Flu) vaccine (1 o f 1 - Influenza standard series) 02/20/2025 04/29/2012, 06/07/2009, 04/13/2008 Bone Density Scan 03/02/2027 03/02/2012 HPV test Discontinued 12/10/2012, 12/2011, 11/25/2010 Procedures Procedure Name Priority Date/Time Associated Diagnosis Comments USER INTERFACE ENGINEER MOLECULAR GENETICS REPORT Routine 12/10/2012 9:47 AM EDT USER INTERFACE ENGINEER CYTOLOGY FINAL REPORT Routine 12/10/2012 9:47 AM EDT MAMMO SCREENING CAD BILATERAL Routine 03/10/2012 1:50 PM EDT DXA AXIAL SKELETON (FOREARM, HIPS, PELVIS AND/OR SPINE) (STANDARD) Routine 03/02/2012 3:23 PM EDT Disorder of bone and cartilage, unspecified from Last 3 Months or Most Recently Relevant to Health Maintenance Results * USER INTERFACE ENGINEER Molecular Genetics Report (12/10/2012 9:47 AM EDT) USER INTERFACE ENGINEER Molecular Genetics Report [facility] Provider: ROSY WILEY Pt. Name: VEE SANTA Acc #: [id number] Pt. Col Date: 12/10/2012 /Sex: 1950,(62 years),Female [...] - Cytology Liquid Based Prep Reviewed by: ESTELLA ChungTaina Cooper ECL Endocervical /LBP B HPVDO Do HPV Testing Verified date: 12/16/12 [facility] Verified by: Lab Review, Molecular Genetics (Electronic Signature) [facility] 12/10/2012 9:47 AM EDT Rosy Wiley MD PATHOLOGY/CYTOLOGY ORDERA BLES Final Result [facility] * Trader Fixed Income Cytology Final Report (12/10/2012 9:47 AM EDT) Trader Fixed Income Cytology Final Report [facility] Provider: ROSY WILEY Pt. Name: VEE SANTA Acc #: [id number] Pt. Col Date: 12/10/2012 /Sex: 1950,(62 years),Female Rec Date: 12/10/2012 LOC: [place] CYTOPATHOLOGY: USER INTERFACE ENGINEER ---Adequacy--- Specimen submitted is satisfactory for evaluation. [...] 12/16/12 Verified by: LINDEN Jaramillo(ASCP), Meme Saavedra Polish Maker ---Comment--- Endocervical component not detected in an atrophic smear pattern. Please also see concurrent HPV test result. ---Clinical Information--- HPV Option: Concurrent HPV Preparation: Liquid Based Pap Specimen Source: Endocervical/LBP LMP: n/a Hormones?: No Hysterectomy?: No ?: No ?: No I.U.D.?: No Pelvic Radiation: No Prior USER INTERFACE ENGINEER Therapy?: No Hist Abnl Pap/Biopsy?: No Hist of HPV Vaccine?: No Hist of Smoking?: No Hist of DWAYNE exposure?: Yes Clinical Data, Significant Therapy and Clinical Impression: [facility] Provider: ROSY WILEY Pt. Name: VEE SANTA Antonina Acc #: [id number] Pt. Col Date: 12/10/2012 /Sex: 1950,(62 years),Female Rec Date: 12/10/2012 LOC: [facility] This Pap Test has been evaluated with the assistance of the ThinPrep Pap Test Imaging System. CYTOPATHOLOGY: USER INTERFACE ENGINEER Note: The Pap test is a screening test for cervical cancer with an inherent false-negative rate dependent upon several variables. For further information please contact the [facility]. Reference: Darius FREDERICK. Search Engine Optimizer of Pap Smear Results. In: Jimy BS, [...] BMD measurements and plots are available in EPlanGrid under the imaging tab . Paper copies will be sent to providers without E-Epidemic Sound access. If you have received this report without the data sheet and do not have access to E-Epidemic Sound, please contact Radiology Investigator Welfare at [phone] Thursday thru Thursday 8am-4pm. Procedure Note Magali [...] not haveaccess to E-DH, please contact Radiology Investigator Welfare at [phone] Thursdaythru Thursday 8am-4pm. Rosy Wiley MD IMG DEXA ORDERABLES Final Result from Last 3 Months or Most Recently Relevant to Health Maintenance Insurance MEDICARE [facility] Advance Directives Documents on File Type Date Recorded Patient Paperhanger Pipe Riley olivares Personal Paperhanger Pipe 10/05/2024 12:38 PM Bubba Horan (friend) Advance Directives and Living Will 10/04/2024 8:19 AM Personal Paperhanger Pipe 10/03/2024 4:15 PM Ramesh Santa (son) Personal Paperhanger Pipe 10/03/2024 4:14 PM Mac Shamar (granddaughter) Personal Paperhanger Pipe 10/03/2024 3:46 PM Lin Bruno ([email or web address]) Personal Paperhanger Pipe 10/03/2024 3:46 PM Storm Bruno (brother-in Law) Personal Paperhanger Pipe 10/03/2024 8:55 AM Sarai Santa (Daughter in law) Personal Paperhanger Pipe 10/03/2024 8:53 AM Mikel Miller (Brother in law) Personal Paperhanger Pipe 10/03/2024 8:53 AM Mariaa Bruno (granddaughter) Personal Paperhanger Pipe 10/03/2024 8:53 AM Ron Ibanez (Son-in-Law) Personal Paperhanger Pipe 10/03/2024 8:52 AM Kamryn Santa (Sister In Law) Personal Paperhanger Pipe 10/03/2024 8:52 AM Nevinariel Miller (sister) Personal Paperhanger Pipe 10/03/2024 8:52 AM Rakel Ibanez (daughter) Personal Paperhanger Pipe 10/03/2024 8:52 AM Jahaira Britt (Sister In Law) Personal Paperhanger Pipe 10/03/2024 8:52 AM Alexandria Funes (sister) Personal Paperhanger Pipe 10/03/2024 8:51 AM Eric Funes (brother) Personal Paperhanger Pipe 09/30/2024 12:08 PM Milagros Ibanez, granddaughter Personal Paperhanger Pipe 09/30/2024 11:58 AM Jay Santa, spouse Advance Directives and Living Will 07/22/2011 10:37 AM Care Teams Circular Clerk Relationship Specialty Start Date End Date None None PCP - General 09/09/24
--- OUTSIDE RECORDS SUMMARY | 2025-05-25 08:20 | XMS_ITS | Clinical Summary ---
Author Organization [facility] Address [address] [place] [id number] Phone Care Team Providers Care Technology Sales Specialist Name Role Phone Sarah Frazier MD Unavailable [phone] Andreina Singh MD Unavailable [phone] Jia Bolden MD Primary Care Provider [phone] Allergies Active Allergy Reactions Criticality Noted Date Comments Penicillins GI Upset 05/16/2024 Medications alendronate (FOSAMAX) 70 MG tablet Take 70 mg by mouth every 7 days. 4 Active therapeutic multivitamin tablet Take 1 tablet by mouth daily. Active cholecalciferol (VITAMIN D3) 25 MCG (1,000 unit) tablet Take 1,000 Units by mouth daily. Active omega 6-ipd-mec-fish oil 1,000 (120-180) mg Cap Take 1 capsule by mouth 2 (two) times a day. Active vitamin K2 100 mcg capsule Take 100 mcg by mouth daily with breakfast. Take with a meal. Active ascorbic acid, vitamin C, (VITAMIN C) 500 mg Chew Take 500 mg by mouth daily. Active melatonin 5 mg Tab Take by mouth nightly at bedtime. Active gabapentin (NEURONTIN) 100 MG capsule Take 100 mg by mouth 3 (three) times a day. 4 05/15/20 Discontinu ed(No longer taking) aspirin 81 mg chewable tablet Take 81 mg by mouth 3 (three) times a week. 05/15/20 Discontinu ed(No longer taking) Active Problems Problem Noted Date Diagnosed Date ALS (amyotrophic lateral sclerosis) 09/28/2024 Basal cell carcinoma 05/16/2024 Hypertriglyceridemia 05/16/2024 Premature menopause 05/16/2024 Age-related osteoporosis wit hout current pathological fracture 05/16/2024 Assessment & Plan (05/15/2025 5:09 PM EST): 75 y.o. woman with osteoporosis of spine on bone density in 2021. She had a traumatic vertebral compression fracture & underwent subsequent kyphoplasty in 2023. She has been on alendronate for almost 2 yrs. She is getting calcium & D in via diet/supplement. She has been dx with ALS & has had some falls but no fractures. Will continue current for now. Should she develop swallowing issues, may consider shifting to yearly zoledronic acid vs holding rx depending on how long she has been treated for at that time & her risk of falls. Assessment & Plan (05/16/2024 5:14 PM EST): [...] utero Melanoma Subclinical hypothyroidism Assessment & Plan (05/15/2025 5:08 PM EST): TSH normal early 2024, previously mildly elevated. Will repeat TFTs with upcoming labs. Assessment & Plan (05/16/2024 5:17 PM EST): [...] TSH > 10, then would advise rx. Encounters Date Type Department Care Team Description 05/15/2025 10:00 AM EST Office Visit [facility] [address] [place] [address] Sondra Ackerman MD Age-related osteoporosis without current pathological fracture (Primary Dx); Subclinical hypothyroidism 04/04/2025 10:00 AM EDT Office Visit [facility] [address] [place] [address] Jia Bolden MD Vaine, Samantha, OT ALS (amyotrophic lateral sclerosis) (Primary Dx) 03/20/2025 Transcribe Orders [facility] [address] [place] [address] Saskia Berger Encounter for rehabilitation (Primary Dx) from Last 3 Months Immunizations Immunization Administration Dates Next Due [id number] FORMULATION 06/07/2009 Hepatitis A, Adult 05/01/1997,11/06/1996 Hepatitis B Adult 08/20/1995,03/26/1995,02/16/19 95 INFLUENZA, SPLIT VIRUS, TRIV ALENT W/ PRESERVATIVE IM 04/29/2012,04/13/2008 IPV 05/27/1990 Influenza trivalent preserva tive free intradermal 2014,05/10/2013,04/29/2012 Influenza, whole 04/13/2008 Swiss Encephalitis SC 10/28/2004,10/17/2004,0 10/10/2004 MMRV 07/12/2013 Meningococcal MPSV4 09/17/2004 Novel [id number], Injectable 06/07/2009 Td (adult),2 Lf Tetanus Toxo id, PF, Adsorbed 08/01/2003,02/16/1995 Tdap 12/10/2012 Typhoid, ViCPs 09/21/2001 Typhoid,oral 09/12/2003,06/02/1995 Yellow Fever 09/17/2004 Family History Medical History Relation Comments Cancer Mother Thyroid disease Mother Relation Status Comments Mother Alive Social History Tobacco Use Types Packs/Day Years Used Date Smoking Tobacco: Never Smokeless Tobacco: Never Tobacco Cessation:Counseling Given: Not Answered Alcohol Use Standard Drinks/Week Comments Not Currently 0 (1 standard drink = 0.6 oz pur e alcohol) Education Answer Date Recorded Are you interested [...] Sign Reading Time Taken Comments Blood Pressure 112/68 05/15/2025 10:04 AM EST Pulse 65 05/15/2025 10:04 AM EST Temperature 36.1 C (97 F) 05/15/2025 10:04 AM EST Respiratory Rate 20 05/15/2025 10:04 AM EST Oxygen Saturation 98% 05/15/2025 10:04 AM EST Inhaled Oxygen Concentration - - Weight 56.5 kg (124 lb 9.6 oz) 05/15/2025 10:04 AM EST Height 153 cm (5' 0.24 ) 05/15/2025 10:04 AM EST Body Mass Index 24.14 05/15/2025 10:04 AM EST Plan of Treatment Upcoming Encounters Date Type Department Care Team (Late st Contact Info) Description 11/06/2025 10:20 AM EDT Telemedicine [facility] Endocrinology [address] [phone] Sondra Ackerman MD [address] [place] [phone] [email or web address] 05/07/2026 10:20 AM EST Telemedicine [facility] Endocr[facility]ology [address] [place] [phone] Sondra Ackerman MD [address] [place] [phone] [email or web address] Health Maintenance Due Date Last Done Comments LIPID PANEL 1951 DEPRESSION SCREENING 1963 HEPATITIS C SCREENING 1969 PNEUMOCOCCAL VACCINES (50+ years) (1 of 2 - PCV) 1970 MAMMOGRAM 1991 COLOGUARD 1996 COLONOSCOPY 1996 COLORECTAL CANCER SCREENING 1996 FIT TEST 1996 FOBT 1996 SIGMOIDOSCOPY 1996 VIRTUAL COLONOSCOPY 1996 ZOSTER VACCINES (1 of 2) 09/06/2013 OSTEOPOROSIS SCREENING INITIAL (ONE-TIME) 2016 Adult Td,Tdap Booster 12/10/2022 12/10/2012 , 08/01/2003, 02/16/1995 INFLUENZA VACCINE (#1) 2025 4, 05/10/2013, 04/29/2012, Additional history exists COVID-19 VACCINE ( - 2024-26 season) 2025 RSV VACCINE (1 - 1-dose 75+ series) 2026 HEPATITIS A VACCINES Aged Out 05/01/1997, 11/06/18 97 No longer eligible based on patient's age to complete this topic MENINGOCOCCAL VACCINES (ACWY) Aged Out 09/17/2004 No longer eligible based on patient's age to complete this topic SMOKING STATUS SCREENING (Once After 26 Yrs) Completed 05/15/2025 HIB VACCINES Aged Out No longer eligi ble based on patient's age to complete this topic MENINGOCOCCAL VACCINES (B) Aged Out N o longer eligible based on patient's age to complete this topic Medical Devices Not on file Insurance MEDICARE PART A & B [employer] MEDICARE SUPPLEMENT MEDICARE PART A & B [employer] MEDICARE SUPPLEMENT MEDICARE PART A & B [facility] MEDICARE SUPPLEMENT MEDICARE PART A & B [employer] MEDICARE SUPPLEMENT MEDICARE PART A & B [employer] MEDICARE SUPPLEMENT MEDICARE PART A & B [facility] MEDICARE SUPPLEMENT Care Teams Technology Sales Specialist Relationship Specialty Start Date End Date Jia Bolden MD [address] [place] [address] PCP - General Internal Medicine 10/09/23 Sarah Frazier MD [address] [facility] [address] [place] [address] Historical LMR Provider 04/08/17 Andreina Singh MD [address] [facility] [address] [place] [address] Historical LMR Provider 04/08/17 Additional Source Comments The information contained in this document represents components of the legal health record. It is not the complete legal health record.[facility]
[2025-05-25 08:22] VITALS: BP 124/66; PULSE 72; RESP 17; O2SAT 96; BMI 22.7
--- NOTE | 2025-05-25 08:22 | MHC.PC.OV ---
Vital Signs 05/25/25 08:22 Height 5 ft 1 in Weight 120 lb BMI 22.7 BP 124/66 Blood Pressure Location Lt brachial Position Sitting Respiration 17 Pulse 72 Pulse Source Pulse Oximeter Pulse Oximetry (%) 96 Oxygen Delivery Method Room Air Intake Visit Reasons: Leg pain and hot to the touch Intake Note: Pt is here today for a sick visit. Pt c/o L leg pain and hot to the touch area. Allergies Penicillins (PENICILLINS) Adverse Reaction (Mild, Verified 05/25/25 08:26) GI UPSET Medication List - Last Reconciled 05/25/25 by Jia Bolden MD alendronate (Fosamax) 70 mg PO QWEEK ascorbic acid (vitamin C) mg PO cholecalciferol (vitamin D3) 25 mcg PO DAILY magnesium 133 mg PO DAILY melatonin mg PO BEDTIME methylcellulose (laxative) (Citrucel) 500 mg PO BID multivitamin 1 tab PO DAILY omega 9-vig-vmy-fish oil 1,200 (144-216) mg (Fish Oil) 1 cap PO BID vitamin K2 40 mcg PO DAILY Tobacco use date assessed: 03/13/25 Fall risk assessment: 2 + Falls in past year Last assessed Fall Risk: 05/25/25 Dental Screening Dental Screen Date: 10/03/24 HPI Leg pain and hot to the touch HPI Details Pt c/o left LE distal feeling hot, itchy and burning like sensation worse at the end of a day for 1 week. Pt wears an left ankle brace because of left foot drop due to ALS. Patient denies any left lower extremity injury or swelling. [facility] Medical History ALS (amyotrophic lateral sclerosis) Melanoma Osteoporosis Breast mass Vitamin D deficiency Normal colonoscopy Hypothyroidism IFG (impaired fasting glucose) Hypertriglyceridemia Basal cell carcinoma Surgical History Hx of kyphoplasty Hx of excision of mass History of right oophorectomy Hx of colonoscopy Hx of wisdom tooth extraction Family History Father Heart problem Dementia Ruptured appendix Mother Colon cancer Dementia Sister Ruptured appendix Aneurysm Brother Kidney stones Social History (Reviewed 05/25/25 @ 08:30 by JOSE GalanAquilino Housing: House Are you a primary ambulatory care coordinator to a significant other at home: No Do you presently have visiting nurse or other home services: No Alcohol intake: current Alcohol intake frequency: a few times a month Patient Tobacco Use Status: Former Tobacco user Tobacco use type: Cigarette e-Cigarette/Vaping Use: Never Used service: No Current occupational status: retired Current occupation: right hand dominant Cognitive needs: No Hearing needs: No Vision needs: Yes Questionnaire Thrive Questionnaire Date Thrive assessed: 09/30/24 I am a: Patient What is your living situation today?: I have a steady place to live Within the past 12 months, did the food you bought not last and you didn't have the money to get more?: Never true Within the past 12 months, did you worry whether your food would run out before you got money to buy more?: Never true Do you have trouble paying for medicines?: No Do you have trouble getting transportation to medical appointments?: No Do you have trouble paying your heating and electricity bill?: No Do you have trouble taking care of your child, family member or friend?: No Do you have trouble with day-to-day activities such as bathing, preparing meals, shopping, managing finances, etc.?: No Are you currently unemployed and looking for a job?: No Are you interested in more education?: No Please select the resources that you would like help with: None Currently or been in a relationship where the following occur: No concerns reported THRIVE Score: 0 MELLO-7 AMB Questionnaire MELLO-7 Date MELLO - 7 assessed: 10/03/24 Source: Developed by Drs. Storm Tavares, Alexandria Hays, Ady Nix and colleagues, with an educational mario alberto from [employer]. Review of Systems Const All systems reviewed & are unremarkable except as noted in HPI and below ENT Reports no additional complaints Card Reports no additional complaints Resp Reports no additional complaints GI Reports no additional complaints Physical exam (Primary Care) Vital Signs: Last Vital Signs Pulse 72 05/25/25 08:22 Resp 17 05/25/25 08:22 BP 124/66 05/25/25 08:22 Pulse Ox 96 05/25/25 08:22 Oxygen Delivery Method Room Air 05/25/25 08:22 BMI result Body Mass Index 22.7 Tobacco/Smoking Status: Tobacco use Status Tobacco use date assessed 03/13/25 05/25/25 08:28 Patient Tobacco Use Status Former Tobacco user 05/25/25 08:28 Tobacco use type Cigarette 05/25/25 08:28 e-Cigarette/Vaping Use Never Used 05/25/25 08:28 Thrive Assessment: Date of Thrive Assessment Date Thrive assessed 09/30/24 05/25/25 08:28 Currently or been in a relationship where the following occur: No concerns reported Const General: no acute distress HENMT Head: Yes normal to inspection Eyes General: appearance normal, both eyes and all related structures Resp Effort & Inspection: normal respiratory effort Auscultation: clear to auscultation bilaterally Cardio Rhythm: regular rhythm Heart sounds: S1 normal heart sound present and S2 normal heart sound present Extrem Other: Left lower extremity there is no erythema warmth focal tenderness of left foot. The pulses up 2+ pedal dorsalis and posterior tibialis intact, no LLE calf tenderness Coding Level of Care Code Est Pt Level 3 (40918) Diagnoses Leg pain, left M79.605 Assessment & Plan Assessment & Plan (1) Leg pain, left: Code(s): M79.605 - Pain in left leg Category: Medical Plan: Obtain venous Doppler to rule out DVT. Supportive care including using Zostrix cream discussed with the patient. If the symptoms persist gabapentin can be tried Orders: Orders US venous duplex LE LT Today M79.605 - Pain in left leg
== END 2025-05-25 13:31 | disposition home or self-care (01) ==
LOC: HO.HMCC 08:11
PROVIDERS: Visit Provider Internal Medicine
DX: M79.605 Pain in left leg (principal)

== ENCOUNTER 2025-05-25 09:27 | Outpatient (REF) | payer MEDICARE, OTHER, SELFPAY ==
--- NOTE | ~2025-05-25 | US_ITS ---
EXAMINATION: US TRIPLEX LOWER EXTREMITY, LEFT CLINICAL INFORMATION: Left lower extremity pain COMPARISON: None available. TECHNIQUE: Color-flow triplex imaging with spectral analysis and compression Doppler were performed on the left lower extremity. FINDINGS: Respiratory variation, normal compression and augmented flow are noted throughout the left lower extremity. The visualized common femoral vein, superficial femoral vein, profunda femoral vein, popliteal vein and midcalf peroneal and posterior tibial venous segments show no evidence of deep venous thrombosis. US/US venous duplex LE LT IMPRESSION: No evidence of deep venous thrombosis involving the left lower extremity. Electronically signed by: Ruel Young MD 05/25/2025 09:51 AM EST
== END 2025-05-25 09:28 | disposition home or self-care (01) ==
LOC: HO.HMGCX 09:27
PROVIDERS: Visit Provider Internal Medicine
DX: M79.605 Pain in left leg (principal)
CPT/HCPCS: 93971; 99212

== ENCOUNTER → 2025-05-25 09:30 | Outpatient (BNV) | payer MEDICARE, OTHER, SELFPAY | PROVIDERS: Visit Provider Radiology Diagnostic Radiology | DX: M79.662 Pain in left lower leg (principal) | CPT/HCPCS: 93971 ==

== ENCOUNTER 2025-05-31 09:13 | Outpatient (REF) | payer MEDICARE, OTHER, SELFPAY ==
--- NOTE | ~2025-05-31 | MM_ITS ---
EXAMINATION: MM SCREENING DIGITAL BREAST TOMOSYNTHESIS, BILATERAL CLINICAL INFORMATION: Screening. Asymptomatic. COMPARISON: Mammography: Comparison is made with available priors TECHNIQUE: Digital breast mammography with tomosynthesis is performed in both the craniocaudal and mediolateral oblique views along with computer-aided detection (CAD). FINDINGS: The breasts are heterogeneously dense, which may obscure small masses. There are no significant masses, abnormal calcifications, or other abnormalities. MM/MM tomosynthesis screening BI IMPRESSION: No mammographic evidence of malignancy. ASSESSMENT: BI-RADS Category 1: Negative RECOMMENDATION: Routine annual mammography screening. 1 year F/U This examination should not preclude the clinical evaluation of a suspicious palpable abnormality. This patient's information was entered into a reminder system with a target due date for their next mammogram. Electronically signed by: Laxmi Motta DO 06/01/2025 11:40 AM ALETHEA
== END 2025-05-31 09:14 | disposition home or self-care (01) ==
LOC: HO.MAMMO 09:13
PROVIDERS: PCP Internal Medicine; Visit Provider Internal Medicine
DX: Z12.31 Encounter for screening mammogram for malignant neoplasm of breast (principal)
CPT/HCPCS: 77063; 77067

== ENCOUNTER → 2025-05-31 09:30 | Outpatient (BNV) | payer MEDICARE, OTHER, SELFPAY | PROVIDERS: PCP Internal Medicine; Visit Provider Internal Medicine | DX: Z12.31 Encounter for screening mammogram for malignant neoplasm of breast (principal) | CPT/HCPCS: 77063; 77067 ==